=== PATIENT | male | born 1985 | race African-American/Black ===

== ENCOUNTER 2017-04-10 17:18 | Inpatient (IN) ==
[2017-04-10] MEDS ORDERED: methylPREDNISolone SOD SUC 125 MG/2 ML VIAL IV STA (17:49)
[2017-04-10] MEDS ORDERED: ALBUTEROL 2.5 MG/3 ML NEB RESP TX STA (17:49)
[2017-04-10] MEDS ORDERED: methylPREDNISolone SOD SUC 125 MG/2 ML VIAL ONE (17:52)
--- NOTE | 2017-04-10 17:56 | EKG Report ---
Stationary ECG Study [facility] ER Test Date: 04/10/2017 5:37:20 PM Pat Name: JESUSITA JIMENEZ Department: Room: Gender: M Classification Inspector: : [id number] Requested by: Gavin Lewis Order Number: [id number] Pardeep MD: HADLEY BERGMAN Intervals [place] Rate: 100 P: 69 TN: 157 QRS: 80 QRSD: 89 T: 25 QT: 330 QTc: 387 Interpretive Statements SINUS TACHYCARDIA LOW QRS VOLTAGE IN PRECORDIAL LEADS ABNORMAL RHYTHM ECG Electronically Signed On 04-11-17 05:29:39 CDT by HADLEY BERGMAN [email or web address]
[2017-04-10 18:08] LABS: Basophils % 0.3 % (0.0-0.8); Eosinophils # 0.1 10*3/uL (0.0-0.87); Eosinophils % 1.5 % (0.00-10.9); Hematocrit 39.4 VOL% (42.0-52.0); Hemoglobin 12.7 GM/DL (14.0-18.0); Immature Granulocytes % 0.3 %; Immature Granulocytes Absolute 0.02 #; Lymphocytes # 1.8 10*3/uL (1.4-4.0); Lymphocytes % 21.9 % (21.2-54.2); Mean Corpuscular HGB Conc 32.2 GM/DL (32-36); Mean Corpuscular Hemoglobin 27 PG (27-34); Mean Corpuscular Volume 82.3 FL (87-102); Mean Platelet Volume 11.1 FL (9.6-12.0); Monocytes # 0.5 10*3/uL (0.11-0.8); Monocytes % 6.5 % (1.7-12.7); Neutrophils # 5.6 10*3/uL (1.4-7.4); Neutrophils % 69.5 % (38.7-73.9); Platelet Count 175 T/CUMM (130-400); Red Blood Count 4.79 MC/CUMM (3.8-5.5); Red Cell Distribution Width 16.6 % (9.3-17.3)
--- NOTE | 2017-04-10 18:19 | XRay Report ---
XR chest 2V Indication: Shortness of breath. Comparison: Chest x-ray 04/29/2016 Technique: PA and lateral chest x-ray was performed. Findings: The heart size appears within normal limits. Pulmonary vasculature demonstrates no specific abnormality. Hilar structures demonstrate fairly symmetric appearance. The lungs appear clear. Beam attenuation is present within the lower chest secondary to soft tissues of the chest wall. Bones and soft tissues demonstrate no evidence of acute pathology. Impression: 1. No active cardiopulmonary disease. 04/10/2017 6:15 PM PROCEDURE INTERPRETED AT [facility] DEPARTMENT OF RADIOLOGY Final Report Signed by: Dr. Donte Gonzalez
--- NOTE | 2017-04-10 19:52 | Emergency Department Note ---
Jerald Lopez Manpreet, am scribing for, and in the presence of, Tom Michelle MD 17:51. Miguel Angel Lopez Doug C, MD, personally performed the services described in this documentation, ascribed by Nikko Marques in my presence, and it is both accurate and complete [id number] . Arrival - Arrival Chief Complaint: Shortness of Breath Stated Complaint: having hard time breathing ED Nursing Triage Note: PATIENT TO TRIAGE WITH C/O SHORTNESS OF BREATH. PATIENT STATES THAT HE HAS BEEN THIS WAY FOR 4 DAYS. PATIENT STATES HE HAS HAD SOME CHEST PAIN. HE STATES THAT CHEST PAIN IS WORSE WHEN HE BREATHS. PATIENT DOES HAVE SOME WHEEZING AT TIME OF TRIAGE. Mode of Arrival: Ambulatory Limitations: No Limitations Source: Patient - History of Present Illness HPI Narrative: Patient is 31-year-old black male presents emergency room complaining of increased shortness of breath and wheezing for the last 4 days. Patient states has not had any fever or chills associated with this. Patient states he has had a productive cough of some creamy colored sputum. Patient states is also having some pleuritic chest pain with this. He denies any associated nausea, vomiting or diaphoresis. Patient states the only thing he has for his asthma is an albuterol inhaler. Patient does have morbid obesity and tells me he has been using his BiPAP faithfully. He denies any swelling of his lower extremities. Onset (ago): day(s) (04/08/17) Consistency: constant Severity: moderate Severity scale (1-10): 4 Allergies/Adverse Reactions: Allergies Allergy/AdvReac Type Severity Reaction Status Date / Time Iodinated Contrast Media - Allergy HIVES Verified 04/10/17 17:24 Oral and [Iodinated Contrast Media - IV Dye] Home Medications: Home Medications Medication Instructions Recorded Confirmed Type Albuterol Inhaler [Proventil 2 puff INH Q4H PRN 05/13/15 04/10/17 History Inhaler] Review of System - Review of System 12 point system: reviewed and no additional remarkable complaints except as stated - Review of System Constitutional: Absent: chills, diaphoresis, fever Respiratory: Present: cough (Productive cough with solorio mucous ), respiratory distress, wheezing Cardiovascular: Present: chest pain (Radiating CP to back). Absent: dyspnea on exertion Gastrointestinal: Absent: abdominal pain, nausea, vomiting, diarrhea Musculoskeletal: Present: back pain. Absent: arm pain, leg pain, neck pain Neurological: Absent: headache, weakness Medical,Surgical,& Family Hx - Medical History Cardio: No history of: CHF, Hypertension Endocrine: No history of: Diabetes Mellitus (IDDM), Diabetes Mellitus (NIDDM) Rheumatology: History of;: Gout Respiratory: History of: Asthma, Obstructive Sleep Apnea Renal: No history of: Renal Failure, Renal Problems Gastrointestinal: History of: Bowel Obstruction (History of small bowel obstruction requiring surgical relief ) No history of: Gastrointestinal Bleed, Liver Problems, GI Problems Other: History of: Skin Problems (Abscesses of the posterior neck), Miscellaneous Medical Problems (Known ventral incisional hernia since 2014;pt did not keep follow up appts) - Surgical History Abdominal Surgeries: Surgical HX of: Abdominal Surgery (Repair of small bowel obstruction about 4 years ago), Hernia Repair (2012,2015) - Family History Family History: Reports;: Family Diabetes - Social History Smoking Status: Never smoker Frequency of Alcohol Use: None Type of Drug Use: None Exam Vital Signs: Vital Signs Temperature 98.3 F 04/10/17 17:43 Pulse Rate 101 H 04/10/17 18:50 Respiratory Rate 20 04/10/17 18:50 Blood Pressure 185/101 04/10/17 18:50 O2 Sat by Pulse Oximetry 100 04/10/17 18:50 - General General appearance: alert, in no apparent distress, obese - Head Head exam: Present: atraumatic, normocephalic, normal inspection - Eye Eye exam: Present: normal appearance, PERRL, EOMI - ENT ENT exam: Present: normal exam, normal oropharynx, mucous membranes moist, TM's normal bilaterally - Neck Neck exam: Present: normal inspection, full ROM, trachea midline. Absent: tenderness, thyromegaly - Chest Chest inspection: Present: normal inspection, symmetric chest wall rise. Absent : tenderness - Respiratory Respiratory exam: Present: wheezes (Bilat expiratory wheezes). Absent: normal lung sounds bilaterally, accessory muscle use, respiratory distress - Cardiovascular Cardiovascular exam: Present: regular rate, normal rhythm, normal heart sounds. Absent: murmur, rubs, gallop - Abdominal Exam Abdominal exam: Present: soft, normal bowel sounds. Absent: distention, tenderness, guarding, diminished bowel sounds - Extremities Exam Extremities exam: Present: normal inspection, full ROM. Absent: tenderness, calf tenderness - Back Exam Back exam: Present: normal inspection, full ROM. Absent: tenderness - Neurological Exam Neurological exam: Present: alert, oriented X3, CN II-XII intact, reflexes normal. Absent: motor sensory deficit - Psychiatric Psychiatric exam: Present: normal affect, normal mood - Skin Skin exam: Present: warm, dry, intact, normal color. Absent: pallor Course Course Narrative: Patient with continued expiratory wheeze after treatment rendered in the emergency room. It was felt patient had status asthmaticus and required hospitalization. I discussed his clinical presentation, radiographic findings and laboratory findings as well as his clinical response to treatment with Dr. Boris Alejandra. Patient will be evaluated by Dr. Rudy Briscoe for possible admission. Results - Labs CBC & BMP: 04/10/17 17:58 Lab Results: I have reviewed the patients labs Labs: Laboratory Tests 04/10/17 17:58 WBC 8.0 RBC 4.79 Hgb 12.7 L Hct 39.4 L MCV 82.3 L MCH 27 MCHC 32.2 RDW 16.6 Plt Count 175 MPV 11.1 Neut % (Auto) 69.5 Lymph % (Auto) 21.9 [place] % (Auto) 6.5 Eos % (Auto) 1.5 Baso % (Auto) 0.3 Neut # (Auto) 5.6 Lymph # (Auto) 1.8 [place] # (Auto) 0.5 Eos # (Auto) 0.1 Baso # (Auto) 0.0 Immature Gran % 0.3 Nucleated RBC % 0.0 Immature Gran # 0.02 Nucleated RBCs # 0.00 Immature Plt Fraction 0.0 Laboratory Tests 04/10/17 17:58 B-Natriuretic Peptide 22 - EKG EKG results: interpreted by ERMD, no acute changes EKG shows: tachycardia (Sinus tachycardia 100 bpm) - Diagnostic Findings Procedure: Chest x-ray: report reviewed by me (1. No active cardiopulmonary disease.) Disposition Clinical Impression: Status asthmaticus Case discussed with: patient, patient's family Disposition: Still a Patient Condition: Stable Time of Disposition: 19:52
[2017-04-10] MEDS ORDERED: ONDANSETRON 4 MG/2 ML VIAL IV PRN (19:59)
[2017-04-10] MEDS ORDERED: ACETAMINOPHEN 325 MG TABLET PO PRN (19:59)
[2017-04-10] MEDS: DOCUSATE SODIUM 100 MG CAPSULE PO SCH (22:25)
[2017-04-10] MEDS: ENOXAPARIN 40 MG/0.4 ML SYRINGE SUBCUT SCH (22:30)
[2017-04-10] MEDS: cefTRIAXone 1,000 MG in SODIUM CHLORIDE 0.9% 100 ML IV SCH (22:31)
[2017-04-10] MEDS: SODIUM CHLORIDE 0.45% 1,000 ML IV SCH (22:31)
[2017-04-10] MEDS: ALBUTEROL 2.5 MG/3 ML NEB RESP TX SCH (23:52)
[2017-04-11] MEDS: methylPREDNISolone SOD SUC 40 MG/1 ML VIAL IV SCH ×3 (02:06→20:13)
[2017-04-11] MEDS: ALBUTEROL 2.5 MG/3 ML NEB RESP TX SCH ×4 (03:12→15:35)
[2017-04-11] MEDS: AZITHROMYCIN 250 MG TABLET PO SCH (10:17)
[2017-04-11] MEDS: PANTOPRAZOLE 40 MG TABLET PO SCH (10:17)
[2017-04-11] MEDS: DOCUSATE SODIUM 100 MG CAPSULE PO SCH ×2 (10:18→22:16)
--- NOTE | 2017-04-11 15:43 | Internal Med History&Physical ---
Assessment and Plan (1) Asthma exacerbation Status: Acute Current Visit: Yes (2) Obstructive sleep apnea Status: Chronic Current Visit: Yes (3) Hypoventilation associated with obesity syndrome Status: Chronic Current Visit: Yes (4) Morbid obesity Status: Chronic Current Visit: Yes History of Present Illness Chief complaint: acute shortness of breath History of present illness: Mr. Clari Rodriguez is a 31 year old male with history of asthma, hypoventilation syndrome, morbid obesity, obstructive sleep apnea on BiPAP, ventral hernia with surgical repair, who presented to ER with exertional shortness of breath, wheezes and chest pain. He was admitted with asthma exacerbation. Have ordered ECHO. He will need his BiPAP at night while here in hospital. Ordering breathing treatments and antibiotic coverage. Had discussed necessary weight loss in clinic, and he joined the Weight Management program under Dr. Ignacio, but he gained back the 20-30 pounds that he lost. Will have brine supervisor here to see him for another weight loss plan that he may can follow at home. He is close to being bed bound with his extreme obesity. Will attempt to have him see psychiatrist outpatient for further evaluation of morbid obesity. Home Medications Medication Instructions Recorded Confirmed Type Albuterol Inhaler [Proventil 2 puff INH Q4H PRN 05/13/15 04/11/17 History Inhaler] Allergies Allergy/AdvReac Type Severity Reaction Status Date / Time Iodinated Contrast Media - Allergy HIVES Verified 04/11/17 04:05 Oral and [Iodinated Contrast Media - IV Dye] Medical,Surgical,& Family Hx - Medical History Cardio: History of: Hypertension No history of: CHF Endocrine: No history of: Diabetes Mellitus (IDDM), Diabetes Mellitus (NIDDM) Rheumatology: History of;: Gout Respiratory: History of: Asthma, Obstructive Sleep Apnea Renal: No history of: Renal Failure, Renal Problems Gastrointestinal: History of: Bowel Obstruction (History of small bowel obstruction requiring surgical relief ) No history of: Gastrointestinal Bleed, Liver Problems, GI Problems Other: History of: Skin Problems (Abscesses of the posterior neck), Miscellaneous Medical Problems (Known ventral incisional hernia since 2014; pt did not keep follow up appts) - Surgical History HEENT Surgeries: Surgical HX of: Tonsilectomy & Adenoidectomy Abdominal Surgeries: Surgical HX of: Abdominal Surgery (Repair of small bowel obstruction about 4 years ago and last year), Hernia Repair (2012, 2016) - Family History Family History: Reports;: Family Diabetes (mother), Family Hypertension (father) Denies;: Family Anesthesia Reaction, Family Cancer, Family Heart Disease, Family Hematology, Family Psychiatric Problems, Family Stroke - Social History Smoking Status: Never smoker Frequency of Alcohol Use: None Type of Drug Use: None Marital Status: Single Lives With:: Parent - Constitutional Constitutional: Present: fatigue, lethargy - Cardiovascular Cardiovascular: Present: chest pain with activity, dyspnea on exertion - Respiratory Respiratory: Present: cough, dyspnea on exertion, wheezing Exam - Constitutional Vitals: Period Temp Pulse Resp BP Sys/Mendez Pulse Ox Last 24 Hr 96.1 F-98.3 F 84-111 18-24 130-185/64-111 92-100 General appearance: no acute distress - Head Head exam: Present: normocephalic - Eye Eye exam: Present: EOMI - Respiratory Respiratory exam: Present: clear to auscultation bilaterally - Cardiovascular Cardiovascular exam: Present: regular rate and rhythm - GI/Abdominal GI/Abdominal exam: Present: normal bowel sounds, soft. Absent: tenderness - Extremities Exam Extremities exam: Absent: edema - Neurological Exam Neurological exam: Present: alert, oriented X3 - Psychiatric Psychiatric exam: Present: normal affect, normal mood - Skin Skin exam: Present: warm, dry Results - Labs CBC & BMP: 04/10/17 17:58 04/11/17 16:25 - EKG EKG shows: sinus rhythm - Diagnostic Findings Procedure: Chest x-ray: report reviewed by me, image reviewed by me
[2017-04-11] MEDS ORDERED: ALBUTEROL 2.5 MG/3 ML NEB RESP TX PRN (15:54)
[2017-04-11 17:21] LABS: Alanine Aminotransferase 41 U/L (16-61); Albumin 2.8 G/DL (3.4-5.0); Alkaline Phosphatase 111 U/L (45-117); Aspartate Amino Transferase 20 U/L (0-37); Blood Urea Nitrogen 12 MG/DL (7-18); Calcium 8.8 MG/DL (8.5-10.1); Glucose 143 MG/DL (74-106); Magnesium 2.5 MG/DL (1.8-2.4); Osmolality,Calculated 282.3 MOS/KG (273-304); Potassium 4.4 MMOL/L (3.5-5.1); Sodium 141 MMOL/L (136-145); Total Protein 7.4 G/DL (6.4-8.3)
[2017-04-11 17:22] LABS: Troponin I Only 0.057 NG/ML (0.00-0.045)
[2017-04-11] MEDS: ALBUTEROL/IPRATROPIUM 3 ML NEB RESP TX SCH ×2 (18:58→23:56)
[2017-04-11] MEDS: cefTRIAXone 1,000 MG in SODIUM CHLORIDE 0.9% 100 ML IV SCH (22:16)
[2017-04-11] MEDS: ENOXAPARIN 40 MG/0.4 ML SYRINGE SUBCUT SCH (22:19)
[2017-04-12] MEDS: SODIUM CHLORIDE 0.45% 1,000 ML IV SCH ×3 (01:40→14:54)
[2017-04-12] MEDS: methylPREDNISolone SOD SUC 40 MG/1 ML VIAL IV SCH ×3 (01:40→19:20)
[2017-04-12] MEDS: ALBUTEROL/IPRATROPIUM 3 ML NEB RESP TX SCH ×3 (07:27→19:33)
[2017-04-12] MEDS: AZITHROMYCIN 250 MG TABLET PO SCH (09:39)
[2017-04-12] MEDS: DOCUSATE SODIUM 100 MG CAPSULE PO SCH ×2 (09:40→21:35)
[2017-04-12] MEDS: PANTOPRAZOLE 40 MG TABLET PO SCH (09:40)
--- NOTE | 2017-04-12 19:54 | Internal Med Progress Note ---
Assessment and Plan (1) Asthma exacerbation Status: Acute Current Visit: Yes (2) Obstructive sleep apnea Status: Chronic Current Visit: Yes (3) Hypoventilation associated with obesity syndrome Status: Chronic Current Visit: Yes (4) Morbid obesity Status: Chronic Current Visit: Yes Internal Medicine - PN: Subj Interval history: Mr. Clari Rodriguez is a 31 year old male with history of asthma, hypoventilation syndrome, morbid obesity, obstructive sleep apnea on BiPAP, ventral hernia with surgical repair, who presented to ER with exertional shortness of breath, wheezes and chest pain. He was admitted with asthma exacerbation. Have ordered ECHO. He will need his BiPAP at night while here in hospital. Ordering breathing treatments and antibiotic coverage. Had discussed necessary weight loss in clinic, and he joined the Weight Management program under Dr. Ignacio, but he gained back the 20-30 pounds that he lost. Will have bottom polisher here to see him for another weight loss plan that he may can follow at home. He is close to being bed bound with his extreme obesity. Will attempt to have him see psychiatrist outpatient for further evaluation of morbid obesity. Rake Operator saw him today about weight loss. Otherwise, he is feeling better with breathing treatments, and would like to go home tomorrow. Exam (Progress Note) - Constitutional Vitals: Period Temp Pulse Resp BP Sys/Mendez Pulse Ox Last 24 Hr 97.3 F-97.8 F 63-92 18-24 118-150/59-87 92-99 General appearance: no acute distress - Respiratory Respiratory exam: Present: wheezes (mild, scattered wheezes in upper left chest) - Cardiovascular Cardiovascular exam: Present: regular rate and rhythm - GI/Abdominal GI/Abdominal exam: Present: soft. Absent: tenderness - Extremities Exam Extremities exam: Absent: edema - Neurological Exam Neurological exam: Present: alert, oriented X3 - Psychiatric Psychiatric exam: Present: normal mood Results - Labs CBC & BMP: 04/10/17 17:58 04/11/17 16:25
--- NOTE | 2017-04-12 20:42 | ECHO Report ---
[facility] Exam Date: 04/12/2017 10:19 Referring Physician: Technologist: Tiffanie Wise RDCS Age: 31 Ht (in): 70 Wt (lb): 500 Gender: M Exam Location: [facility] [place] Echo Indications: Shortness of breath, Exertional SOB, Exertional asthma, ABBEY, Morbid (severe) obesity with alveolar hypoventilation BP: 124 / 63 HR: 68 Rhythm: Sinus Technical Quality: Fair IMPRESSIONS Normal LV systolic and diastolic function, ejection fraction 60%. Mild left ventricular hypertrophy. Mild tricuspid regurgitation. Moderate pulmonary hypertension with pulmonary artery pressure estimated at 61 mmHg. MEASUREMENTS (Male / Female) Normal Values 2D ECHO LV Diastolic Diameter PLAX 5.0 cm 4.2 - 5.9 / 3.9 - 5.3 cm LV Systolic Diameter PLAX 2.7 cm LV Fractional Shortening PLAX 45.9 % IVS Diastolic Thickness 1.2 cm 0.6 - 1.0 / 0.6 - 0.9 cm LVPW Diastolic Thickness 1.2 cm 0.6 - 1.0 / 0.6 - 0.9 cm RV Internal Dim ED PLAX 4.0 cm Aortic Root Diameter 2.7 cm LA Systolic Diameter LX 3.7 cm 3.0 - 4.0 / 2.7 - 3.8 cm DOPPLER TR Peak Velocity 358.0 cm/s TR Peak Gradient 51.3 mmHg FINDINGS Left Ventricle Normal left ventricular cavity size. Mild left ventricular hypertrophy. Left ventricular ejection fraction is estimated at 60 %. Right Ventricle The right ventricle is normal in size and function. Right Atrium The right atrium is normal in size. Left Atrium The left atrium is normal in size. Mitral Valve Morphologically normal mitral valve without significant stenosis or prolapse. There is no mitral regurgitation. Aortic Valve Morphologically normal aortic valve without significant sclerosis or stenosis. There is no aortic regurgitation. Tricuspid Valve Morphologically normal tricuspid valve. Mild tricuspid valve regurgitation. Tricuspid regurgitation velocities suggest a PAP of 61 mmHg. Pulmonic Valve Morphologically normal pulmonic valve without significant stenosis. There is no pulmonic regurgitation. Pericardium Normal pericardium without effusion. Aorta Normal ascending aorta dimension. Sherry Mcdonald MD (Electronically Signed) Final Date: 12 April 2017 20:41
[2017-04-12] MEDS: ENOXAPARIN 40 MG/0.4 ML SYRINGE SUBCUT SCH (21:34)
[2017-04-12] MEDS: cefTRIAXone 1,000 MG in SODIUM CHLORIDE 0.9% 100 ML IV SCH (21:35)
[2017-04-13] MEDS: ALBUTEROL/IPRATROPIUM 3 ML NEB RESP TX SCH ×3 (00:20→14:40)
[2017-04-13] MEDS: methylPREDNISolone SOD SUC 40 MG/1 ML VIAL IV SCH ×2 (02:29→10:57)
[2017-04-13] MEDS: SODIUM CHLORIDE 0.45% 1,000 ML IV SCH (05:16)
--- NOTE | 2017-04-13 07:22 | Discharge Summary ---
Hospital Course - Hospital Course Hospital Course: Mr. Clari Rodriguez is a 31 year old male with history of asthma, hypoventilation syndrome, morbid obesity, obstructive sleep apnea on BiPAP, ventral hernia with surgical repair, who presented to ER with exertional shortness of breath, wheezes and chest pain. He was admitted with asthma exacerbation. Have ordered ECHO and results pending. He used BiPAP at night while here in hospital. He received breathing treatments and antibiotic coverage. Had discussed necessary weight loss in clinic. Will have project crew worker here to see him for another weight loss plan that he may can follow at home. He is close to being bed bound with his extreme obesity. Will attempt to have him see psychiatrist outpatient for further evaluation of morbid obesity. He is feeling better and will be discharged today to go home. He will need inhalers at home. Diagnosis - Discharge Diagnosis (1) Asthma exacerbation Status: Acute (2) Obstructive sleep apnea Status: Chronic (3) Hypoventilation associated with obesity syndrome Status: Chronic (4) Morbid obesity Status: Chronic Discharge Plan - Discharge Data Disposition: Disch To Home/Self Care Condition at Discharge: Stable Discharge Diet: low fat, low cholesterol, other (weight loss plan 1800 calorie daily diet) Activity: increase activity as tolerated - Discharge Medications New Azithromycin 250 mg PO AC BREAKFAST #7 tablet Docusate Sodium Cap [Colace Cap] 100 mg PO BID capsule Fluticasone/Vilanterol [Breo Ellipta 200-25 Mcg INH] 1 puff INH DAILY #1 inhaler Continue Albuterol Inhaler [Proventil Inhaler] 2 puff INH Q4H PRN PRN Reason: Shortness Of Breath/Wheezing - Follow Up or Referral Follow Up: Kayla Latif DO [Primary Care Provider] - - Forms/Instructions Additional Discharge Instructions: Follow up with Dr. Savana Latif in clinic within 1-2 weeks. He is to follow weight loss plan as recommended by project crew worker. Exam - Constitutional Vitals: Period Temp Pulse Resp BP Sys/Mendez Pulse Ox Last 24 Hr 97.5 F-98 F 62-89 18-24 134-150/59-87 92-99 General appearance: no acute distress - Respiratory Respiratory exam: Present: wheezes (scattered diffuse anterior wheezes, left more so than right, improving) - Cardiovascular Cardiovascular exam: Present: regular rate and rhythm - GI/Abdominal GI/Abdominal exam: Present: soft. Absent: tenderness - Extremities Exam Extremities exam: Absent: edema - Neurological Exam Neurological exam: Present: alert, oriented X3 - Psychiatric Psychiatric exam: Present: normal mood - Skin Skin exam: Present: warm, dry Discharge Results - Imaging and Cardiology Procedure: Chest x-ray: image reviewed by me, report reviewed by me DS: Provider Date of admission: 04/10/17 19:59 Primary care physician: Kayla Latif DO Attending physician on admission: Kayla Latif DO Consults: 04/10/17 19:59 Consult to Case Mgmt/Social Srvs [CONS] Routine Reason for Case Mgmt/Social Srvs: Discharge Planning 04/10/17 21:31 Consult to Pastoral Services [CONS] Routine Comment: Pastoral Screen: Request Counselor At Law Visit Pastoral Screen Source of Request: Patient 04/11/17 16:27 Consult to Dietitian [CONS] Routine Reason for Dietitian: Diet Recommendations Consult Comment: PT NEEDS A DIET FOR HOME WITH STRICT REGULATIONS, 1800 [address]ORIE 04/12/17 05:53 Consult to Dietitian [CONS] Routine Reason for Dietitian: Diet Recommendations Consult Comment: weight loss plan [id number] Discharging clinician: Kayla Latif DO Expected date of discharge: 04/13/17
[2017-04-13] MEDS: AZITHROMYCIN 250 MG TABLET PO SCH (10:55)
[2017-04-13] MEDS: DOCUSATE SODIUM 100 MG CAPSULE PO SCH (10:56)
[2017-04-13] MEDS: PANTOPRAZOLE 40 MG TABLET PO SCH (10:56)
[2017-04-13 11:46] VITALS: BP 123/60
== END 2017-04-13 14:55 | disposition home or self-care (01) | DRG 202 ==
LOC: N.ED 17:18 → N.EDINP 19:59 → N.2E 20:56
PROVIDERS: ADMIT Internal Medicine; ATTEND Internal Medicine

== ENCOUNTER 2017-05-22 11:37 | Inpatient (IN) ==
[2017-05-22] MEDS ORDERED: SODIUM CHLORIDE 0.9% 1,000 ML IV STA (13:52)
[2017-05-22] MEDS ORDERED: KETOROLAC 30 MG/1 ML VIAL IV STA (13:52)
[2017-05-22] MEDS ORDERED: ONDANSETRON 4 MG/2 ML VIAL IV STA (13:52)
--- NOTE | 2017-05-22 13:57 | Emergency Department Note ---
Luis Lopez Brittany, am scribing for, and in the presence of, Vazquez Brown MD 13:43. Kevin Lopez Thomas, MD, personally performed the services described in this documentation, ascribed by Vicky Smith in my presence, and it is both accurate and complete [id number] . Arrival - Arrival Chief Complaint: Abdominal / Flank Pain Stated Complaint: stomach pain (mesh) ED Nursing Triage Note: HX OF SBO, PT WITH ONSET OF ABD PAIN 2 DAYS AGO, LAST BM THIS AM, -N/V Mode of Arrival: Ambulatory Limitations: No Limitations Source: Patient, RN Notes Reviewed - History of Present Illness HPI Narrative: Patient is a 32 y/o black male presenting to the ED with c/o diffuse abdominal pain which has been ongoing for the past two weeks, worsening in severity and becoming more constant in the past two days. Pain is worsened with walking and bending over. Patient describes the pain as sharp, beginning in the RUQ, radiating into the entire abdomen and back. He has had some fever and chills. Denies any edema, chest pain SOB, urinary frequency, urgency, or dysuria. Patient did begin having some N/V today and reports having some diarrhea constantly for 4 weeks. Patient reports a history of Small Ventral Hernia, SBO and eruption of the bowel, requiring surgical intervention and mesh placement. Patient has had 2 episodes in the past, 2012/2014. Denies history of Gastric Ulcers, Cholecystectomy, or Appendectomy. Patient has no other complaints. Onset (ago): day(s) (2) Consistency: constant Severity: severe Allergies/Adverse Reactions: Allergies Allergy/AdvReac Type Severity Reaction Status Date / Time Iodinated Contrast Media - Allergy HIVES Verified 05/22/17 12:17 Oral and [Iodinated Contrast Media - IV Dye] Home Medications: Home Medications Medication Instructions Recorded Confirmed Type Albuterol Inhaler [Proventil 2 puff INH Q4H PRN 05/13/15 04/11/17 History Inhaler] Azithromycin 250 mg PO AC BREAKFAST #7 tablet 04/13/17 Rx Docusate Sodium Cap [Colace Cap] 100 mg PO BID capsule 04/13/17 Rx Fluticasone/Vilanterol [Breo 1 puff INH DAILY #1 inhaler 04/13/17 Rx Ellipta 200-25 Mcg INH] Albuterol Inhaler [Proventil 2 puff INH Q4H PRN #1 inhaler 05/11/17 Rx Inhaler] amLODIPine [Norvasc] 10 mg PO DAILY #60 tablet 05/11/17 Rx predniSONE TAB [PredniSONE] 20 mg PO BID #20 tablet 05/11/17 Rx Review of System - Review of System 12 point system: reviewed and no additional remarkable complaints except as stated - Review of System Constitutional: Present: chills, fever Respiratory: Absent: respiratory distress Cardiovascular: Absent: chest pain Gastrointestinal: Present: abdominal pain, nausea, vomiting, diarrhea Genitourinary male: Absent: urgency, dysuria, frequency Medical,Surgical,& Family Hx - Medical History Cardio: History of: Hypertension No history of: CHF Endocrine: No history of: Diabetes Mellitus (IDDM), Diabetes Mellitus (NIDDM) Rheumatology: History of;: Gout Respiratory: History of: Asthma, Obstructive Sleep Apnea Renal: No history of: Renal Failure, Renal Problems Gastrointestinal: History of: Bowel Obstruction (History of small bowel obstruction requiring surgical relief ) No history of: Gastrointestinal Bleed, Liver Problems, GI Problems Other: History of: Skin Problems (Abscesses of the posterior neck), Miscellaneous Medical Problems (Known ventral incisional hernia since 2014; pt did not keep follow up appts) - Surgical History HEENT Surgeries: Surgical HX of: Tonsilectomy & Adenoidectomy Abdominal Surgeries: Surgical HX of: Abdominal Surgery (Repair of small bowel obstruction about 4 years ago and last year), Hernia Repair (2012, 2015) - Family History Family History: Reports;: Family Diabetes (mother), Family Hypertension (father) Denies;: Family Anesthesia Reaction, Family Cancer, Family Heart Disease, Family Psychiatric Problems, Family Stroke - Social History Smoking Status: Never smoker Exam Vital Signs: Vital Signs Temperature 98.3 F 05/22/17 12:11 Pulse Rate 101 H 05/22/17 16:30 Respiratory Rate 20 05/22/17 16:30 Blood Pressure 146/98 05/22/17 16:30 O2 Sat by Pulse Oximetry 96 05/22/17 16:30 - General General appearance: alert, in no apparent distress - Head Head exam: Present: atraumatic, normocephalic - Eye Eye exam: Present: EOMI. Absent: conjunctival injection, periorbital swelling, periorbital tenderness - ENT ENT exam: Present: mucous membranes moist - Neck Neck exam: Present: trachea midline - Chest Chest inspection: Present: symmetric chest wall rise - Respiratory Respiratory exam: Present: normal lung sounds bilaterally. Absent: respiratory distress - Cardiovascular Cardiovascular exam: Present: regular rate, normal rhythm, normal heart sounds - Abdominal Exam Abdominal exam: Present: soft, tenderness (Diffuse tenderness, more severe in the RUQ), guarding (Mild), hernia (Periumbilical defect consistent with small ventral hernia). Absent: distention, rebound - Extremities Exam Extremities exam: Present: normal capillary refill. Absent: pedal edema, calf tenderness - Neurological Exam Neurological exam: Present: alert, oriented X3. Absent: motor sensory deficit - Psychiatric Psychiatric exam: Present: normal affect, normal mood - Skin Skin exam: Present: warm, dry, normal color. Absent: rash Course - Reevaluation(s) Reevaluation #1: some better with pain meds Time: 16:30 - Consultations Consultation #1: Dr Pinto, will see in ED Time: 17:21 Results - Labs CBC & BMP: 05/22/17 13:22 05/22/17 13:22 Lab Results: I have reviewed the patients labs Labs: Laboratory Tests 05/22/17 13:22 WBC 8.8 RBC 5.60 H Hgb 14.6 Hct 46.6 MCV 83.2 L MCH 26 L MCHC 31.3 L RDW 17.8 H Plt Count 191 Lymph % (Auto) 18.2 L [place] # (Auto) 0.9 H Laboratory Tests 05/22/17 05/22/17 13:22 13:22 Sodium 137 Potassium 4.0 Chloride 100 Carbon Dioxide 32 BUN 14 Creatinine 0.90 Glucose 97 AST 69 H ALT 93 H Alkaline Phosphatase 133 H Total Protein 8.9 H Globulin 5.4 H Albumin/Globulin Ratio 0.6 L Urine Color Yellow Urine Appearance Slightly hazy Urine pH 5.0 Ur Specific [place] 1.025 Urine Protein Negative Urine Glucose (UA) Negative Urine Ketones Negative Urine Blood Negative Urine Nitrate Negative Urine Bilirubin Negative Urine Urobilinogen 4.0 H Urine Leukocytes Negative Urine RBC 1 Urine WBC 2 Ur Squamous Epith Cells Occasional Hyaline Casts 1 Urine Mucus Occasional - Diagnostic Findings Procedure: CT Abdomen and Pelvis: report reviewed by me ( Periumbilical hernia with incarcerated loop of small bowel and resulting high-grade partial small bowel obstruction.) Disposition Clinical Impression: Small bowel obstruction, Incarcerated umbilical hernia Case discussed with: patient, patient's family Disposition: Still a Patient Time of Disposition: 17:22 (Surgery to see and dispo)
[2017-05-22 13:59] LABS: Basophils % 0.1 % (0.0-0.8); Eosinophils # 0.1 10*3/uL (0.0-0.87); Eosinophils % 0.6 % (0.00-10.9); Hematocrit 46.6 VOL% (42.0-52.0); Hemoglobin 14.6 GM/DL (14.0-18.0); Immature Granulocytes % 0.2 %; Immature Granulocytes Absolute 0.02 #; Lymphocytes # 1.6 10*3/uL (1.4-4.0); Lymphocytes % 18.2 % (21.2-54.2); Mean Corpuscular HGB Conc 31.3 GM/DL (32-36); Mean Corpuscular Hemoglobin 26 PG (27-34); Mean Corpuscular Volume 83.2 FL (87-102); Mean Platelet Volume 11.7 FL (9.6-12.0); Monocytes # 0.9 10*3/uL (0.11-0.8); Monocytes % 9.7 % (1.7-12.7); Neutrophils # 6.3 10*3/uL (1.4-7.4); Neutrophils % 71.2 % (38.7-73.9); Platelet Count 191 T/CUMM (130-400); Red Cell Distribution Width 17.8 % (9.3-17.3); White Blood Count 8.8 T/CUMM (4-12)
[2017-05-22 14:13] LABS: Apearance,Urine Slightly Hazy (Clear); Bilirubin,Urine Negative (Negative); Blood, Urine Negative (Negative); Glucose,Urine (UA) Negative (Negative); Hyaline Casts,Urine 1 /LPF (0-3); Ketones,Urine Negative (Negative); Mucus,Urine Occasional /LPF (Occasional); Nitrite,Urine Negative (Negative); Protein,Urine Negative; RBC,Urine 1 /HPF (0-4); Squamous Epithelial Cell,Urine Occasional /HPF (0-10); Urine Color Yellow (Yellow); Urine Specific Gravity 1.025 (1.001-1.035); WBC,Urine 2 /HPF (0-6)
[2017-05-22] MEDS ORDERED: ONDANSETRON 4 MG/2 ML VIAL ONE (14:13)
[2017-05-22] MEDS ORDERED: KETOROLAC 30 MG/1 ML VIAL ONE (14:13)
[2017-05-22 14:15] LABS: Albumin 3.5 G/DL (3.4-5.0); Bilirubin,Total 0.5 MG/DL (0.2-1.0); Calcium 9.6 MG/DL (8.5-10.1); Osmolality,Calculated 273.8 MOS/KG (273-304); Total Protein 8.9 G/DL (6.4-8.3)
[2017-05-22] MEDS ORDERED: HYDROmorphone 2 MG/1 ML VIAL ONE ×2 (15:16→17:29)
[2017-05-22] MEDS: HYDROmorphone 2 MG/1 ML VIAL IV PRN ×2 (15:17→17:30)
--- NOTE | 2017-05-22 16:18 | CT Report ---
History: Diffuse abdominal pain Date: 05/22/2017 Study: CT abdomen and pelvis without contrast Comparison exam: October 04, 2016 Technique: Spiral CT sections were obtained from the lung bases to the pubic symphysis without contrast CT abdomen: The partially visualized lung bases are grossly clear. There is no pleural or pericardial effusion. There is disproportionate small bowel dilatation compatible with high-grade partial small bowel obstruction. There is incarcerated small bowel within a periumbilical hernia which is presumably the source of obstruction. There is no evidence of pneumoperitoneum. The colon is normal in caliber. The liver, spleen, pancreas, bile ducts, gallbladder, adrenal glands, and kidneys are grossly unremarkable in noncontrast CT appearance. There is no radiopaque renal or ureteral stone. There is no hydronephrosis. There is no aneurysm of the aorta where seen. There is no significant free fluid within the upper abdomen. CT pelvis: There is no pelvic mass or no significant abnormal pelvic fluid. There is no significant bony finding Impression: Periumbilical hernia with incarcerated loop of small bowel and resulting high-grade partial small bowel obstruction The CT exam was performed using one or more of the following dose reduction techniques: Automated exposure control, adjustment of the mA and/or kV according to patient size, or use of iterative reconstruction technique. PROCEDURE INTERPRETED AT [facility] DEPARTMENT OF RADIOLOGY Final Report Signed by: Dr. Sandhya Lala
--- NOTE | 2017-05-22 18:18 | General Surg History&Physical ---
Assessment and Plan - Time spent with patient Time spent with patient: Greater than 30 minutes (1) Incarcerated umbilical hernia Status: Acute Assessment and plan: Patient clearly had an incarcerated incisional hernia which is recurrent. I laid the patient flat and was able to reduce the hernia at the level of the umbilicus. Clearly feel the small bowel reduced back in the abdominal cavity. Patient states that he feels better. He will need repair of this. We discussed repair of this tomorrow. I would like to involve his medical doctors and he regularly sees Dr. Latif. He is also seeing Dr. Quiñonez from a pulmonary standpoint. He has had previous surgery and is a regular patient of Dr. Martin. Patient would like to see Dr. Siddiqui if possible but if he is not available tomorrow I told him that I would be happy to repair his hernia. They understand that this will be once again a high risk procedure because of the severe morbid obesity. I explained the high chance of recurrence and the risk of mesh complications or chronic pain or bowel injury and wound problems as well as cardiovascular and pulmonary problems perioperatively. He understands these risks and wishes to proceed Current Visit: Yes (2) Small bowel obstruction Status: Acute Assessment and plan: Small bowel obstruction should be relieved since I reduce the hernia. He has a normal white blood cell count and no evidence of acidosis or bowel compromise. Current Visit: Yes History of Present Illness Chief complaint: Abdominal pain History of present illness: Mr. Clari Rodriguez is a 32 year old male Who for 3-4 days has had mid abdominal pain just above his umbilicus. This was accompanied by nausea and vomiting. His pain is been moderate in severity and does not radiate. He has had a previous ventral hernia repair in this location by Dr. Siddiqui about a year ago using Stratus mesh. He was doing well until a few days ago. His pain is actually subsided somewhat. He had an abdominal CT scan showing a recurrence of his hernia at the level of the umbilicus with a loop of small bowel. Home Medications Medication Instructions Recorded Confirmed Type Albuterol Inhaler [Proventil 2 puff INH Q4H PRN 05/13/15 04/11/17 History Inhaler] Azithromycin 250 mg PO AC BREAKFAST #7 tablet 04/13/17 Rx Docusate Sodium Cap [Colace Cap] 100 mg PO BID capsule 08/02/17 Rx Fluticasone/Vilanterol [Breo 1 puff INH DAILY #1 inhaler 04/13/17 Rx Ellipta 200-25 Mcg INH] Albuterol Inhaler [Proventil 2 puff INH Q4H PRN #1 inhaler 05/11/17 Rx Inhaler] amLODIPine [Norvasc] 10 mg PO DAILY #60 tablet 05/11/17 Rx predniSONE TAB [PredniSONE] 20 mg PO BID #20 tablet 05/11/17 Rx Allergies Allergy/AdvReac Type Severity Reaction Status Date / Time Iodinated Contrast Media - Allergy HIVES Verified 05/22/17 12:17 Oral and [Iodinated Contrast Media - IV Dye] Medical,Surgical,& Family Hx - Medical History Cardio: History of: Hypertension No history of: CHF Endocrine: No history of: Diabetes Mellitus (IDDM), Diabetes Mellitus (NIDDM) Rheumatology: History of;: Gout Respiratory: History of: Asthma, Obstructive Sleep Apnea Renal: No history of: Renal Failure, Renal Problems Gastrointestinal: History of: Bowel Obstruction (History of small bowel obstruction requiring surgical relief ) No history of: Gastrointestinal Bleed, Liver Problems, GI Problems Other: History of: Skin Problems (Abscesses of the posterior neck), Miscellaneous Medical Problems (Known ventral incisional hernia since 2014; pt did not keep follow up appts) - Surgical History HEENT Surgeries: Surgical HX of: Tonsilectomy & Adenoidectomy Abdominal Surgeries: Surgical HX of: Abdominal Surgery (Repair of small bowel obstruction about 4 years ago and last year), Hernia Repair (2012, 2015) - Family History Family History: Reports;: Family Diabetes (mother), Family Hypertension (father) Denies;: Family Anesthesia Reaction, Family Cancer, Family Heart Disease, Family Psychiatric Problems, Family Stroke - Social History Smoking Status: Never smoker Exam - Constitutional Vitals: Period Temp Pulse Resp BP Sys/Mendez Pulse Ox Last 24 Hr 98.3 F-98.3 F 96-111 16-22 135-164/86-121 94-100 General appearance: no acute distress, morbidly obese - Head Head exam: Present: normocephalic - Eye Eye exam: Absent: scleral icterus - ENT Mouth exam: Present: normal voice - Neck Neck exam: Present: trachea midline - Respiratory Respiratory exam: Present: clear to auscultation bilaterally. Absent: accessory muscle use - Cardiovascular Cardiovascular exam: Present: RRR - GI/Abdominal GI/Abdominal exam: Present: normal bowel sounds, hernia, mass, tenderness, soft. Absent: distended, guarding, rebound - Extremities Exam Extremities exam: Absent: edema - Neurological Exam Neurological exam: Present: alert, oriented X3. Absent: motor sensory deficit Speech: Present: normal - Skin Skin exam: Present: normal color - Constitutional Constitutional: Absent: anorexia, chills, fever(s), weight loss - Cardiovascular Cardiovascular: Absent: chest pain at rest, chest pain with activity, dyspnea, dyspnea on exertion, syncope - Respiratory Respiratory: Absent: dyspnea, dyspnea on exertion, wheezing - Gastrointestinal Gastrointestinal: Present: abdominal pain, bloating, cramping, nausea, vomiting. Absent: hematemesis, hematochezia, jaundice - Genitourinary Genitourinary: Absent: hematuria - Musculoskeletal Musculoskeletal: Present: back pain - Neurological Neurological: Absent: focal weakness, syncope - Endocrine Endocrine: Absent: polyuria Hematologic/Lymphatic: Absent: easy bleeding, easy bruising Results - Labs CBC & BMP: 05/22/17 13:22 05/22/17 13:22 Lab Results: I have reviewed the past 24 hour labs - Diagnostic Findings Procedure: CT Abdomen and Pelvis: image reviewed by me, report reviewed by me
[2017-05-22] MEDS ORDERED: ACETAMINOPHEN 325 MG TABLET PO PRN (18:21)
[2017-05-22] MEDS: ALBUTEROL/IPRATROPIUM 3 ML NEB RESP TX PRN (21:44)
[2017-05-22] MEDS: ONDANSETRON 4 MG/2 ML VIAL IV PRN (22:01)
[2017-05-22] MEDS: DEXTROSE 5% NACL 0.45% 1,000 ML IV SCH (22:10)
[2017-05-23] MEDS: HYDROmorphone 2 MG/1 ML VIAL IV PRN ×4 (02:25→20:34)
[2017-05-23] MEDS: DEXTROSE 5% NACL 0.45% 1,000 ML IV SCH ×5 (04:09→22:33)
[2017-05-23] MEDS: ALBUTEROL/IPRATROPIUM 3 ML NEB RESP TX PRN (06:15)
--- NOTE | 2017-05-23 07:32 | General Surgery Progress Note ---
Assessment and Plan (1) Incarcerated umbilical hernia Status: Acute Assessment and plan: Patient clearly had an incarcerated incisional hernia which is recurrent. I laid the patient flat and was able to reduce the hernia at the level of the umbilicus. Clearly feel the small bowel reduced back in the abdominal cavity. Patient states that he feels better. He will need repair of this. We discussed repair of this tomorrow. I would like to involve his medical doctors and he regularly sees Dr. Latif. He is also seeing Dr. Quiñonez from a pulmonary standpoint. He has had previous surgery and is a regular patient of Dr. Martin. Patient would like to see Dr. Siddiqui if possible but if he is not available tomorrow I told him that I would be happy to repair his hernia. They understand that this will be once again a high risk procedure because of the severe morbid obesity. I explained the high chance of recurrence and the risk of mesh complications or chronic pain or bowel injury and wound problems as well as cardiovascular and pulmonary problems perioperatively. He understands these risks and wishes to proceed 05/23: He feels much better. He denies abdominal pain this morning. I reduced his hernia in the emergency department last night. The patient and his family are requesting Dr. Barros for his surgery if possible. I did discuss this with Dr. Hanson. Also discussed this case with Dr. Quiñonez who regularly sees him for his pulmonary issues. We will hold off surgery today. If Dr. Barros can take over his care I will transfer him to his service. If Dr. Barros is unable to assume his care and he needs to have surgery urgently then I am happy to do it. Current Visit: Yes (2) Small bowel obstruction Status: Acute Assessment and plan: Small bowel obstruction should be relieved since I reduce the hernia. He has a normal white blood cell count and no evidence of acidosis or bowel compromise. Current Visit: Yes Subjective Patient reports: Present: feels better, pain is less. Absent: nausea, vomiting , shortness of breath Exam - Constitutional Vitals: Period Temp Pulse Resp BP Sys/Mendez Pulse Ox Last 24 Hr 96.7 F-98.3 F 96-111 16-22 135-164/85-121 90-100 General appearance: no acute distress, morbidly obese - Respiratory Respiratory exam: Absent: accessory muscle use - GI/Abdominal GI/Abdominal exam: Present: soft. Absent: distended, tenderness, rebound Results - Labs CBC & BMP: 05/22/17 13:22 05/22/17 13:22
--- NOTE | 2017-05-23 08:50 | General Surgery Consult Note ---
Assessment and Plan - Time spent with patient Time spent with patient: Greater than 30 minutes (1) Incisional hernia with bowel obstruction Status: Acute Assessment and plan: Impression: Recurrent ventral incisional hernia abdominal wall Plan: Exploration with possible mesh repair Current Visit: No (2) Morbid obesity Status: Chronic Assessment and plan: Impression: Morbid obesity Plan: Patient needs to lose his weight although I am not sure he has made much of an effort has not improved truly lost much weight. Current Visit: No (3) Status post repair of ventral hernia Status: Acute Assessment and plan: Impression: Status post previous ventral incisional hernia repair with Stratus mesh approximately a year ago Current Visit: No (4) Obstructive sleep apnea Status: Chronic Assessment and plan: Impression: Sleep apnea with chronic obstructive pulmonary disease Plan: Consulting Dr. Quiñonez Current Visit: No History of Present Illness Chief complaint: Recurrent ventral hernia with small bowel obstruction. History of present illness: Mr. Clari Rodriguez is a 32 year old male obese male who has had about a year ago a Stratus mesh hernia repair on the ventral incisional hernia. Unfortunately he comes back in last night with a incarcerated hernia in the area of the ventral incisional hernia. Was seen on CT and apparently reduced per Dr. Pinto. I will resume care to him and discussed this with the patient will look at taken to surgery tomorrow for possible to repair this hernia and see if we can get this under control. Cannot really tell in relation to the mesh where the hernia is at. There is a mass and fullness at the lower third of the abdominal incision which is towards the midline which is a little bit of confusion in my part because that felt like the mesh would stretch beyond that area. We will plan his surgery tomorrow see what we go from here. Home Medications Medication Instructions Recorded Confirmed Type Fluticasone/Vilanterol [Breo 1 puff INH DAILY #1 inhaler 04/13/17 05/23/17 Rx Ellipta 200-25 Mcg INH] Albuterol Inhaler [Proventil 2 puff INH Q4H PRN #1 inhaler 05/11/17 05/23/17 Rx Inhaler] amLODIPine [Norvasc] 10 mg PO DAILY #60 tablet 05/11/17 05/23/17 Rx Allergies Allergy/AdvReac Type Severity Reaction Status Date / Time Iodinated Contrast Media - Allergy HIVES Verified 05/22/17 12:17 Oral and [Iodinated Contrast Media - IV Dye] Medical,Surgical,& Family Hx - Medical History Cardio: History of: Hypertension No history of: CHF Endocrine: No history of: Diabetes Mellitus (IDDM), Diabetes Mellitus (NIDDM) Rheumatology: History of;: Gout Respiratory: History of: Asthma, Obstructive Sleep Apnea Renal: No history of: Renal Failure, Renal Problems Gastrointestinal: History of: Bowel Obstruction (History of small bowel obstruction requiring surgical relief ) No history of: Gastrointestinal Bleed, Liver Problems, GI Problems Other: History of: Skin Problems (Abscesses of the posterior neck), Miscellaneous Medical Problems (Known ventral incisional hernia since 2014; pt did not keep follow up appts) - Surgical History HEENT Surgeries: Surgical HX of: Tonsilectomy & Adenoidectomy Abdominal Surgeries: Surgical HX of: Abdominal Surgery (Repair of small bowel obstruction about 4 years ago and last year), Hernia Repair (2012, 2015) - Family History Family History: Reports;: Family Diabetes (mother), Family Hypertension (father) Denies;: Family Anesthesia Reaction, Family Cancer, Family Heart Disease, Family Psychiatric Problems, Family Stroke - Social History Smoking Status: Never smoker Frequency of Alcohol Use: None Type of Drug Use: None 12 point system: reviewed and no additional remarkable complaints except as stated Exam - Constitutional Vitals: Period Temp Pulse Resp BP Sys/Mendez Pulse Ox Last 24 Hr 96.7 F-98.3 F 96-111 16-22 135-164/85-121 90-100 General appearance: mild distress, morbidly obese - Head Head exam: Present: normal inspection - ENT ENT exam: Present: normal exam - Neck Neck exam: Present: normal inspection - Respiratory Respiratory exam: Present: clear to auscultation bilaterally, rales - Cardiovascular Cardiovascular exam: Present: RRR - GI/Abdominal GI/Abdominal exam: Present: hypoactive bowel sounds, hernia (Mass at the lower end of his previous midline incision suggestive of the hernia site. No tenderness noted in this area), soft. Absent: tenderness - Extremities Exam Extremities exam: Present: normal inspection - Back Exam Back exam: Present: normal inspection - Neurological Exam Neurological exam: Present: alert, oriented X3, CN II-XII intact - Skin Skin exam: Present: normal color, warm, dry Results - Labs CBC & BMP: 05/22/17 13:22 05/22/17 13:22 Lab Results: I have reviewed the past 24 hour labs
--- NOTE | 2017-05-23 08:51 | Pulmonology Consult Note ---
History of Present Illness Chief complaint: Abdominal pain History of present illness: Mr. Clari Rodriguez is a 32 year old male who came in with abdominal pain at the site of previous ventral hernia. Appears to be trapped again. He has had some nausea and vomiting overnight. He has grand obesity and a history of asthma. Apparently had a recent flareup about a week and a half ago which was treated and resolved as far as his asthma is concerned. At present he is not coughing or short of breath. He does have obstructive sleep apnea. He had a sleep study last year with titration and BiPAP of was recommended. Patient relates that he is using the machine at home. Unable to get into the assessment and plan section. Impressions #1: Recurrent ventral hernia with obstruction. Plans are for surgery tomorrow. #2: Obstructive sleep apnea. Recommend using his BiPAP at night. 3.: History of asthma with exacerbation about 2 weeks ago that is resolved. Put on regular dosing of bronchodilators. Do not think he needs steroids. 4.: Morbid obesity. May well have obesity hypoventilation syndrome. ABGs are pending. 5.: He is at increased risk for any procedures however since he appears to be having obstruction, really feel we should proceed with surgery. Will need to watch postoperatively in the intensive care unit. May require mechanical ventilation. Patient is aware of this. Home Medications Medication Instructions Recorded Confirmed Type Fluticasone/Vilanterol [Breo 1 puff INH DAILY #1 inhaler 04/13/17 05/23/17 Rx Ellipta 200-25 Mcg INH] Albuterol Inhaler [Proventil 2 puff INH Q4H PRN #1 inhaler 05/11/17 05/23/17 Rx Inhaler] amLODIPine [Norvasc] 10 mg PO DAILY #60 tablet 05/11/17 05/23/17 Rx Allergies Allergy/AdvReac Type Severity Reaction Status Date / Time Iodinated Contrast Media - Allergy HIVES Verified 05/22/17 12:17 Oral and [Iodinated Contrast Media - IV Dye] 12 point system: reviewed and no additional remarkable complaints except as stated - Constitutional Constitutional: Present: weight gain - Cardiovascular Cardiovascular: Present: dyspnea, dyspnea on exertion - Respiratory Respiratory: Present: dyspnea, dyspnea on exertion, snoring - Gastrointestinal Gastrointestinal: Present: abdominal pain, vomiting Exam (Pulmonay) H&P - Constitutional Vitals: Period Temp Pulse Resp BP Sys/Mendez Pulse Ox Last 24 Hr 96.7 F-98.3 F 96-111 16-22 135-164/85-121 90-100 Exam: Vital signs normal except weight of 225 kg. Pupils react to light. Throat is clear. Neck supple no bruits. Chest sounds clear but difficult to hear well. Heart normal rate rhythm no murmurs. Abdomen grand obese. Ventral scar is well healed. There is mass at the left lower wound area. Bowel sounds are present. Extremities no clubbing cyanosis or edema. Calves nontender Medical,Surgical,& Family Hx - Medical History Cardio: History of: Hypertension No history of: CHF Endocrine: No history of: Diabetes Mellitus (IDDM), Diabetes Mellitus (NIDDM) Rheumatology: History of;: Gout Respiratory: History of: Asthma, Obstructive Sleep Apnea Renal: No history of: Renal Failure, Renal Problems Gastrointestinal: History of: Bowel Obstruction (History of small bowel obstruction requiring surgical relief ) No history of: Gastrointestinal Bleed, Liver Problems, GI Problems Other: History of: Skin Problems (Abscesses of the posterior neck), Miscellaneous Medical Problems (Known ventral incisional hernia since 2014; pt did not keep follow up appts) - Surgical History HEENT Surgeries: Surgical HX of: Tonsilectomy & Adenoidectomy Abdominal Surgeries: Surgical HX of: Abdominal Surgery (Repair of small bowel obstruction about 4 years ago and last year), Hernia Repair (2012, 2015) - Family History Family History: Reports;: Family Diabetes (mother), Family Hypertension (father) Denies;: Family Anesthesia Reaction, Family Cancer, Family Heart Disease, Family Psychiatric Problems, Family Stroke - Social History Smoking Status: Never smoker Frequency of Alcohol Use: None Type of Drug Use: None Results - Labs CBC & BMP: 05/22/17 13:22 05/22/17 13:22 Lab Results: I have reviewed the past 24 hour labs - Diagnostic Findings Procedure: Chest x-ray: pending
[2017-05-23] MEDS ORDERED: MAGNESIUM CITRATE 300 ML BOTTLE PO ONE (08:57)
--- NOTE | 2017-05-23 09:07 | EKG Report ---
Stationary ECG Study [facility] Test Date: 05/23/2017 9:06:37 AM Pat Name: JESUSITA JIMENEZ Department: Room: 344 Gender: M Corporate Strategist: : 1985 Requested by: Moi Barros Order Number: [id number] Reading MD: ROSSY ROMANO Intervals [place] Rate: 97 P: 97 SD: 140 QRS: 81 QRSD: 95 T: 48 QT: 351 QTc: 406 Interpretive Statements SINUS RHYTHM Electronically Signed On 05-23-17 15:40:01 CDT by ROSSY ROMANO [email or web address]
[2017-05-23 09:33] LABS: ABG Base Excess 6.7 MMOL/L (-2.5-2.5); ABG HCO3 30.4 MMOL/L (20-26); ABG Oxygen Saturation 93.1 % (95-100); ABG PH 7.315 (7.35-7.45); ABG PO2 72.2 MM HG (80-95); ABG TCO2 31.7 MMOL/L (23-27)
[2017-05-23 09:38] LABS: ABG PCO2 71.1 MM HG (35-48)
[2017-05-23] MEDS: amLODIPine 10 MG TABLET PO SCH (10:00)
[2017-05-23] MEDS: PANTOPRAZOLE 40 MG TABLET PO SCH (10:00)
[2017-05-23 10:01] LABS: PT Patient Result 10.8 SECS
[2017-05-23] MEDS: traMADol 50 MG TABLET PO PRN (12:18)
[2017-05-23] MEDS: ALBUTEROL/IPRATROPIUM 3 ML NEB RESP TX SCH ×2 (13:03→20:01)
[2017-05-23] MEDS: ENOXAPARIN 40 MG/0.4 ML SYRINGE SUBCUT SCH (13:43)
--- NOTE | 2017-05-23 14:51 | XRay Report ---
History: Asthma. Obstructive sleep apnea Date: 05/23/2017 Study: Chest x-ray PA and lateral Comparison exam: April 10, 2017 The cardiac silhouette is upper normal in size. There is no mediastinal mass. The pulmonary vasculature is not engorged. The lungs and pleural spaces are clear. Osseous structures are unchanged. Impression: No acute cardiopulmonary process compared to the previous study PROCEDURE INTERPRETED AT [facility] DEPARTMENT OF RADIOLOGY Final Report Signed by: Dr. Sandhya Lala
--- NOTE | 2017-05-23 17:31 | Internal Medicine Consult Note ---
Assessment and Plan (1) Incarcerated umbilical hernia Status: Acute Current Visit: Yes (2) Small bowel obstruction Status: Acute Current Visit: Yes (3) Abdominal pain Status: Acute Current Visit: Yes Qualifiers: Abdominal location: periumbilical Qualified Code(s): R10.33 - Periumbilical pain (4) Hypoventilation associated with obesity syndrome Status: Chronic Current Visit: Yes (5) Morbid obesity Status: Chronic Current Visit: Yes (6) Obstructive sleep apnea Status: Chronic Current Visit: Yes History of Present Illness - Data of Consult Consult date: 05/23/17 Requesting Physician: Moi Barros Primary care physician: Kayla Latif - Consult Narrative Reason for consult: primary care; clinic patient History of present illness: Mr. Clari Rodriguez is a 32 year old male patient of Dr. Savana Latif with history of asthma, hypoventilation with morbid obesity, HTN, ABBEY on BiPAP, history of small bowel obstruction, who presented to ER with strangulated small bowel/ abdominal hernia resulting in partial small bowel obstruction. He came to ER with abdominal pain. He has had known abdominal hernia, reproducible, as reported in clinic, from a prior small bowel obstruction requiring surgical repair. Have encouraged him to pursue weight loss with each clinic visit, but he has gained weight instead. Consulting client account representative to implement a 1500 calorie daily diet and discussed with patient and at bedside. With some weight loss, he will need gastric bypass at this point as a life saving measure. His abdominal hernia repair will be high risk given the degree of morbid obesity. He has voiced understanding. CC: Clarence Pinto III., - Home Medications and Allergies Home Medications: Home Medications Medication Instructions Recorded Confirmed Type Fluticasone/Vilanterol [Breo 1 puff INH DAILY #1 inhaler 04/13/17 05/23/17 Rx Ellipta 200-25 Mcg INH] Albuterol Inhaler [Proventil 2 puff INH Q4H PRN #1 inhaler 05/11/17 05/23/17 Rx Inhaler] amLODIPine [Norvasc] 10 mg PO DAILY #60 tablet 05/11/17 05/23/17 Rx Allergies/Adverse Reactions: Allergies Allergy/AdvReac Type Severity Reaction Status Date / Time Iodinated Contrast Media - Allergy HIVES Verified 05/22/17 12:17 Oral and [Iodinated Contrast Media - IV Dye] - Constitutional Constitutional: Present: fatigue, lethargy, weight gain - Cardiovascular Cardiovascular: Present: dyspnea on exertion, orthopnea. Absent: chest pain at rest, chest pain with activity - Respiratory Respiratory: Present: dyspnea on exertion - Gastrointestinal Gastrointestinal: Present: abdominal pain. Absent: constipation, diarrhea - Musculoskeletal Musculoskeletal: Present: limited range of motion (morbid obesity) - Psychiatric Psychiatric: Present: depression Medical,Surgical,& Family Hx - Medical History Cardio: History of: Hypertension No history of: CHF Endocrine: No history of: Diabetes Mellitus (IDDM), Diabetes Mellitus (NIDDM) Rheumatology: History of;: Gout Respiratory: History of: Asthma, Obstructive Sleep Apnea Renal: No history of: Renal Failure, Renal Problems Gastrointestinal: History of: Bowel Obstruction (History of small bowel obstruction requiring surgical relief ) No history of: Gastrointestinal Bleed, Liver Problems, GI Problems Other: History of: Skin Problems (Abscesses of the posterior neck), Miscellaneous Medical Problems (Known ventral incisional hernia since 2014; pt did not keep follow up appts) - Surgical History HEENT Surgeries: Surgical HX of: Tonsilectomy & Adenoidectomy Abdominal Surgeries: Surgical HX of: Abdominal Surgery (Repair of small bowel obstruction about 4 years ago and last year), Hernia Repair (2012, 2016) - Family History Family History: Reports;: Family Diabetes (mother), Family Hypertension (father) Denies;: Family Anesthesia Reaction, Family Cancer, Family Heart Disease, Family Psychiatric Problems, Family Stroke - Social History Smoking Status: Never smoker Frequency of Alcohol Use: None Type of Drug Use: None Marital Status: Lives With:: Spouse Functional capacity: independent ambulation (limited ambulation because of morbid obesity) Exam (Progress Note) - Constitutional Vitals: Period Temp Pulse Resp BP Sys/Mendez Pulse Ox Last 24 Hr 96.7 F-97.7 F 96-111 18-22 142-161/85-109 85-99 General appearance: no acute distress - Head Head exam: Present: normocephalic - Eye Eye exam: Present: EOMI - Respiratory Respiratory exam: Present: clear to auscultation bilaterally. Absent: rhonchi, wheezes - Cardiovascular Cardiovascular exam: Present: regular rate and rhythm - GI/Abdominal GI/Abdominal exam: Present: normal bowel sounds, tenderness (across periumbilical abdomen), soft - Extremities Exam Extremities exam: Absent: edema - Neurological Exam Neurological exam: Present: alert, oriented X3 - Psychiatric Psychiatric exam: Present: normal mood - Skin Skin exam: Present: warm, dry Results - Labs CBC & BMP: 05/24/17 05:07 05/24/17 05:07 - EKG EKG shows: sinus rhythm - Diagnostic Findings Procedure: Chest x-ray: report reviewed by me, CT Abdomen and Pelvis: report reviewed by me
--- NOTE | 2017-05-23 18:38 | Sleep Medicine Consult ---
Assessment and Plan (1) Obstructive sleep apnea Status: Chronic Assessment and plan: This patient does have severe obstructive sleep apnea and did bring his BiPAP machine with him. I would have him use his BiPAP machine tonight. He does not have a mask and that has been provided for him. He will need help with set up. He needs to use in-line O2 with his BiPAP and respiratory therapy needs to assist with that. This patient postoperatively will certainly be at high risk for respiratory complications and given his CO2 elevation, I would anticipate him likely being in the intensive care unit postoperatively and possibly requiring some mechanical ventilation. His BiPAP can be utilized once he is out of surgery if extubated. He will need close monitoring. Current Visit: No (2) Hypoventilation associated with obesity syndrome Status: Chronic Assessment and plan: As noted above, he has an elevated PCO2 of 71. He will need close monitoring postoperatively and certainly could require mechanical ventilation after surgery. If extubated, I would recommend having BiPAP available for him and to monitor him closely with O2 sats in ABGs if needed. Dr. Quiñonez is following him from a pulmonary standpoint. Current Visit: No History of Present Illness Chief complaint: Obstructive sleep apnea History of present illness: Mr. Clair Rodriguez is a 32 year old male known to our sleep lab with a prior history of severe obstructive sleep apnea. He had been diagnosed by polysomnography on 07/01/2015. He is on BiPAP therapy with pressures of 24/18 and states that he is using his BiPAP regularly. His last visit in the sleep clinic was 09/22/15. He has had a 100% usage rate on prior visits but never achieved compliance that I could see for over 4 hours of nightly usage. He states that his current pressures are doing well. He is admitted with a ventral hernia and is scheduled to undergo surgery tomorrow. Sleep medicine was consulted to assist with his care. Home Medications Medication Instructions Recorded Confirmed Type Fluticasone/Vilanterol [Breo 1 puff INH DAILY #1 inhaler 04/13/17 05/23/17 Rx Ellipta 200-25 Mcg INH] Albuterol Inhaler [Proventil 2 puff INH Q4H PRN #1 inhaler 05/11/17 05/23/17 Rx Inhaler] amLODIPine [Norvasc] 10 mg PO DAILY #60 tablet 05/11/17 05/23/17 Rx Allergies Allergy/AdvReac Type Severity Reaction Status Date / Time Iodinated Contrast Media - Allergy HIVES Verified 05/22/17 12:17 Oral and [Iodinated Contrast Media - IV Dye] Review of systems: Notable only for about 10 pounds of weight gain in the past year by his report. Exam (Pulmonay) H&P - Constitutional Vitals: Period Temp Pulse Resp BP Sys/Mendez Pulse Ox Last 24 Hr 96.7 F-97.7 F 96-104 18- 142-161/85-107 85-99 Exam: He is morbidly obese. He is alert and responsive. Pupils equal round reactive to light and accommodation. Extraocular movements intact. Oropharynx with a class IV Mallampati exam. Neck is large and supple without adenopathy. No supraclavicular adenopathy. Chest with symmetrical breath sounds without wheeze rhonchi. Cardiac exam reveals a regular rhythm without murmur or gallop. Abdomen obese nontender without palpable hepatosplenomegaly or mass. Extremities without significant edema or clubbing. Neurologically, grossly intact. Medical,Surgical,& Family Hx - Medical History Cardio: History of: Hypertension No history of: CHF Endocrine: No history of: Diabetes Mellitus (IDDM), Diabetes Mellitus (NIDDM) Rheumatology: History of;: Gout Respiratory: History of: Asthma, Obstructive Sleep Apnea Renal: No history of: Renal Failure, Renal Problems Gastrointestinal: History of: Bowel Obstruction (History of small bowel obstruction requiring surgical relief ) No history of: Gastrointestinal Bleed, Liver Problems, GI Problems Other: History of: Skin Problems (Abscesses of the posterior neck), Miscellaneous Medical Problems (Known ventral incisional hernia since 2014; pt did not keep follow up appts) - Surgical History HEENT Surgeries: Surgical HX of: Tonsilectomy & Adenoidectomy Abdominal Surgeries: Surgical HX of: Abdominal Surgery (Repair of small bowel obstruction about 4 years ago and last year), Hernia Repair (2012, 2015) - Family History Family History: Reports;: Family Diabetes (mother), Family Hypertension (father) Denies;: Family Anesthesia Reaction, Family Cancer, Family Heart Disease, Family Psychiatric Problems, Family Stroke - Social History Smoking Status: Never smoker Frequency of Alcohol Use: None Type of Drug Use: None Results - Labs CBC & BMP: 05/22/17 13:22 05/22/17 13:22 Lab Results: I have reviewed the past 24 hour labs Labs: ABGs do reveal an elevated PCO2 of 71 consistent with chronic respiratory failure. He does have metabolic compensation with elevated serum bicarb.
[2017-05-23] MEDS: KETOROLAC 15 MG/1 ML VIAL IV SCH (19:10)
[2017-05-23] MEDS: ONDANSETRON 4 MG/2 ML VIAL IV PRN (19:11)
[2017-05-24] MEDS: ALBUTEROL/IPRATROPIUM 3 ML NEB RESP TX SCH ×4 (00:39→19:18)
[2017-05-24] MEDS: KETOROLAC 15 MG/1 ML VIAL IV SCH ×3 (02:16→19:59)
[2017-05-24] MEDS: DEXTROSE 5% NACL 0.45% 1,000 ML IV SCH ×4 (03:35→19:51)
[2017-05-24] MEDS: HYDROmorphone 2 MG/1 ML VIAL IV PRN ×2 (04:45→07:54)
[2017-05-24 06:18] LABS: Basophils % 0.1 % (0.0-0.8); Eosinophils % 0.4 % (0.00-10.9); Hematocrit 43.1 VOL% (42.0-52.0); Hemoglobin 13.5 GM/DL (14.0-18.0); Immature Granulocytes % 0.3 %; Immature Granulocytes Absolute 0.02 #; Lymphocytes # 1.2 10*3/uL (1.4-4.0); Lymphocytes % 15.2 % (21.2-54.2); Mean Corpuscular HGB Conc 31.3 GM/DL (32-36); Mean Corpuscular Hemoglobin 26 PG (27-34); Mean Platelet Volume 11.5 FL (9.6-12.0); Monocytes # 1.2 10*3/uL (0.11-0.8); Neutrophils # 5.1 10*3/uL (1.4-7.4); Platelet Count 190 T/CUMM (130-400); Red Blood Count 5.13 MC/CUMM (3.8-5.5); Red Cell Distribution Width 17.3 % (9.3-17.3); White Blood Count 7.6 T/CUMM (4-12)
[2017-05-24 06:49] LABS: Albumin 3.3 G/DL (3.4-5.0); Bilirubin,Total 0.6 MG/DL (0.2-1.0); Calcium 8.9 MG/DL (8.5-10.1); Potassium 4.2 MMOL/L (3.5-5.1); Total Protein 7.8 G/DL (6.4-8.3)
[2017-05-24 06:53] LABS: Band Neutrophils 4 % (0-10); Giant Platelets Few; Hypochromasia 1+; Lymphocytes 12 % (20-55); Ovalocytes Slight; Platelet Estimate Adequate; Segmented Neutrophils 72 % (50-85); Total Cells Counted 100
[2017-05-24] MEDS: ONDANSETRON 4 MG/2 ML VIAL IV PRN (07:07)
--- NOTE | 2017-05-24 08:48 | Pulmonology Progress Note ---
Pulmonary - PN: Subj Interval history: Patient is for repair of ventral hernia today. He weighs around 490 pounds. His baseline PCO2 is 71. Clearly he has obesity hypoventilation syndrome as well as severe obstructive sleep apnea. Postoperatively if he is extubated he needs to be put on his BiPAP immediately. He may require longer mechanical ventilation and moving to the ICU depending on how he does in the recovery room. An oxygen saturation of around 88-92% would be acceptable in the postop period. Need to be sure pain medicines and sedation are completely out of his system when he is extubated. Exam (Progress Note) - Constitutional Vitals: Period Temp Pulse Resp BP Sys/Mendez Pulse Ox Last 24 Hr 97.0 F-97.7 F 80-109 16-22 137-161/66-100 85-99 Exam: Patient is alert oriented vital signs normal. Pupils react to light. He is wearing his BiPAP presently. Neck is supple. Chest sounds clear. Heart normal rate rhythm no murmurs. Abdomen grand obese unable to palpate abdominal organs. The ventral hernia is palpable at the lower end of the previous hernia repair scar in the left lower quadrant. Extremities no clubbing cyanosis. He does have some discoloration and some chronic nonpitting edema. Calves are nontender. Results - Labs CBC & BMP: 05/24/17 05:07 05/24/17 05:07 Lab Results: I have reviewed the past 24 hour labs - Diagnostic Findings Procedure: Chest x-ray: image reviewed by me (Yesterday's chest x-ray is clear. Difficult to interpret due to thick chest wall.) Assessment and Plan (1) Obstructive sleep apnea Status: Chronic Assessment and plan: Really has severe obstructive sleep apnea and must use his BiPAP on a regular basis. We will needed in the postop. If there are any sedatives on board especially. Current Visit: Yes (2) Hypoventilation associated with obesity syndrome Status: Chronic Assessment and plan: Has a PCO2 of 71 on room air. He has obesity hypoventilation syndrome. Will make weaning difficult. Will require BiPAP once he is extubated. Current Visit: Yes (3) Incarcerated umbilical hernia Status: Acute Assessment and plan: Agree that he does need to proceed with surgery. Unable to get the hernia reduced otherwise. Current Visit: Yes
[2017-05-24] MEDS ORDERED: ceFAZolin 2,000 MG in PREMIX 1 EACH IV ONE (08:53)
[2017-05-24] MEDS ORDERED: BREO ELLIPTA INH SCH (09:00)
[2017-05-24] MEDS: METOPROLOL TARTRATE 25 MG TABLET PO SCH ×2 (09:32→21:32)
[2017-05-24] MEDS: PANTOPRAZOLE 40 MG TABLET PO SCH (09:33)
[2017-05-24] MEDS: amLODIPine 10 MG TABLET PO SCH (09:33)
[2017-05-24] MEDS: ENOXAPARIN 40 MG/0.4 ML SYRINGE SUBCUT SCH (13:42)
[2017-05-24] MEDS ORDERED: PROPOFOL 200 MG/20 ML VIAL IV ONE (14:31)
[2017-05-24] MEDS ORDERED: ROCURONIUM 100 MG/10 ML VIAL IV ONE (14:31)
[2017-05-24] MEDS ORDERED: LIDOCAINE 1% 5 ML VIAL ONE (14:31)
[2017-05-24] MEDS ORDERED: VECURONIUM 10 MG VIAL IV ONE (14:31)
[2017-05-24] MEDS ORDERED: SUCCINYLCHOLINE 200 MG/10 ML VIAL ONE (14:31)
[2017-05-24] MEDS ORDERED: BUPIVACAINE MPF 0.25% /EPI 30 ML VIAL ONE (14:44)
[2017-05-24] MEDS ORDERED: ceFAZolin 1,000 MG VIAL ONE (15:55)
[2017-05-24 18:07] LABS: Apearance,Urine CLEAR (Clear); Bilirubin,Urine Negative (Negative); Blood, Urine Negative (Negative); Glucose,Urine (UA) Negative (Negative); Ketones,Urine Negative (Negative); Nitrite,Urine Negative (Negative); Protein,Urine Negative; RBC,Urine <1 /HPF (0-4); Squamous Epithelial Cell,Urine Occasional /HPF (0-10); Urine Color Yellow (Yellow); Urine Urobilinogen < 2.0 EU/DL (0.2-1.0); WBC,Urine 1 /HPF (0-6)
[2017-05-24] MEDS ORDERED: ONDANSETRON 4 MG/2 ML VIAL IV PRN (18:32)
--- NOTE | 2017-05-24 18:56 | Operative Note ---
Date of procedure: 05/24/17 Pre-op diagnosis: Small bowel obstruction secondary to ventral hernias Post-op diagnosis: other (Incarcerated ventral abdominal hernias 2) Procedure: Operative note: Preoperative diagnosis: Incarcerated ventral hernia with small bowel obstruction. Postop diagnosis: 1. Right ventral abdominal hernia with incarcerated small bowel 2. Incarcerated omentum of the left abdominal wall hernia. Procedure: 1. Reduction with Stratus mesh repair of right ventral abdominal hernia 2. Reduction with Stratus mesh repair of left ventral abdominal hernia Surgeon Dr. Barros Medication Manager Rafia Ashford, [facility] Anesthesia was general endotracheal Brief history. This is a 500 pound massively obese black male who is in bad health with his lungs with sleep apnea and some chronic pulmonary disease possibly due to his overweight. The patient has had undergo a couple of operations in the past. He had a small bowel obstruction with no clear etiology but had undergo abdominal exploration for that. He did develop a ventral incisional hernia that was repaired with a Stratus mesh in the past. He has done well without any complaints although he has had some complaints of some abdominal pains at time. He came in at this time with small with abdominal pain nausea and vomiting and CT suggest hernia with bowel out in it and some small bowel obstruction. This was partially reduced and will put him in so that we could get pulmonary and cardiac to look at him and make sure everything is in stable condition. Once it was even though he was continued to have some episodes of some pain and nausea and vomiting would like to bring him on the surgery at this time and get these hernias fixed. We did note on CT scan it was suggested and there were 2 hernias present although the one area that we could feel was a knot on the left side. At this point we brought him in a week and repair these areas. Procedure: With patient prepped and draped in sterile fashion timeout and antibiotics completed with made an incision through the lower two thirds of the old abdominal incision went through the skin subtenons tissue carefully dissected through the subtenons tissue to identify the hernia on the left side it with this sac. I dissected the subtenons tissue to mobilize the sac up and carefully dissected along the fascial plane to I can see where the defect was that. At that point were able to open the hernia sac and found it had mostly omentum in it that I had to dissected free from the hernia sac before I could reduce it. I did remove a portion of the omentum to help it reduce easier. Once we were able to reduce that area with carefully debrided around the edges and mobilize the tissue and fascia around this wound and attempt to make sure that we could easily repair this area. It was a defect that was about 3 cm x 3 cm in size on this region. We took a Stratus mesh that was a 10 x 6 and carefully trimmed it so that would be able to sutured in this area. Prior to closing this hernia I put a finger into the 6 some tissue free from the underside so that we can safely attach the mesh. As I did then noticed that there was another defect on the right side of the abdominal wall. 1 of these in the incision at the at this time. This when I felt like maybe the one that we were seeing with the bile in it. At that point begin to dissected through the subcutaneous tissue towards the right side until I could easily identify the sac and the fascia around this region where the opening was at. With some difficulty I was able to begin to mobilize the sac and then dissected carefully around it not injuring any of the bowel at this time. The bowel was adhesed to the edges of the hernia defect and had to carefully dissected them free from that and the underneath of the fascia in order to get the bowel fall back in the abdominal cavity and get it free from the edges so that we could put a mesh here also. Once the headache completely free and the fascia dissected out so widely around both hernia areas then would begin the repair. I like to repair the smaller upper on the left at this time first taking the medication carefully trimming it at this time and then carefully sutured it in under direct vision with 0 Prolene suture in a horizontal mattress fashion to we had the mesh in place and completely tied. Once that was done then I was able go ahead and closed the fascia over the top of this mesh with a running 0 Prolene suture. At that point we moved to the hernia on the right side at which time it was measuring 5 cm x 4 cm in size. With a reduced air in the edges clearly identified I then took a 10 x 6 Stratus mesh trimmed a little bit and then we sutured it in with 0 Prolene sutures in a horizontal mattress fashion 6 cm from the edge of the fascial defect. Once we had that tied down and ins and secured at this point we then washed out the areas with Ancef solution and saline and I closed both defects with running 0 Prolene sutures. At that point I made a separate stab wound leg #10 Magno-[place] drain into the abdomen over the fascia. We then closed subtenons tissue running 30 Vicryl Close the skin with skin clips and vertical mattresses of 3-0 nylon. Drain was secured and the dressings were applied. Patient was taken to the ICU in stable condition. Estimated blood loss about 50 cc Sponge count correct 2 Drains one #10 Magno-[place] Complications none Condition stable satisfactory Anesthesia: TITO Surgeon / Physician: Moi Barros Medication Manager: Rafia Ashford Estimated blood loss: other (40 cc) Specimens: other (Hernia sac) Condition: critical Disposition: ICU Results - Labs CBC & BMP: 05/24/17 05:07 05/24/17 05:07 Discharge Plan - Discharge Medications No Action amLODIPine [Norvasc] 10 mg PO DAILY #60 tablet Fluticasone/Vilanterol [Breo Ellipta 200-25 Mcg INH] 1 puff INH DAILY #1 inhaler Albuterol Inhaler [Proventil Inhaler] 2 puff INH Q4H PRN #1 inhaler PRN Reason: Shortness Of Breath/Wheezing - Follow Up or Referral - Forms/Instructions
[2017-05-24] MEDS ORDERED: SODIUM CHLORIDE 0.9% 1,000 ML IV SCH (19:00)
[2017-05-24] MEDS ORDERED: HYDROmorphone 2 MG/1 ML VIAL IV PRN (19:15)
--- NOTE | 2017-05-24 19:16 | Anesthesia Post-Op ---
Anesthesia Post OP - Post Ansesthetic Evaluation Patient seen in post op: Yes Resp: within normal limits (vent) CV: within normal limits Mental: within normal limits Temp: within normal limits Coqo-Pp-Ahavajibr: within normal limits Nausea and Vomiting: within normal limits Pain: within normal limits
[2017-05-24 19:26] LABS: ABG Base Excess 9.2 MMOL/L (-2.5-2.5); ABG HCO3 34.3 MMOL/L (20-26); ABG Oxygen Saturation 98.8 % (95-100); ABG PCO2 48.2 MM HG (35-48); ABG PO2 158.7 MM HG (80-95); ABG TCO2 35.8 MMOL/L (23-27)
[2017-05-24] MEDS ORDERED: MIDAZOLAM 2 MG/2 ML VIAL ONE (19:32)
[2017-05-24] MEDS ORDERED: DESFLURANE 1 UNIT/15 MINUTE INH ONE (19:32)
[2017-05-24] MEDS ORDERED: fentaNYL 100 MCG/2 ML VIAL ONE (19:32)
[2017-05-24] MEDS ORDERED: MIDAZOLAM 10 MG/2 ML VIAL ONE (19:33)
[2017-05-24] MEDS ORDERED: LACTATED RINGERS 1,000 ML IV ONE (19:34)
[2017-05-24] MEDS: PROPOFOL 1,000 MG/100 ML BOTTLE IV SCH ×4 (19:36→22:55)
--- NOTE | 2017-05-24 19:37 | XRay Report ---
History: On ventilator. Postop Date: 05/24/2017 Study: Chest x-ray AP portable Comparison exam: 05/23/2017 The endotracheal tube is well-positioned with its tip superior to the level of the rachel. There is cardiomegaly. There is some patchy and hazy atelectasis/infiltrate in the left lung. There is slight shift of the mediastinum to the left. The right lung is generally clear. Osseous structures are similar. Impression: Satisfactory positioning of the endotracheal tube Asymmetric airspace disease in the left lung could be related to volume loss, aspiration, or pneumonia PROCEDURE INTERPRETED AT [facility] DEPARTMENT OF RADIOLOGY Final Report Signed by: Dr. Sandhya Lala
[2017-05-24] MEDS: MORPHINE PCA 30 MG/30 ML SYRINGE IV SCH (20:00)
[2017-05-24 20:21] LABS: Hemoglobin 12.2 GM/DL (14.0-18.0)
--- NOTE | 2017-05-24 23:20 | Internal Med Progress Note ---
Assessment and Plan (1) Incarcerated umbilical hernia Status: Acute Current Visit: Yes (2) Small bowel obstruction Status: Acute Current Visit: Yes (3) Abdominal pain Status: Acute Current Visit: Yes Qualifiers: Abdominal location: periumbilical Qualified Code(s): R10.33 - Periumbilical pain (4) Hypoventilation associated with obesity syndrome Status: Chronic Current Visit: Yes (5) Morbid obesity Status: Chronic Current Visit: Yes (6) Obstructive sleep apnea Status: Chronic Current Visit: Yes Exam (Progress Note) - Constitutional Vitals: Period Temp Pulse Resp BP Sys/Mendez Pulse Ox Last 24 Hr 96.8 F-98.6 F 78-109 16-20 94-159/49-91 90-100 Results - Labs CBC & BMP: 05/24/17 20:02 05/24/17 05:07
--- NOTE | 2017-05-24 23:22 | Event Note ---
Had gone to see patient on rounds, but he was in surgery. Will see him tomorrow in CCU.
[2017-05-25 00:08] LABS: Hematocrit 35.8 VOL% (42.0-52.0); Hemoglobin 11.6 GM/DL (14.0-18.0)
[2017-05-25] MEDS: ALBUTEROL/IPRATROPIUM 3 ML NEB RESP TX SCH ×4 (00:30→19:54)
[2017-05-25] MEDS: ceFAZolin 2,000 MG in PREMIX 1 EACH IV SCH ×3 (00:39→17:56)
[2017-05-25] MEDS: PROPOFOL 1,000 MG/100 ML BOTTLE IV SCH ×4 (00:40→07:06)
[2017-05-25] MEDS: KETOROLAC 15 MG/1 ML VIAL IV SCH ×3 (01:24→17:54)
[2017-05-25 03:08] LABS: ABG Base Excess 8.8 MMOL/L (-2.5-2.5); ABG HCO3 32.7 MMOL/L (20-26); ABG Oxygen Saturation 99.2 % (95-100); ABG PCO2 41.8 MM HG (35-48); ABG PH 7.511 (7.35-7.45); ABG PO2 322.9 MM HG (80-95)
[2017-05-25 03:16] LABS: Basophils % 0.3 % (0.0-0.8); Eosinophils % 0.4 % (0.00-10.9); Hematocrit 36.6 VOL% (42.0-52.0); Immature Granulocytes % 0.1 %; Immature Granulocytes Absolute 0.01 #; Lymphocytes # 1.7 10*3/uL (1.4-4.0); Lymphocytes % 24.8 % (21.2-54.2); Mean Corpuscular HGB Conc 32.8 GM/DL (32-36); Mean Corpuscular Hemoglobin 27 PG (27-34); Mean Platelet Volume 10.2 FL (9.6-12.0); Monocytes # 0.8 10*3/uL (0.11-0.8); Neutrophils # 4.2 10*3/uL (1.4-7.4); Neutrophils % 62.4 % (38.7-73.9); Platelet Count 146 T/CUMM (130-400); Red Blood Count 4.52 MC/CUMM (3.8-5.5); Red Cell Distribution Width 17.2 % (9.3-17.3); White Blood Count 6.8 T/CUMM (4-12)
[2017-05-25 03:43] LABS: Albumin 2.6 G/DL (3.4-5.0); Bilirubin,Total 0.4 MG/DL (0.2-1.0); Calcium 8.3 MG/DL (8.5-10.1); Potassium 3.3 MMOL/L (3.5-5.1); Total Protein 6.7 G/DL (6.4-8.3)
[2017-05-25] MEDS: DEXTROSE 5% NACL 0.45% 1,000 ML IV SCH (04:11)
[2017-05-25] MEDS: MORPHINE 2 MG/1 ML SYRINGE IV PRN ×7 (04:42→21:32)
--- NOTE | 2017-05-25 06:45 | Pulmonology Progress Note ---
Pulmonary - PN: Subj Interval history: Patient is for repair of ventral hernia today. He weighs around 490 pounds. His baseline PCO2 is 71. Clearly he has obesity hypoventilation syndrome as well as severe obstructive sleep apnea. Postoperatively if he is extubated he needs to be put on his BiPAP immediately. He may require longer mechanical ventilation and moving to the ICU depending on how he does in the recovery room. An oxygen saturation of around 88-92% would be acceptable in the postop period. Need to be sure pain medicines and sedation are completely out of his system when he is extubated. 05/25/2017 patient moved to intensive care unit last night following his repair of ventral hernia. Has been on the ventilator overnight. PO2 is 322 on 100% oxygen. Patient is sedated. Chest x-ray looks a little wet. Will diurese, reduce FiO2, start CPAP trials. He does have an elevated bicarb level so will add Diamox. Wean as tolerated. Will need his BiPAP as soon as he is extubated. Exam (Progress Note) - Constitutional Vitals: Period Temp Pulse Resp BP Sys/Mendez Pulse Ox Last 24 Hr 96.5 F-98.6 F 78-109 16-18 94-159/49-90 90-100 Exam: Patient is sedated on ventilator, vital signs normal. Pupils react to light. Neck is supple. Chest sounds clear. Heart normal rate rhythm no murmurs. Abdomen grand obese unable to palpate abdominal organs. Abdomen soft. Decreased bowel sounds but present, bandage over midline. Extremities no clubbing cyanosis. He does have some discoloration and some chronic nonpitting edema. Calves are nontender. Results - Labs CBC & BMP: 05/25/17 03:00 05/25/17 03:00 Lab Results: I have reviewed the past 24 hour labs - Diagnostic Findings Procedure: Chest x-ray: image reviewed by me (Increased interstitial markings. ET tube in good position.) Assessment and Plan (1) Obstructive sleep apnea Status: Chronic Assessment and plan: Really has severe obstructive sleep apnea and must use his BiPAP on a regular basis. We will needed in the postop. If there are any sedatives on board especially. 05/25/2017 will need BiPAP as soon as were able to get him extubated. We need to get his FiO2 down his PO2 needs to be only around 65-70, for weaning. Current Visit: Yes (2) Hypoventilation associated with obesity syndrome Status: Chronic Assessment and plan: Has a PCO2 of 71 on room air. He has obesity hypoventilation syndrome. Will make weaning difficult. Will require BiPAP once he is extubated. 05/25/2017 will need to reduce his FiO2 to wean him. Will need sedation at a minimum. Current Visit: Yes (3) Incarcerated umbilical hernia Status: Acute Assessment and plan: Agree that he does need to proceed with surgery. Unable to get the hernia reduced otherwise. 05/25/2017 status post repair of recurrent umbilical hernia with incarcerated small bowel. Current Visit: Yes
--- NOTE | 2017-05-25 07:40 | XRay Report ---
Portable chest Exam date: 05/25/2017 4:00 AM Indication: Shortness of breath, cough Comparison: Previous day at 1849 hours Findings: Examination is limited secondary to exclusion of the left costophrenic sulcus Cardiomediastinal contours are stable with underlying cardiomegaly. No change in tube or line placement. Stranding parenchymal densities within the lung bases, left greater than right. No acute osseous abnormalities. Visualized upper abdomen demonstrates no acute pathology. Impression: Bibasilar densities, left greater than right, unchanged PROCEDURE INTERPRETED AT [facility] DEPARTMENT OF RADIOLOGY Final Report Signed by: Donte Balderrama
[2017-05-25 08:35] LABS: ABG Base Excess 5.4 MMOL/L (-2.5-2.5); ABG Oxygen Saturation 86.9 % (95-100); ABG PCO2 56.9 MM HG (35-48); ABG PH 7.366 (7.35-7.45); ABG PO2 58.9 MM HG (80-95); ABG TCO2 28.7 MMOL/L (23-27)
--- NOTE | 2017-05-25 09:06 | General Surgery Progress Note ---
Assessment and Plan - Time spent with patient Time spent with patient: Less than 30 minutes (1) Incisional hernia with bowel obstruction Status: Acute Assessment and plan: 05/25/2017. Stable postop repair of incarcerated ventral incisional hernias 2. Patient is scheduled to be extubated this morning. Hopefully will be able to move him to the floor soon. We will plan to keep the NG tube for now, replace his potassium IV, and hopefully advance his diet as soon as we are certain he has had bowel activity. Certainly will be important to try to get him mobile as quickly as possible. Current Visit: No Subjective Patient reports: Present: other (Patient is awake and later. He follows commands, and answers questions by nodding his head yes and no.) Exam - Constitutional Vitals: Period Temp Pulse Resp BP Sys/Mendez Pulse Ox Last 24 Hr 96.5 F-98.6 F 78-117 16-22 94-163/49-105 94-100 General appearance: no acute distress, morbidly obese - Respiratory Respiratory exam: Present: rhonchi - Cardiovascular Cardiovascular exam: Present: RRR - GI/Abdominal GI/Abdominal exam: Present: other (Abdomen is soft, incision with mild oozing about clips. JUDSON in place, less than 20 mL bulb there is scant drainage on the dressing. I hear occasional bowel gas.) Results - Labs CBC & BMP: 05/25/17 03:00 05/25/17 03:00 Lab Results: I have reviewed the past 24 hour labs (Postop labs are noted. H&H is stable; potassium slightly low at 3.3.)
[2017-05-25] MEDS: PANTOPRAZOLE 40 MG VIAL IV SCH (09:19)
[2017-05-25] MEDS: amLODIPine 10 MG TABLET PO SCH (09:25)
[2017-05-25] MEDS: FUROSEMIDE 40 MG/4 ML VIAL IV SCH (09:26)
[2017-05-25] MEDS: METOPROLOL TARTRATE 25 MG TABLET PO SCH ×2 (09:26→21:32)
[2017-05-25] MEDS: DEXT 5% NACL 0.45% KCL 40 MEQ 40 MEQ/1,000 ML BAG IV SCH ×2 (10:58→17:59)
[2017-05-25] MEDS: MORPHINE PCA 30 MG/30 ML SYRINGE IV SCH ×2 (10:59→19:01)
[2017-05-25 11:00] LABS: ABG HCO3 28.8 MMOL/L (20-26); ABG Oxygen Saturation 92.1 % (95-100); ABG PCO2 52.4 MM HG (35-48); ABG PH 7.387 (7.35-7.45); ABG PO2 68.9 MM HG (80-95); ABG TCO2 27.6 MMOL/L (23-27)
[2017-05-25] MEDS: ENOXAPARIN 40 MG/0.4 ML SYRINGE SUBCUT SCH (14:35)
--- NOTE | 2017-05-25 17:40 | Sleep Medicine Progress Note ---
Assessment and Plan (1) Obstructive sleep apnea Status: Chronic Assessment and plan: We will continue his BiPAP with sleep. He does have a nasogastric tube in place and this may decrease effectiveness and make it uncomfortable for him with significant air leak given his high pressures. He will do much better when the NG tube is out. Current Visit: Yes (2) Hypoventilation associated with obesity syndrome Status: Chronic Current Visit: Yes Sleep Medicine Subjective Interval history: Patient was ventilated overnight after surgery yesterday. He has been extubated today and doing well. He currently is on nasal cannula O2 and alert and responsive. He also has a nasogastric tube in place. He does have his BiPAP available to him to use with sleep. He appears comfortable at present. He reports no particular problems or distress. Exam (Progress Note) - Constitutional Vitals: Period Temp Pulse Resp BP Sys/Mendez Pulse Ox Last 24 Hr 96.5 F-98.7 F 84-117 15-28 94-181/49-105 91-100 Exam: He is alert and responsive. He has a nasogastric tube in place. Class IV Mallampati exam. Chest with symmetrical breath sounds without focal wheeze or rhonchi. Cardiac exam reveals a regular rhythm without murmur or gallop. Abdomen obese with without overt tenderness. Sats are 95% on supplemental O2. Heart rate and blood pressure are normal. Extremities are without significant clubbing, cyanosis, or calf tenderness. Neurologically, he moves all extremities. Results - Labs CBC & BMP: 05/25/17 03:00 05/25/17 03:00 Lab Results: I have reviewed the past 24 hour labs
--- NOTE | 2017-05-25 18:18 | Internal Med Progress Note ---
Assessment and Plan (1) Incarcerated umbilical hernia Status: Acute Current Visit: Yes (2) Small bowel obstruction Status: Acute Current Visit: Yes (3) Abdominal pain Status: Acute Current Visit: Yes Qualifiers: Abdominal location: periumbilical Qualified Code(s): R10.33 - Periumbilical pain (4) Hypoventilation associated with obesity syndrome Status: Chronic Current Visit: Yes (5) Morbid obesity Status: Chronic Current Visit: Yes (6) Obstructive sleep apnea Status: Chronic Current Visit: Yes Internal Medicine - PN: Subj Interval history: Mr. Clari Rodriguez is a 32 year old male patient of Dr. Savana Latif with history of asthma, hypoventilation with morbid obesity, HTN, ABBEY on BiPAP, history of small bowel obstruction, who presented to ER with strangulated small bowel/ abdominal hernia resulting in partial small bowel obstruction. He came to ER with abdominal pain. He has had known abdominal hernia, reproducible, as reported in clinic, from a prior small bowel obstruction requiring surgical repair. He is status post surgery and hemodynamically stable. Pain management per Surgery. He is currently reasonably comfortable. Exam (Progress Note) - Constitutional Vitals: Period Temp Pulse Resp BP Sys/Mendez Pulse Ox Last 24 Hr 96.5 F-98.7 F 84-117 15-28 94-181/49-105 91-100 General appearance: no acute distress - Respiratory Respiratory exam: Present: clear to auscultation bilaterally - Cardiovascular Cardiovascular exam: Present: regular rate and rhythm - GI/Abdominal GI/Abdominal exam: Present: tenderness (along surgical site) - Extremities Exam Extremities exam: Absent: edema - Neurological Exam Neurological exam: Present: alert - Psychiatric Psychiatric exam: Present: normal mood - Skin Skin exam: Present: warm, dry Results - Labs CBC & BMP: 05/26/17 08:05 05/26/17 08:09
[2017-05-26] MEDS: ceFAZolin 2,000 MG in PREMIX 1 EACH IV SCH ×3 (01:08→17:34)
[2017-05-26] MEDS: ALBUTEROL/IPRATROPIUM 3 ML NEB RESP TX SCH ×4 (01:40→18:56)
[2017-05-26] MEDS: KETOROLAC 15 MG/1 ML VIAL IV SCH ×3 (02:07→17:32)
[2017-05-26] MEDS: MORPHINE 2 MG/1 ML SYRINGE IV PRN ×3 (02:44→21:43)
[2017-05-26] MEDS: DEXT 5% NACL 0.45% KCL 40 MEQ 40 MEQ/1,000 ML BAG IV SCH ×3 (02:46→19:43)
[2017-05-26 03:14] LABS: ABG Base Excess 1.3 MMOL/L (-2.5-2.5); ABG HCO3 25.4 MMOL/L (20-26); ABG Oxygen Saturation 91.7 % (95-100); ABG PCO2 53.6 MM HG (35-48); ABG PH 7.331 (7.35-7.45); ABG PO2 68.1 MM HG (80-95); ABG TCO2 25.1 MMOL/L (23-27)
--- NOTE | 2017-05-26 06:43 | Pulmonology Progress Note ---
Pulmonary - PN: Subj Interval history: Patient is for repair of ventral hernia today. He weighs around 490 pounds. His baseline PCO2 is 71. Clearly he has obesity hypoventilation syndrome as well as severe obstructive sleep apnea. Postoperatively if he is extubated he needs to be put on his BiPAP immediately. He may require longer mechanical ventilation and moving to the ICU depending on how he does in the recovery room. An oxygen saturation of around 88-92% would be acceptable in the postop period. Need to be sure pain medicines and sedation are completely out of his system when he is extubated. 05/25/2017 patient moved to intensive care unit last night following his repair of ventral hernia. Has been on the ventilator overnight. PO2 is 322 on 100% oxygen. Patient is sedated. Chest x-ray looks a little wet. Will diurese, reduce FiO2, start CPAP trials. He does have an elevated bicarb level so will add Diamox. Wean as tolerated. Will need his BiPAP as soon as he is extubated. 05/26/2017 patient was extubated yesterday. Was on BiPAP overnight. Requiring 3 L with that to keep his O2 sats up. Chest x-ray is better this morning. He diuresed well yesterday. Not taking by mouth yet. Okay with me to move to floor today. Exam (Progress Note) - Constitutional Vitals: Period Temp Pulse Resp BP Sys/Mendez Pulse Ox Last 24 Hr 97.9 F-98.7 F 85-117 11-28 111-181/69-105 86-100 Exam: Patient is alert, responsive on BiPAP, vital signs normal. Pupils react to light. Neck is supple. Chest sounds clear. Heart normal rate rhythm no murmurs. Abdomen grand obese unable to palpate abdominal organs. Abdomen soft. Decreased bowel sounds but present, bandage over midline. Extremities no clubbing cyanosis. He does have some discoloration and some chronic nonpitting edema. Calves are nontender. Results - Labs CBC & BMP: 05/25/17 03:00 05/25/17 03:00 Lab Results: I have reviewed the past 24 hour labs - Diagnostic Findings Procedure: Chest x-ray: image reviewed by me (Lungs are less wet today) Assessment and Plan (1) Obstructive sleep apnea Status: Chronic Assessment and plan: Really has severe obstructive sleep apnea and must use his BiPAP on a regular basis. We will needed in the postop. If there are any sedatives on board especially. 05/25/2017 will need BiPAP as soon as were able to get him extubated. We need to get his FiO2 down his PO2 needs to be only around 65-70, for weaning. 05/26/2017 continuing with BiPAP at night. Current Visit: Yes (2) Hypoventilation associated with obesity syndrome Status: Chronic Assessment and plan: Has a PCO2 of 71 on room air. He has obesity hypoventilation syndrome. Will make weaning difficult. Will require BiPAP once he is extubated. 05/25/2017 will need to reduce his FiO2 to wean him. Will need sedation at a minimum. 05/26/2017 again continuing with BiPAP at night. Current Visit: Yes (3) Incarcerated umbilical hernia Status: Acute Assessment and plan: Agree that he does need to proceed with surgery. Unable to get the hernia reduced otherwise. 05/25/2017 status post repair of recurrent umbilical hernia with incarcerated small bowel. 05/26/2017 status post repair. Defer to surgery as far as when to start feeding him. Current Visit: Yes
--- NOTE | 2017-05-26 07:58 | General Surgery Progress Note ---
Assessment and Plan - Time spent with patient Time spent with patient: Less than 30 minutes (1) Incisional hernia with bowel obstruction Status: Acute Assessment and plan: 05/26/2017. Progressing well post repair of incarcerated ventral hernias. He is much more comfortable today, and does have occasional bowel sounds. We will plan to advance to clear liquids but keep the NG tube for now. We can go ahead and transfer to the floor and begin to get him more mobile. 05/25/2017. Stable postop repair of incarcerated ventral incisional hernias 2. Patient is scheduled to be extubated this morning. Hopefully will be able to move him to the floor soon. We will plan to keep the NG tube for now, replace his potassium IV, and hopefully advance his diet as soon as we are certain he has had bowel activity. Certainly will be important to try to get him mobile as quickly as possible. Current Visit: No Subjective Patient reports: Present: feels better, still having pain, pain is less. Absent : no flatus, shortness of breath Exam - Constitutional Vitals: Period Temp Pulse Resp BP Sys/Mendez Pulse Ox Last 24 Hr 97.9 F-98.7 F 85-117 11-28 111-181/69-105 86-100 General appearance: no acute distress, morbidly obese, other (Patient is alert this morning and much more comfortable. He said his pain is much better controlled. He denies shortness of breath and says he is participating with turning [id number] in the bed. He is able to move his extremities on command. ) - Respiratory Respiratory exam: Absent: rales, wheezes - Cardiovascular Cardiovascular exam: Present: RRR - GI/Abdominal GI/Abdominal exam: Present: other (Soft, with hypoactive but present bowel sounds. Incision is clean and dry. There is no unusual ecchymosis or drainage. JUDSON in place with scant bloody drainage the reservoir. NG output overnight is roughly 4 to 500 cc.) Results - Labs CBC & BMP: 05/25/17 03:00 05/25/17 03:00
--- NOTE | 2017-05-26 08:14 | XRay Report ---
XR chest 1V portable Indication: Shortness of breath Comparison: 25 May 2017 Findings: The heart and mediastinum are stable in size and configuration. Endotracheal tube is been removed. NG tube is unchanged in position. The pulmonary vascularity is normal in caliber. Faint basilar pulmonary densities are present similar to previous exam. No other lung infiltrates, effusions, pneumothorax or other abnormality is demonstrated. Impression: Interval extubation. No other significant changes. PROCEDURE INTERPRETED AT [facility] DEPARTMENT OF RADIOLOGY Final Report Signed by: Dr. Delio Merino
[2017-05-26 08:15] LABS: Basophils % 0.1 % (0.0-0.8); Eosinophils # 0.1 10*3/uL (0.0-0.87); Eosinophils % 0.6 % (0.00-10.9); Hematocrit 39.6 VOL% (42.0-52.0); Hemoglobin 12.5 GM/DL (14.0-18.0); Immature Granulocytes % 0.5 %; Immature Granulocytes Absolute 0.05 #; Lymphocytes # 1.2 10*3/uL (1.4-4.0); Lymphocytes % 11.7 % (21.2-54.2); Mean Corpuscular HGB Conc 31.6 GM/DL (32-36); Mean Corpuscular Hemoglobin 26 PG (27-34); Mean Corpuscular Volume 83.2 FL (87-102); Mean Platelet Volume 10.9 FL (9.6-12.0); Monocytes % 10.1 % (1.7-12.7); Neutrophils # 7.6 10*3/uL (1.4-7.4); Platelet Count 163 T/CUMM (130-400); Red Blood Count 4.76 MC/CUMM (3.8-5.5); Red Cell Distribution Width 17.2 % (9.3-17.3); White Blood Count 9.9 T/CUMM (4-12)
[2017-05-26 08:59] LABS: Albumin 2.7 G/DL (3.4-5.0); Bilirubin,Total 0.4 MG/DL (0.2-1.0); Calcium 8.4 MG/DL (8.5-10.1); Osmolality,Calculated 281.1 MOS/KG (273-304); Potassium 4.2 MMOL/L (3.5-5.1); Total Protein 6.9 G/DL (6.4-8.3)
[2017-05-26] MEDS: METOPROLOL TARTRATE 25 MG TABLET PO SCH ×2 (09:50→21:41)
[2017-05-26] MEDS: amLODIPine 10 MG TABLET PO SCH (09:50)
[2017-05-26] MEDS: PANTOPRAZOLE 40 MG VIAL IV SCH (09:51)
[2017-05-26] MEDS: FUROSEMIDE 40 MG/4 ML VIAL IV SCH (09:52)
--- NOTE | 2017-05-26 11:19 | Pathology Report from [facility] ---
[facility] [place] ACCESSION # : [id number] PATIENT NAME : Jr. Montague Edward ORDERING DR : CARLTON VIZCAINO III, MD CLINICAL HX: Ventral hernia POST-OP DX: Same SPECIMEN INFO: Hernia sac GROSS DESCRIPTION: The specimen is received in formalin labeled JESUSITA MONTAGUE JR consists of an irregular shaped, yellow mcneill-clark fatty fibrous tissue fragment measuring 8.9 x 5.4 x 2.5 cm. A computer help desk representative section submitted in one cassette. DIAGNOSIS FOR JESUSITA MONTAGUE JR.: VENTRAL HERNIA: Fibrovascular and adipose tissue with mesothelial lining and adjacent congestion and hemorrhage, c/w hernia repair. COLLECTED DATE: 05/25/2017 [facility] [place] REPORT DATE: 05/26/2017 ELECTRONICALLY SIGNED BY: Mariluz Mead M.D. 05/26/2017 - 9:17:25 [facility]
--- NOTE | 2017-05-26 13:13 | Sleep Medicine Progress Note ---
Assessment and Plan (1) Obstructive sleep apnea Status: Chronic Assessment and plan: He is making good progress postoperatively. He is benefiting from his BiPAP therapy. He does have a component of chronic respiratory failure with obesity hypoventilation. I think BiPAP is benefiting him from both this standpoint and his sleep apnea. Prescription will be written today for mask and supplies. He will be scheduled for follow-up in the sleep clinic after discharge. Current Visit: Yes (2) Hypoventilation associated with obesity syndrome Status: Chronic Current Visit: Yes Sleep Medicine Subjective Interval history: Patient did well with BiPAP therapy last night. He states that he was able to tolerate it despite the NG tube. He feels good today and looks to be making good progress. He reports no issues or problems with his BiPAP. We were unable to get a reliable download from his machine. Exam (Progress Note) - Constitutional Vitals: Period Temp Pulse Resp BP Sys/Mendez Pulse Ox Last 24 Hr 97.9 F-98.7 F 85-102 11-23 111-156/69-95 86-100 Exam: He is alert and responsive in no acute distress. Spirits are bright. Oropharynx with a class IV Mallampati exam. Chest with good air movement no focal wheeze rhonchi. Cardiac exam reveals a regular rhythm without murmur or gallop. Abdomen obese nontender extremities without increased edema. Neurologically, he is grossly intact. Results - Labs CBC & BMP: 05/26/17 08:05 05/26/17 08:09 Lab Results: I have reviewed the past 24 hour labs
[2017-05-26] MEDS: ENOXAPARIN 40 MG/0.4 ML SYRINGE SUBCUT SCH (13:38)
--- NOTE | 2017-05-26 23:20 | Internal Med Progress Note ---
Assessment and Plan (1) Incarcerated umbilical hernia Status: Acute Current Visit: Yes (2) Small bowel obstruction Status: Acute Current Visit: Yes (3) Abdominal pain Status: Acute Current Visit: Yes Qualifiers: Abdominal location: periumbilical Qualified Code(s): R10.33 - Periumbilical pain (4) Hypoventilation associated with obesity syndrome Status: Chronic Current Visit: Yes (5) Morbid obesity Status: Chronic Current Visit: Yes (6) Obstructive sleep apnea Status: Chronic Current Visit: Yes Internal Medicine - PN: Subj Interval history: Mr. Clari Rodriguez is a 32 year old male patient of Dr. Savana Latif with history of asthma, hypoventilation with morbid obesity, HTN, ABBEY on BiPAP, history of small bowel obstruction, who presented to ER with strangulated small bowel/ abdominal hernia resulting in partial small bowel obstruction. He came to ER with abdominal pain. He has had known abdominal hernia, reproducible, as reported in clinic, from a prior small bowel obstruction requiring surgical repair. He is status post surgery and hemodynamically stable. Pain management per Surgery. He is currently reasonably comfortable. Doing better, but still has NG tube in place. Mild ileus. Exam (Progress Note) - Constitutional Vitals: Period Temp Pulse Resp BP Sys/Mendez Pulse Ox Last 24 Hr 97.9 F-99.1 F 85-102 14-20 107-156/59-83 90-99 Exam: General appearance: no acute distress - Respiratory Respiratory exam: Present: clear to auscultation bilaterally - Cardiovascular Cardiovascular exam: Present: regular rate and rhythm - GI/Abdominal GI/Abdominal exam: Present: tenderness (along surgical site) - Extremities Exam Extremities exam: Absent: edema - Neurological Exam Neurological exam: Present: alert - Psychiatric Psychiatric exam: Present: normal mood - Skin Skin exam: Present: warm, dry Results - Labs CBC & BMP: 05/26/17 08:05 05/26/17 08:09
[2017-05-27] MEDS: ALBUTEROL/IPRATROPIUM 3 ML NEB RESP TX SCH ×4 (00:09→19:52)
[2017-05-27] MEDS: KETOROLAC 15 MG/1 ML VIAL IV SCH ×3 (01:53→17:34)
[2017-05-27] MEDS: MORPHINE PCA 30 MG/30 ML SYRINGE IV SCH ×2 (02:01→22:03)
[2017-05-27 03:28] LABS: ABG HCO3 25.2 MMOL/L (20-26); ABG PCO2 53.7 MM HG (35-48); ABG PH 7.327 (7.35-7.45); ABG PO2 67.2 MM HG (80-95); Allen Test Positive; Pt O2 Delivery Device BIPAP
[2017-05-27] MEDS: MORPHINE 2 MG/1 ML SYRINGE IV PRN ×4 (03:32→22:09)
[2017-05-27] MEDS: DEXT 5% NACL 0.45% KCL 40 MEQ 40 MEQ/1,000 ML BAG IV SCH ×4 (03:48→20:33)
--- NOTE | 2017-05-27 08:25 | XRay Report ---
Portable chest Exam date: 05/27/2017 550 AM Indication: Shortness of breath, cough Comparison: Not available Findings: Cardiomediastinal contours are stable with no change in tube placement. Bibasilar atelectasis. No acute osseous abnormalities. Visualized upper abdomen demonstrates no acute pathology. Impression: Stable bibasilar atelectasis PROCEDURE INTERPRETED AT [facility] DEPARTMENT OF RADIOLOGY Final Report Signed by: Donte Balderrama
[2017-05-27] MEDS: amLODIPine 10 MG TABLET PO SCH (08:37)
[2017-05-27] MEDS: METOPROLOL TARTRATE 25 MG TABLET PO SCH ×2 (08:37→20:27)
[2017-05-27] MEDS: FUROSEMIDE 40 MG/4 ML VIAL IV SCH (08:38)
[2017-05-27] MEDS: PANTOPRAZOLE 40 MG VIAL IV SCH (08:38)
--- NOTE | 2017-05-27 08:43 | Pulmonology Progress Note ---
Pulmonary - PN: Subj Interval history: Patient is for repair of ventral hernia today. He weighs around 490 pounds. His baseline PCO2 is 71. Clearly he has obesity hypoventilation syndrome as well as severe obstructive sleep apnea. Postoperatively if he is extubated he needs to be put on his BiPAP immediately. He may require longer mechanical ventilation and moving to the ICU depending on how he does in the recovery room. An oxygen saturation of around 88-92% would be acceptable in the postop period. Need to be sure pain medicines and sedation are completely out of his system when he is extubated. 05/25/2017 patient moved to intensive care unit last night following his repair of ventral hernia. Has been on the ventilator overnight. PO2 is 322 on 100% oxygen. Patient is sedated. Chest x-ray looks a little wet. Will diurese, reduce FiO2, start CPAP trials. He does have an elevated bicarb level so will add Diamox. Wean as tolerated. Will need his BiPAP as soon as he is extubated. 05/26/2017 patient was extubated yesterday. Was on BiPAP overnight. Requiring 3 L with that to keep his O2 sats up. Chest x-ray is better this morning. He diuresed well yesterday. Not taking by mouth yet. Okay with me to move to floor today. 05/27/2017 patient now on 4 E. Using BiPAP at night. O2 sat in the upper 90s on 2 L. Likely can do well on room air. Absolutely must stay on BiPAP at night. Starting to take some liquids by mouth. We will stop IV Lasix. Change Diamox to oral dose of 125 mg twice daily. Exam (Progress Note) - Constitutional Vitals: Period Temp Pulse Resp BP Sys/Mendez Pulse Ox Last 24 Hr 98.0 F-99.1 F 85-96 16-22 107-154/59-81 91-100 Exam: Patient is alert, responsive, vital signs normal. Pupils react to light. Neck is supple. Chest sounds clear. Heart normal rate rhythm no murmurs. Abdomen grand obese unable to palpate abdominal organs. Abdomen soft, bowel sounds present, bandage over midline. Extremities no clubbing cyanosis. He does have some discoloration and some chronic nonpitting edema. Calves are nontender. Results - Labs CBC & BMP: 05/26/17 08:05 05/26/17 08:09 Lab Results: I have reviewed the past 24 hour labs Assessment and Plan (1) Obstructive sleep apnea Status: Chronic Assessment and plan: Really has severe obstructive sleep apnea and must use his BiPAP on a regular basis. We will needed in the postop. If there are any sedatives on board especially. 05/25/2017 will need BiPAP as soon as were able to get him extubated. We need to get his FiO2 down his PO2 needs to be only around 65-70, for weaning. 05/26/2017 continuing with BiPAP at night. 05/27/2017 must continue BiPAP at night going forward. Current Visit: Yes (2) Hypoventilation associated with obesity syndrome Status: Chronic Assessment and plan: Has a PCO2 of 71 on room air. He has obesity hypoventilation syndrome. Will make weaning difficult. Will require BiPAP once he is extubated. 05/25/2017 will need to reduce his FiO2 to wean him. Will need sedation at a minimum. 05/26/2017 again continuing with BiPAP at night. 05/27/2017 certainly weight loss is indicated long-term. Continue BiPAP. Current Visit: Yes (3) Incarcerated umbilical hernia Status: Acute Assessment and plan: Agree that he does need to proceed with surgery. Unable to get the hernia reduced otherwise. 05/25/2017 status post repair of recurrent umbilical hernia with incarcerated small bowel. 05/26/2017 status post repair. Defer to surgery as far as when to start feeding him. 05/27/2017 status post repair. He does have bowel sounds and is passing some gas. Likely can be discharged soon. Current Visit: Yes
[2017-05-27] MEDS: acetaZOLAMIDE 250 MG TABLET PO SCH ×2 (09:13→20:26)
--- NOTE | 2017-05-27 09:14 | General Surgery Progress Note ---
Assessment and Plan (1) Incisional hernia with bowel obstruction Status: Acute Assessment and plan: Impression: Recurrent ventral incisional hernia abdominal wall Plan: Exploration with possible mesh repair 05/27/2017. Status post repair of these ventral hernias and he is doing much better at this time. Small bowel obstruction seems to be relieved with minimal JUDSON drainage no nausea and vomiting since it NG tube being clamped. JUDSON drainage is minimal to moderate at this point. Pulmonary status looks in good shape. He still has massive obesity his abdomen is mildly distended hypoactive bowel sounds but some flatus. Will plan to pull his NG tube and try him on some full liquids but probably would not do solid food until first of the week. Will pull his Andujar catheter as well as NG tube get him some physical therapy to get him ambulatory at this time. Current Visit: No (2) Morbid obesity Status: Chronic Assessment and plan: Impression: Morbid obesity Plan: Patient needs to lose his weight although I am not sure he has made much of an effort has not improved truly lost much weight. Current Visit: Yes (3) Status post repair of ventral hernia Status: Acute Assessment and plan: Impression: Status post previous ventral incisional hernia repair with Stratus mesh approximately a year ago Current Visit: No (4) Obstructive sleep apnea Status: Chronic Assessment and plan: Impression: Sleep apnea with chronic obstructive pulmonary disease Plan: Consulting Dr. Quiñonez Current Visit: Yes Subjective Patient reports: Present: no new complaints, feels better, pain is less, tolerating liquids well, flatus, afebrile Exam - Constitutional Vitals: Period Temp Pulse Resp BP Sys/Mendez Pulse Ox Last 24 Hr 98.0 F-99.1 F 85-96 16-22 107-154/59-81 91-100 General appearance: mild distress - Head Head exam: Present: normal inspection - Neck Neck exam: Present: normal inspection - Respiratory Respiratory exam: Present: rales - Cardiovascular Cardiovascular exam: Present: RRR - GI/Abdominal GI/Abdominal exam: Present: hypoactive bowel sounds, tenderness (About the incision site), soft, other (Moderate JUDSON drainage). Absent: distended - Extremities Exam Extremities exam: Present: normal inspection - Back Exam Back exam: Present: normal inspection - Neurological Exam Neurological exam: Present: alert, oriented X3, CN II-XII intact - Skin Skin exam: Present: normal color, warm, dry Results - Labs CBC & BMP: 09/14/17 08:05 05/26/17 08:09 Lab Results: I have reviewed the past 24 hour labs
[2017-05-27] MEDS: METOCLOPRAMIDE 5 MG TABLET PO SCH ×3 (11:18→20:27)
[2017-05-27] MEDS: ALUMINUM/MAGNES/SIMETH MAX STR 30 ML UDCUP PO SCH ×2 (12:44→17:36)
--- NOTE | 2017-05-27 12:44 | Sleep Medicine Progress Note ---
Assessment and Plan (1) Obstructive sleep apnea Status: Chronic Assessment and plan: Continue BiPAP therapy with follow-up in the sleep clinic. Current Visit: Yes (2) Hypoventilation associated with obesity syndrome Status: Chronic Current Visit: Yes Sleep Medicine Subjective Interval history: Patient does appear to be making good progress. He did sleep over 8 hours on his BiPAP last night and amazingly, is requiring lower pressures. At 8/4 BiPAP , he had an AHI of 5.7. He seems to be making progress. He did have his BiPAP machine cleaned and serviced while here. We will set him up for follow-up in the sleep clinic after discharge. Exam (Progress Note) - Constitutional Vitals: Period Temp Pulse Resp BP Sys/Mendez Pulse Ox Last 24 Hr 98.0 F-99.1 F 82-98 16-22 107-154/59-83 91-100 Exam: He is alert and responsive in no acute distress. Spirits are bright. Oropharynx with a class IV Mallampati exam. Chest with good air movement no focal wheeze rhonchi. Cardiac exam reveals a regular rhythm without murmur or gallop. Abdomen obese nontender extremities without increased edema. Neurologically, he is grossly intact. Results - Labs CBC & BMP: 05/26/17 08:05 05/26/17 08:09 Lab Results: I have reviewed the past 24 hour labs
[2017-05-27] MEDS: ENOXAPARIN 40 MG/0.4 ML SYRINGE SUBCUT SCH (12:46)
--- NOTE | 2017-05-27 14:17 | Internal Med Progress Note ---
Assessment and Plan (1) Incarcerated umbilical hernia Status: Acute Current Visit: Yes (2) Small bowel obstruction Status: Acute Current Visit: Yes (3) Abdominal pain Status: Acute Current Visit: Yes Qualifiers: Abdominal location: periumbilical Qualified Code(s): R10.33 - Periumbilical pain (4) Hypoventilation associated with obesity syndrome Status: Chronic Current Visit: Yes (5) Morbid obesity Status: Chronic Current Visit: Yes (6) Obstructive sleep apnea Status: Chronic Current Visit: Yes Internal Medicine - PN: Subj Interval history: Mr. Clari Rodriguez is a 32 year old male patient of Dr. Savana Latif with history of asthma, hypoventilation with morbid obesity, HTN, ABBEY on BiPAP, history of small bowel obstruction, who presented to ER with strangulated small bowel/ abdominal hernia resulting in partial small bowel obstruction. He came to ER with abdominal pain. He has had known abdominal hernia, reproducible, as reported in clinic, from a prior small bowel obstruction requiring surgical repair. He is status post surgery and hemodynamically stable. Pain management per Surgery. He is currently reasonably comfortable. NG tube has been removed. Continuing to improve. Exam (Progress Note) - Constitutional Vitals: Period Temp Pulse Resp BP Sys/Mendez Pulse Ox Last 24 Hr 98.0 F-99.1 F 82-98 16-22 107-154/59-83 91-100 Exam: General appearance: no acute distress - Respiratory Respiratory exam: Present: clear to auscultation bilaterally - Cardiovascular Cardiovascular exam: Present: regular rate and rhythm - GI/Abdominal GI/Abdominal exam: Present: tenderness (along surgical site) - Extremities Exam Extremities exam: Absent: edema - Neurological Exam Neurological exam: Present: alert - Psychiatric Psychiatric exam: Present: normal mood - Skin Skin exam: Present: warm, dry Results - Labs CBC & BMP: 05/26/17 08:05 05/26/17 08:09
[2017-05-28] MEDS: ALBUTEROL/IPRATROPIUM 3 ML NEB RESP TX SCH ×4 (01:19→18:48)
[2017-05-28] MEDS: KETOROLAC 15 MG/1 ML VIAL IV SCH ×2 (02:12→11:08)
[2017-05-28 02:35] LABS: ABG Base Excess 0.2 MMOL/L (-2.5-2.5); ABG HCO3 24.5 MMOL/L (20-26); ABG Oxygen Saturation 92.1 % (95-100); ABG PCO2 46.1 MM HG (35-48); ABG PH 7.361 (7.35-7.45); ABG TCO2 22.9 MMOL/L (23-27)
[2017-05-28] MEDS: DEXT 5% NACL 0.45% KCL 40 MEQ 40 MEQ/1,000 ML BAG IV SCH (04:58)
[2017-05-28] MEDS: MORPHINE 2 MG/1 ML SYRINGE IV PRN (05:18)
[2017-05-28 06:25] LABS: Basophils % 0.2 % (0.0-0.8); Eosinophils # 0.1 10*3/uL (0.0-0.87); Eosinophils % 1.2 % (0.00-10.9); Hematocrit 40.4 VOL% (42.0-52.0); Immature Granulocytes % 0.3 %; Immature Granulocytes Absolute 0.03 #; Lymphocytes # 1.3 10*3/uL (1.4-4.0); Mean Corpuscular HGB Conc 32.2 GM/DL (32-36); Mean Corpuscular Hemoglobin 26 PG (27-34); Mean Corpuscular Volume 81.5 FL (87-102); Mean Platelet Volume 11.1 FL (9.6-12.0); Neutrophils # 7.2 10*3/uL (1.4-7.4); Neutrophils % 75.3 % (38.7-73.9); Platelet Count 208 T/CUMM (130-400); Red Blood Count 4.96 MC/CUMM (3.8-5.5); White Blood Count 9.6 T/CUMM (4-12)
[2017-05-28 06:55] LABS: Calcium 9.3 MG/DL (8.5-10.1); Magnesium 2.4 MG/DL (1.8-2.4); Potassium 4.7 MMOL/L (3.5-5.1)
[2017-05-28] MEDS: amLODIPine 10 MG TABLET PO SCH (08:43)
[2017-05-28] MEDS: METOCLOPRAMIDE 5 MG TABLET PO SCH ×4 (08:43→21:09)
[2017-05-28] MEDS: ALUMINUM/MAGNES/SIMETH MAX STR 30 ML UDCUP PO SCH ×3 (08:43→17:56)
[2017-05-28] MEDS: acetaZOLAMIDE 250 MG TABLET PO SCH ×2 (08:43→21:10)
[2017-05-28] MEDS: METOPROLOL TARTRATE 25 MG TABLET PO SCH ×2 (08:43→21:09)
[2017-05-28] MEDS: PANTOPRAZOLE 40 MG VIAL IV SCH (08:44)
--- NOTE | 2017-05-28 08:47 | Family Practice Progress Note ---
Family Practice - PN: Subj Interval history: Morbid, morbid obesity. Denies any problems right now. Lying in bed in no acute distress. Vital signs are stable blood pressure stable CBC okay and chemistry looks good. His ABGs reveal a PO2 of 69 PCO2 46 and a pH of 7.36. Continue to monitor. Exam (Progress Note) - Constitutional Vitals: Period Temp Pulse Resp BP Sys/Mendez Pulse Ox Last 24 Hr 97.9 F-99.0 F 78-98 16-22 136-160/76-94 91-96 Exam: Exam apparently grossly unchanged. No acute distress Patient is morbidly obese and he is going require a lot of assistance if he continues to have this issue Neck supple trachea midline Lungs patient denies shortness of breath Abdomen incision is healing without complication Results - Labs CBC & BMP: 05/28/17 05:08 05/28/17 05:08
--- NOTE | 2017-05-28 10:27 | XRay Report ---
History is short of breath Comparison 05/27/2017 The heart is enlarged There is mild improved aeration in the lung bases with minimal stranding opacities remaining. No confluent infiltrate is seen. Impression: Mild improved aeration in the lung bases with additional improvement of prior vascular congestion PROCEDURE INTERPRETED AT [facility] DEPARTMENT OF RADIOLOGY Final Report Signed by: Dr. Tonya Stewart
[2017-05-28] MEDS ORDERED: DEXTROSE 50% 25 GM/50 ML SYRINGE IV PRN (11:41)
[2017-05-28] MEDS ORDERED: GLUCAGON 1 MG VIAL IM PRN (11:41)
--- NOTE | 2017-05-28 11:43 | Event Note ---
This patient is doing well postoperative day 4 from laparotomy with lysis of adhesions and ventral hernia repair 2 with Stratus. He is tolerating liquid diet and we are advancing to regular diet today with sliding scale insulin coverage. This is actually an ADA diet. We will continue JUDSON drains and monitor his wound.
--- NOTE | 2017-05-28 12:03 | Pulmonology Progress Note ---
Pulmonary - PN: Subj Interval history: Patient is for repair of ventral hernia today. He weighs around 490 pounds. His baseline PCO2 is 71. Clearly he has obesity hypoventilation syndrome as well as severe obstructive sleep apnea. Postoperatively if he is extubated he needs to be put on his BiPAP immediately. He may require longer mechanical ventilation and moving to the ICU depending on how he does in the recovery room. An oxygen saturation of around 88-92% would be acceptable in the postop period. Need to be sure pain medicines and sedation are completely out of his system when he is extubated. 05/25/2017 patient moved to intensive care unit last night following his repair of ventral hernia. Has been on the ventilator overnight. PO2 is 322 on 100% oxygen. Patient is sedated. Chest x-ray looks a little wet. Will diurese, reduce FiO2, start CPAP trials. He does have an elevated bicarb level so will add Diamox. Wean as tolerated. Will need his BiPAP as soon as he is extubated. 05/26/2017 patient was extubated yesterday. Was on BiPAP overnight. Requiring 3 L with that to keep his O2 sats up. Chest x-ray is better this morning. He diuresed well yesterday. Not taking by mouth yet. Okay with me to move to floor today. 05/27/2017 patient now on 4 E. Using BiPAP at night. O2 sat in the upper 90s on 2 L. Likely can do well on room air. Absolutely must stay on BiPAP at night. Starting to take some liquids by mouth. We will stop IV Lasix. Change Diamox to oral dose of 125 mg twice daily. 05/28/2017 patient is diuresed fairly well. We will keep him on oral Diamox. Seems to do well with his BiPAP off. Will use it at night and then just adjust oxygen during the day to keep his oxygen saturation is 88%. May do okay with room air during the day. Exam (Progress Note) - Constitutional Vitals: Period Temp Pulse Resp BP Sys/Mendez Pulse Ox Last 24 Hr 97.9 F-99.0 F 78-98 16-22 136-160/75-94 91-99 Exam: Patient is alert, responsive, vital signs normal. Pupils react to light. Neck is supple. Chest sounds clear. Heart normal rate rhythm no murmurs. Abdomen grand obese unable to palpate abdominal organs. Abdomen soft, bowel sounds present, bandage over midline. Has JUDSON drain. Extremities no clubbing cyanosis. He does have some discoloration and some chronic nonpitting edema. Calves are nontender. Results - Labs CBC & BMP: 05/28/17 05:08 05/28/17 05:08 Lab Results: I have reviewed the past 24 hour labs - Diagnostic Findings Procedure: Chest x-ray: image reviewed by me (Chest x-ray is improved. Essentially clear now.) Assessment and Plan (1) Obstructive sleep apnea Status: Chronic Assessment and plan: Really has severe obstructive sleep apnea and must use his BiPAP on a regular basis. We will needed in the postop. If there are any sedatives on board especially. 05/25/2017 will need BiPAP as soon as were able to get him extubated. We need to get his FiO2 down his PO2 needs to be only around 65-70, for weaning. 05/26/2017 continuing with BiPAP at night. 05/27/2017 must continue BiPAP at night going forward. 05/28/2017 using BiPAP at night. Does not need it during the day now. Current Visit: Yes (2) Hypoventilation associated with obesity syndrome Status: Chronic Assessment and plan: Has a PCO2 of 71 on room air. He has obesity hypoventilation syndrome. Will make weaning difficult. Will require BiPAP once he is extubated. 05/25/2017 will need to reduce his FiO2 to wean him. Will need sedation at a minimum. 05/26/2017 again continuing with BiPAP at night. 05/27/2017 certainly weight loss is indicated long-term. Continue BiPAP. 05/28/2017 again using BiPAP at night. Continued weight loss. We have diuresed him a bit. Now just on oral Diamox. Current Visit: Yes (3) Incarcerated umbilical hernia Status: Acute Assessment and plan: Agree that he does need to proceed with surgery. Unable to get the hernia reduced otherwise. 05/25/2017 status post repair of recurrent umbilical hernia with incarcerated small bowel. 05/26/2017 status post repair. Defer to surgery as far as when to start feeding him. 05/27/2017 status post repair. He does have bowel sounds and is passing some gas. Likely can be discharged soon. 05/28/2017 status post repair of recurrent ventral hernia. Current Visit: Yes
[2017-05-28] MEDS: ENOXAPARIN 40 MG/0.4 ML SYRINGE SUBCUT SCH (14:27)
[2017-05-28] MEDS: traMADol 50 MG TABLET PO PRN (14:28)
[2017-05-28] MEDS: INSULIN REGULAR 100 UNIT/ML SUBCUT SCH ×2 (15:54→21:07)
[2017-05-29] MEDS: ALBUTEROL/IPRATROPIUM 3 ML NEB RESP TX SCH ×4 (00:12→19:35)
[2017-05-29 03:25] LABS: ABG Base Excess -0.8 MMOL/L (-2.5-2.5); ABG HCO3 23.6 MMOL/L (20-26); ABG Oxygen Saturation 91.5 % (95-100); ABG PCO2 44.5 MM HG (35-48); ABG PH 7.358 (7.35-7.45); ABG PO2 67.3 MM HG (80-95); ABG TCO2 21.6 MMOL/L (23-27); Allen Test Positive; Pt O2 Delivery Device BIPAP
[2017-05-29] MEDS: INSULIN REGULAR 100 UNIT/ML SUBCUT SCH ×4 (08:00→20:25)
[2017-05-29] MEDS: METOCLOPRAMIDE 5 MG TABLET PO SCH ×4 (09:09→20:23)
[2017-05-29] MEDS: ALUMINUM/MAGNES/SIMETH MAX STR 30 ML UDCUP PO SCH ×3 (09:09→17:39)
[2017-05-29] MEDS: PANTOPRAZOLE 40 MG VIAL IV SCH (09:10)
[2017-05-29] MEDS: METOPROLOL TARTRATE 25 MG TABLET PO SCH ×2 (09:10→20:23)
[2017-05-29] MEDS: amLODIPine 10 MG TABLET PO SCH (09:10)
[2017-05-29] MEDS: acetaZOLAMIDE 250 MG TABLET PO SCH ×2 (09:10→20:23)
--- NOTE | 2017-05-29 10:26 | XRay Report ---
Portable chest. Indication: Shortness of breath. Comparison: Yesterday's exam. The heart is enlarged. The pulmonary vasculature is normal. Platelike atelectasis persists in the right lung base. No pneumothorax or pleural effusion. Impression: Cardiomegaly. Right basilar atelectasis. PROCEDURE INTERPRETED AT [facility] DEPARTMENT OF RADIOLOGY Final Report Signed by: Dr. Linda Stewart
--- NOTE | 2017-05-29 10:51 | Family Practice Progress Note ---
Family Practice - PN: Subj Interval history: 05/28/2017: Morbid, morbid obesity. Denies any problems right now. Lying in bed in no acute distress. Vital signs are stable blood pressure stable CBC okay and chemistry looks good. His ABGs reveal a PO2 of 69 PCO2 46 and a pH of 7.36. Continue to monitor. 05/29/2016: Patient seen. He is status postoperative day 4 for laparotomy with lysis of adhesions and ventral hernia. He is not having any problems right now denies any significant abdominal pain. Vital signs are stable and he is breathing easily. He has been advanced to a regular diet. And continues to get sliding scale coverage is with good blood sugars Exam (Progress Note) - Constitutional Vitals: Period Temp Pulse Resp BP Sys/Mendez Pulse Ox Last 24 Hr 97.4 F-98.2 F 80-109 16-20 122-147/63-90 90-98 Results - Labs CBC & BMP: 05/28/17 05:08 05/28/17 05:08
--- NOTE | 2017-05-29 11:11 | Pulmonology Progress Note ---
Pulmonary - PN: Subj Interval history: Patient is for repair of ventral hernia today. He weighs around 490 pounds. His baseline PCO2 is 71. Clearly he has obesity hypoventilation syndrome as well as severe obstructive sleep apnea. Postoperatively if he is extubated he needs to be put on his BiPAP immediately. He may require longer mechanical ventilation and moving to the ICU depending on how he does in the recovery room. An oxygen saturation of around 88-92% would be acceptable in the postop period. Need to be sure pain medicines and sedation are completely out of his system when he is extubated. 05/25/2017 patient moved to intensive care unit last night following his repair of ventral hernia. Has been on the ventilator overnight. PO2 is 322 on 100% oxygen. Patient is sedated. Chest x-ray looks a little wet. Will diurese, reduce FiO2, start CPAP trials. He does have an elevated bicarb level so will add Diamox. Wean as tolerated. Will need his BiPAP as soon as he is extubated. 05/26/2017 patient was extubated yesterday. Was on BiPAP overnight. Requiring 3 L with that to keep his O2 sats up. Chest x-ray is better this morning. He diuresed well yesterday. Not taking by mouth yet. Okay with me to move to floor today. 05/27/2017 patient now on 4 E. Using BiPAP at night. O2 sat in the upper 90s on 2 L. Likely can do well on room air. Absolutely must stay on BiPAP at night. Starting to take some liquids by mouth. We will stop IV Lasix. Change Diamox to oral dose of 125 mg twice daily. 05/28/2017 patient is diuresed fairly well. We will keep him on oral Diamox. Seems to do well with his BiPAP off. Will use it at night and then just adjust oxygen during the day to keep his oxygen saturation is 88%. May do okay with room air during the day. 05/29/2017 patient feeling better. Has had a bowel movement. Room air O2 sats now in the 90s. Patient using BiPAP with naps and at bedtime. Seems to be compliant. Exam (Progress Note) - Constitutional Vitals: Period Temp Pulse Resp BP Sys/Mendez Pulse Ox Last 24 Hr 97.4 F-98.2 F 80-109 16-20 122-147/63-90 90-98 Exam: Patient is alert, responsive, vital signs normal. Pupils react to light. Neck is supple. Chest sounds clear. Heart normal rate rhythm no murmurs. Abdomen grand obese unable to palpate abdominal organs. Abdomen soft, bowel sounds present, bandage over midline. Has JUDSON drain. Extremities no clubbing cyanosis. He does have some discoloration and some chronic nonpitting edema. Calves are nontender. Little change from yesterday. Results - Labs CBC & BMP: 05/28/17 05:08 05/28/17 05:08 Lab Results: I have reviewed the past 24 hour labs - Diagnostic Findings Procedure: Chest x-ray: image reviewed by me (Improved. Less interstitial edema.) Assessment and Plan - Time spent with patient Time spent with patient: (Improved. Edema.) (1) Obstructive sleep apnea Status: Chronic Assessment and plan: Really has severe obstructive sleep apnea and must use his BiPAP on a regular basis. We will needed in the postop. If there are any sedatives on board especially. 05/25/2017 will need BiPAP as soon as were able to get him extubated. We need to get his FiO2 down his PO2 needs to be only around 65-70, for weaning. 05/26/2017 continuing with BiPAP at night. 05/27/2017 must continue BiPAP at night going forward. 05/28/2017 using BiPAP at night. Does not need it during the day now. 05/29/2017 continuing using BiPAP. Current Visit: Yes (2) Hypoventilation associated with obesity syndrome Status: Chronic Assessment and plan: Has a PCO2 of 71 on room air. He has obesity hypoventilation syndrome. Will make weaning difficult. Will require BiPAP once he is extubated. 05/25/2017 will need to reduce his FiO2 to wean him. Will need sedation at a minimum. 05/26/2017 again continuing with BiPAP at night. 05/27/2017 certainly weight loss is indicated long-term. Continue BiPAP. 05/28/2017 again using BiPAP at night. Continued weight loss. We have diuresed him a bit. Now just on oral Diamox. 05/29/2017 BiPAP at night. Weight loss. Low-dose oral Diamox Current Visit: Yes (3) Incarcerated umbilical hernia Status: Acute Assessment and plan: Agree that he does need to proceed with surgery. Unable to get the hernia reduced otherwise. 05/25/2017 status post repair of recurrent umbilical hernia with incarcerated small bowel. 05/26/2017 status post repair. Defer to surgery as far as when to start feeding him. 05/27/2017 status post repair. He does have bowel sounds and is passing some gas. Likely can be discharged soon. 05/28/2017 status post repair of recurrent ventral hernia. 05/29/2017 status post repair. Still has JUDSON drain in place. Eating and having bowel movements. Current Visit: Yes
--- NOTE | 2017-05-29 11:31 | Event Note ---
This patient is doing well following ventral hernia repair with Stratus mesh. He is tolerating regular diet and having bowel movements. His JUDSON drain has minimal serosanguineous output. His pain is well controlled. He is up walking in the hallway. He appears to be approaching his time of discharge but we will keep him 1 more day to observe him.
[2017-05-29] MEDS: ENOXAPARIN 40 MG/0.4 ML SYRINGE SUBCUT SCH (12:06)
[2017-05-30] MEDS: ALBUTEROL/IPRATROPIUM 3 ML NEB RESP TX SCH ×2 (00:48→07:22)
[2017-05-30 06:33] LABS: Basophils % 0.3 % (0.0-0.8); Eosinophils # 0.2 10*3/uL (0.0-0.87); Eosinophils % 2.1 % (0.00-10.9); Hematocrit 42.9 VOL% (42.0-52.0); Hemoglobin 13.9 GM/DL (14.0-18.0); Immature Granulocytes % 0.5 %; Immature Granulocytes Absolute 0.05 #; Lymphocytes # 1.4 10*3/uL (1.4-4.0); Lymphocytes % 14.4 % (21.2-54.2); Mean Corpuscular HGB Conc 32.4 GM/DL (32-36); Mean Corpuscular Hemoglobin 26 PG (27-34); Mean Corpuscular Volume 80.9 FL (87-102); Mean Platelet Volume 10.5 FL (9.6-12.0); Neutrophils % 72.7 % (38.7-73.9); Platelet Count 270 T/CUMM (130-400); Red Cell Distribution Width 16.9 % (9.3-17.3); White Blood Count 9.6 T/CUMM (4-12)
[2017-05-30 07:02] LABS: Calcium 8.9 MG/DL (8.5-10.1); Magnesium 2.7 MG/DL (1.8-2.4); Potassium 4.1 MMOL/L (3.5-5.1)
--- NOTE | 2017-05-30 07:52 | Discharge Summary ---
Hospital Course - Hospital Course Hospital Course: Discharge summary: Discharge diagnosis: 1. Recurrent ventral hernias 2 incarcerated 2. Small bowel obstruction secondary to incarcerated ventral hernia 3. Massive obesity 4. Mild hypertension Procedure: Reduction and primary repair of incarcerated ventral hernias [address] Barros Combine Mechanic Malika Latif Combine Mechanic Dr. Quiñonez Brief summary: 32-year-old -[place] male who presented back to the emergency room with evidence of some partial small bowel obstruction and a ventral hernia. Dr. Pinto saw him in the emergency room over the weekend and was able to reduce it. Saw him the next day and he was doing fairly well but I try to keep him in bed at this point time while he try to get a little bit of a bowel prep cleaning up a little bit so we see what we had to deal with. CT scan revealed 2 hernias with one on the right having bowel out in it and the other one sibling have fat in it. He had had a previous Stratus mesh repair about a year ago and I am surprised that we have these new areas that have developed. These appear to be off to the side of where we had done our repair but certainly this is significant. On exam he could feel a little knot on the left side and he complained a little tenderness there. He continued to have a little bit of nausea and vomiting and we eventually took him to surgery in order to repair these areas once we had things in shape. We got him pulmonary to look at him because of his sleep apnea and his medical doctor to have everything in shape before we took him in place he required the ventilator postop because of his size. At the time of surgery who initially reduced a left hernia but there is no visible other hernia present. While exploring this little hernia and kidney then shaved for a little mesh closure we put a finger and and found the other hernia off to the right. This is one that had some bile in it so we had exposed it reduced the bile back in. We then took a Stratus mesh and repaired both of these individually at this time. Because of his size anesthesia when he put him in the unit so we did put him in the unit he did not require ventilatory support but we observed him for a 36 hours before moving back to the floor. Dr. Quiñonez watched him and felt pulmonary hinson he was in good shape and he seemed to progress pretty nicely. We did have an NG tube down for about 3-4 days before we were able to pull it and start him on some liquids. He has been having some bowel sounds bowel activity ever since surgery but now it has picked up to where he is tolerating his diet well and having bowel movements. Apparently he has been up and ambulatory which is good. JUDSON drainage has been minimal decreasing over time and I think is can be okay to pull it at this point. He still has an incision and I have given him instructions as to how to take care of it and to keep it clean keep the dressing over it at this time. I think is can be safe to go ahead and let him go home and the looks at his labs are all looking good shape and he is afebrile and attempt to follow him up probably in about a week to get his sutures out. - Time spent with patient Time with patient DS: Greater than 30 minutes Diagnosis - Discharge Diagnosis (1) Incisional hernia with bowel obstruction Status: Resolved (2) Morbid obesity Status: Chronic (3) Status post repair of ventral hernia Status: Resolved (4) Obstructive sleep apnea Status: Chronic Specialty Discharge - Follow Up or Referrals Follow up with: Moi Barros MD [Physician] - 1 Week (to remove sutures ) Kayla Latif DO [Primary Care Provider] - 1 Month Discharge Plan - Discharge Data Disposition: Disch To Home/Self Care Condition at Discharge: Stable Discharge Diet: low fat, low cholesterol (1500 srikanth) Activity: increase activity as tolerated, no lifting, other (No straining) Hygiene: may shower Weight Bearing at Discharge: full weight bearing Driving: not until seen by doctor Contact your physician if you experience:: fever over 101, Redness or swelling, Nausea/Vomiting, pain uncontrolled by pain medications Wound / Dressing Care Instructions: Daily wound care to the midline incision. Shower and clean with soap of choice. Cover the incision with an island dressing are 4 x 4's - Discharge Medications New Acetaminophen Tab [Tylenol Tab] 650 mg PO Q6H PRN tablet PRN Reason: Pain Mild (1-3) And/Or Fever acetaZOLAMIDE TAB [Diamox Tab] 125 mg PO BID tablet Alum/Mag/Simeth Max Str Liquid [Mylanta Max Strength Liquid] 30 ml PO PC #1 bottle Metoclopramide Tab [Reglan Tab] 5 mg PO ACHS #60 tablet Metoprolol Tartrate Tab [Lopressor Tab] 25 mg PO BID tablet HYDROcodone/ACETAMIN 7.5-325 [Poca 7.5-325] 1 tablet PO Q6H PRN #30 tablet PRN Reason: Pain Moderate (4-7) Continue amLODIPine [Norvasc] 10 mg PO DAILY #60 tablet Fluticasone/Vilanterol [Breo Ellipta 200-25 Mcg INH] 1 puff INH DAILY #1 inhaler Albuterol Inhaler [Proventil Inhaler] 2 puff INH Q4H PRN #1 inhaler PRN Reason: Shortness Of Breath/Wheezing - Follow Up or Referral - Forms/Instructions Exam - Constitutional Vitals: Period Temp Pulse Resp BP Sys/Mendez Pulse Ox Last 24 Hr 97.1 F-98 F 82-115 16-20 119-168/42-85 91-99 General appearance: no acute distress - Head Head exam: Present: normal inspection - ENT ENT exam: Present: normal exam - Neck Neck exam: Present: normal inspection - Respiratory Respiratory exam: Present: rales - Cardiovascular Cardiovascular exam: Present: regular rate and rhythm - GI/Abdominal GI/Abdominal exam: Present: hypoactive bowel sounds, soft, other (The incision looks clean and dry at this time with no sign of any erythematous changes are puffiness. JUDSON drainage is minimal and will pull). Absent: hernia - Extremities Exam Extremities exam: Present: normal inspection - Back Exam Back exam: Present: normal inspection - Neurological Exam Neurological exam: Present: alert, oriented X3, CN II-XII intact - Psychiatric Psychiatric exam: Present: normal affect, normal mood - Skin Skin exam: Present: normal color, warm, dry Discharge Results Labs on day of discharge: Labs from last 24 hours 05/30/17 05/30/17 05/30/17 07:09 06:17 06:17 WBC 9.6 RBC 5.30 Hgb 13.9 L Hct 42.9 MCV 80.9 L MCH 26 L MCHC 32.4 RDW 16.9 Plt Count 270 D MPV 10.5 Neut % (Auto) 72.7 Lymph % (Auto) 14.4 L Steuben % (Auto) 10.0 Eos % (Auto) 2.1 Baso % (Auto) 0.3 Neut # (Auto) 7.0 Lymph # (Auto) 1.4 [place]uben # (Auto) 1.0 H Eos # (Auto) 0.2 Baso # (Auto) 0.0 Immature Gran % 0.5 Nucleated RBC % 0.0 Immature Gran # 0.05 Nucleated RBCs # 0.00 Immature Plt Fraction 0.0 Sodium 136 Potassium 4.1 Chloride 99 Carbon Dioxide 29 Anion Gap 12.1 BUN 15 Creatinine 0.80 GFR Calculation 236 BUN/Creatinine Ratio 18.00 Glucose 103 POC Glucose 115 H Calculated Osmolality 272.0 L Calcium 8.9 Magnesium 2.7 H 05/29/17 05/29/17 05/29/17 19:42 15:21 10:42 WBC RBC Hgb Hct MCV MCH MCHC RDW Plt Count MPV Neut % (Auto) Lymph % (Auto) Steuben % (Auto) Eos % (Auto) Baso % (Auto) Neut # (Auto) Lymph # (Auto) Steuben # (Auto) Eos # (Auto) Baso # (Auto) Immature Gran % Nucleated RBC % Immature Gran # Nucleated RBCs # Immature Plt Fraction Sodium Potassium Chloride Carbon Dioxide Anion Gap BUN Creatinine GFR Calculation BUN/Creatinine Ratio Glucose POC Glucose 94 101 96 Calculated Osmolality Calcium Magnesium 05/29/17 07:28 WBC RBC Hgb Hct MCV MCH MCHC RDW Plt Count MPV Neut % (Auto) Lymph % (Auto) Steuben % (Auto) Eos % (Auto) Baso % (Auto) Neut # (Auto) Lymph # (Auto) Steuben # (Auto) Eos # (Auto) Baso # (Auto) Immature Gran % Nucleated RBC % Immature Gran # Nucleated RBCs # Immature Plt Fraction Sodium Potassium Chloride Carbon Dioxide Anion Gap BUN Creatinine GFR Calculation BUN/Creatinine Ratio Glucose POC Glucose 117 H Calculated Osmolality Calcium Magnesium DS: Provider Date of admission: 05/22/17 18:21 Primary care physician: Kayla Latif DO Attending physician on admission: Moi Barros MD Consults: 05/22/17 18:23 Consult to Physician [CONS] Routine Comment: Consulting Provider: Kayla Latif Consulting Provider Notified: Yes When should Consulting Provider be notified: Now When should Consulting Provider be notified: In am Person Notified: regla called Date Notified: 05/23/17 Time Notified: 09:23 05/23/17 06:56 Consult to Physician [CONS] Routine Comment: Consulting Provider: Lincoln Quiñonez Consulting Provider Notified: Yes When should Consulting Provider be notified: Now Person Notified: omari called Date Notified: 05/23/17 Time Notified: 09:20 05/23/17 07:16 Consult to Physician [CONS] Routine Comment: Consulting Provider: Moi Barros Consulting Provider Notified: Yes When should Consulting Provider be notified: Now Person Notified: farshad barkley Date Notified: 05/23/17 Time Notified: 09:09 05/23/17 08:56 Consult to Anesthesiology [CONS] Routine Consulting Provider: Reason for Anesthesiology: Pre-op Clearance 05/23/17 16:44 Consult to Physician [CONS] Routine Comment: Known to you - followup with CPAP machine use Consulting Provider: Brit Childers Consulting Provider Notified: Yes When should Consulting Provider be notified: In am Person Notified: Dr. Childers saw Date Notified: 05/23/17 Time Notified: 18:35 05/23/17 16:46 Consult to Case Mgmt/Social Srvs [CONS] Routine Reason for Case Mgmt/Social Srvs: Other Consult Comment: assistance with CPAP machine supplies 05/26/17 08:53 Consult to Physical Therapy [CONS] Routine Reason for Physical Therapy: Evaluate and Treat Start Therapy: Today Consult Comment: early mobility protocol 05/27/17 09:11 Consult to Physical Therapy [CONS] Routine Reason for Physical Therapy: Evaluate and Treat Start Therapy: Today Consult Comment: Ambulate twice daily and work on transferring to bed to chair Discharging clinician: Moi Barros MD Expected date of discharge: 05/30/17
--- NOTE | 2017-05-30 08:16 | Pulmonology Progress Note ---
Pulmonary - PN: Subj Interval history: Patient is for repair of ventral hernia today. He weighs around 490 pounds. His baseline PCO2 is 71. Clearly he has obesity hypoventilation syndrome as well as severe obstructive sleep apnea. Postoperatively if he is extubated he needs to be put on his BiPAP immediately. He may require longer mechanical ventilation and moving to the ICU depending on how he does in the recovery room. An oxygen saturation of around 88-92% would be acceptable in the postop period. Need to be sure pain medicines and sedation are completely out of his system when he is extubated. 05/25/2017 patient moved to intensive care unit last night following his repair of ventral hernia. Has been on the ventilator overnight. PO2 is 322 on 100% oxygen. Patient is sedated. Chest x-ray looks a little wet. Will diurese, reduce FiO2, start CPAP trials. He does have an elevated bicarb level so will add Diamox. Wean as tolerated. Will need his BiPAP as soon as he is extubated. 05/26/2017 patient was extubated yesterday. Was on BiPAP overnight. Requiring 3 L with that to keep his O2 sats up. Chest x-ray is better this morning. He diuresed well yesterday. Not taking by mouth yet. Okay with me to move to floor today. 05/27/2017 patient now on 4 E. Using BiPAP at night. O2 sat in the upper 90s on 2 L. Likely can do well on room air. Absolutely must stay on BiPAP at night. Starting to take some liquids by mouth. We will stop IV Lasix. Change Diamox to oral dose of 125 mg twice daily. 05/28/2017 patient is diuresed fairly well. We will keep him on oral Diamox. Seems to do well with his BiPAP off. Will use it at night and then just adjust oxygen during the day to keep his oxygen saturation is 88%. May do okay with room air during the day. 05/29/2017 patient feeling better. Has had a bowel movement. Room air O2 sats now in the 90s. Patient using BiPAP with naps and at bedtime. Seems to be compliant. 05/30/2017 patient doing better. Ready for discharge. Needs follow-up with Dr. Childers for his obstructive sleep apnea/obesity hypoventilation management. I will be glad to see him on a as needed basis. He has BiPAP has been arranged at home through [facility]. I discussed with him possibly getting with Dr. Oconnell for weight reduction surgery, and apparently those arrangements are being made. Exam (Progress Note) - Constitutional Vitals: Period Temp Pulse Resp BP Sys/Mendez Pulse Ox Last 24 Hr 96.4 F-98 F 82-115 16-20 119-168/42-100 91-99 Exam: Patient is alert, responsive, vital signs normal. Pupils react to light. Neck is supple. Chest sounds clear. Heart normal rate rhythm no murmurs. Abdomen grand obese unable to palpate abdominal organs. Abdomen soft, bowel sounds present, bandage over midline. Has JUDSON drain. Extremities no clubbing cyanosis. He does have some discoloration and some chronic nonpitting edema. Calves are nontender. Results - Labs CBC & BMP: 05/30/17 06:17 05/30/17 06:17 Lab Results: I have reviewed the past 24 hour labs Assessment and Plan (1) Obstructive sleep apnea Status: Chronic Assessment and plan: Really has severe obstructive sleep apnea and must use his BiPAP on a regular basis. We will needed in the postop. If there are any sedatives on board especially. 05/25/2017 will need BiPAP as soon as were able to get him extubated. We need to get his FiO2 down his PO2 needs to be only around 65-70, for weaning. 05/26/2017 continuing with BiPAP at night. 05/27/2017 must continue BiPAP at night going forward. 05/28/2017 using BiPAP at night. Does not need it during the day now. 05/29/2017 continuing using BiPAP. 05/30/2017 BiPAP at home has been arranged that he will follow up with Dr. Childers. Current Visit: Yes (2) Hypoventilation associated with obesity syndrome Status: Chronic Assessment and plan: Has a PCO2 of 71 on room air. He has obesity hypoventilation syndrome. Will make weaning difficult. Will require BiPAP once he is extubated. 05/25/2017 will need to reduce his FiO2 to wean him. Will need sedation at a minimum. 05/26/2017 again continuing with BiPAP at night. 05/27/2017 certainly weight loss is indicated long-term. Continue BiPAP. 05/28/2017 again using BiPAP at night. Continued weight loss. We have diuresed him a bit. Now just on oral Diamox. 05/29/2017 BiPAP at night. Weight loss. Low-dose oral Diamox 05/30/2017 long-term weight loss discussed. Will need to see Dr. Oconnell at some point. Current Visit: Yes (3) Incarcerated umbilical hernia Status: Acute Assessment and plan: Agree that he does need to proceed with surgery. Unable to get the hernia reduced otherwise. 05/25/2017 status post repair of recurrent umbilical hernia with incarcerated small bowel. 05/26/2017 status post repair. Defer to surgery as far as when to start feeding him. 05/27/2017 status post repair. He does have bowel sounds and is passing some gas. Likely can be discharged soon. 05/28/2017 status post repair of recurrent ventral hernia. 05/29/2017 status post repair. Still has JUDSON drain in place. Eating and having bowel movements. 05/30/2017 status post repair. Eating and having bowel movements. Drain removed. Current Visit: Yes Specialty Discharge - Follow Up or Referrals Follow up with: Kayla Latif DO [Primary Care Provider] - 1 Month Moi Barros MD [Physician] - 1 Week (to remove sutures )
[2017-05-30] MEDS: METOCLOPRAMIDE 5 MG TABLET PO SCH (08:49)
[2017-05-30] MEDS: INSULIN REGULAR 100 UNIT/ML SUBCUT SCH (08:50)
[2017-05-30] MEDS: amLODIPine 10 MG TABLET PO SCH (08:51)
[2017-05-30] MEDS: acetaZOLAMIDE 250 MG TABLET PO SCH (08:51)
[2017-05-30] MEDS: PANTOPRAZOLE 40 MG VIAL IV SCH (08:51)
[2017-05-30] MEDS: METOPROLOL TARTRATE 25 MG TABLET PO SCH (08:51)
[2017-05-30] MEDS: ALUMINUM/MAGNES/SIMETH MAX STR 30 ML UDCUP PO SCH (08:57)
[2017-05-30 11:35] VITALS: BP 139/97
== END 2017-05-30 12:00 | disposition home or self-care (01) | DRG 354 ==
LOC: N.ED 11:37 → N.EDINP 18:21 → N.3E 19:50 → N.ICU 05-24 16:23 → N.4E 05-26 11:56
PROVIDERS: ADMIT Specialist; ATTEND Specialist

== ENCOUNTER 2017-06-19 16:28 | Inpatient (IN) ==
[2017-06-19] MEDS ORDERED: NITROGLYCERIN 2% OINT 1 INCH/GM PACK TOP STA (17:07)
[2017-06-19] MEDS ORDERED: ASPIRIN 325 MG TABLET PO STA (17:07)
[2017-06-19] MEDS ORDERED: MAGNESIUM SULF RIDER 2 GM in PREMIX 1 EACH IV STA (17:07)
[2017-06-19] MEDS ORDERED: MAGNESIUM SULF RIDER 50 ML IV ONE (17:21)
[2017-06-19] MEDS ORDERED: ASPIRIN 325 MG TABLET ONE (17:21)
[2017-06-19] MEDS ORDERED: NITROGLYCERIN 2% OINT 1 INCH/GM PACK TOP ONE (17:21)
[2017-06-19 17:25] LABS: Basophils % 0.4 % (0.0-0.8); Eosinophils # 0.2 10*3/uL (0.0-0.87); Eosinophils % 2.7 % (0.00-10.9); Hematocrit 38.5 VOL% (42.0-52.0); Hemoglobin 12.1 GM/DL (14.0-18.0); Immature Granulocytes % 0.1 %; Immature Granulocytes Absolute 0.01 #; Lymphocytes # 1.6 10*3/uL (1.4-4.0); Lymphocytes % 19.1 % (21.2-54.2); Mean Corpuscular HGB Conc 31.4 GM/DL (32-36); Mean Corpuscular Hemoglobin 26 PG (27-34); Mean Corpuscular Volume 82.4 FL (87-102); Mean Platelet Volume 11.6 FL (9.6-12.0); Monocytes # 0.5 10*3/uL (0.11-0.8); Monocytes % 6.4 % (1.7-12.7); Neutrophils % 71.3 % (38.7-73.9); Platelet Count 205 T/CUMM (130-400); Red Blood Count 4.67 MC/CUMM (3.8-5.5); Red Cell Distribution Width 17.1 % (9.3-17.3); White Blood Count 8.4 T/CUMM (4-12)
[2017-06-19 18:08] LABS: Alanine Aminotransferase 41 U/L (16-61); Alkaline Phosphatase 119 U/L (45-117); Aspartate Amino Transferase 15 U/L (0-37); Bilirubin,Total < 0.39 MG/DL (0.2-1.0); Blood Urea Nitrogen 13 MG/DL (7-18); Calcium 8.7 MG/DL (8.5-10.1); Glucose 97 MG/DL (74-106); Osmolality,Calculated 282.1 MOS/KG (273-304); Potassium 3.9 MMOL/L (3.5-5.1); Sodium 142 MMOL/L (136-145); Total Protein 7.5 G/DL (6.4-8.3)
[2017-06-19 18:09] LABS: Troponin I Only 0.044 NG/ML (0.00-0.045)
[2017-06-19] MEDS: ALBUTEROL/IPRATROPIUM 3 ML NEB RESP TX PRN ×3 (18:10→18:20)
[2017-06-19 18:15] LABS: ABG Base Excess 8.2 MMOL/L (-2.5-2.5); ABG HCO3 31.9 MMOL/L (20-26); ABG Oxygen Saturation 90.2 % (95-100); ABG PCO2 50.6 MM HG (35-48); ABG PH 7.435 (7.35-7.45); ABG PO2 60.1 MM HG (80-95); ABG TCO2 30.2 MMOL/L (23-27)
[2017-06-19] MEDS ORDERED: methylPREDNISolone SOD SUC 125 MG/2 ML VIAL IV STA (18:17)
[2017-06-19] MEDS ORDERED: methylPREDNISolone SOD SUC 125 MG/2 ML VIAL ONE (18:19)
[2017-06-19] MEDS ORDERED: ACETAMINOPHEN 325 MG TABLET PO PRN (18:26)
[2017-06-19] MEDS ORDERED: ONDANSETRON 4 MG/2 ML VIAL IV PRN (18:26)
--- NOTE | 2017-06-19 20:16 | XRay Report ---
Portable chest Indication: Shortness of breath, cough Comparison: May 29, 2017 Findings: Examination is limited secondary to patient's obese body habitus and underpenetration Cardiomediastinal contours are grossly stable with underlying cardiomegaly. No demonstratable consolidation or congestive process. No acute osseous abnormalities. Visualized upper abdomen demonstrates no acute pathology. Impression: No acute cardiopulmonary findings PROCEDURE INTERPRETED AT [facility] ([facility] DEPARTMENT OF RADIOLOGY Final Report Signed by: Kevan Balderrama MD
[2017-06-19] MEDS: amLODIPine 10 MG TABLET PO SCH (21:35)
[2017-06-19] MEDS: DOCUSATE SODIUM 100 MG CAPSULE PO SCH (21:35)
[2017-06-20] MEDS ORDERED: methylPREDNISolone SOD SUC 125 MG/2 ML VIAL IV SCH (06:00)
[2017-06-20] MEDS: PANTOPRAZOLE 40 MG TABLET PO SCH (08:47)
[2017-06-20] MEDS: amLODIPine 10 MG TABLET PO SCH (08:47)
[2017-06-20] MEDS: ALLOPURINOL 100 MG TABLET PO SCH (08:47)
[2017-06-20] MEDS: DOCUSATE SODIUM 100 MG CAPSULE PO SCH ×2 (08:47→21:43)
[2017-06-20] MEDS: FUROSEMIDE 20 MG TABLET PO SCH (08:47)
[2017-06-20] MEDS ORDERED: ALBUTEROL/IPRATROPIUM 3 ML NEB RESP TX ONE (10:57)
--- NOTE | 2017-06-20 13:45 | Order Completion Report ---
See report scanned to EMR
--- NOTE | 2017-06-20 16:20 | Internal Med History&Physical ---
Assessment and Plan (1) Hypoventilation syndrome Status: Chronic Current Visit: Yes (2) Obstructive sleep apnea Status: Chronic Current Visit: Yes (3) Morbid obesity Status: Chronic Current Visit: Yes (4) Status post repair of ventral hernia Status: Resolved Current Visit: No History of Present Illness Chief complaint: shortness of breath History of present illness: Mr. Clari Rodriguez is a 32 year old male with morbid obesity, hypoventilation syndrome, severe pulmonary hypertension, ABBEY, asthma, HTN, who recently had incarcerated abdominal hernia repair per Dr. Barros and who presented to ER with worsening shortness of breath. He has not used Nebs at home because he no longer has access to a nebulizer (Father's nebulizer), and did not let us know this. Finding out today. Also, he reports a recent cold. He does have nebulized meds sent to his house from [facility]. He has a sleep study scheduled soon with Dr. Childers. Home Medications Medication Instructions Recorded Confirmed Type Albuterol Inhaler [Proventil 2 puff INH Q4H PRN #1 inhaler 05/11/17 06/19/17 Rx Inhaler] Albuterol Inhaler [Proventil 2 puff INH Q4H PRN 06/19/17 06/19/17 History Inhaler] Allopurinol [Allopurinol] 200 mg PO QAM 06/19/17 06/19/17 History Fluticasone/Vilanterol [Breo 1 puff INH QAM 06/19/17 06/19/17 History Ellipta 200-25 Mcg INH] Furosemide [Furosemide] 20 mg PO QAM 06/19/17 06/19/17 History amLODIPine [Norvasc] 10 mg PO QAM 06/19/17 06/19/17 History Allergies Allergy/AdvReac Type Severity Reaction Status Date / Time Iodinated Contrast Media - Allergy HIVES Verified 05/22/17 12:17 Oral and [Iodinated Contrast Media - IV Dye] Medical,Surgical,& Family Hx - Medical History Cardio: History of: Hypertension No history of: CHF Neurology: No history of: Seizures Endocrine: No history of: Diabetes Mellitus (IDDM), Diabetes Mellitus (NIDDM) Rheumatology: History of;: Gout Respiratory: History of: Asthma, Obstructive Sleep Apnea Renal: No history of: Renal Failure, Renal Problems Gastrointestinal: History of: Bowel Obstruction (History of small bowel obstruction requiring surgical relief ) No history of: Gastrointestinal Bleed, Liver Problems, GI Problems Other: History of: Skin Problems (Abscesses of the posterior neck), Miscellaneous Medical Problems (Known ventral incisional hernia since 2014; pt did not keep follow up appts) - Surgical History HEENT Surgeries: Surgical HX of: Tonsilectomy & Adenoidectomy Abdominal Surgeries: Surgical HX of: Abdominal Surgery (Repair of small bowel obstruction about 4 years ago and last year), Hernia Repair (2012, 2015) - Family History Family History: Reports;: Family Diabetes (mother), Family Hypertension (father) Denies;: Family Anesthesia Reaction, Family Cancer, Family Heart Disease, Family Psychiatric Problems, Family Stroke - Social History Smoking Status: Never smoker Frequency of Alcohol Use: None Type of Drug Use: None Marital Status: Lives With:: Spouse Functional capacity: independent ambulation (becoming more difficult because of morbid obesity) - Constitutional Constitutional: Present: weakness - Cardiovascular Cardiovascular: Present: chest pain with activity (strained with activity; morbid obesity) - Respiratory Respiratory: Present: dyspnea on exertion - Gastrointestinal Gastrointestinal: Absent: nausea - Musculoskeletal Musculoskeletal: Present: back pain, muscle weakness Exam - Constitutional Vitals: Period Temp Pulse Resp BP Sys/Mendez Pulse Ox Last 24 Hr 96.9 F-99.3 F 91-120 16-26 126-174/68-114 82-100 General appearance: no acute distress - Head Head exam: Present: normocephalic - Eye Eye exam: Present: EOMI - Respiratory Respiratory exam: Present: decreased breath sounds (hypoventilation from morbid obesity) - Cardiovascular Cardiovascular exam: Present: regular rate and rhythm - GI/Abdominal GI/Abdominal exam: Present: normal bowel sounds, soft. Absent: tenderness - Extremities Exam Extremities exam: Absent: edema - Neurological Exam Neurological exam: Present: alert, oriented X3 - Psychiatric Psychiatric exam: Present: normal mood - Skin Skin exam: Present: warm, dry Results - Labs CBC & BMP: 06/19/17 17:07 06/19/17 17:07 - EKG EKG shows: sinus rhythm - Diagnostic Findings Procedure: Chest x-ray: report reviewed by me Quality Measures - VTE Contraindication to Pharmacological VTE Prophylaxis: High Risk of Bleeding
--- NOTE | 2017-06-20 17:37 | Pulmonology Consult Note ---
Assessment and Plan (1) Obstructive sleep apnea Status: Chronic Assessment and plan: Continue with his BiPAP at night. He has been using it at home. Current Visit: No (2) Asthma exacerbation Status: Acute Assessment and plan: Agree with bronchodilators. I do not think he needs steroids. Current Visit: Yes (3) Hypoventilation syndrome Status: Acute Assessment and plan: He has obesity hypoventilation syndrome with an elevated PCO2 of 50. Keep his nasal oxygen at 1 L during the day. Current Visit: Yes (4) Morbid obesity Status: Acute Assessment and plan: Needs long-term weight loss. Current Visit: Yes (5) Unexplained dyspnea Status: Acute Assessment and plan: I am concerned that he had abdominal surgery about 3 weeks ago and is having dyspnea that is not clearly identified as far as causes concern. We need to rule out a pulmonary embolism. He is allergic to iodinated contrast media. Will get a V/Q lung scan and venous Dopplers. Also check d-dimer Current Visit: Yes History of Present Illness Chief complaint: Shortness of breath History of present illness: Mr. Clari Rodriguez is a 32 year old male who is here about a month ago with a recurrent incarcerated ventral hernia. He had surgery for that. He has obstructive sleep apnea and obesity hypoventilation syndrome. Also has some asthma. He went home was doing better but he started getting more short of breath the last few days. He has had a mild cough but not coughing up anything. No fever. Had some transient left pleuritic chest pain. He has not had any deep vein thrombosis. No pain in his leg. However he is about 3 weeks post surgery and would be at increased risk for pulmonary embolism. He relates that he is allergic to iodinated contrast media. Home Medications Medication Instructions Recorded Confirmed Type Albuterol Inhaler [Proventil 2 puff INH Q4H PRN #1 inhaler 05/11/17 06/19/17 Rx Inhaler] Albuterol Inhaler [Proventil 2 puff INH Q4H PRN 06/19/17 06/19/17 History Inhaler] Allopurinol [Allopurinol] 200 mg PO QAM 06/19/17 06/19/17 History Fluticasone/Vilanterol [Breo 1 puff INH QAM 06/19/17 06/19/17 History Ellipta 200-25 Mcg INH] Furosemide [Furosemide] 20 mg PO QAM 06/19/17 06/19/17 History amLODIPine [Norvasc] 10 mg PO QAM 06/19/17 06/19/17 History Allergies Allergy/AdvReac Type Severity Reaction Status Date / Time Iodinated Contrast Media - Allergy HIVES Verified 05/22/17 12:17 Oral and [Iodinated Contrast Media - IV Dye] 12 point system: reviewed and no additional remarkable complaints except as stated - Constitutional Constitutional: Present: weight gain - Cardiovascular Cardiovascular: Present: dyspnea, dyspnea on exertion - Respiratory Respiratory: Present: dyspnea, dyspnea on exertion, snoring, pain on inspiration Exam (Pulmonay) H&P - Constitutional Vitals: Period Temp Pulse Resp BP Sys/Mendez Pulse Ox Last 24 Hr 96.9 F-98.5 F 91-117 16-20 126-158/68-103 90-100 Exam: Vital signs normal except for a weight of 222 kg. That would be about 466 pounds. Pupils react to light. Throat is clear. Neck supple no bruits. Chest reveals some minimal expiratory rhonchi. Equal breath sounds. Heart normal rate and rhythm no murmurs no rubs no gallops. Abdomen soft nontender no masses. Ventral hernia scar looks good. Bowel sounds are present. Unable to palpate abdominal organs. Extremities no clubbing or cyanosis. Trace of edema. Calves nontender. Medical,Surgical,& Family Hx - Medical History Cardio: History of: Hypertension No history of: CHF Neurology: No history of: Seizures Endocrine: No history of: Diabetes Mellitus (IDDM), Diabetes Mellitus (NIDDM) Rheumatology: History of;: Gout Respiratory: History of: Asthma, Obstructive Sleep Apnea Renal: No history of: Renal Failure, Renal Problems Gastrointestinal: History of: Bowel Obstruction (History of small bowel obstruction requiring surgical relief ) No history of: Gastrointestinal Bleed, Liver Problems, GI Problems Other: History of: Skin Problems (Abscesses of the posterior neck), Miscellaneous Medical Problems (Known ventral incisional hernia since 2014; pt did not keep follow up appts) - Surgical History HEENT Surgeries: Surgical HX of: Tonsilectomy & Adenoidectomy Abdominal Surgeries: Surgical HX of: Abdominal Surgery (Repair of small bowel obstruction about 4 years ago and last year), Hernia Repair (2012, 2015) - Family History Family History: Reports;: Family Diabetes (mother), Family Hypertension (father) Denies;: Family Anesthesia Reaction, Family Cancer, Family Heart Disease, Family Psychiatric Problems, Family Stroke - Social History Smoking Status: Never smoker Frequency of Alcohol Use: None Type of Drug Use: None Results - Labs CBC & BMP: 06/19/17 17:07 06/19/17 17:07 Lab Results: I have reviewed the past 24 hour labs - Diagnostic Findings Procedure: Chest x-ray: image reviewed by me (Difficult to interpret due to his obesity. I do not see any acute infiltrates.) Quality Measures - VTE Contraindication to Pharmacological VTE Prophylaxis: High Risk of Bleeding
--- NOTE | 2017-06-20 19:07 | Ultrasound Report ---
Bilateral lower extremity venous Doppler with mcneill scale, Spectral Doppler and color-flow analysis performed and interpreted. Indication: Shortness of breath, postoperative. Scanning over both common femoral veins, superficial femoral veins, greater saphenous veins and popliteal veins demonstrates normal compressibility, color flow, and augmentation. Impression: No evidence of DVT seen in either lower extremity. The Ultrasound images were captured and stored. PROCEDURE INTERPRETED AT [facility] DEPARTMENT OF RADIOLOGY Final Report Signed by: Dr. Linda Stewart
[2017-06-20] MEDS: ALBUTEROL/IPRATROPIUM 3 ML NEB RESP TX SCH (19:56)
[2017-06-20] MEDS: acetaZOLAMIDE 250 MG TABLET PO SCH (21:42)
[2017-06-21] MEDS: ALBUTEROL/IPRATROPIUM 3 ML NEB RESP TX SCH ×5 (00:31→23:49)
--- NOTE | 2017-06-21 06:47 | Physician Query Form ---
CLICK EDIT DOCUMENT TO SELECT QUERY ANSWER --> OK --> SIGN Neris Gonzalez RN, CCDS Certified Clinical Collet Driller W) [phone] (f) [phone] [email or web address] PROVIDERS: Make your selection(s) from the choices in EACH section by typing an "x" and enter comments in the comment section. Please use your independent medical judgment in providing your response. This request does not imply that any particular answer is desired or expected. CLINICAL INDICATORS: (Providers should not edit this section) The medical record indicates that the patient was admitted with asthma exacerbation, "patient has increased work of breathing hypoxemia and ongoing wheezing", and the patient was treated with Duoneb/ Lasix/ Solumedrol. Based on documentation of Asthma, can you please provide further specificity regarding the diagnosis? ( x) Mild intermittent extrinsic asthma with acute exacerbation ( ) Mild persistent extrinsic asthma with acute exacerbation ( ) Moderate persistent extrinsic asthma with acute exacerbation ( ) Severe persistent extrinsic asthma with acute exacerbation ( ) Mild intermittent extrinsic asthma with status asthmaticus ( ) Mild persistent extrinsic asthma with status asthmaticus ( ) Moderate persistent extrinsic asthma with status asthmaticus ( ) Severe intermittent extrinsic asthma with status asthmaticus ( ) Other, please specify: ( ) Clinically unable to determine COMMENTS: PLEASE ALSO DOCUMENT RESPONSE IN PROGRESS NOTES AND/OR DISCHARGE SUMMARY Use of terms such as suspected, likely, or probable (associated with a specific diagnosis that is being evaluated, monitored, or treated as if it exists) are acceptable and can be restated in the discharge summary if not ruled out. MTDD
--- NOTE | 2017-06-21 07:46 | Pulmonology Progress Note ---
Pulmonary - PN: Subj Interval history: This 32-year-old white male has obesity hypoventilation syndrome and obstructive sleep apnea. He also has asthma. He is in with acute dyspnea. He is improved this morning after treatment overnight. He is using his BiPAP at night. He had recent umbilical surgery. Venous Dopplers done last night were negative. VQ lung scan is pending. Patient is allergic to iodinated contrast media. Exam (Progress Note) - Constitutional Vitals: Period Temp Pulse Resp BP Sys/Mendez Pulse Ox Last 24 Hr 96.9 F-98.4 F 81-105 18-20 131-141/67-81 92-99 Exam: Patient's alert oriented vital signs normal. Pupils react to light. Throat is clear. Neck supple no bruits. Chest sounds clear. I do not hear any wheezing. Heart normal rate and rhythm no murmurs. Abdomen soft nontender no masses. Periumbilical scar is healing. Bowel sounds present. Unable to palpate abdominal organs. Extremities no clubbing cyanosis or edema. Results - Labs CBC & BMP: 06/19/17 17:07 06/19/17 17:07 Lab Results: I have reviewed the past 24 hour labs Assessment and Plan (1) Obstructive sleep apnea Status: Chronic Assessment and plan: Continue with his BiPAP at night. He has been using it at home. 06/21/2017 patient using his BiPAP regularly at night. Current Visit: No (2) Asthma exacerbation Status: Acute Assessment and plan: Agree with bronchodilators. I do not think he needs steroids. 06/21/2017 asthma under good control. Needs to stay on the Breo long-term. Current Visit: Yes (3) Hypoventilation syndrome Status: Acute Assessment and plan: He has obesity hypoventilation syndrome with an elevated PCO2 of 50. Keep his nasal oxygen at 1 L during the day. 06/21/2017 using Diamox for obesity hypoventilation syndrome. Had PCO2 of 50 and an alkalotic pH. Current Visit: Yes (4) Morbid obesity Status: Acute Assessment and plan: Needs long-term weight loss. Current Visit: Yes (5) Unexplained dyspnea Status: Acute Assessment and plan: I am concerned that he had abdominal surgery about 3 weeks ago and is having dyspnea that is not clearly identified as far as causes concern. We need to rule out a pulmonary embolism. He is allergic to iodinated contrast media. Will get a V/Q lung scan and venous Dopplers. Also check d-dimer 06/21/2017 this is likely multifactorial but we do need a VQ lung scan to rule out pulmonary emboli in this patient who is allergic to contrast. Current Visit: Yes
[2017-06-21] MEDS: amLODIPine 10 MG TABLET PO SCH (08:27)
[2017-06-21] MEDS: DOCUSATE SODIUM 100 MG CAPSULE PO SCH ×2 (08:27→21:59)
[2017-06-21] MEDS: PANTOPRAZOLE 40 MG TABLET PO SCH (08:27)
[2017-06-21] MEDS: FUROSEMIDE 20 MG TABLET PO SCH (08:27)
[2017-06-21] MEDS: acetaZOLAMIDE 250 MG TABLET PO SCH ×2 (08:27→21:59)
[2017-06-21] MEDS: ALLOPURINOL 100 MG TABLET PO SCH (08:28)
[2017-06-21 09:25] LABS: Calcium 9.9 MG/DL (8.5-10.1); Magnesium 2.6 MG/DL (1.8-2.4); Osmolality,Calculated 281.4 MOS/KG (273-304)
--- NOTE | 2017-06-21 10:42 | Nuclear Medicine Report ---
Exam: Lung scan ventilation/perfusion Date: 06/21/2017 Comparison: Chest x-ray 06/19/2017 Reason: Shortness of breath, one month postop abdominal surgery Technique: 40 mCi of technetium 99m DTPA aerosolized was inhaled with injection of 5 mCi of technetium 99m MAA . Limited three-view ventilation and perfusion images of both lungs were acquired. Findings: Diminished ventilation peripherally in both lungs with trapping centrally. No unmatched perfusion defects are identified. Small perfusion defects noted peripherally which are smaller in size than the ventilation defects. Impression: Limited low probability lung scan. PROCEDURE INTERPRETED AT [facility] DEPARTMENT OF RADIOLOGY Final Report Signed by: Dr. Lulu Freeman
--- NOTE | 2017-06-21 17:44 | Internal Med Progress Note ---
Assessment and Plan (1) Hypoventilation syndrome Status: Chronic Current Visit: Yes (2) Obstructive sleep apnea Status: Chronic Current Visit: Yes (3) Morbid obesity Status: Chronic Current Visit: Yes (4) Status post repair of ventral hernia Status: Resolved Current Visit: No Internal Medicine - PN: Subj Interval history: Mr. Clari Rodriguez is a 32 year old male with morbid obesity, hypoventilation syndrome, severe pulmonary hypertension, ABBEY, asthma, HTN, who recently had incarcerated abdominal hernia repair per Dr. Barros and who presented to ER with worsening shortness of breath. He has not used Nebs at home because he no longer has access to a nebulizer (Father's nebulizer), and did not let us know this. Finding out today. Also, he reports a recent cold. He does have nebulized meds sent to his house from [facility]. He has a sleep study scheduled soon with Dr. Childers. Feeling better with bed rest and breathing treatments. Will discharge him to home tomorrow after Home Office Claim Specialist speaks with his about a strict low calorie diet. Would like for him to lose at least one pound per week. Exam (Progress Note) - Constitutional Vitals: Period Temp Pulse Resp BP Sys/Mendez Pulse Ox Last 24 Hr 97.1 F-98.4 F 70-105 18-20 131-155/67-97 91-99 General appearance: no acute distress - Respiratory Respiratory exam: Present: clear to auscultation bilaterally - Cardiovascular Cardiovascular exam: Present: regular rate and rhythm - GI/Abdominal GI/Abdominal exam: Present: soft. Absent: tenderness - Extremities Exam Extremities exam: Absent: edema - Neurological Exam Neurological exam: Present: alert - Psychiatric Psychiatric exam: Present: normal mood - Skin Skin exam: Present: warm, dry Results - Labs CBC & BMP: 06/19/17 17:07 06/21/17 08:21 Quality Measures - VTE Contraindication to Pharmacological VTE Prophylaxis: High Risk of Bleeding
--- NOTE | 2017-06-22 07:38 | Discharge Summary ---
Hospital Course - Hospital Course Hospital Course: Mr. Clari Rodriguez is a 32 year old male with morbid obesity, hypoventilation syndrome, severe pulmonary hypertension, ABBEY, asthma, HTN, who recently had incarcerated abdominal hernia repair per Dr. Barros and who presented to ER with worsening shortness of breath. Feeling better with bed rest and breathing treatments and using BiPAP at night. Will discharge him to home. He will follow up with Dr. Childers for outpatient sleep study. Discussed with his the need for strict diet to promote weight loss. Diagnosis - Discharge Diagnosis (1) Hypoventilation syndrome Status: Chronic (2) Obstructive sleep apnea Status: Chronic (3) Morbid obesity Status: Chronic (4) Status post repair of ventral hernia Status: Resolved Discharge Plan - Discharge Data Disposition: Disch To Home/Self Care Condition at Discharge: Stable Discharge Diet: low fat, low cholesterol, other (Heavy Equipment Diesel Mechanic's recommended diet to lose at least one pound per week) Activity: increase activity as tolerated - Discharge Medications New acetaZOLAMIDE TAB [Diamox Tab] 250 mg PO BID #60 tablet Docusate Sodium Cap [Colace Cap] 100 mg PO BID capsule Acetaminophen Tab [Tylenol Tab] 500 mg PO Q8HR #45 tablet Albuterol/Ipratropium Neb [Duoneb] 3 ml RESP TX RT Q6H Continue Albuterol Inhaler [Proventil Inhaler] 2 puff INH Q4H PRN PRN Reason: Shortness Of Breath/Wheezing Fluticasone/Vilanterol [Breo Ellipta 200-25 Mcg INH] 1 puff INH QAM Furosemide 20 mg PO QAM Allopurinol 200 mg PO QAM Albuterol Inhaler [Proventil Inhaler] 2 puff INH Q4H PRN #1 inhaler PRN Reason: Shortness Of Breath/Wheezing amLODIPine [Norvasc] 10 mg PO QAM - Follow Up or Referral Follow Up: Brit Childers MD [Physician] - Lincoln Quiñonez MD [Physician] - Kayla Latif DO [Primary Care Provider] - - Forms/Instructions Additional Discharge Instructions: Follow up with Dr. Childers per sleep study appointment already set. Follow up with Dr. Quiñonez in clinic within 2-3 months. Follow up with Dr. Savana Latif in clinic within 3-4 weeks. Exam - Constitutional Vitals: Period Temp Pulse Resp BP Sys/Mendez Pulse Ox Last 24 Hr 96.5 F-98 F 70-106 18-20 118-155/64-97 86-98 General appearance: no acute distress - Respiratory Respiratory exam: Present: clear to auscultation bilaterally - Cardiovascular Cardiovascular exam: Present: regular rate and rhythm - GI/Abdominal GI/Abdominal exam: Present: soft. Absent: tenderness - Extremities Exam Extremities exam: Absent: edema - Neurological Exam Neurological exam: Present: alert - Psychiatric Psychiatric exam: Present: normal mood - Skin Skin exam: Present: warm Discharge Results Labs on day of discharge: Labs from last 24 hours 06/21/17 08:21 Sodium 140 Potassium 4.0 Chloride 103 Carbon Dioxide 31 Anion Gap 10.0 BUN 17 Creatinine 0.70 GFR Calculation 253 BUN/Creatinine Ratio 24.00 H Glucose 109 H Calculated Osmolality 281.4 Calcium 9.9 Magnesium 2.6 H DS: Provider Date of admission: 06/19/17 18:26 Primary care physician: Kayla Latif DO Attending physician on admission: Kayla Latif DO Consults: 06/19/17 18:26 Consult to Physician [CONS] Routine Comment: Consulting Provider: Brit Childers 06/19/17 18:29 Consult to Physician [CONS] Routine Comment: Consulting Provider: 06/20/17 00:26 Consult to Pastoral Services [CONS] Routine Comment: Pastoral Screen: Request Motor Vehicle Operator Road Supervisor Visit Pastoral Screen Source of Request: Patient 06/20/17 07:19 Consult to Sleep Center [CONS] Routine Reason for Sleep Center: Sleep Center Physician 06/20/17 16:07 Consult to Physician [CONS] Routine Comment: Consulting Provider: Moi Barros When should Consulting Provider be notified: Now Person Notified: Rafia Ahsford Date Notified: 06/20/17 Time Notified: 16:08 06/20/17 16:14 Consult to Case Mgmt/Social Srvs [CONS] Routine Reason for Case Mgmt/Social Srvs: Equipment Consult Comment: NEBULIZER FOR [facility] BED Consult to Physician [CONS] Routine Comment: Consulting Provider: Lincoln Quiñonez When should Consulting Provider be notified: Now Person Notified: DR. QUIÑONEZ Date Notified: 06/20/17 Time Notified: 16:18 06/21/17 17:56 Consult to Dietitian [CONS] Routine Reason for Dietitian: Dietary Consult Consult Comment: please calculate a diet for pt to lose 1lb/week and instruct pt/family Discharging clinician: Kayla Latif DO Expected date of discharge: 06/22/17
[2017-06-22 08:14] VITALS: BP 118/57
[2017-06-22] MEDS: ALBUTEROL/IPRATROPIUM 3 ML NEB RESP TX SCH (08:19)
--- NOTE | 2017-06-22 08:23 | Pulmonology Progress Note ---
Pulmonary - PN: Subj Interval history: This 32-year-old white male has obesity hypoventilation syndrome and obstructive sleep apnea. He also has asthma. He is in with acute dyspnea. He is improved this morning after treatment overnight. He is using his BiPAP at night. He had recent umbilical surgery. Venous Dopplers done last night were negative. VQ lung scan is pending. Patient is allergic to iodinated contrast media. 06/22/2017 patient feeling better. VQ lung scan was negative. Agree with plans for discharge. Exam (Progress Note) - Constitutional Vitals: Period Temp Pulse Resp BP Sys/Mendez Pulse Ox Last 24 Hr 96.5 F-98 F 69-106 18-20 118-139/57-92 86-98 Exam: Patient's alert oriented vital signs normal. Pupils react to light. Throat is clear. Neck supple no bruits. Chest sounds clear. I do not hear any wheezing. Heart normal rate and rhythm no murmurs. Abdomen soft nontender no masses. Periumbilical scar is healing. Bowel sounds present. Unable to palpate abdominal organs. Extremities no clubbing cyanosis or edema. Results - Labs CBC & BMP: 06/19/17 17:07 06/21/17 08:21 Lab Results: I have reviewed the past 24 hour labs Assessment and Plan (1) Obstructive sleep apnea Status: Chronic Assessment and plan: Continue with his BiPAP at night. He has been using it at home. 06/21/2017 patient using his BiPAP regularly at night. 06/22/2017 patient is quite compliant with his BiPAP Current Visit: Yes (2) Asthma exacerbation Status: Acute Assessment and plan: Agree with bronchodilators. I do not think he needs steroids. 06/21/2017 asthma under good control. Needs to stay on the Breo long-term. 06/22/2017 this is controlled. Keep on controller medication, Breo Current Visit: Yes (3) Hypoventilation syndrome Status: Chronic Assessment and plan: He has obesity hypoventilation syndrome with an elevated PCO2 of 50. Keep his nasal oxygen at 1 L during the day. 06/21/2017 using Diamox for obesity hypoventilation syndrome. Had PCO2 of 50 and an alkalotic pH. Current Visit: Yes (4) Morbid obesity Status: Chronic Assessment and plan: Needs long-term weight loss. 06/22/2017 patient is to return to weight loss clinic. He had previously lost 100 pounds before he started having problems with his ventral hernia. Current Visit: Yes (5) Unexplained dyspnea Status: Acute Assessment and plan: I am concerned that he had abdominal surgery about 3 weeks ago and is having dyspnea that is not clearly identified as far as causes concern. We need to rule out a pulmonary embolism. He is allergic to iodinated contrast media. Will get a V/Q lung scan and venous Dopplers. Also check d-dimer 06/21/2017 this is likely multifactorial but we do need a VQ lung scan to rule out pulmonary emboli in this patient who is allergic to contrast. 06/22/2017 no indication of pulmonary embolus. Current Visit: Yes Specialty Discharge - Follow Up or Referrals Follow up with: Lincoln Quiñonez MD [Physician] - Brit Childers MD [Physician] - Kayla Latif DO [Primary Care Provider] -
[2017-06-22] MEDS: amLODIPine 10 MG TABLET PO SCH (08:36)
[2017-06-22] MEDS: FUROSEMIDE 20 MG TABLET PO SCH (08:36)
[2017-06-22] MEDS: PANTOPRAZOLE 40 MG TABLET PO SCH (08:36)
[2017-06-22] MEDS: DOCUSATE SODIUM 100 MG CAPSULE PO SCH (08:36)
[2017-06-22] MEDS: acetaZOLAMIDE 250 MG TABLET PO SCH (08:36)
[2017-06-22] MEDS: ALLOPURINOL 100 MG TABLET PO SCH (08:37)
--- NOTE | 2017-06-23 10:01 | Physician Query Form ---
CLICK EDIT DOCUMENT TO SELECT QUERY ANSWER --> OK --> SIGN Neris Gonzalez RN, CCDS Certified Clinical Science Specialist W) [phone] (f) [phone] [email or web address] PROVIDERS: Make your selection(s) from the choices in EACH section by typing an "x" and enter comments in the comment section. Please use your independent medical judgment in providing your response. This request does not imply that any particular answer is desired or expected. CLINICAL INDICATORS: (Providers should not edit this section) The medical record indicates that the patient was admitted with asthma exacerbation, BMI of 70#, "hypoventilation syndrome", "obesity hypoventilation syndrome", "elevated PCO2 of 50", and "keep his nasal oxygen at 1 L during the day". Based on the above, could you clarify the appropriate diagnosis, if significant , that supports the above abnormalities and additional evaluation, monitoring, and/or treatment rendered: (x ) Patient was treated or monitored for chronic respiratory failure ( ) Patient was not treated or monitored for chronic respiratory failure ( ) Other, please specify: ( ) Clinically unable to determine COMMENTS: Responded well to treatment PLEASE ALSO DOCUMENT RESPONSE IN PROGRESS NOTES AND/OR DISCHARGE SUMMARY Use of terms such as suspected, likely, or probable (associated with a specific diagnosis that is being evaluated, monitored, or treated as if it exists) are acceptable and can be restated in the discharge summary if not ruled out. MTDD
== END 2017-06-22 10:16 | disposition home or self-care (01) | DRG 202 ==
LOC: N.ED 16:28 → N.EDINP 18:26 → N.TELES 19:12
PROVIDERS: ADMIT Internal Medicine; ATTEND Internal Medicine

== ENCOUNTER 2017-09-11 02:31 | Inpatient (IN) ==
[2017-09-11] MEDS ORDERED: FUROSEMIDE 40 MG/4 ML VIAL IV STA (03:13)
[2017-09-11 03:24] LABS: Basophils % 0.4 % (0.0-0.8); Eosinophils % 1.3 % (0.00-10.9); Hemoglobin 13.2 GM/DL (14.0-18.0); Immature Granulocytes Absolute 0.06 #; Lymphocytes % 11.9 % (21.2-54.2); Mean Corpuscular Hemoglobin 24 PG (27-34)
[2017-09-11] MEDS ORDERED: FUROSEMIDE 40 MG/4 ML VIAL ONE (03:26)
[2017-09-11 03:29] LABS: Basophils # 0.1 10*3/uL (0.0-0.2); Eosinophils # 0.2 10*3/uL (0.0-0.87); Hematocrit 44.9 VOL% (42.0-52.0); Immature Granulocytes % 0.5 %; Lymphocytes # 1.3 10*3/uL (1.4-4.0); Mean Corpuscular HGB Conc 29.4 GM/DL (32-36); Mean Corpuscular Volume 83.1 FL (87-102); Monocytes # 0.6 10*3/uL (0.11-0.8); Monocytes % 5.6 % (1.7-12.7); NRBC # 0.07 10*3/uL; Neutrophils % 80.3 % (38.7-73.9); Platelet Count 217 T/CUMM (130-400); Red Cell Distribution Width 17.2 % (9.3-17.3); White Blood Count 11.2 T/CUMM (4-12)
[2017-09-11 03:40] LABS: Blood Urea Nitrogen 17 MG/DL (7-18); Calcium 9.3 MG/DL (8.5-10.1); Glucose 126 MG/DL (74-106); Magnesium 2.1 MG/DL (1.8-2.4); Osmolality,Calculated 284.3 MOS/KG (273-304); Potassium 4.3 MMOL/L (3.5-5.1); Sodium 141 MMOL/L (136-145)
[2017-09-11 03:41] LABS: Troponin I Only 0.096 NG/ML (0.00-0.045)
[2017-09-11] MEDS ORDERED: ASPIRIN 325 MG TABLET PO STA (04:32)
[2017-09-11] MEDS ORDERED: ASPIRIN 325 MG TABLET ONE (04:38)
[2017-09-11] MEDS ORDERED: HEPARIN DRIP 25,000 UNITS/500 ML PREMIX IV SCH (05:00)
[2017-09-11] MEDS ORDERED: ONDANSETRON 4 MG/2 ML VIAL IV PRN (05:31)
[2017-09-11] MEDS ORDERED: ACETAMINOPHEN 500 MG TABLET PO PRN (05:31)
[2017-09-11] MEDS ORDERED: ALBUTEROL/IPRATROPIUM 3 ML NEB RESP TX SCH (07:00)
[2017-09-11] MEDS: ALBUTEROL/IPRATROPIUM 3 ML NEB RESP TX SCH ×4 (07:12→19:22)
[2017-09-11] MEDS: FUROSEMIDE 40 MG/4 ML VIAL IV SCH ×3 (07:23→21:41)
[2017-09-11] MEDS ORDERED: amLODIPine 10 MG TABLET PO SCH (09:00)
[2017-09-11] MEDS ORDERED: acetaZOLAMIDE 250 MG TABLET PO SCH (09:00)
[2017-09-11] MEDS: ENOXAPARIN 100 MG/ML SYRINGE SUBCUT SCH ×2 (09:50→20:48)
[2017-09-11] MEDS: METOPROLOL TARTRATE 25 MG TABLET PO SCH ×2 (13:17→20:48)
[2017-09-11] MEDS ORDERED: FUROSEMIDE 40 MG/4 ML VIAL IV SCH (18:00)
[2017-09-11] MEDS ORDERED: cefTRIAXone 500 MG in SYRINGE 1 EACH IV SCH (23:45)
[2017-09-11] MEDS ORDERED: AZITHROMYCIN INJ 250 MG in SODIUM CHLORIDE 0.9% 250 ML IV SCH (23:45)
[2017-09-12] MEDS: ALBUTEROL/IPRATROPIUM 3 ML NEB RESP TX SCH ×5 (00:12→15:28)
[2017-09-12 03:02] LABS: Basophils % 0.4 % (0.0-0.8); Eosinophils # 0.2 10*3/uL (0.0-0.87); Eosinophils % 1.8 % (0.00-10.9); Hematocrit 45.5 VOL% (42.0-52.0); Hemoglobin 13.9 GM/DL (14.0-18.0); Immature Granulocytes % 0.3 %; Immature Granulocytes Absolute 0.03 #; Lymphocytes # 1.6 10*3/uL (1.4-4.0); Lymphocytes % 16.5 % (21.2-54.2); Mean Corpuscular HGB Conc 30.5 GM/DL (32-36); Mean Corpuscular Hemoglobin 25 PG (27-34); Mean Platelet Volume 11.6 FL (9.6-12.0); Monocytes # 0.7 10*3/uL (0.11-0.8); Monocytes % 6.8 % (1.7-12.7); NRBC # 0.04 10*3/uL; Neutrophils # 7.2 10*3/uL (1.4-7.4); Neutrophils % 74.2 % (38.7-73.9); Platelet Count 216 T/CUMM (130-400); Red Blood Count 5.62 MC/CUMM (3.8-5.5); White Blood Count 9.6 T/CUMM (4-12)
[2017-09-12 03:07] LABS: Risk Ratio 2.4
[2017-09-12 03:36] LABS: Calcium 9.6 MG/DL (8.5-10.1); Osmolality,Calculated 279.5 MOS/KG (273-304); Potassium 4.1 MMOL/L (3.5-5.1)
[2017-09-12] MEDS: FUROSEMIDE 40 MG/4 ML VIAL IV SCH ×2 (05:42→14:19)
[2017-09-12] MEDS: ENOXAPARIN 100 MG/ML SYRINGE SUBCUT SCH (08:45)
[2017-09-12] MEDS: METOPROLOL TARTRATE 25 MG TABLET PO SCH (08:45)
[2017-09-12] MEDS ORDERED: ASPIRIN EC 81 MG TABLET PO SCH (09:00)
[2017-09-12 12:11] VITALS: BP 119/69
[2017-09-13] MEDS ORDERED: ENOXAPARIN 40 MG/0.4 ML SYRINGE SUBCUT SCH (09:00)
== END 2017-09-12 15:33 | disposition home or self-care (01) | DRG 291 ==
LOC: N.ED 02:31 → N.EDINP 05:30 → N.TELES 05:47
PROVIDERS: ADMIT Internal Medicine; ATTEND Internal Medicine

== ENCOUNTER 2017-10-02 08:51 | Observation (INO) ==
[2017-10-02] MEDS ORDERED: ASPIRIN 325 MG TABLET PO STA (09:15)
[2017-10-02] MEDS ORDERED: ONDANSETRON 4 MG/2 ML VIAL IV PRN ×2 (09:15→13:07)
[2017-10-02] MEDS ORDERED: KETOROLAC 30 MG/1 ML VIAL IV STA (09:15)
[2017-10-02] MEDS ORDERED: KETOROLAC 30 MG/1 ML VIAL ONE (09:18)
[2017-10-02] MEDS ORDERED: ASPIRIN 325 MG TABLET ONE (09:18)
[2017-10-02 09:49] LABS: Basophils % 0.4 % (0.0-0.8); Eosinophils # 0.1 10*3/uL (0.0-0.87); Eosinophils % 2.1 % (0.00-10.9); Immature Granulocytes % 0.2 %; Immature Granulocytes Absolute 0.01 #; Lymphocytes # 1.5 10*3/uL (1.4-4.0); Lymphocytes % 32.6 % (21.2-54.2); Mean Corpuscular Hemoglobin 24 PG (27-34); Mean Corpuscular Volume 78.9 FL (87-102); Mean Platelet Volume 11.7 FL (9.6-12.0); Monocytes # 0.5 10*3/uL (0.11-0.8); Monocytes % 9.9 % (1.7-12.7); Neutrophils # 2.6 10*3/uL (1.4-7.4); Neutrophils % 54.8 % (38.7-73.9); Platelet Count 233 T/CUMM (130-400); Red Blood Count 5.32 MC/CUMM (3.8-5.5); Red Cell Distribution Width 16.5 % (9.3-17.3); White Blood Count 4.7 T/CUMM (4-12)
[2017-10-02 09:58] LABS: PT Patient Result 10.5 SECS; Partial Thromboplastin Time 28.9 SECS (0-40)
[2017-10-02 10:26] LABS: Alanine Aminotransferase 24 U/L (16-61); Albumin 3.3 G/DL (3.4-5.0); Alkaline Phosphatase 83 U/L (45-117); Apearance,Urine CLEAR (Clear); Aspartate Amino Transferase 13 U/L (0-37); Bilirubin,Total < 0.39 MG/DL (0.2-1.0); Bilirubin,Urine Negative (Negative); Blood Urea Nitrogen 15 MG/DL (7-18); Blood, Urine Negative (Negative); Calcium 9.5 MG/DL (8.5-10.1); Glucose 91 MG/DL (74-106); Glucose,Urine (UA) Negative (Negative); Ketones,Urine Negative (Negative); Mucus,Urine Occasional /LPF (Occasional); Nitrite,Urine Negative (Negative); Osmolality,Calculated 279.4 MOS/KG (273-304); Potassium 3.8 MMOL/L (3.5-5.1); Protein,Urine Negative; Sodium 140 MMOL/L (136-145); Squamous Epithelial Cell,Urine Occasional /HPF (0-10); Total Protein 8.2 G/DL (6.4-8.3); Urine Color Yellow (Yellow); Urine Specific Gravity 1.015 (1.001-1.035); Urine Urobilinogen < 2.0 EU/DL (0.2-1.0); WBC,Urine 2 /HPF (0-6)
[2017-10-02] MEDS ORDERED: SODIUM CHLORIDE 0.9% 1,000 ML IV SCH (13:07)
[2017-10-02] MEDS ORDERED: ACETAMINOPHEN 325 MG TABLET PO PRN (13:07)
[2017-10-02] MEDS ORDERED: MORPHINE 10 MG/1 ML VIAL IV PRN (13:07)
[2017-10-02] MEDS: acetaZOLAMIDE 250 MG TABLET PO SCH ×2 (14:49→20:59)
[2017-10-02] MEDS: METOPROLOL TARTRATE 25 MG TABLET PO SCH ×2 (14:50→20:59)
[2017-10-02] MEDS: FUROSEMIDE 20 MG TABLET PO SCH ×2 (14:50→20:59)
[2017-10-02] MEDS ORDERED: ALBUTEROL 2.5 MG/3 ML NEB RESP TX PRN (15:00)
[2017-10-02] MEDS: ALBUTEROL/IPRATROPIUM 3 ML NEB RESP TX SCH (19:08)
[2017-10-02] MEDS ORDERED: ENOXAPARIN 40 MG/0.4 ML SYRINGE SUBCUT SCH (21:00)
[2017-10-02] MEDS: DOCUSATE SODIUM 100 MG CAPSULE PO SCH (21:02)
[2017-10-03] MEDS: ALBUTEROL/IPRATROPIUM 3 ML NEB RESP TX SCH ×3 (00:11→13:37)
[2017-10-03] MEDS: acetaZOLAMIDE 250 MG TABLET PO SCH (08:33)
[2017-10-03] MEDS: FUROSEMIDE 20 MG TABLET PO SCH (08:33)
[2017-10-03] MEDS: DOCUSATE SODIUM 100 MG CAPSULE PO SCH (08:33)
[2017-10-03] MEDS: METOPROLOL TARTRATE 25 MG TABLET PO SCH (08:34)
[2017-10-03] MEDS ORDERED: PANTOPRAZOLE 40 MG TABLET PO SCH (09:00)
[2017-10-03] MEDS ORDERED: ASPIRIN EC 81 MG TABLET PO SCH (09:00)
[2017-10-03 17:09] VITALS: BP 131/74
== END 2017-10-03 18:56 | disposition home or self-care (01) ==
LOC: N.EDINP 08:51 → N.ED 08:51 → N.TELES 11:23
PROVIDERS: ADMIT Internal Medicine; ATTEND Internal Medicine

== ENCOUNTER 2018-01-03 10:27 | Inpatient (IN) ==
[2018-01-03] MEDS ORDERED: ONDANSETRON 4 MG/2 ML VIAL IV PRN ×2 (11:05→12:37)
[2018-01-03 11:28] LABS: Basophils % 0.4 % (0.0-0.8); Eosinophils # 0.1 10*3/uL (0.0-0.87); Eosinophils % 1.3 % (0.00-10.9); Hematocrit 42.1 VOL% (42.0-52.0); Hemoglobin 13.2 GM/DL (14.0-18.0); Immature Granulocytes % 0.4 %; Immature Granulocytes Absolute 0.03 #; Lymphocytes # 1.5 10*3/uL (1.4-4.0); Lymphocytes % 17.4 % (21.2-54.2); Mean Corpuscular HGB Conc 31.4 GM/DL (32-36); Mean Corpuscular Hemoglobin 24 PG (27-34); Mean Platelet Volume 10.4 FL (9.6-12.0); Monocytes # 0.7 10*3/uL (0.11-0.8); Monocytes % 8.3 % (1.7-12.7); Neutrophils # 6.1 10*3/uL (1.4-7.4); Neutrophils % 72.2 % (38.7-73.9); Platelet Count 233 T/CUMM (130-400); Red Blood Count 5.47 MC/CUMM (3.8-5.5); Red Cell Distribution Width 19.6 % (9.3-17.3); White Blood Count 8.4 T/CUMM (4-12)
[2018-01-03 11:33] LABS: Apearance,Urine CLEAR (Clear); Bilirubin,Urine Negative (Negative); Blood, Urine Negative (Negative); Glucose,Urine (UA) Negative (Negative); Ketones,Urine Negative (Negative); Mucus,Urine Occasional /LPF (Occasional); Nitrite,Urine Negative (Negative); Protein,Urine Negative; Urine Color Straw (Yellow); Urine Specific Gravity 1.005 (1.001-1.035); Urine Urobilinogen < 2.0 EU/DL (0.2-1.0); WBC,Urine <1 /HPF (0-6)
[2018-01-03 12:05] LABS: Alanine Aminotransferase 63 U/L (16-61); Alkaline Phosphatase 128 U/L (45-117); Aspartate Amino Transferase 36 U/L (0-37); Bilirubin,Total < 0.39 MG/DL (0.2-1.0); Blood Urea Nitrogen 9 MG/DL (7-18); Calcium 9.4 MG/DL (8.5-10.1); Glucose 93 MG/DL (74-106); Osmolality,Calculated 273.7 MOS/KG (273-304); Potassium 3.9 MMOL/L (3.5-5.1); Sodium 138 MMOL/L (136-145); Total Protein 8.9 G/DL (6.4-8.3)
[2018-01-03] MEDS ORDERED: BISACODYL 5 MG TABLET PO PRN (12:37)
[2018-01-03] MEDS ORDERED: ACETAMINOPHEN 325 MG TABLET PO PRN (12:37)
[2018-01-03] MEDS ORDERED: ALUMINUM/MAGNES/SIMETH MAX STR 30 ML UDCUP PO PRN (12:37)
[2018-01-03] MEDS ORDERED: DICYCLOMINE 20 MG TABLET PO PRN (12:44)
[2018-01-03] MEDS ORDERED: METHOCARBAMOL 750 MG TABLET PO PRN (12:44)
[2018-01-03] MEDS ORDERED: IBUPROFEN 400 MG TABLET PO PRN (12:44)
[2018-01-03] MEDS ORDERED: MAGNESIUM CITRATE 300 ML BOTTLE PO ONE (12:45)
[2018-01-03] MEDS: ALBUTEROL/IPRATROPIUM 3 ML NEB RESP TX SCH ×2 (13:33→18:46)
[2018-01-03] MEDS ORDERED: ALBUTEROL 2.5 MG/3 ML NEB RESP TX PRN (15:00)
[2018-01-03] MEDS: SODIUM CHLORIDE 0.45% 1,000 ML IV SCH (16:48)
[2018-01-03] MEDS: acetaZOLAMIDE 250 MG TABLET PO SCH (20:50)
[2018-01-03] MEDS: FUROSEMIDE 40 MG TABLET PO SCH (20:50)
[2018-01-03] MEDS: DOCUSATE SODIUM 100 MG CAPSULE PO SCH (20:50)
[2018-01-03] MEDS: METOPROLOL TARTRATE 25 MG TABLET PO SCH (20:50)
[2018-01-04] MEDS: ALBUTEROL/IPRATROPIUM 3 ML NEB RESP TX SCH ×4 (00:33→19:00)
[2018-01-04] MEDS: SODIUM CHLORIDE 0.45% 1,000 ML IV SCH ×3 (01:00→19:16)
[2018-01-04 06:51] LABS: Basophils % 0.2 % (0.0-0.8); Eosinophils # 0.1 10*3/uL (0.0-0.87); Eosinophils % 1.3 % (0.00-10.9); Hematocrit 42.6 VOL% (42.0-52.0); Hemoglobin 13.6 GM/DL (14.0-18.0); Immature Granulocytes % 0.2 %; Immature Granulocytes Absolute 0.02 #; Lymphocytes # 1.7 10*3/uL (1.4-4.0); Mean Corpuscular HGB Conc 31.9 GM/DL (32-36); Mean Corpuscular Hemoglobin 24 PG (27-34); Mean Platelet Volume 10.7 FL (9.6-12.0); Monocytes # 0.7 10*3/uL (0.11-0.8); Monocytes % 7.5 % (1.7-12.7); Neutrophils # 6.9 10*3/uL (1.4-7.4); Neutrophils % 72.8 % (38.7-73.9); Platelet Count 270 T/CUMM (130-400); Red Blood Count 5.68 MC/CUMM (3.8-5.5); Red Cell Distribution Width 19.7 % (9.3-17.3); White Blood Count 9.4 T/CUMM (4-12)
[2018-01-04 07:20] LABS: Albumin 3.2 G/DL (3.4-5.0); Bilirubin,Total 0.6 MG/DL (0.2-1.0); Calcium 9.1 MG/DL (8.5-10.1); Potassium 4.2 MMOL/L (3.5-5.1); Total Protein 8.4 G/DL (6.4-8.3)
[2018-01-04] MEDS ORDERED: Liraglutide [Victoza 3-Pak] 1.2 MG SUBCUT SCH (09:00)
[2018-01-04] MEDS: DOCUSATE SODIUM 100 MG CAPSULE PO SCH ×2 (09:11→21:49)
[2018-01-04] MEDS: FUROSEMIDE 40 MG TABLET PO SCH ×2 (09:12→21:39)
[2018-01-04] MEDS: METOPROLOL TARTRATE 25 MG TABLET PO SCH ×2 (09:12→21:51)
[2018-01-04] MEDS: acetaZOLAMIDE 250 MG TABLET PO SCH ×2 (09:12→21:49)
[2018-01-04] MEDS: predniSONE 10 MG TABLET PO PRN (09:13)
[2018-01-04] MEDS: PANTOPRAZOLE 40 MG TABLET PO SCH (09:13)
[2018-01-04] MEDS: HYDROmorphone 2 MG/1 ML VIAL IV PRN ×2 (10:56→21:59)
[2018-01-05] MEDS: ALBUTEROL/IPRATROPIUM 3 ML NEB RESP TX SCH ×3 (00:55→13:45)
[2018-01-05] MEDS: SODIUM CHLORIDE 0.45% 1,000 ML IV SCH (04:15)
[2018-01-05] MEDS: METOPROLOL TARTRATE 25 MG TABLET PO SCH (10:20)
[2018-01-05] MEDS: acetaZOLAMIDE 250 MG TABLET PO SCH (10:20)
[2018-01-05] MEDS: PANTOPRAZOLE 40 MG TABLET PO SCH (10:20)
[2018-01-05] MEDS: FUROSEMIDE 40 MG TABLET PO SCH (10:20)
[2018-01-05] MEDS: DOCUSATE SODIUM 100 MG CAPSULE PO SCH (10:20)
[2018-01-05] MEDS: predniSONE 10 MG TABLET PO PRN (10:21)
[2018-01-05 11:01] VITALS: BP 115/71
== END 2018-01-05 14:10 | disposition home or self-care (01) | DRG 392 ==
LOC: N.ED 10:27 → N.EDINP 12:37 → N.3E 13:37
PROVIDERS: ADMIT Specialist; ATTEND Specialist

== ENCOUNTER 2018-01-18 20:17 | Inpatient (IN) ==
[2018-01-18] MEDS ORDERED: SODIUM CHLORIDE 0.9% 500 ML IV STA (20:47)
[2018-01-18] MEDS ORDERED: HYDROmorphone 2 MG/1 ML VIAL IV STA (20:47)
[2018-01-18] MEDS ORDERED: PIPERACILLIN/TAZOBACTAM 3,375 MG in SODIUM CHLORIDE 0.9% 100 ML IV STA ×2 (20:47→20:58)
[2018-01-18] MEDS ORDERED: ONDANSETRON 4 MG/2 ML VIAL IV STA (20:47)
[2018-01-18 21:45] LABS: Basophils % 0.2 % (0.0-0.8); Eosinophils # 0.2 10*3/uL (0.0-0.87); Eosinophils % 2.3 % (0.00-10.9); Hematocrit 38.2 VOL% (42.0-52.0); Hemoglobin 11.8 GM/DL (14.0-18.0); Immature Granulocytes % 0.3 %; Immature Granulocytes Absolute 0.03 #; Lymphocytes # 1.6 10*3/uL (1.4-4.0); Lymphocytes % 18.4 % (21.2-54.2); Mean Corpuscular HGB Conc 30.9 GM/DL (32-36); Mean Corpuscular Hemoglobin 24 PG (27-34); Mean Corpuscular Volume 77.5 FL (87-102); Mean Platelet Volume 11.5 FL (9.6-12.0); Monocytes # 0.7 10*3/uL (0.11-0.8); Monocytes % 8.4 % (1.7-12.7); Neutrophils # 6.1 10*3/uL (1.4-7.4); Neutrophils % 70.4 % (38.7-73.9); Platelet Count 277 T/CUMM (130-400); Red Blood Count 4.93 MC/CUMM (3.8-5.5); Red Cell Distribution Width 18.3 % (9.3-17.3); White Blood Count 8.7 T/CUMM (4-12)
[2018-01-18 22:06] LABS: Alanine Aminotransferase 39 U/L (16-61); Albumin 2.7 G/DL (3.4-5.0); Alkaline Phosphatase 121 U/L (45-117); Amylase 54 U/L (25-115); Aspartate Amino Transferase 21 U/L (0-37); Bilirubin,Total < 0.39 MG/DL (0.2-1.0); Blood Urea Nitrogen 13 MG/DL (7-18); Calcium 9.1 MG/DL (8.5-10.1); Glucose 79 MG/DL (74-106); Osmolality,Calculated 279.3 MOS/KG (273-304); Potassium 4.5 MMOL/L (3.5-5.1); Sodium 141 MMOL/L (136-145)
[2018-01-18 22:07] LABS: Lactic Acid 1.1 MMOL/L (0.4-2.0)
[2018-01-18 22:21] LABS: Troponin I Only < 0.015 NG/ML (0.00-0.045)
[2018-01-19] MEDS ORDERED: GLUCAGON 1 MG VIAL IM PRN (00:16)
[2018-01-19] MEDS ORDERED: DEXTROSE 50% 25 GM/50 ML VIAL IV PRN (00:16)
[2018-01-19] MEDS ORDERED: ALBUTEROL/IPRATROPIUM 3 ML NEB RESP TX PRN (00:16)
[2018-01-19] MEDS ORDERED: IBUPROFEN 400 MG TABLET PO PRN (00:16)
[2018-01-19] MEDS ORDERED: ACETAMINOPHEN 325 MG TABLET PO PRN (00:16)
[2018-01-19] MEDS ORDERED: ONDANSETRON 4 MG/2 ML VIAL IV PRN (00:16)
[2018-01-19] MEDS ORDERED: ALBUTEROL 2.5 MG/3 ML NEB RESP TX PRN (00:16)
[2018-01-19] MEDS: ALBUTEROL/IPRATROPIUM 3 ML NEB RESP TX SCH ×4 (00:53→19:20)
[2018-01-19 04:26] LABS: Apearance,Urine Clear (Clear); Bilirubin,Urine Negative (Negative); Blood, Urine Negative (Negative); Glucose,Urine (UA) Negative (Negative); Ketones,Urine Negative (Negative); Nitrite,Urine Negative (Negative); Protein,Urine Negative; Urine Color Yellow (Yellow); Urine Specific Gravity 1.014 (1.001-1.035); Urine Urobilinogen < 2.0 EU/DL (0.2-1.0)
[2018-01-19 04:27] LABS: Hyaline Casts,Urine 1 /LPF (0-3); Squamous Epithelial Cell,Urine Occasional /HPF (0-10); WBC,Urine 1 /HPF (0-6)
[2018-01-19] MEDS: VANCOMYCIN INJ 2,000 MG in SODIUM CHLORIDE 0.9% 500 ML IV SCH ×3 (04:41→20:51)
[2018-01-19] MEDS: SODIUM CHLORIDE 0.9% 1,000 ML IV SCH ×2 (04:42→04:48)
[2018-01-19 06:34] LABS: Basophils % 0.4 % (0.0-0.8); Eosinophils # 0.2 10*3/uL (0.0-0.87); Eosinophils % 2.1 % (0.00-10.9); Hematocrit 36.3 VOL% (42.0-52.0); Immature Granulocytes % 0.4 %; Immature Granulocytes Absolute 0.03 #; Lymphocytes # 1.7 10*3/uL (1.4-4.0); Lymphocytes % 22.3 % (21.2-54.2); Mean Corpuscular HGB Conc 30.3 GM/DL (32-36); Mean Corpuscular Hemoglobin 23 PG (27-34); Mean Corpuscular Volume 77.2 FL (87-102); Mean Platelet Volume 10.5 FL (9.6-12.0); Monocytes # 0.6 10*3/uL (0.11-0.8); Monocytes % 7.8 % (1.7-12.7); Neutrophils # 5.1 10*3/uL (1.4-7.4); Platelet Count 251 T/CUMM (130-400); Red Cell Distribution Width 18.4 % (9.3-17.3); White Blood Count 7.6 T/CUMM (4-12)
[2018-01-19 07:12] LABS: Albumin 2.4 G/DL (3.4-5.0); Bilirubin,Total 0.4 MG/DL (0.2-1.0); Calcium 8.6 MG/DL (8.5-10.1); Osmolality,Calculated 281.1 MOS/KG (273-304); Potassium 4.2 MMOL/L (3.5-5.1); Total Protein 7.1 G/DL (6.4-8.3)
[2018-01-19] MEDS: INSULIN REGULAR 100 UNIT/ML SUBCUT SCH ×4 (07:55→22:49)
[2018-01-19] MEDS ORDERED: Liraglutide [Victoza 3-Pak] 1.8 MG SUBCUT SCH (09:00)
[2018-01-19] MEDS ORDERED: predniSONE 10 MG TABLET PO PRN (09:00)
[2018-01-19] MEDS: HYDROmorphone 2 MG/1 ML VIAL IV PRN ×3 (09:10→21:00)
[2018-01-19] MEDS: METOPROLOL TARTRATE 25 MG TABLET PO SCH ×2 (09:10→20:52)
[2018-01-19] MEDS: FUROSEMIDE 20 MG TABLET PO SCH ×2 (09:10→15:20)
[2018-01-19] MEDS: PANTOPRAZOLE 40 MG TABLET PO SCH (09:10)
[2018-01-19] MEDS: acetaZOLAMIDE 250 MG TABLET PO SCH ×2 (09:10→20:52)
[2018-01-19] MEDS: PIPERACILLIN/TAZOBACTAM 3,375 MG in SODIUM CHLORIDE 0.9% 100 ML IV SCH ×3 (09:15→22:56)
[2018-01-19] MEDS ORDERED: ceFAZolin 2,000 MG in PREMIX 1 EACH IV ONE (11:00)
[2018-01-19 11:24] LABS: PT Patient Result 10.8 SECS; Partial Thromboplastin Time 27.5 SECS (0-40)
[2018-01-19] MEDS: SODIUM HYPOCHLORITE 0.25% IRRIG 473 ML BOTTLE TOP SCH (23:51)
[2018-01-20] MEDS: ALBUTEROL/IPRATROPIUM 3 ML NEB RESP TX SCH ×3 (00:50→19:45)
[2018-01-20] MEDS: VANCOMYCIN INJ 2,000 MG in SODIUM CHLORIDE 0.9% 500 ML IV SCH ×3 (04:17→20:30)
[2018-01-20 06:31] LABS: Basophils % 0.4 % (0.0-0.8); Eosinophils # 0.2 10*3/uL (0.0-0.87); Eosinophils % 2.7 % (0.00-10.9); Hematocrit 38.8 VOL% (42.0-52.0); Hemoglobin 11.6 GM/DL (14.0-18.0); Immature Granulocytes % 0.3 %; Immature Granulocytes Absolute 0.02 #; Lymphocytes # 1.2 10*3/uL (1.4-4.0); Lymphocytes % 17.1 % (21.2-54.2); Mean Corpuscular HGB Conc 29.9 GM/DL (32-36); Mean Corpuscular Hemoglobin 23 PG (27-34); Mean Corpuscular Volume 78.4 FL (87-102); Mean Platelet Volume 10.5 FL (9.6-12.0); Monocytes # 0.6 10*3/uL (0.11-0.8); Monocytes % 8.8 % (1.7-12.7); Neutrophils # 4.8 10*3/uL (1.4-7.4); Neutrophils % 70.7 % (38.7-73.9); Platelet Count 265 T/CUMM (130-400); Red Blood Count 4.95 MC/CUMM (3.8-5.5); Red Cell Distribution Width 18.6 % (9.3-17.3); White Blood Count 6.8 T/CUMM (4-12)
[2018-01-20 06:40] LABS: Calcium 8.8 MG/DL (8.5-10.1); Osmolality,Calculated 281.1 MOS/KG (273-304); Potassium 4.4 MMOL/L (3.5-5.1)
[2018-01-20] MEDS: PIPERACILLIN/TAZOBACTAM 3,375 MG in SODIUM CHLORIDE 0.9% 100 ML IV SCH ×3 (07:02→22:47)
[2018-01-20] MEDS ORDERED: ALBUTEROL/IPRATROPIUM 3 ML NEB RESP TX ONE (08:29)
[2018-01-20] MEDS ORDERED: BUPIVACAINE 0.5% /EPI 10 ML VIAL ONE (09:09)
[2018-01-20] MEDS ORDERED: ACETAMINOPHEN 1,000 MG/100 ML VIAL IV ONE (09:20)
[2018-01-20] MEDS ORDERED: BENZOIN COMPOUND TINCTURE 58 ML BOTTLE TOP ONE (09:40)
[2018-01-20] MEDS ORDERED: SUGAMMADEX 200 MG/2 ML VIAL IV ONE (09:44)
[2018-01-20] MEDS ORDERED: ONDANSETRON 4 MG/2 ML VIAL IV PRN ×3 (09:54→13:15)
[2018-01-20] MEDS ORDERED: HYDROmorphone 2 MG/1 ML VIAL IV PRN (09:54)
[2018-01-20] MEDS ORDERED: CHLORHEXIDINE 4% SOLN 118 ML BOTTLE TOP ONE (10:04)
[2018-01-20] MEDS ORDERED: MORPHINE 10 MG/1 ML VIAL ONE (10:15)
[2018-01-20] MEDS ORDERED: ONDANSETRON 4 MG/2 ML VIAL ONE ×2 (10:15→10:28)
[2018-01-20] MEDS: MORPHINE 10 MG/1 ML VIAL IV PRN ×5 (10:19→10:57)
[2018-01-20] MEDS ORDERED: PROPOFOL 200 MG/20 ML VIAL IV ONE (10:27)
[2018-01-20] MEDS ORDERED: DEXAMETHASONE 10 MG/1 ML VIAL ONE (10:28)
[2018-01-20] MEDS ORDERED: fentaNYL 100 MCG/2 ML VIAL ONE (10:28)
[2018-01-20] MEDS ORDERED: FUROSEMIDE 20 MG/2 ML VIAL ONE (10:28)
[2018-01-20] MEDS ORDERED: MIDAZOLAM 2 MG/2 ML VIAL ONE (10:28)
[2018-01-20] MEDS ORDERED: SUCCINYLCHOLINE 200 MG/10 ML VIAL ONE (10:28)
[2018-01-20] MEDS ORDERED: SEVOFLURANE 1 UNIT/15 MINUTE INH ONE (10:28)
[2018-01-20] MEDS ORDERED: METOPROLOL TARTRATE 5 MG/5 ML VIAL IV ONE (10:28)
[2018-01-20] MEDS ORDERED: ROCURONIUM 100 MG/10 ML VIAL IV ONE (10:28)
[2018-01-20 10:50] LABS: Apearance,Urine CLEAR (Clear); Bilirubin,Urine Negative (Negative); Blood, Urine Negative (Negative); Glucose,Urine (UA) Negative (Negative); Ketones,Urine Negative (Negative); Mucus,Urine Occasional /LPF (Occasional); Nitrite,Urine Negative (Negative); Protein,Urine Negative; Squamous Epithelial Cell,Urine Occasional /HPF (0-10); Urine Color Yellow (Yellow); Urine Specific Gravity 1.012 (1.001-1.035); Urine Urobilinogen < 2.0 EU/DL (0.2-1.0); WBC,Urine <1 /HPF (0-6)
[2018-01-20] MEDS ORDERED: SODIUM CHLORIDE 0.45% 1,000 ML IV SCH (11:00)
[2018-01-20] MEDS: SODIUM HYPOCHLORITE 0.25% IRRIG 473 ML BOTTLE TOP SCH ×2 (12:24→21:30)
[2018-01-20] MEDS: acetaZOLAMIDE 250 MG TABLET PO SCH ×2 (12:24→20:25)
[2018-01-20] MEDS: FUROSEMIDE 20 MG TABLET PO SCH ×2 (12:24→15:27)
[2018-01-20] MEDS: INSULIN REGULAR 100 UNIT/ML SUBCUT SCH ×3 (12:24→21:30)
[2018-01-20] MEDS: METOPROLOL TARTRATE 25 MG TABLET PO SCH ×2 (12:24→21:30)
[2018-01-20] MEDS: PANTOPRAZOLE 40 MG TABLET PO SCH (12:25)
[2018-01-20] MEDS ORDERED: PIPERACILLIN/TAZOBACTAM 3,375 MG in SODIUM CHLORIDE 0.9% 100 ML IV STA (13:09)
[2018-01-20] MEDS ORDERED: ACETAMINOPHEN 325 MG TABLET PO PRN (13:10)
[2018-01-20] MEDS ORDERED: ALBUTEROL/IPRATROPIUM 3 ML NEB RESP TX PRN (13:11)
[2018-01-20] MEDS ORDERED: ALBUTEROL 2.5 MG/3 ML NEB RESP TX PRN (13:11)
[2018-01-20] MEDS ORDERED: GLUCAGON 1 MG VIAL IM PRN (13:12)
[2018-01-20] MEDS ORDERED: DEXTROSE 50% 25 GM/50 ML VIAL IV PRN (13:12)
[2018-01-20] MEDS: SODIUM CHLORIDE 0.45% 1,000 ML IV SCH (13:29)
[2018-01-20] MEDS: ENOXAPARIN 40 MG/0.4 ML SYRINGE SUBCUT SCH (13:29)
[2018-01-20] MEDS: HYDROmorphone 2 MG/1 ML VIAL IV PRN ×2 (15:29→22:49)
[2018-01-20] MEDS ORDERED: ceFAZolin 2,000 MG in PREMIX 1 EACH IV SCH (17:00)
[2018-01-21] MEDS: ALBUTEROL/IPRATROPIUM 3 ML NEB RESP TX SCH ×4 (00:38→19:48)
[2018-01-21] MEDS: VANCOMYCIN INJ 2,000 MG in SODIUM CHLORIDE 0.9% 500 ML IV SCH ×2 (05:00→15:32)
[2018-01-21 05:40] LABS: Basophils % 0.3 % (0.0-0.8); Eosinophils % 0.2 % (0.00-10.9); Hematocrit 40.1 VOL% (42.0-52.0); Hemoglobin 11.9 GM/DL (14.0-18.0); Immature Granulocytes % 0.3 %; Immature Granulocytes Absolute 0.03 #; Lymphocytes % 10.8 % (21.2-54.2); Mean Corpuscular HGB Conc 29.7 GM/DL (32-36); Mean Corpuscular Hemoglobin 24 PG (27-34); Mean Corpuscular Volume 79.7 FL (87-102); Mean Platelet Volume 10.2 FL (9.6-12.0); Monocytes # 0.6 10*3/uL (0.11-0.8); Monocytes % 6.9 % (1.7-12.7); Neutrophils # 7.5 10*3/uL (1.4-7.4); Neutrophils % 81.5 % (38.7-73.9); Platelet Count 286 T/CUMM (130-400); Red Blood Count 5.03 MC/CUMM (3.8-5.5); Red Cell Distribution Width 18.6 % (9.3-17.3); White Blood Count 9.2 T/CUMM (4-12)
[2018-01-21 06:12] LABS: Calcium 9.5 MG/DL (8.5-10.1); Osmolality,Calculated 277.4 MOS/KG (273-304); Potassium 4.2 MMOL/L (3.5-5.1)
[2018-01-21] MEDS: PIPERACILLIN/TAZOBACTAM 3,375 MG in SODIUM CHLORIDE 0.9% 100 ML IV SCH (06:58)
[2018-01-21] MEDS: FUROSEMIDE 20 MG TABLET PO SCH ×2 (08:21→17:12)
[2018-01-21] MEDS: SODIUM HYPOCHLORITE 0.25% IRRIG 473 ML BOTTLE TOP SCH ×2 (08:22→21:29)
[2018-01-21] MEDS: HYDROmorphone 2 MG/1 ML VIAL IV PRN ×3 (08:22→21:33)
[2018-01-21] MEDS: PANTOPRAZOLE 40 MG VIAL IV SCH (08:22)
[2018-01-21] MEDS: acetaZOLAMIDE 250 MG TABLET PO SCH ×2 (08:22→21:27)
[2018-01-21] MEDS: METOPROLOL TARTRATE 25 MG TABLET PO SCH ×2 (08:23→21:27)
[2018-01-21] MEDS: INSULIN REGULAR 100 UNIT/ML SUBCUT SCH (08:33)
[2018-01-21] MEDS ORDERED: ENOXAPARIN 40 MG/0.4 ML SYRINGE SUBCUT SCH (09:00)
[2018-01-21] MEDS ORDERED: PANTOPRAZOLE 40 MG VIAL IV SCH (09:00)
[2018-01-21] MEDS: Liraglutide [Victoza 3-Pak] 1.8 MG SUBCUT SCH (10:22)
[2018-01-21] MEDS: ENOXAPARIN 40 MG/0.4 ML SYRINGE SUBCUT SCH (15:15)
[2018-01-21] MEDS: SODIUM CHLORIDE 0.45% 1,000 ML IV SCH ×3 (15:30→15:31)
[2018-01-21] MEDS: SULFAMETHOX/TRIMETHOPRIM 800-160 MG TABLET PO SCH (21:27)
[2018-01-22] MEDS: ALBUTEROL/IPRATROPIUM 3 ML NEB RESP TX SCH ×4 (00:49→19:38)
[2018-01-22] MEDS: VANCOMYCIN INJ 2,000 MG in SODIUM CHLORIDE 0.9% 500 ML IV SCH ×2 (05:49→16:07)
[2018-01-22] MEDS: SODIUM HYPOCHLORITE 0.25% IRRIG 473 ML BOTTLE TOP SCH ×2 (09:05→20:54)
[2018-01-22] MEDS: Liraglutide [Victoza 3-Pak] 1.8 MG SUBCUT SCH (09:55)
[2018-01-22] MEDS: predniSONE 10 MG TABLET PO PRN (09:55)
[2018-01-22] MEDS: FUROSEMIDE 20 MG TABLET PO SCH ×2 (09:55→16:06)
[2018-01-22] MEDS: SULFAMETHOX/TRIMETHOPRIM 800-160 MG TABLET PO SCH ×2 (09:55→20:50)
[2018-01-22] MEDS: METOPROLOL TARTRATE 25 MG TABLET PO SCH ×2 (09:55→20:51)
[2018-01-22] MEDS: acetaZOLAMIDE 250 MG TABLET PO SCH ×2 (09:55→20:50)
[2018-01-22] MEDS: HYDROmorphone 2 MG/1 ML VIAL IV PRN ×2 (10:18→20:51)
[2018-01-22] MEDS: SODIUM CHLORIDE 0.45% 1,000 ML IV SCH ×3 (10:45→20:49)
[2018-01-22] MEDS: PANTOPRAZOLE 40 MG VIAL IV SCH (11:04)
[2018-01-22] MEDS: ENOXAPARIN 40 MG/0.4 ML SYRINGE SUBCUT SCH (15:43)
[2018-01-23] MEDS: ALBUTEROL/IPRATROPIUM 3 ML NEB RESP TX SCH ×4 (00:24→19:09)
[2018-01-23] MEDS: HYDROmorphone 2 MG/1 ML VIAL IV PRN ×4 (02:30→21:19)
[2018-01-23 06:03] LABS: Basophils % 0.4 % (0.0-0.8); Eosinophils # 0.1 10*3/uL (0.0-0.87); Eosinophils % 1.5 % (0.00-10.9); Hematocrit 40.2 VOL% (42.0-52.0); Hemoglobin 12.4 GM/DL (14.0-18.0); Immature Granulocytes % 0.4 %; Immature Granulocytes Absolute 0.03 #; Lymphocytes # 1.7 10*3/uL (1.4-4.0); Mean Corpuscular HGB Conc 30.8 GM/DL (32-36); Mean Corpuscular Hemoglobin 23 PG (27-34); Mean Platelet Volume 10.6 FL (9.6-12.0); Monocytes # 0.5 10*3/uL (0.11-0.8); Monocytes % 6.9 % (1.7-12.7); Neutrophils # 5.4 10*3/uL (1.4-7.4); Neutrophils % 68.8 % (38.7-73.9); Platelet Count 331 T/CUMM (130-400); Red Blood Count 5.29 MC/CUMM (3.8-5.5); Red Cell Distribution Width 19.1 % (9.3-17.3); White Blood Count 7.8 T/CUMM (4-12)
[2018-01-23 06:22] LABS: Osmolality,Calculated 280.4 MOS/KG (273-304); Potassium 3.9 MMOL/L (3.5-5.1)
[2018-01-23] MEDS: SULFAMETHOX/TRIMETHOPRIM 800-160 MG TABLET PO SCH ×2 (09:44→20:38)
[2018-01-23] MEDS: predniSONE 10 MG TABLET PO PRN (09:44)
[2018-01-23] MEDS: PANTOPRAZOLE 40 MG VIAL IV SCH (09:44)
[2018-01-23] MEDS: acetaZOLAMIDE 250 MG TABLET PO SCH ×2 (09:44→20:38)
[2018-01-23] MEDS: METOPROLOL TARTRATE 25 MG TABLET PO SCH ×2 (09:44→21:22)
[2018-01-23] MEDS: FUROSEMIDE 20 MG TABLET PO SCH ×2 (09:44→17:06)
[2018-01-23] MEDS: Liraglutide [Victoza 3-Pak] 1.8 MG SUBCUT SCH (09:45)
[2018-01-23] MEDS: VANCOMYCIN INJ 2,500 MG in SODIUM CHLORIDE 0.9% 500 ML IV SCH (13:26)
[2018-01-23] MEDS: ENOXAPARIN 40 MG/0.4 ML SYRINGE SUBCUT SCH (14:43)
[2018-01-23] MEDS: SODIUM CHLORIDE 0.45% 1,000 ML IV SCH ×2 (16:23→16:24)
[2018-01-23] MEDS: SODIUM HYPOCHLORITE 0.25% IRRIG 473 ML BOTTLE TOP SCH ×2 (16:24→21:21)
[2018-01-24] MEDS: ALBUTEROL/IPRATROPIUM 3 ML NEB RESP TX SCH ×3 (00:28→13:38)
[2018-01-24] MEDS: VANCOMYCIN INJ 2,500 MG in SODIUM CHLORIDE 0.9% 500 ML IV SCH ×2 (02:17→13:49)
[2018-01-24] MEDS: SODIUM CHLORIDE 0.45% 1,000 ML IV SCH (03:29)
[2018-01-24] MEDS: HYDROmorphone 2 MG/1 ML VIAL IV PRN (04:42)
[2018-01-24] MEDS: acetaZOLAMIDE 250 MG TABLET PO SCH (09:50)
[2018-01-24] MEDS: PANTOPRAZOLE 40 MG VIAL IV SCH (09:50)
[2018-01-24] MEDS: FUROSEMIDE 20 MG TABLET PO SCH (09:51)
[2018-01-24] MEDS: METOPROLOL TARTRATE 25 MG TABLET PO SCH (09:51)
[2018-01-24] MEDS: SULFAMETHOX/TRIMETHOPRIM 800-160 MG TABLET PO SCH (09:51)
[2018-01-24] MEDS: Liraglutide [Victoza 3-Pak] 1.8 MG SUBCUT SCH (09:51)
[2018-01-24] MEDS: SODIUM HYPOCHLORITE 0.25% IRRIG 473 ML BOTTLE TOP SCH (09:51)
[2018-01-24] MEDS: ENOXAPARIN 40 MG/0.4 ML SYRINGE SUBCUT SCH (13:49)
[2018-01-24 17:08] VITALS: BP 143/84
== END 2018-01-24 16:10 | disposition home health service (06) | DRG 857 ==
LOC: N.ED 20:17 → N.EDINP 22:47 → N.3E 23:05 → N.2E 23:37 → N.ICU 01-20 10:54 → N.3E 01-21 11:52
PROVIDERS: ADMIT Specialist; ATTEND Specialist

== ENCOUNTER 2021-01-14 13:02 | Inpatient (IN) ==
[2021-01-14] MEDS ORDERED: MAGNESIUM HYDROXIDE SUSP 30 ML UDCUP PO PRN (14:53)
[2021-01-14 18:07] LABS: Basophils % 0.2 % (0.0-0.8); Eosinophils # 0.1 10*3/uL (0.0-0.87); Eosinophils % 0.6 % (0.00-10.9); Hematocrit 55.6 VOL% (42.0-52.0); Hemoglobin 16.5 GM/DL (14.0-18.0); Immature Granulocytes % 0.4 %; Immature Granulocytes Absolute 0.04 #; Lymphocytes # 1.9 10*3/uL (1.4-4.0); Lymphocytes % 21.3 % (21.2-54.2); Mean Corpuscular HGB Conc 29.7 GM/DL (32-36); Mean Corpuscular Volume 80.8 FL (87-102); Mean Platelet Volume 10.4 FL (9.6-12.0); Monocytes % 9.2 % (1.7-12.7); Neutrophils % 68.3 % (38.7-73.9); Platelet Count 199 T/CUMM (130-400); Red Blood Count 6.88 MC/CUMM (3.8-5.5); Red Cell Distribution Width 20.3 % (9.3-17.3); White Blood Count 8.9 T/CUMM (4-12)
[2021-01-14 18:29] LABS: Albumin 3.2 G/DL (3.4-5.0); Bilirubin,Total 0.7 MG/DL (0.2-1.0); Calcium 9.6 MG/DL (8.5-10.1); Osmolality,Calculated 279.5 MOS/KG (273-304)
[2021-01-14] MEDS: traMADol 50 MG TABLET PO PRN (19:06)
[2021-01-14 19:54] LABS: ABG Base Excess 8.6 MMOL/L (-2.5-2.5); ABG HCO3 32.3 MMOL/L (20-26); ABG Oxygen Saturation 93.1 % (95-100); ABG PCO2 58.9 MM HG (35-48); ABG PH 7.398 (7.35-7.45); ABG PO2 77.4 MM HG (80-95); ABG TCO2 30.7 MMOL/L (23-27)
[2021-01-14] MEDS: ALBUTEROL/IPRATROPIUM 3 ML NEB RESP TX SCH (20:15)
[2021-01-14] MEDS: SODIUM CHLORIDE 0.9% 1,000 ML IV SCH (21:43)
[2021-01-14] MEDS: METOPROLOL TARTRATE 25 MG TABLET PO SCH (21:44)
[2021-01-14] MEDS: DOCUSATE SODIUM 100 MG CAPSULE PO SCH (21:44)
[2021-01-14] MEDS: KETOROLAC 30 MG/1 ML VIAL IV PRN (21:47)
[2021-01-14] MEDS: metroNIDAZOLE INJ 500 MG/100 ML PREMIX IV SCH (21:47)
[2021-01-14] MEDS: ENOXAPARIN 40 MG/0.4 ML SYRINGE SUBCUT SCH (21:48)
[2021-01-15] MEDS: ALBUTEROL/IPRATROPIUM 3 ML NEB RESP TX SCH ×4 (01:23→18:03)
[2021-01-15 04:01] LABS: ABG Base Excess 5.5 MMOL/L (-2.5-2.5); ABG HCO3 29.1 MMOL/L (20-26); ABG Oxygen Saturation 88.8 % (95-100); ABG PH 7.303 (7.35-7.45); ABG TCO2 30.6 MMOL/L (23-27)
[2021-01-15 04:07] LABS: ABG PCO2 71.7 MM HG (35-48)
[2021-01-15] MEDS: metroNIDAZOLE INJ 500 MG/100 ML PREMIX IV SCH (05:18)
[2021-01-15 05:57] LABS: ABG Base Excess 5.4 MMOL/L (-2.5-2.5); ABG HCO3 29.2 MMOL/L (20-26); ABG Oxygen Saturation 95.3 % (95-100); ABG PH 7.298 (7.35-7.45); ABG PO2 89.4 MM HG (80-95); ABG TCO2 30.6 MMOL/L (23-27)
[2021-01-15 05:58] LABS: ABG PCO2 72.3 MM HG (35-48)
[2021-01-15 06:20] LABS: Calcium 9.1 MG/DL (8.5-10.1); Osmolality,Calculated 282.4 MOS/KG (273-304); Potassium 4.9 MMOL/L (3.5-5.1)
[2021-01-15] MEDS: KETOROLAC 30 MG/1 ML VIAL IV PRN ×3 (07:23→19:04)
[2021-01-15] MEDS: METOPROLOL TARTRATE 25 MG TABLET PO SCH ×2 (08:46→21:49)
[2021-01-15] MEDS: DOCUSATE SODIUM 100 MG CAPSULE PO SCH (08:46)
[2021-01-15] MEDS ORDERED: PANTOPRAZOLE 40 MG TABLET PO SCH (09:00)
[2021-01-15] MEDS: ACETAMINOPHEN 325 MG TABLET PO PRN ×2 (09:30→17:50)
[2021-01-15] MEDS: CLINDAMYCIN INJ 900 MG/50 ML PREMIX IV SCH ×3 (11:44→23:59)
[2021-01-15] MEDS: SODIUM CHLORIDE 0.9% 1,000 ML IV SCH (11:47)
[2021-01-15 12:08] LABS: ABG Base Excess 3.9 MMOL/L (-2.5-2.5); ABG HCO3 33.9 MMOL/L (20-26); ABG Oxygen Saturation 96.2 % (95-100); ABG PH 7.269 (7.35-7.45); ABG PO2 96.8 MM HG (80-95); ABG TCO2 36.2 MMOL/L (23-27)
[2021-01-15 12:10] LABS: ABG PCO2 75.6 MM HG (35-48)
[2021-01-15] MEDS: ONDANSETRON 4 MG/2 ML VIAL IV PRN ×3 (12:52→21:48)
[2021-01-15] MEDS: ENOXAPARIN 40 MG/0.4 ML SYRINGE SUBCUT SCH (21:50)
[2021-01-16] MEDS: DOCUSATE SODIUM 100 MG CAPSULE PO SCH ×3 (00:13→21:23)
[2021-01-16] MEDS: ALBUTEROL/IPRATROPIUM 3 ML NEB RESP TX SCH ×4 (01:31→20:12)
[2021-01-16] MEDS: KETOROLAC 30 MG/1 ML VIAL IV PRN ×3 (02:21→16:54)
[2021-01-16 03:49] LABS: ABG Base Excess 7.4 MMOL/L (-2.5-2.5); ABG HCO3 30.7 MMOL/L (20-26); ABG Oxygen Saturation 79.5 % (95-100); ABG PH 7.325 (7.35-7.45); ABG PO2 50.2 MM HG (80-95)
[2021-01-16 03:53] LABS: ABG PCO2 72.2 MM HG (35-48)
[2021-01-16] MEDS: CLINDAMYCIN INJ 900 MG/50 ML PREMIX IV SCH ×3 (05:24→18:45)
[2021-01-16] MEDS: ACETAMINOPHEN 325 MG TABLET PO PRN (05:24)
[2021-01-16 07:28] LABS: Calcium 9.5 MG/DL (8.5-10.1); Osmolality,Calculated 278.7 MOS/KG (273-304); Potassium 5.2 MMOL/L (3.5-5.1)
[2021-01-16 07:30] LABS: Basophils % 0.2 % (0.0-0.8); Eosinophils % 0.7 % (0.00-10.9); Hematocrit 54.4 VOL% (42.0-52.0); Immature Granulocytes % 0.7 %; Immature Granulocytes Absolute 0.04 #; Lymphocytes # 0.7 10*3/uL (1.4-4.0); Lymphocytes % 10.9 % (21.2-54.2); Mean Corpuscular HGB Conc 29.4 GM/DL (32-36); Mean Corpuscular Volume 81.8 FL (87-102); Mean Platelet Volume 10.4 FL (9.6-12.0); Monocytes % 10.1 % (1.7-12.7); Neutrophils % 77.4 % (38.7-73.9); Platelet Count 190 T/CUMM (130-400); Red Blood Count 6.65 MC/CUMM (3.8-5.5); Red Cell Distribution Width 19.9 % (9.3-17.3); White Blood Count 6.1 T/CUMM (4-12)
[2021-01-16] MEDS: METOPROLOL TARTRATE 25 MG TABLET PO SCH ×2 (08:27→21:25)
[2021-01-16] MEDS: POTASSIUM CHLORIDE 20 MEQ TABLET PO SCH (08:28)
[2021-01-16] MEDS: PANTOPRAZOLE 40 MG VIAL IV SCH (08:29)
[2021-01-16] MEDS: FUROSEMIDE 40 MG/4 ML VIAL IV SCH ×2 (09:04→16:53)
[2021-01-16] MEDS: ONDANSETRON 4 MG/2 ML VIAL IV PRN ×2 (09:04→16:54)
[2021-01-16] MEDS: LIDOCAINE 5% PATCH TRANSDERM SCH (12:18)
[2021-01-16] MEDS ORDERED: methylPREDNISolone SOD SUC 40 MG/1 ML VIAL IV SCH (12:30)
[2021-01-16] MEDS ORDERED: LIDOCAINE 5% PATCH TRANSDERM SCH (12:30)
[2021-01-16] MEDS ORDERED: MAGNESIUM CITRATE 300 ML BOTTLE PO ONE (13:00)
[2021-01-16] MEDS ORDERED: MAGNESIUM CITRATE 300 ML BOTTLE PO PRN (13:00)
[2021-01-16] MEDS: PROMETHAZINE 25 MG/1 ML VIAL IM PRN ×2 (13:12→21:26)
[2021-01-16] MEDS: PREGABALIN 50 MG CAPSULE PO SCH ×2 (13:12→21:24)
[2021-01-16] MEDS: ENOXAPARIN 40 MG/0.4 ML SYRINGE SUBCUT SCH (21:25)
[2021-01-17] MEDS: methylPREDNISolone SOD SUC 40 MG/1 ML VIAL IV SCH ×2 (00:21→12:27)
[2021-01-17] MEDS: LIDOCAINE 5% PATCH TRANSDERM SCH ×2 (00:22→16:33)
[2021-01-17] MEDS: KETOROLAC 30 MG/1 ML VIAL IV PRN ×3 (00:39→16:04)
[2021-01-17] MEDS: CLINDAMYCIN INJ 900 MG/50 ML PREMIX IV SCH ×4 (00:41→18:23)
[2021-01-17] MEDS: ALBUTEROL/IPRATROPIUM 3 ML NEB RESP TX SCH ×4 (01:58→19:18)
[2021-01-17 04:22] LABS: ABG HCO3 31.5 MMOL/L (20-26); ABG Oxygen Saturation 87.1 % (95-100); ABG PH 7.324 (7.35-7.45); ABG PO2 61.6 MM HG (80-95); ABG TCO2 32.6 MMOL/L (23-27); Allen Test Positive; Pt O2 Delivery Device CPAP
[2021-01-17 04:25] LABS: ABG PCO2 74.1 MM HG (35-48)
[2021-01-17 06:47] LABS: Calcium 9.1 MG/DL (8.5-10.1); Osmolality,Calculated 279.8 MOS/KG (273-304); Potassium 5.4 MMOL/L (3.5-5.1)
[2021-01-17] MEDS: FUROSEMIDE 40 MG/4 ML VIAL IV SCH ×2 (09:45→16:39)
[2021-01-17] MEDS: PANTOPRAZOLE 40 MG VIAL IV SCH (09:48)
[2021-01-17] MEDS: METOPROLOL TARTRATE 25 MG TABLET PO SCH ×2 (09:56→20:14)
[2021-01-17] MEDS: PREGABALIN 50 MG CAPSULE PO SCH ×2 (09:56→20:14)
[2021-01-17] MEDS: ONDANSETRON 4 MG/2 ML VIAL IV PRN ×2 (10:55→18:34)
[2021-01-17] MEDS: DOCUSATE SODIUM 100 MG CAPSULE PO SCH ×2 (12:03→20:11)
[2021-01-17] MEDS: ENOXAPARIN 40 MG/0.4 ML SYRINGE SUBCUT SCH ×2 (12:09→20:14)
[2021-01-17] MEDS: PROMETHAZINE 25 MG/1 ML VIAL IM PRN (15:52)
[2021-01-17] MEDS: POTASSIUM CHLORIDE 20 MEQ TABLET PO SCH (15:57)
[2021-01-17] MEDS ORDERED: MORPHINE 4 MG/1 ML VIAL IV ONE (19:50)
[2021-01-18] MEDS: ALBUTEROL/IPRATROPIUM 3 ML NEB RESP TX SCH ×4 (00:43→19:26)
[2021-01-18] MEDS: methylPREDNISolone SOD SUC 40 MG/1 ML VIAL IV SCH ×2 (00:44→15:29)
[2021-01-18] MEDS: CLINDAMYCIN INJ 900 MG/50 ML PREMIX IV SCH ×4 (00:44→17:10)
[2021-01-18] MEDS: LIDOCAINE 5% PATCH TRANSDERM SCH ×2 (00:45→11:16)
[2021-01-18] MEDS: ONDANSETRON 4 MG/2 ML VIAL IV PRN ×3 (01:26→21:19)
[2021-01-18] MEDS: KETOROLAC 30 MG/1 ML VIAL IV PRN ×3 (04:18→21:19)
[2021-01-18 04:29] LABS: ABG Base Excess 10.8 MMOL/L (-2.5-2.5); ABG HCO3 33.9 MMOL/L (20-26); ABG Oxygen Saturation 77.4 % (95-100); ABG PH 7.339 (7.35-7.45); ABG TCO2 35.4 MMOL/L (23-27); Allen Test Positive; Pt O2 Delivery Device BIPAP
[2021-01-18 04:34] LABS: ABG PCO2 77.6 MM HG (35-48)
[2021-01-18 06:47] LABS: Basophils % 0.2 % (0.0-0.8); Hematocrit 54.3 VOL% (42.0-52.0); Hemoglobin 16.4 GM/DL (14.0-18.0); Immature Granulocytes % 0.4 %; Immature Granulocytes Absolute 0.02 #; Lymphocytes # 0.4 10*3/uL (1.4-4.0); Lymphocytes % 7.6 % (21.2-54.2); Mean Corpuscular HGB Conc 30.2 GM/DL (32-36); Mean Corpuscular Volume 80.8 FL (87-102); Mean Platelet Volume 11.3 FL (9.6-12.0); Monocytes % 8.3 % (1.7-12.7); Neutrophils % 83.5 % (38.7-73.9); Platelet Count 187 T/CUMM (130-400); Red Blood Count 6.72 MC/CUMM (3.8-5.5); Red Cell Distribution Width 20.2 % (9.3-17.3); White Blood Count 5.7 T/CUMM (4-12)
[2021-01-18 06:51] LABS: Albumin 2.8 G/DL (3.4-5.0); Calcium 9.4 MG/DL (8.5-10.1); Osmolality,Calculated 286.4 MOS/KG (273-304); Potassium 4.8 MMOL/L (3.5-5.1); Total Protein 7.8 G/DL (6.4-8.2)
[2021-01-18 07:13] LABS: Anisocytosis Slight; Platelet Estimate Normal
[2021-01-18] MEDS: FUROSEMIDE 40 MG/4 ML VIAL IV SCH ×2 (08:27→15:41)
[2021-01-18] MEDS: PREGABALIN 50 MG CAPSULE PO SCH ×2 (08:29→23:02)
[2021-01-18] MEDS: METOPROLOL TARTRATE 25 MG TABLET PO SCH ×2 (08:29→23:03)
[2021-01-18] MEDS: PANTOPRAZOLE 40 MG VIAL IV SCH (08:32)
[2021-01-18] MEDS: ENOXAPARIN 40 MG/0.4 ML SYRINGE SUBCUT SCH ×2 (08:35→21:36)
[2021-01-18] MEDS: DOCUSATE SODIUM 100 MG CAPSULE PO SCH ×2 (10:06→23:07)
[2021-01-19] MEDS: methylPREDNISolone SOD SUC 40 MG/1 ML VIAL IV SCH ×3 (00:22→23:37)
[2021-01-19] MEDS: LIDOCAINE 5% PATCH TRANSDERM SCH ×3 (00:25→23:37)
[2021-01-19] MEDS: CLINDAMYCIN INJ 900 MG/50 ML PREMIX IV SCH ×5 (00:25→23:37)
[2021-01-19] MEDS: ONDANSETRON 4 MG/2 ML VIAL IV PRN ×2 (04:23→09:33)
[2021-01-19 05:04] LABS: ABG Base Excess 12.7 MMOL/L (-2.5-2.5); ABG HCO3 36.3 MMOL/L (20-26); ABG Oxygen Saturation 90.3 % (95-100); ABG PH 7.357 (7.35-7.45); ABG PO2 66.6 MM HG (80-95); ABG TCO2 36.8 MMOL/L (23-27); Allen Test Positive; Pt O2 Delivery Device BIPAP
[2021-01-19 05:06] LABS: ABG PCO2 77.3 MM HG (35-48)
[2021-01-19] MEDS: KETOROLAC 30 MG/1 ML VIAL IV PRN ×2 (05:43→13:33)
[2021-01-19 06:47] LABS: Calcium 9.3 MG/DL (8.5-10.1); Osmolality,Calculated 285.4 MOS/KG (273-304); Potassium 4.7 MMOL/L (3.5-5.1)
[2021-01-19 06:50] LABS: Basophils % 0.2 % (0.0-0.8); Eosinophils % 0.2 % (0.00-10.9); Hematocrit 52.4 VOL% (42.0-52.0); Immature Granulocytes % 0.4 %; Immature Granulocytes Absolute 0.02 #; Lymphocytes # 0.7 10*3/uL (1.4-4.0); Lymphocytes % 11.9 % (21.2-54.2); Mean Corpuscular Volume 80.6 FL (87-102); Mean Platelet Volume 11.4 FL (9.6-12.0); Monocytes % 9.9 % (1.7-12.7); Neutrophils % 77.4 % (38.7-73.9); Platelet Count 128 T/CUMM (130-400); White Blood Count 5.5 T/CUMM (4-12)
[2021-01-19 06:52] LABS: Hemoglobin 15.7 GM/DL (14.0-18.0)
[2021-01-19] MEDS: ALBUTEROL/IPRATROPIUM 3 ML NEB RESP TX SCH ×4 (07:20→19:50)
[2021-01-19] MEDS: DOCUSATE SODIUM 100 MG CAPSULE PO SCH ×2 (09:00→20:52)
[2021-01-19] MEDS: PREGABALIN 50 MG CAPSULE PO SCH ×2 (09:00→20:52)
[2021-01-19] MEDS: METOPROLOL TARTRATE 25 MG TABLET PO SCH ×2 (11:03→21:16)
[2021-01-19] MEDS: ENOXAPARIN 40 MG/0.4 ML SYRINGE SUBCUT SCH ×2 (11:03→20:59)
[2021-01-19] MEDS: FUROSEMIDE 40 MG/4 ML VIAL IV SCH ×2 (11:04→16:24)
[2021-01-19] MEDS: PANTOPRAZOLE 40 MG VIAL IV SCH (12:15)
[2021-01-19] MEDS: FAT EMULSION 20% 250 ML IV SCH (15:46)
[2021-01-19] MEDS ORDERED: DEXTROSE 10% 1,000 ML IV PRN (17:00)
[2021-01-19] MEDS ORDERED: ZINC/COPPER/MANGANESE/SELENIUM 1 ML, MULTIVITAMIN INJ 10 ML in AMINO ACIDS/DEXT/LYTES 5... IV SCH (17:00)
[2021-01-20] MEDS: traMADol 50 MG TABLET PO PRN (00:30)
[2021-01-20] MEDS: ALBUTEROL/IPRATROPIUM 3 ML NEB RESP TX SCH ×4 (00:40→19:22)
[2021-01-20 02:47] LABS: ABG Base Excess 14.4 MMOL/L (-2.5-2.5); ABG HCO3 37.9 MMOL/L (20-26); ABG Oxygen Saturation 81.6 % (95-100); ABG PO2 52.3 MM HG (80-95); ABG TCO2 39.2 MMOL/L (23-27)
[2021-01-20 02:52] LABS: ABG PCO2 84.2 MM HG (35-48)
[2021-01-20] MEDS: CLINDAMYCIN INJ 900 MG/50 ML PREMIX IV SCH ×4 (05:54→23:49)
[2021-01-20 06:19] LABS: Osmolality,Calculated 288.3 MOS/KG (273-304); Potassium 4.1 MMOL/L (3.5-5.1)
[2021-01-20] MEDS: DOCUSATE SODIUM 100 MG CAPSULE PO SCH ×2 (09:48→21:21)
[2021-01-20] MEDS: PREGABALIN 50 MG CAPSULE PO SCH ×2 (09:48→21:21)
[2021-01-20] MEDS: METOPROLOL TARTRATE 50 MG TABLET PO SCH ×2 (09:48→21:21)
[2021-01-20] MEDS: FUROSEMIDE 40 MG/4 ML VIAL IV SCH ×2 (09:48→17:04)
[2021-01-20] MEDS: THEOPHYLLINE ER (24 HR) 300 MG CAPSULE PO SCH (09:50)
[2021-01-20] MEDS: ENOXAPARIN 40 MG/0.4 ML SYRINGE SUBCUT SCH ×2 (09:53→21:21)
[2021-01-20] MEDS: PANTOPRAZOLE 40 MG VIAL IV SCH (10:06)
[2021-01-20] MEDS: PHENOL 1.4% THROAT SPRAY 177 ML BOTTLE PO PRN ×2 (11:16→21:22)
[2021-01-20] MEDS: LIDOCAINE 5% PATCH TRANSDERM SCH ×2 (12:18→23:50)
[2021-01-20] MEDS: methylPREDNISolone SOD SUC 40 MG/1 ML VIAL IV SCH ×2 (12:19→23:49)
[2021-01-20] MEDS: FAT EMULSION 20% 250 ML IV SCH (15:15)
[2021-01-20] MEDS: ZINC/COPPER/MANGANESE/SELENIUM 1 ML, MULTIVITAMIN INJ 10 ML in AMINO ACIDS/DEXT/LYTES 5... IV SCH (17:05)
[2021-01-21] MEDS: ALBUTEROL/IPRATROPIUM 3 ML NEB RESP TX SCH ×4 (01:05→19:39)
[2021-01-21 04:51] LABS: ABG Base Excess 9.1 MMOL/L (-2.5-2.5); ABG HCO3 38.3 MMOL/L (20-26); ABG Oxygen Saturation 83.2 % (95-100); ABG PH 7.359 (7.35-7.45); ABG PO2 53.3 MM HG (80-95); ABG TCO2 40.4 MMOL/L (23-27)
[2021-01-21 04:55] LABS: ABG PCO2 69.5 MM HG (35-48)
[2021-01-21] MEDS: CLINDAMYCIN INJ 900 MG/50 ML PREMIX IV SCH ×4 (05:45→23:38)
[2021-01-21] MEDS: PHENOL 1.4% THROAT SPRAY 177 ML BOTTLE PO PRN ×2 (05:48→18:20)
[2021-01-21 05:57] LABS: Calcium 9.7 MG/DL (8.5-10.1); Osmolality,Calculated 277.1 MOS/KG (273-304); Potassium 4.9 MMOL/L (3.5-5.1)
[2021-01-21] MEDS: DOCUSATE SODIUM 100 MG CAPSULE PO SCH ×2 (09:36→21:02)
[2021-01-21] MEDS: FUROSEMIDE 40 MG/4 ML VIAL IV SCH ×2 (09:36→15:38)
[2021-01-21] MEDS: PANTOPRAZOLE 40 MG VIAL IV SCH (09:36)
[2021-01-21] MEDS: THEOPHYLLINE ER (24 HR) 300 MG CAPSULE PO SCH (09:36)
[2021-01-21] MEDS: ENOXAPARIN 40 MG/0.4 ML SYRINGE SUBCUT SCH ×2 (09:37→21:02)
[2021-01-21] MEDS: PREGABALIN 50 MG CAPSULE PO SCH ×2 (09:37→21:02)
[2021-01-21] MEDS: METOPROLOL TARTRATE 50 MG TABLET PO SCH ×2 (09:37→21:02)
[2021-01-21] MEDS: LIDOCAINE 5% PATCH TRANSDERM SCH ×2 (11:54→23:38)
[2021-01-21] MEDS: methylPREDNISolone SOD SUC 40 MG/1 ML VIAL IV SCH ×2 (11:55→23:37)
[2021-01-21] MEDS: ZINC/COPPER/MANGANESE/SELENIUM 1 ML, MULTIVITAMIN INJ 10 ML in AMINO ACIDS/DEXT/LYTES 5... IV SCH (13:37)
[2021-01-21] MEDS: FAT EMULSION 20% 250 ML IV SCH (15:38)
[2021-01-22] MEDS: ALBUTEROL/IPRATROPIUM 3 ML NEB RESP TX SCH ×4 (00:08→19:26)
[2021-01-22] MEDS: FAT EMULSION 20% 250 ML IV SCH ×2 (02:51→16:02)
[2021-01-22 04:32] LABS: ABG Base Excess 9.2 MMOL/L (-2.5-2.5); ABG HCO3 32.7 MMOL/L (20-26); ABG Oxygen Saturation 90.7 % (95-100); ABG PH 7.358 (7.35-7.45); ABG PO2 66.2 MM HG (80-95); ABG TCO2 32.5 MMOL/L (23-27); Allen Test Positive
[2021-01-22 04:39] LABS: ABG PCO2 69.9 MM HG (35-48)
[2021-01-22 05:39] LABS: Eosinophils % 0.2 % (0.00-10.9); Immature Granulocytes % 0.3 %; Immature Granulocytes Absolute 0.03 #; Mean Corpuscular HGB Conc 30.9 GM/DL (32-36); Neutrophils % 80.4 % (38.7-73.9); Red Blood Count 7.25 MC/CUMM (3.8-5.5); Red Cell Distribution Width 19.8 % (9.3-17.3)
[2021-01-22 05:41] LABS: Calcium 9.5 MG/DL (8.5-10.1); Potassium 3.9 MMOL/L (3.5-5.1)
[2021-01-22] MEDS: CLINDAMYCIN INJ 900 MG/50 ML PREMIX IV SCH ×3 (05:58→18:01)
[2021-01-22 05:59] LABS: Basophils % 0.3 % (0.0-0.8); Hematocrit 57.3 VOL% (42.0-52.0); Lymphocytes % 10.5 % (21.2-54.2); Mean Platelet Volume 11.3 FL (9.6-12.0); Monocytes % 8.3 % (1.7-12.7); Platelet Count 131 T/CUMM (130-400); White Blood Count 9.4 T/CUMM (4-12)
[2021-01-22 06:01] LABS: Hemoglobin 17.7 GM/DL (14.0-18.0)
[2021-01-22 06:04] LABS: Lymphocytes 11 % (20-55); Platelet Estimate Adequate; Segmented Neutrophils 75 % (50-85); Total Cells Counted 100
[2021-01-22] MEDS: ENOXAPARIN 40 MG/0.4 ML SYRINGE SUBCUT SCH ×2 (09:28→20:25)
[2021-01-22] MEDS: THEOPHYLLINE ER (24 HR) 300 MG CAPSULE PO SCH (09:28)
[2021-01-22] MEDS: METOPROLOL TARTRATE 50 MG TABLET PO SCH ×2 (09:28→20:33)
[2021-01-22] MEDS: PREGABALIN 50 MG CAPSULE PO SCH ×2 (09:28→20:23)
[2021-01-22] MEDS: FUROSEMIDE 40 MG/4 ML VIAL IV SCH ×2 (09:29→16:02)
[2021-01-22] MEDS: PANTOPRAZOLE 40 MG VIAL IV SCH (09:29)
[2021-01-22] MEDS: DOCUSATE SODIUM 100 MG CAPSULE PO SCH ×2 (09:29→20:22)
[2021-01-22] MEDS: ZINC/COPPER/MANGANESE/SELENIUM 1 ML, MULTIVITAMIN INJ 10 ML in AMINO ACIDS/DEXT/LYTES 5... IV SCH (09:30)
[2021-01-22] MEDS: methylPREDNISolone SOD SUC 40 MG/1 ML VIAL IV SCH (11:43)
[2021-01-22] MEDS: LIDOCAINE 5% PATCH TRANSDERM SCH (11:43)
[2021-01-22] MEDS: ONDANSETRON 4 MG/2 ML VIAL IV PRN (20:21)
[2021-01-23] MEDS: ALBUTEROL/IPRATROPIUM 3 ML NEB RESP TX SCH ×4 (00:03→19:30)
[2021-01-23] MEDS: methylPREDNISolone SOD SUC 40 MG/1 ML VIAL IV SCH ×2 (00:28→11:28)
[2021-01-23] MEDS: LIDOCAINE 5% PATCH TRANSDERM SCH ×2 (00:31→11:29)
[2021-01-23 04:37] LABS: Allen Test Positive
[2021-01-23 04:38] LABS: ABG Base Excess 7.6 MMOL/L (-2.5-2.5); ABG HCO3 31.1 MMOL/L (20-26); ABG Oxygen Saturation 92.1 % (95-100); ABG PH 7.342 (7.35-7.45); ABG TCO2 31.1 MMOL/L (23-27)
[2021-01-23 04:41] LABS: ABG PCO2 69.5 MM HG (35-48)
[2021-01-23] MEDS: ZINC/COPPER/MANGANESE/SELENIUM 1 ML, MULTIVITAMIN INJ 10 ML in AMINO ACIDS/DEXT/LYTES 5... IV SCH (05:26)
[2021-01-23] MEDS: DOCUSATE SODIUM 100 MG CAPSULE PO SCH ×2 (09:47→21:29)
[2021-01-23] MEDS: METOPROLOL TARTRATE 50 MG TABLET PO SCH ×2 (09:47→21:29)
[2021-01-23] MEDS: THEOPHYLLINE ER (24 HR) 300 MG CAPSULE PO SCH (09:47)
[2021-01-23] MEDS: PREGABALIN 50 MG CAPSULE PO SCH ×2 (09:47→21:29)
[2021-01-23] MEDS: FUROSEMIDE 40 MG/4 ML VIAL IV SCH ×2 (09:47→15:22)
[2021-01-23] MEDS: ENOXAPARIN 40 MG/0.4 ML SYRINGE SUBCUT SCH ×2 (09:48→21:28)
[2021-01-23] MEDS: PANTOPRAZOLE 40 MG VIAL IV SCH (09:50)
[2021-01-23] MEDS: ONDANSETRON 4 MG/2 ML VIAL IV PRN (10:00)
[2021-01-23] MEDS: FAT EMULSION 20% 250 ML IV SCH (15:22)
[2021-01-23] MEDS ORDERED: amLODIPine 5 MG TABLET PO ONE (17:00)
[2021-01-24] MEDS: methylPREDNISolone SOD SUC 40 MG/1 ML VIAL IV SCH ×3 (00:27→23:58)
[2021-01-24] MEDS: LIDOCAINE 5% PATCH TRANSDERM SCH ×2 (00:27→11:41)
[2021-01-24] MEDS: ALBUTEROL/IPRATROPIUM 3 ML NEB RESP TX SCH ×5 (00:55→19:36)
[2021-01-24] MEDS: ONDANSETRON 4 MG/2 ML VIAL IV PRN ×3 (01:15→23:59)
[2021-01-24] MEDS: ZINC/COPPER/MANGANESE/SELENIUM 1 ML, MULTIVITAMIN INJ 10 ML in AMINO ACIDS/DEXT/LYTES 5... IV SCH ×2 (01:17→20:36)
[2021-01-24] MEDS: traMADol 50 MG TABLET PO PRN (04:19)
[2021-01-24 04:30] LABS: ABG Base Excess -3.6 MMOL/L (-2.5-2.5); ABG HCO3 21.4 MMOL/L (20-26); ABG Oxygen Saturation 99.6 % (95-100); ABG PCO2 27.3 MM HG (35-48); ABG PH 7.455 (7.35-7.45); ABG TCO2 17.2 MMOL/L (23-27)
[2021-01-24] MEDS ORDERED: amLODIPine 5 MG TABLET PO SCH (09:00)
[2021-01-24] MEDS: FUROSEMIDE 40 MG/4 ML VIAL IV SCH ×2 (09:26→15:59)
[2021-01-24] MEDS: THEOPHYLLINE ER (24 HR) 300 MG CAPSULE PO SCH (09:26)
[2021-01-24] MEDS: ENOXAPARIN 40 MG/0.4 ML SYRINGE SUBCUT SCH ×2 (09:27→20:32)
[2021-01-24] MEDS: PREGABALIN 50 MG CAPSULE PO SCH ×2 (09:27→20:31)
[2021-01-24] MEDS: DOCUSATE SODIUM 100 MG CAPSULE PO SCH ×2 (09:27→20:31)
[2021-01-24] MEDS: acetaZOLAMIDE 250 MG TABLET PO SCH (09:27)
[2021-01-24] MEDS: METOPROLOL TARTRATE 50 MG TABLET PO SCH ×2 (09:27→20:32)
[2021-01-24] MEDS: PANTOPRAZOLE 40 MG VIAL IV SCH (09:31)
[2021-01-24] MEDS ORDERED: PROMETHAZINE 25 MG/1 ML VIAL IM PRN (10:44)
[2021-01-24] MEDS: PROMETHAZINE 25 MG/1 ML VIAL IM PRN (11:42)
[2021-01-24] MEDS ORDERED: amLODIPine 5 MG TABLET PO ONE (12:25)
[2021-01-24] MEDS: KETOROLAC 15 MG/1 ML VIAL IV SCH ×3 (13:01→23:59)
[2021-01-24] MEDS: metroNIDAZOLE INJ 500 MG/100 ML PREMIX IV SCH ×2 (13:01→20:32)
[2021-01-24] MEDS: FAT EMULSION 20% 250 ML IV SCH (15:59)
[2021-01-24] MEDS: amLODIPine 5 MG TABLET PO SCH (20:31)
[2021-01-25] MEDS: PROMETHAZINE 25 MG/1 ML VIAL IM PRN ×2 (02:00→10:40)
[2021-01-25 04:45] LABS: ABG Base Excess 2.3 MMOL/L (-2.5-2.5); ABG HCO3 29.6 MMOL/L (20-26); ABG Oxygen Saturation 93.6 % (95-100); ABG PCO2 54.9 MM HG (35-48); ABG PO2 75.6 MM HG (80-95); ABG TCO2 31.3 MMOL/L (23-27)
[2021-01-25] MEDS: metroNIDAZOLE INJ 500 MG/100 ML PREMIX IV SCH ×3 (05:24→21:25)
[2021-01-25] MEDS: KETOROLAC 15 MG/1 ML VIAL IV SCH ×3 (05:30→18:37)
[2021-01-25] MEDS: ALBUTEROL/IPRATROPIUM 3 ML NEB RESP TX SCH ×3 (07:16→19:35)
[2021-01-25] MEDS: FUROSEMIDE 40 MG/4 ML VIAL IV SCH ×2 (10:32→16:35)
[2021-01-25] MEDS: acetaZOLAMIDE 250 MG TABLET PO SCH (10:33)
[2021-01-25] MEDS: METOPROLOL TARTRATE 50 MG TABLET PO SCH ×2 (10:33→21:26)
[2021-01-25] MEDS: THEOPHYLLINE ER (24 HR) 300 MG CAPSULE PO SCH (10:33)
[2021-01-25] MEDS: amLODIPine 5 MG TABLET PO SCH ×2 (10:34→21:27)
[2021-01-25] MEDS: DOCUSATE SODIUM 100 MG CAPSULE PO SCH ×2 (10:34→21:26)
[2021-01-25] MEDS: PREGABALIN 50 MG CAPSULE PO SCH ×2 (10:34→21:26)
[2021-01-25] MEDS: ENOXAPARIN 40 MG/0.4 ML SYRINGE SUBCUT SCH ×2 (10:35→21:27)
[2021-01-25] MEDS: PANTOPRAZOLE 40 MG VIAL IV SCH (10:35)
[2021-01-25] MEDS: LIDOCAINE 5% PATCH TRANSDERM SCH ×2 (13:02)
[2021-01-25] MEDS: methylPREDNISolone SOD SUC 40 MG/1 ML VIAL IV SCH (13:05)
[2021-01-25] MEDS: FAT EMULSION 20% 250 ML IV SCH (17:42)
[2021-01-25] MEDS: ZINC/COPPER/MANGANESE/SELENIUM 1 ML, MULTIVITAMIN INJ 10 ML in AMINO ACIDS/DEXT/LYTES 5... IV SCH (18:35)
[2021-01-25] MEDS: ONDANSETRON 4 MG/2 ML VIAL IV PRN (21:26)
[2021-01-26] MEDS: KETOROLAC 15 MG/1 ML VIAL IV SCH ×4 (00:15→17:37)
[2021-01-26] MEDS: methylPREDNISolone SOD SUC 40 MG/1 ML VIAL IV SCH ×2 (00:16→11:44)
[2021-01-26] MEDS: LIDOCAINE 5% PATCH TRANSDERM SCH ×2 (00:54→11:44)
[2021-01-26] MEDS: PROMETHAZINE 25 MG/1 ML VIAL IM PRN (00:54)
[2021-01-26] MEDS: ALBUTEROL/IPRATROPIUM 3 ML NEB RESP TX SCH ×4 (05:09→19:40)
[2021-01-26] MEDS: metroNIDAZOLE INJ 500 MG/100 ML PREMIX IV SCH ×3 (05:27→20:48)
[2021-01-26 06:11] LABS: Calcium 9.8 MG/DL (8.5-10.1); Osmolality,Calculated 284.2 MOS/KG (273-304); Potassium 4.2 MMOL/L (3.5-5.1)
[2021-01-26] MEDS: THEOPHYLLINE ER (24 HR) 300 MG CAPSULE PO SCH (08:54)
[2021-01-26] MEDS: ENOXAPARIN 40 MG/0.4 ML SYRINGE SUBCUT SCH ×2 (08:54→20:46)
[2021-01-26] MEDS: PANTOPRAZOLE 40 MG VIAL IV SCH (08:54)
[2021-01-26] MEDS: FUROSEMIDE 40 MG/4 ML VIAL IV SCH ×2 (08:54→16:10)
[2021-01-26] MEDS: METOPROLOL TARTRATE 50 MG TABLET PO SCH ×2 (08:55→20:47)
[2021-01-26] MEDS: amLODIPine 5 MG TABLET PO SCH ×2 (08:55→20:47)
[2021-01-26] MEDS: PREGABALIN 50 MG CAPSULE PO SCH ×2 (08:55→20:46)
[2021-01-26] MEDS: acetaZOLAMIDE 250 MG TABLET PO SCH (08:55)
[2021-01-26] MEDS: DOCUSATE SODIUM 100 MG CAPSULE PO SCH ×2 (08:55→20:46)
[2021-01-26] MEDS: ZINC/COPPER/MANGANESE/SELENIUM 1 ML, MULTIVITAMIN INJ 10 ML in AMINO ACIDS/DEXT/LYTES 5... IV SCH (15:11)
[2021-01-26] MEDS: FAT EMULSION 20% 250 ML IV SCH (16:11)
[2021-01-27] MEDS: KETOROLAC 15 MG/1 ML VIAL IV SCH ×4 (00:14→17:54)
[2021-01-27] MEDS: LIDOCAINE 5% PATCH TRANSDERM SCH ×2 (00:14→11:26)
[2021-01-27] MEDS: methylPREDNISolone SOD SUC 40 MG/1 ML VIAL IV SCH ×2 (00:14→11:27)
[2021-01-27] MEDS: ALBUTEROL/IPRATROPIUM 3 ML NEB RESP TX SCH ×4 (00:39→19:17)
[2021-01-27] MEDS: metroNIDAZOLE INJ 500 MG/100 ML PREMIX IV SCH ×3 (04:02→21:06)
[2021-01-27 04:53] LABS: Allen Test Positive; Pt O2 Delivery Device BIPAP
[2021-01-27 04:54] LABS: ABG Base Excess 4.1 MMOL/L (-2.5-2.5); ABG Oxygen Saturation 95.4 % (95-100); ABG PCO2 64.2 MM HG (35-48); ABG PH 7.325 (7.35-7.45); ABG PO2 85.3 MM HG (80-95); ABG TCO2 27.7 MMOL/L (23-27)
[2021-01-27 05:58] LABS: Calcium 9.5 MG/DL (8.5-10.1); Osmolality,Calculated 284.4 MOS/KG (273-304); Potassium 4.3 MMOL/L (3.5-5.1)
[2021-01-27 06:28] LABS: Basophils % 0.3 % (0.0-0.8); Eosinophils % 0.2 % (0.00-10.9); Hematocrit 57.5 VOL% (42.0-52.0); Immature Granulocytes % 0.4 %; Immature Granulocytes Absolute 0.05 #; Lymphocytes # 0.9 10*3/uL (1.4-4.0); Lymphocytes % 7.5 % (21.2-54.2); Mean Corpuscular HGB Conc 31.5 GM/DL (32-36); Mean Corpuscular Volume 77.7 FL (87-102); Monocytes % 6.6 % (1.7-12.7); Platelet Count 136 T/CUMM (130-400)
[2021-01-27 06:29] LABS: Hemoglobin 18.1 GM/DL (14.0-18.0)
[2021-01-27] MEDS: PANTOPRAZOLE 40 MG VIAL IV SCH (08:59)
[2021-01-27] MEDS: FUROSEMIDE 40 MG/4 ML VIAL IV SCH ×2 (08:59→15:10)
[2021-01-27] MEDS: METOPROLOL TARTRATE 50 MG TABLET PO SCH ×2 (08:59→21:08)
[2021-01-27] MEDS: PREGABALIN 50 MG CAPSULE PO SCH ×2 (08:59→21:08)
[2021-01-27] MEDS: THEOPHYLLINE ER (24 HR) 300 MG CAPSULE PO SCH (08:59)
[2021-01-27] MEDS: acetaZOLAMIDE 250 MG TABLET PO SCH (08:59)
[2021-01-27] MEDS: amLODIPine 5 MG TABLET PO SCH ×2 (09:00→21:08)
[2021-01-27] MEDS: DOCUSATE SODIUM 100 MG CAPSULE PO SCH ×2 (09:00→21:08)
[2021-01-27] MEDS: ENOXAPARIN 40 MG/0.4 ML SYRINGE SUBCUT SCH ×2 (09:02→21:08)
[2021-01-27] MEDS: SELENIUM IV SCH ×2 (10:44→11:26)
[2021-01-27] MEDS: SODIUM CHLORIDE IV SCH ×2 (10:44→11:26)
[2021-01-27] MEDS: MANGANESE IV SCH ×2 (10:44→11:26)
[2021-01-27] MEDS: ZINC IV SCH ×2 (10:44→11:26)
[2021-01-27] MEDS: [UNRECOGNIZED DRUG - OTHER] IV SCH ×2 (10:44→11:26)
[2021-01-27] MEDS: COPPER IV SCH ×2 (10:44→11:26)
[2021-01-27] MEDS ORDERED: ZINC/COPPER/MANGANESE/SELENIUM 1 ML in AMINO ACIDS/DEXT/LYTES 5-15% 2,000 ML IV SCH (11:00)
[2021-01-27] MEDS: FAT EMULSION 20% 250 ML IV SCH (15:10)
[2021-01-28] MEDS: methylPREDNISolone SOD SUC 40 MG/1 ML VIAL IV SCH ×2 (00:26→13:27)
[2021-01-28] MEDS: KETOROLAC 15 MG/1 ML VIAL IV SCH ×4 (00:26→17:32)
[2021-01-28] MEDS: LIDOCAINE 5% PATCH TRANSDERM SCH ×2 (00:27→13:26)
[2021-01-28] MEDS: ONDANSETRON 4 MG/2 ML VIAL IV PRN (00:32)
[2021-01-28] MEDS: ALBUTEROL/IPRATROPIUM 3 ML NEB RESP TX SCH ×3 (01:16→14:20)
[2021-01-28 04:25] LABS: ABG HCO3 27.8 MMOL/L (20-26); ABG Oxygen Saturation 94.9 % (95-100); ABG PCO2 60.5 MM HG (35-48); Allen Test Positive
[2021-01-28] MEDS: metroNIDAZOLE INJ 500 MG/100 ML PREMIX IV SCH ×2 (04:39→13:26)
[2021-01-28] MEDS: SELENIUM IV SCH (04:41)
[2021-01-28] MEDS: [UNRECOGNIZED DRUG - OTHER] IV SCH (04:41)
[2021-01-28] MEDS: MANGANESE IV SCH (04:41)
[2021-01-28] MEDS: ZINC IV SCH (04:41)
[2021-01-28] MEDS: SODIUM CHLORIDE IV SCH (04:41)
[2021-01-28] MEDS: COPPER IV SCH (04:41)
[2021-01-28] MEDS: THEOPHYLLINE ER (24 HR) 300 MG CAPSULE PO SCH (09:16)
[2021-01-28] MEDS: FUROSEMIDE 40 MG/4 ML VIAL IV SCH ×2 (09:16→17:32)
[2021-01-28] MEDS: ENOXAPARIN 40 MG/0.4 ML SYRINGE SUBCUT SCH (09:16)
[2021-01-28] MEDS: PREGABALIN 50 MG CAPSULE PO SCH (09:16)
[2021-01-28] MEDS: DOCUSATE SODIUM 100 MG CAPSULE PO SCH (09:16)
[2021-01-28] MEDS: METOPROLOL TARTRATE 50 MG TABLET PO SCH (09:16)
[2021-01-28] MEDS: acetaZOLAMIDE 250 MG TABLET PO SCH (09:16)
[2021-01-28] MEDS: PANTOPRAZOLE 40 MG VIAL IV SCH (09:17)
[2021-01-28] MEDS: amLODIPine 5 MG TABLET PO SCH (11:09)
[2021-01-28 15:54] VITALS: BP 130/86
[2021-01-28] MEDS: FAT EMULSION 20% 250 ML IV SCH (17:31)
== END 2021-01-28 19:00 | DRG 189 ==
LOC: N.5E 15:51
PROVIDERS: ADMIT Internal Medicine; ATTEND Internal Medicine

== ENCOUNTER 2021-02-23 23:12 | Inpatient (IN) ==
[2021-02-23] MEDS ORDERED: ONDANSETRON 4 MG/2 ML VIAL IV STA (23:40)
[2021-02-23] MEDS ORDERED: SODIUM CHLORIDE 0.9% 1,000 ML IV STA (23:40)
[2021-02-23] MEDS ORDERED: MORPHINE 4 MG/1 ML VIAL IV STA (23:40)
[2021-02-24 01:04] LABS: Basophils % 0.4 % (0.0-0.8); Eosinophils # 0.1 10*3/uL (0.0-0.87); Eosinophils % 0.8 % (0.00-10.9); Hematocrit 46.4 VOL% (42.0-52.0); Hemoglobin 14.3 GM/DL (14.0-18.0); Immature Granulocytes % 0.4 %; Immature Granulocytes Absolute 0.03 #; Lymphocytes # 1.4 10*3/uL (1.4-4.0); Mean Corpuscular HGB Conc 30.8 GM/DL (32-36); Mean Platelet Volume 10.6 FL (9.6-12.0); Monocytes % 10.5 % (1.7-12.7); Neutrophils % 68.9 % (38.7-73.9); Platelet Count 179 T/CUMM (130-400); Red Blood Count 5.95 MC/CUMM (3.8-5.5); Red Cell Distribution Width 20.7 % (9.3-17.3); White Blood Count 7.2 T/CUMM (4-12)
[2021-02-24 01:23] LABS: Albumin 2.5 G/DL (3.4-5.0); Bilirubin,Total 0.4 MG/DL (0.2-1.0); Calcium 8.8 MG/DL (8.5-10.1); Osmolality,Calculated 278.4 MOS/KG (273-304); Potassium 3.8 MMOL/L (3.5-5.1); Total Protein 7.1 G/DL (6.4-8.2)
[2021-02-24] MEDS ORDERED: HYDROmorphone 2 MG/1 ML VIAL IV STA ×2 (01:33→08:08)
[2021-02-24] MEDS ORDERED: ONDANSETRON 4 MG/2 ML VIAL IV PRN ×2 (01:36→11:18)
[2021-02-24] MEDS: DEXTROSE 5% NACL 0.45% 1,000 ML IV SCH ×3 (02:41→20:41)
[2021-02-24] MEDS: PIPERACILLIN/TAZOBACTAM 3,375 MG in SODIUM CHLORIDE 0.9% 100 ML IV SCH ×2 (02:41→12:05)
[2021-02-24 04:15] LABS: Basophils % 0.3 % (0.0-0.8); Eosinophils # 0.1 10*3/uL (0.0-0.87); Eosinophils % 0.8 % (0.00-10.9); Hematocrit 45.7 VOL% (42.0-52.0); Hemoglobin 14.1 GM/DL (14.0-18.0); Immature Granulocytes % 1.1 %; Immature Granulocytes Absolute 0.08 #; Lymphocytes # 1.6 10*3/uL (1.4-4.0); Lymphocytes % 21.7 % (21.2-54.2); Mean Corpuscular HGB Conc 30.9 GM/DL (32-36); Mean Corpuscular Volume 78.3 FL (87-102); Mean Platelet Volume 10.6 FL (9.6-12.0); Monocytes % 11.2 % (1.7-12.7); Neutrophils % 64.9 % (38.7-73.9); Platelet Count 185 T/CUMM (130-400); Red Blood Count 5.84 MC/CUMM (3.8-5.5); Red Cell Distribution Width 20.8 % (9.3-17.3); White Blood Count 7.5 T/CUMM (4-12)
[2021-02-24 04:33] LABS: Albumin 2.5 G/DL (3.4-5.0); Bilirubin,Total 0.5 MG/DL (0.2-1.0); Calcium 8.6 MG/DL (8.5-10.1); Osmolality,Calculated 276.5 MOS/KG (273-304); Potassium 3.6 MMOL/L (3.5-5.1); Total Protein 7.1 G/DL (6.4-8.2)
[2021-02-24] MEDS: PANTOPRAZOLE 40 MG VIAL IV SCH (09:58)
[2021-02-24] MEDS ORDERED: ACETAMINOPHEN 325 MG TABLET PO PRN (11:18)
[2021-02-24] MEDS ORDERED: ALBUTEROL/IPRATROPIUM 3 ML NEB RESP TX PRN (11:18)
[2021-02-24] MEDS ORDERED: amLODIPine 10 MG TABLET PO PRN (11:20)
[2021-02-24] MEDS ORDERED: METOPROLOL TARTRATE 50 MG TABLET PO PRN (11:20)
[2021-02-24] MEDS: HYDROmorphone 2 MG/1 ML VIAL IV PRN ×2 (15:27→20:43)
[2021-02-24] MEDS ORDERED: methylPREDNISolone SOD SUC 40 MG/1 ML VIAL IV ONE (19:26)
[2021-02-24] MEDS: DOCUSATE SODIUM 100 MG CAPSULE PO SCH (20:42)
[2021-02-24] MEDS: PREGABALIN 50 MG CAPSULE PO SCH (20:42)
[2021-02-25] MEDS: HYDROmorphone 2 MG/1 ML VIAL IV PRN ×4 (01:41→21:48)
[2021-02-25] MEDS: DEXTROSE 5% NACL 0.45% 1,000 ML IV SCH ×3 (04:52→22:00)
[2021-02-25 06:37] LABS: Calcium 8.9 MG/DL (8.5-10.1); Potassium 4.3 MMOL/L (3.5-5.1)
[2021-02-25 07:18] LABS: Basophils % 0.1 % (0.0-0.8); Eosinophils % 0.4 % (0.00-10.9); Hematocrit 46.7 VOL% (42.0-52.0); Immature Granulocytes % 0.5 %; Immature Granulocytes Absolute 0.04 #; Lymphocytes # 0.6 10*3/uL (1.4-4.0); Lymphocytes % 8.4 % (21.2-54.2); Mean Corpuscular HGB Conc 29.3 GM/DL (32-36); Mean Corpuscular Volume 81.4 FL (87-102); Mean Platelet Volume 10.6 FL (9.6-12.0); Monocytes % 5.3 % (1.7-12.7); Neutrophils % 85.3 % (38.7-73.9); Platelet Count 170 T/CUMM (130-400); Red Blood Count 5.74 MC/CUMM (3.8-5.5); Red Cell Distribution Width 20.3 % (9.3-17.3); White Blood Count 7.6 T/CUMM (4-12)
[2021-02-25 07:21] LABS: Hemoglobin 13.7 GM/DL (14.0-18.0)
[2021-02-25] MEDS: PANTOPRAZOLE 40 MG VIAL IV SCH (11:11)
[2021-02-25] MEDS: PREGABALIN 50 MG CAPSULE PO SCH ×2 (11:11→21:43)
[2021-02-25] MEDS: DOCUSATE SODIUM 100 MG CAPSULE PO SCH ×2 (11:11→21:43)
[2021-02-25] MEDS ORDERED: methylPREDNISolone SOD SUC 40 MG/1 ML VIAL IM SCH (18:30)
[2021-02-25] MEDS: methylPREDNISolone SOD SUC 40 MG/1 ML VIAL IV SCH (18:39)
[2021-02-25] MEDS ORDERED: METOPROLOL TARTRATE 25 MG TABLET PO SCH (21:00)
[2021-02-25] MEDS: METOPROLOL TARTRATE 25 MG TABLET PO SCH (21:43)
[2021-02-26] MEDS: HYDROmorphone 2 MG/1 ML VIAL IV PRN ×3 (05:23→21:21)
[2021-02-26] MEDS: methylPREDNISolone SOD SUC 40 MG/1 ML VIAL IV SCH ×2 (05:31→18:25)
[2021-02-26] MEDS: DEXTROSE 5% NACL 0.45% 1,000 ML IV SCH ×2 (06:58→15:32)
[2021-02-26 08:08] LABS: Osmolality,Calculated 272.7 MOS/KG (273-304)
[2021-02-26] MEDS: METOPROLOL TARTRATE 25 MG TABLET PO SCH ×2 (10:41→21:17)
[2021-02-26] MEDS: DOCUSATE SODIUM 100 MG CAPSULE PO SCH ×2 (10:42→21:17)
[2021-02-26] MEDS: PANTOPRAZOLE 40 MG VIAL IV SCH (10:42)
[2021-02-26] MEDS: PREGABALIN 50 MG CAPSULE PO SCH ×2 (10:42→21:17)
[2021-02-27] MEDS: DEXTROSE 5% NACL 0.45% 1,000 ML IV SCH ×2 (01:10→10:34)
[2021-02-27] MEDS: HYDROmorphone 2 MG/1 ML VIAL IV PRN ×3 (03:16→13:18)
[2021-02-27 06:49] LABS: Calcium 8.9 MG/DL (8.5-10.1); Osmolality,Calculated 275.5 MOS/KG (273-304); Potassium 3.7 MMOL/L (3.5-5.1)
[2021-02-27] MEDS: methylPREDNISolone SOD SUC 40 MG/1 ML VIAL IV SCH (07:00)
[2021-02-27] MEDS: PANTOPRAZOLE 40 MG VIAL IV SCH (08:26)
[2021-02-27] MEDS: DOCUSATE SODIUM 100 MG CAPSULE PO SCH (08:27)
[2021-02-27] MEDS: METOPROLOL TARTRATE 25 MG TABLET PO SCH (08:27)
[2021-02-27] MEDS: PREGABALIN 50 MG CAPSULE PO SCH (08:27)
[2021-02-27] MEDS ORDERED: allopurinoL 100 MG TABLET PO SCH (09:00)
[2021-02-27 16:15] VITALS: BP 140/104
== END 2021-02-27 16:55 | disposition home health service (06) | DRG 394 ==
LOC: EDBD → EDUNIT# → N.ED 23:12 → N.EDINP 02-24 01:57 → N.2E 02-24 13:03 → N.3E 02-24 17:04
PROVIDERS: ADMIT Student in an Organized Health Care Education/Training Program; ATTEND Surgery

== ENCOUNTER 2021-03-07 21:27 | Inpatient (IN) ==
[2021-03-07] MEDS ORDERED: ASPIRIN 325 MG TABLET PO STA (21:52)
[2021-03-07] MEDS ORDERED: methylPREDNISolone SOD SUC 125 MG/2 ML VIAL IV STA (21:52)
[2021-03-07] MEDS ORDERED: ALBUTEROL/IPRATROPIUM 3 ML NEB RESP TX STA (21:52)
[2021-03-07 22:00] LABS: Basophils % 0.4 % (0.0-0.8); Eosinophils # 0.1 10*3/uL (0.0-0.87); Eosinophils % 0.8 % (0.00-10.9); Hematocrit 44.1 VOL% (42.0-52.0); Hemoglobin 13.7 GM/DL (14.0-18.0); Immature Granulocytes % 0.4 %; Immature Granulocytes Absolute 0.03 #; Lymphocytes # 1.7 10*3/uL (1.4-4.0); Lymphocytes % 22.2 % (21.2-54.2); Mean Corpuscular HGB Conc 31.1 GM/DL (32-36); Mean Corpuscular Volume 77.4 FL (87-102); Mean Platelet Volume 11.1 FL (9.6-12.0); Monocytes % 7.3 % (1.7-12.7); Neutrophils % 68.9 % (38.7-73.9); Platelet Count 171 T/CUMM (130-400); Red Cell Distribution Width 21.3 % (9.3-17.3); White Blood Count 7.4 T/CUMM (4-12)
[2021-03-07 22:13] LABS: Albumin 2.4 G/DL (3.4-5.0); Calcium 7.7 MG/DL (8.5-10.1); Osmolality,Calculated 276.7 MOS/KG (273-304); Potassium 3.9 MMOL/L (3.5-5.1); Total Protein 6.8 G/DL (6.4-8.2)
[2021-03-07 22:27] LABS: Hypochromasia 2+; Platelet Estimate Normal
[2021-03-07 22:45] LABS: ABG Base Excess 2.9 MMOL/L (-2.5-2.5); ABG HCO3 26.9 MMOL/L (20-26); ABG PCO2 44.4 MM HG (35-48); ABG PH 7.409 (7.35-7.45); ABG TCO2 24.3 MMOL/L (23-27)
[2021-03-07 22:56] LABS: INR 1.1; PT Patient Result 12.5 SECS (10.5-12.0)
[2021-03-07] MEDS ORDERED: ENOXAPARIN 120 MG/0.8 ML SYRINGE SUBCUT STA (23:51)
[2021-03-07] MEDS ORDERED: FUROSEMIDE 40 MG/4 ML VIAL IV STA (23:51)
[2021-03-07] MEDS ORDERED: AZITHROMYCIN INJ 500 MG in SODIUM CHLORIDE 0.9% 250 ML IV STA (23:51)
[2021-03-07] MEDS ORDERED: cefTRIAXone 1,000 MG in SODIUM CHLORIDE 0.9% 100 ML IV STA (23:51)
[2021-03-07] MEDS ORDERED: NALOXONE 0.4 MG/ML VIAL IV PRN (23:55)
[2021-03-07] MEDS ORDERED: ONDANSETRON 4 MG/2 ML VIAL IV PRN (23:55)
[2021-03-07] MEDS ORDERED: ACETAMINOPHEN 325 MG TABLET PO PRN (23:55)
[2021-03-08] MEDS ORDERED: ENOXAPARIN 30 MG/0.3 ML SYRINGE ONE (00:01)
[2021-03-08] MEDS: ALBUTEROL 2.5 MG/3 ML NEB RESP TX SCH ×6 (02:31→23:30)
[2021-03-08] MEDS: methylPREDNISolone SOD SUC 40 MG/1 ML VIAL IV SCH ×3 (05:01→18:01)
[2021-03-08 05:18] LABS: Hematocrit 44.2 VOL% (42.0-52.0); Hemoglobin 13.6 GM/DL (14.0-18.0); Immature Granulocytes % 0.4 %; Immature Granulocytes Absolute 0.03 #; Lymphocytes # 0.3 10*3/uL (1.4-4.0); Lymphocytes % 4.6 % (21.2-54.2); Mean Corpuscular HGB Conc 30.8 GM/DL (32-36); Mean Corpuscular Volume 78.1 FL (87-102); Mean Platelet Volume 10.8 FL (9.6-12.0); Monocytes % 1.4 % (1.7-12.7); Neutrophils % 93.6 % (38.7-73.9); Platelet Count 163 T/CUMM (130-400); Red Blood Count 5.66 MC/CUMM (3.8-5.5); Red Cell Distribution Width 21.5 % (9.3-17.3); White Blood Count 7.4 T/CUMM (4-12)
[2021-03-08 05:36] LABS: Albumin 2.4 G/DL (3.4-5.0); Bilirubin,Total 0.7 MG/DL (0.2-1.0); Calcium 8.2 MG/DL (8.5-10.1); Osmolality,Calculated 276.7 MOS/KG (273-304); Potassium 3.9 MMOL/L (3.5-5.1); Total Protein 7.2 G/DL (6.4-8.2)
[2021-03-08 05:42] LABS: Lymphocytes 4 % (20-55); Metamyelocytes 1 %; Segmented Neutrophils 93 % (50-85); Total Cells Counted 100
[2021-03-08 05:45] LABS: Hypochromasia 2+; Platelet Estimate Adequate
[2021-03-08 05:46] LABS: Target Cells Few
[2021-03-08] MEDS: DOCUSATE SODIUM 100 MG CAPSULE PO SCH ×2 (09:10→20:43)
[2021-03-08] MEDS: ENOXAPARIN 40 MG/0.4 ML SYRINGE SUBCUT SCH (09:11)
[2021-03-08] MEDS: PANTOPRAZOLE 40 MG TABLET PO SCH (09:11)
[2021-03-08] MEDS ORDERED: traMADol 50 MG TABLET PO PRN (12:54)
[2021-03-08] MEDS: KETOROLAC 15 MG/1 ML VIAL IV SCH ×2 (13:28→18:03)
[2021-03-08] MEDS: cefTRIAXone 1,000 MG in SODIUM CHLORIDE 0.9% 100 ML IV SCH (20:35)
[2021-03-08] MEDS: AZITHROMYCIN INJ 500 MG in SODIUM CHLORIDE 0.9% 250 ML IV SCH (20:40)
[2021-03-09] MEDS: KETOROLAC 15 MG/1 ML VIAL IV SCH ×4 (01:32→21:51)
[2021-03-09] MEDS: methylPREDNISolone SOD SUC 40 MG/1 ML VIAL IV SCH ×3 (01:35→19:45)
[2021-03-09] MEDS: ALBUTEROL 2.5 MG/3 ML NEB RESP TX SCH ×6 (03:45→23:40)
[2021-03-09 04:34] LABS: ABG Base Excess 3.2 MMOL/L (-2.5-2.5); ABG HCO3 29.1 MMOL/L (20-26); ABG Oxygen Saturation 97.4 % (95-100); ABG PCO2 49.7 MM HG (35-48); ABG PH 7.385 (7.35-7.45); ABG PO2 104.4 MM HG (80-95); ABG TCO2 30.6 MMOL/L (23-27); Allen Test Positive; Pt O2 Delivery Device BIPAP
[2021-03-09 05:08] LABS: Calcium 8.2 MG/DL (8.5-10.1); Osmolality,Calculated 282.4 MOS/KG (273-304)
[2021-03-09] MEDS: DOCUSATE SODIUM 100 MG CAPSULE PO SCH ×2 (09:41→21:50)
[2021-03-09] MEDS: PANTOPRAZOLE 40 MG TABLET PO SCH (09:41)
[2021-03-09] MEDS: ENOXAPARIN 40 MG/0.4 ML SYRINGE SUBCUT SCH (09:42)
[2021-03-09] MEDS: cefTRIAXone 1,000 MG in SODIUM CHLORIDE 0.9% 100 ML IV SCH (21:54)
[2021-03-09] MEDS: AZITHROMYCIN INJ 500 MG in SODIUM CHLORIDE 0.9% 250 ML IV SCH (22:32)
[2021-03-10] MEDS: KETOROLAC 15 MG/1 ML VIAL IV SCH ×4 (02:11→22:33)
[2021-03-10] MEDS: methylPREDNISolone SOD SUC 40 MG/1 ML VIAL IV SCH ×3 (02:12→17:51)
[2021-03-10] MEDS: ALBUTEROL 2.5 MG/3 ML NEB RESP TX SCH ×7 (03:00→23:41)
[2021-03-10 04:22] LABS: ABG Base Excess 5.4 MMOL/L (-2.5-2.5); ABG Oxygen Saturation 97.1 % (95-100); ABG PH 7.375 (7.35-7.45); ABG PO2 97.4 MM HG (80-95); ABG TCO2 33.7 MMOL/L (23-27); Allen Test Positive; Pt O2 Delivery Device BIPAP
[2021-03-10 05:30] LABS: Calcium 8.3 MG/DL (8.5-10.1); Osmolality,Calculated 281.4 MOS/KG (273-304); Potassium 3.9 MMOL/L (3.5-5.1)
[2021-03-10] MEDS ORDERED: METOPROLOL TARTRATE 50 MG TABLET PO PRN (07:52)
[2021-03-10] MEDS: RIVAROXABAN 15 MG TABLET PO SCH ×2 (09:30→17:50)
[2021-03-10] MEDS: PANTOPRAZOLE 40 MG TABLET PO SCH (09:31)
[2021-03-10] MEDS: FUROSEMIDE 40 MG TABLET PO SCH ×2 (09:31→22:31)
[2021-03-10] MEDS: PREGABALIN 25 MG CAPSULE PO SCH ×2 (09:31→22:32)
[2021-03-10] MEDS: DOCUSATE SODIUM 100 MG CAPSULE PO SCH ×2 (11:40→22:31)
[2021-03-10] MEDS: allopurinoL 100 MG TABLET PO SCH (11:40)
[2021-03-10] MEDS: METOPROLOL TARTRATE 50 MG TABLET PO SCH ×2 (14:31→22:31)
[2021-03-10] MEDS: LEVOFLOXACIN INJ 500 MG/100 ML PREMIX IV SCH (14:32)
[2021-03-11] MEDS: KETOROLAC 15 MG/1 ML VIAL IV SCH ×5 (03:08→21:02)
[2021-03-11] MEDS: ALBUTEROL 2.5 MG/3 ML NEB RESP TX SCH ×6 (03:11→22:30)
[2021-03-11] MEDS: methylPREDNISolone SOD SUC 40 MG/1 ML VIAL IV SCH ×3 (03:11→17:12)
[2021-03-11] MEDS: THEOPHYLLINE ER (24 HR) 400 MG CAPSULE PO SCH (10:12)
[2021-03-11] MEDS: RIVAROXABAN 15 MG TABLET PO SCH (10:12)
[2021-03-11] MEDS: METOPROLOL TARTRATE 50 MG TABLET PO SCH (10:12)
[2021-03-11] MEDS: FUROSEMIDE 40 MG TABLET PO SCH ×2 (10:13→20:45)
[2021-03-11] MEDS: allopurinoL 100 MG TABLET PO SCH (10:13)
[2021-03-11] MEDS: DOCUSATE SODIUM 100 MG CAPSULE PO SCH ×2 (10:13→20:44)
[2021-03-11] MEDS: PANTOPRAZOLE 40 MG TABLET PO SCH (10:13)
[2021-03-11] MEDS: PREGABALIN 25 MG CAPSULE PO SCH ×2 (10:13→20:46)
[2021-03-11] MEDS: LEVOFLOXACIN INJ 500 MG/100 ML PREMIX IV SCH (15:28)
[2021-03-11] MEDS: RIVAROXABAN 10 MG TABLET PO SCH (17:09)
[2021-03-11] MEDS: METOPROLOL TARTRATE 25 MG TABLET PO SCH (20:45)
[2021-03-11] MEDS: VALSARTAN 80 MG TABLET PO SCH (20:45)
[2021-03-12] MEDS: ALBUTEROL 2.5 MG/3 ML NEB RESP TX SCH ×6 (02:05→23:00)
[2021-03-12] MEDS: KETOROLAC 15 MG/1 ML VIAL IV SCH ×4 (03:06→20:55)
[2021-03-12] MEDS: methylPREDNISolone SOD SUC 40 MG/1 ML VIAL IV SCH ×3 (03:09→17:18)
[2021-03-12 06:29] LABS: Calcium 8.6 MG/DL (8.5-10.1); Osmolality,Calculated 285.4 MOS/KG (273-304); Potassium 3.5 MMOL/L (3.5-5.1)
[2021-03-12] MEDS: VALSARTAN 80 MG TABLET PO SCH ×2 (10:07→21:05)
[2021-03-12] MEDS: PREGABALIN 25 MG CAPSULE PO SCH ×2 (10:08→20:57)
[2021-03-12] MEDS: THEOPHYLLINE ER (24 HR) 400 MG CAPSULE PO SCH (10:09)
[2021-03-12] MEDS: DOCUSATE SODIUM 100 MG CAPSULE PO SCH ×2 (10:10→20:57)
[2021-03-12] MEDS: PANTOPRAZOLE 40 MG TABLET PO SCH (10:10)
[2021-03-12] MEDS: METOPROLOL TARTRATE 25 MG TABLET PO SCH ×2 (10:10→20:57)
[2021-03-12] MEDS: FUROSEMIDE 40 MG TABLET PO SCH ×2 (10:11→20:57)
[2021-03-12] MEDS: allopurinoL 100 MG TABLET PO SCH (11:26)
[2021-03-12] MEDS: LEVOFLOXACIN INJ 500 MG/100 ML PREMIX IV SCH (14:51)
[2021-03-12] MEDS: RIVAROXABAN 10 MG TABLET PO SCH (17:17)
[2021-03-13] MEDS: KETOROLAC 15 MG/1 ML VIAL IV SCH ×2 (03:21→09:04)
[2021-03-13] MEDS: methylPREDNISolone SOD SUC 40 MG/1 ML VIAL IV SCH ×2 (03:23→09:03)
[2021-03-13] MEDS: ALBUTEROL 2.5 MG/3 ML NEB RESP TX SCH ×3 (03:25→10:50)
[2021-03-13 08:12] VITALS: BP 130/81
[2021-03-13] MEDS: THEOPHYLLINE ER (24 HR) 400 MG CAPSULE PO SCH (09:00)
[2021-03-13] MEDS: PANTOPRAZOLE 40 MG TABLET PO SCH (09:00)
[2021-03-13] MEDS: DOCUSATE SODIUM 100 MG CAPSULE PO SCH (09:00)
[2021-03-13] MEDS: VALSARTAN 80 MG TABLET PO SCH (09:00)
[2021-03-13] MEDS: METOPROLOL TARTRATE 25 MG TABLET PO SCH (09:00)
[2021-03-13] MEDS: FUROSEMIDE 40 MG TABLET PO SCH (09:01)
[2021-03-13] MEDS: PREGABALIN 25 MG CAPSULE PO SCH (09:01)
[2021-03-13] MEDS: allopurinoL 100 MG TABLET PO SCH (09:01)
[2021-03-13] MEDS ORDERED: LEVOFLOXACIN 500 MG TABLET PO SCH (11:00)
== END 2021-03-13 11:55 | DRG 193 ==
LOC: EDBD → EDUNIT# → N.ED 21:27 → N.EDINP 03-08 01:11 → N.TELEN 03-08 01:17
PROVIDERS: ADMIT Internal Medicine; ATTEND Internal Medicine

== ENCOUNTER 2021-05-29 19:45 | Inpatient (IN) ==
[2021-05-29] MEDS ORDERED: FUROSEMIDE 40 MG/4 ML VIAL IV STA (20:06)
[2021-05-29 20:48] LABS: Basophils # 0.1 10*3/uL (0.0-0.2); Basophils % 0.6 % (0.0-0.8); Eosinophils # 0.1 10*3/uL (0.0-0.87); Hematocrit 51.4 VOL% (42.0-52.0); Hemoglobin 15.8 GM/DL (14.0-18.0); Immature Granulocytes % 0.4 %; Immature Granulocytes Absolute 0.04 #; Lymphocytes # 1.6 10*3/uL (1.4-4.0); Lymphocytes % 16.6 % (21.2-54.2); Mean Corpuscular HGB Conc 30.7 GM/DL (32-36); Mean Corpuscular Volume 92.3 FL (87-102); Mean Platelet Volume 10.4 FL (9.6-12.0); Monocytes % 9.4 % (1.7-12.7); NRBC # 0.06 10*3/uL; Platelet Count 223 T/CUMM (130-400); Red Blood Count 5.57 MC/CUMM (3.8-5.5); Red Cell Distribution Width 19.6 % (9.3-17.3); White Blood Count 9.8 T/CUMM (4-12)
[2021-05-29 21:10] LABS: Albumin 3.3 G/DL (3.4-5.0); Calcium 9.1 MG/DL (8.5-10.1); Osmolality,Calculated 289.4 MOS/KG (273-304); Potassium 4.5 MMOL/L (3.5-5.1); Total Protein 6.8 G/DL (6.4-8.2)
[2021-05-29] MEDS ORDERED: ACETAMINOPHEN 325 MG TABLET PO PRN (21:33)
[2021-05-29] MEDS ORDERED: ONDANSETRON 4 MG/2 ML VIAL IV PRN (21:33)
[2021-05-29] MEDS ORDERED: ENOXAPARIN 30 MG/0.3 ML SYRINGE SUBCUT STA (21:35)
[2021-05-29] MEDS ORDERED: ASPIRIN CHEW 81 MG TABLET PO STA (21:47)
[2021-05-29] MEDS ORDERED: ENOXAPARIN 100 MG/ML SYRINGE SUBCUT ONE (22:13)
[2021-05-30] MEDS: ALBUTEROL 2.5 MG/3 ML NEB RESP TX STA ×2 (00:56→02:00)
[2021-05-30 03:20] LABS: Basophils # 0.1 10*3/uL (0.0-0.2); Basophils % 0.6 % (0.0-0.8); Eosinophils # 0.1 10*3/uL (0.0-0.87); Eosinophils % 1.1 % (0.00-10.9); Hematocrit 50.1 VOL% (42.0-52.0); Hemoglobin 15.4 GM/DL (14.0-18.0); Immature Granulocytes % 0.4 %; Immature Granulocytes Absolute 0.03 #; Lymphocytes # 1.6 10*3/uL (1.4-4.0); Lymphocytes % 19.8 % (21.2-54.2); Mean Corpuscular HGB Conc 30.7 GM/DL (32-36); Mean Corpuscular Volume 91.6 FL (87-102); Mean Platelet Volume 11.2 FL (9.6-12.0); NRBC # 0.03 10*3/uL; Neutrophils % 69.1 % (38.7-73.9); Platelet Count 200 T/CUMM (130-400); Red Blood Count 5.47 MC/CUMM (3.8-5.5); Red Cell Distribution Width 19.4 % (9.3-17.3); White Blood Count 8.3 T/CUMM (4-12)
[2021-05-30 04:22] LABS: Calcium 9.1 MG/DL (8.5-10.1); Potassium 4.2 MMOL/L (3.5-5.1)
[2021-05-30 04:29] LABS: Osmolality,Calculated 284.5 MOS/KG (273-304)
[2021-05-30] MEDS ORDERED: FUROSEMIDE 40 MG/4 ML VIAL IV ONE (09:37)
[2021-05-30] MEDS ORDERED: NON-FORMULARY MEDICATION (Methylprednisolone 4 mg tablets,dose pack) PO SCH (09:45)
[2021-05-30] MEDS ORDERED: ALBUTEROL 2.5 MG/3 ML NEB RESP TX SCH (11:00)
[2021-05-30] MEDS: methylPREDNISolone SOD SUC 40 MG/1 ML VIAL IV SCH ×2 (11:14→17:27)
[2021-05-30] MEDS: BENZONATATE 100 MG CAPSULE PO PRN ×2 (11:20→17:11)
[2021-05-30] MEDS: VALSARTAN 80 MG TABLET PO SCH ×2 (11:21→20:23)
[2021-05-30] MEDS: THEOPHYLLINE ER (24 HR) 200 MG CAPSULE PO SCH ×2 (11:22→20:23)
[2021-05-30] MEDS: METOPROLOL TARTRATE 25 MG TABLET PO SCH ×2 (11:22→20:23)
[2021-05-30] MEDS: ALBUTEROL 2.5 MG/3 ML NEB RESP TX SCH ×4 (15:13→23:35)
[2021-05-30] MEDS: FUROSEMIDE 40 MG/4 ML VIAL IV SCH (17:15)
[2021-05-30] MEDS: RIVAROXABAN 10 MG TABLET PO SCH (17:44)
[2021-05-30] MEDS ORDERED: traMADol 50 MG TABLET PO PRN (18:50)
[2021-05-30] MEDS: traMADol 50 MG TABLET PO SCH (20:24)
[2021-05-30] MEDS ORDERED: PROMETHAZINE 25 MG/1 ML VIAL IM PRN (22:09)
[2021-05-30] MEDS ORDERED: PANTOPRAZOLE 40 MG TABLET PO ONE (22:10)
[2021-05-31] MEDS: methylPREDNISolone SOD SUC 40 MG/1 ML VIAL IV SCH ×3 (01:44→17:22)
[2021-05-31] MEDS: ALBUTEROL 2.5 MG/3 ML NEB RESP TX SCH ×5 (02:44→20:09)
[2021-05-31 05:16] LABS: Calcium 9.8 MG/DL (8.5-10.1); Osmolality,Calculated 284.5 MOS/KG (273-304); Potassium 4.6 MMOL/L (3.5-5.1)
[2021-05-31 06:42] LABS: Basophils % 0.2 % (0.0-0.8); Hematocrit 55.6 VOL% (42.0-52.0); Hemoglobin 16.3 GM/DL (14.0-18.0); Immature Granulocytes % 0.6 %; Immature Granulocytes Absolute 0.04 #; Lymphocytes # 0.3 10*3/uL (1.4-4.0); Lymphocytes % 4.4 % (21.2-54.2); Mean Corpuscular HGB Conc 29.3 GM/DL (32-36); Mean Corpuscular Volume 93.3 FL (87-102); Mean Platelet Volume 10.4 FL (9.6-12.0); Monocytes % 1.6 % (1.7-12.7); NRBC # 0.02 10*3/uL; Neutrophils % 93.2 % (38.7-73.9); Platelet Count 200 T/CUMM (130-400); Red Blood Count 5.96 MC/CUMM (3.8-5.5); Red Cell Distribution Width 19.2 % (9.3-17.3); White Blood Count 6.3 T/CUMM (4-12)
[2021-05-31 06:48] LABS: Lymphocytes 1 % (20-55); Platelet Estimate Adequate; Segmented Neutrophils 97 % (50-85); Total Cells Counted 100
[2021-05-31] MEDS: VALSARTAN 80 MG TABLET PO SCH ×2 (10:53→20:44)
[2021-05-31] MEDS: THEOPHYLLINE ER (24 HR) 200 MG CAPSULE PO SCH ×2 (10:53→20:42)
[2021-05-31] MEDS: PANTOPRAZOLE 40 MG TABLET PO SCH (10:54)
[2021-05-31] MEDS: BENZONATATE 100 MG CAPSULE PO PRN ×2 (10:54→17:28)
[2021-05-31] MEDS: METOPROLOL TARTRATE 25 MG TABLET PO SCH ×2 (10:55→20:43)
[2021-05-31] MEDS: traMADol 50 MG TABLET PO SCH ×2 (10:55→20:43)
[2021-05-31] MEDS: COLCHICINE 0.6 MG CAPSULE PO SCH (10:56)
[2021-05-31] MEDS: FUROSEMIDE 40 MG/4 ML VIAL IV SCH ×2 (10:56→17:24)
[2021-05-31] MEDS: RIVAROXABAN 10 MG TABLET PO SCH (17:19)
[2021-06-01] MEDS: ALBUTEROL 2.5 MG/3 ML NEB RESP TX SCH ×5 (00:33→14:55)
[2021-06-01] MEDS: methylPREDNISolone SOD SUC 40 MG/1 ML VIAL IV SCH ×2 (02:05→10:10)
[2021-06-01 05:24] LABS: Calcium 9.1 MG/DL (8.5-10.1); Potassium 4.8 MMOL/L (3.5-5.1)
[2021-06-01 07:19] LABS: Eosinophils % 0.1 % (0.00-10.9); Hematocrit 50.4 VOL% (42.0-52.0); Immature Granulocytes % 0.7 %; Immature Granulocytes Absolute 0.06 #; Lymphocytes # 0.2 10*3/uL (1.4-4.0); Lymphocytes % 2.8 % (21.2-54.2); Mean Corpuscular Volume 94.2 FL (87-102); Monocytes % 3.6 % (1.7-12.7); NRBC # 0.02 10*3/uL; Neutrophils % 92.8 % (38.7-73.9); Platelet Count 188 T/CUMM (130-400); Red Blood Count 5.35 MC/CUMM (3.8-5.5); Red Cell Distribution Width 18.4 % (9.3-17.3); White Blood Count 8.3 T/CUMM (4-12)
[2021-06-01 07:21] LABS: Hemoglobin 15.1 GM/DL (14.0-18.0)
[2021-06-01 07:44] LABS: Lymphocytes 2 % (20-55); Platelet Estimate Adequate; Segmented Neutrophils 95 % (50-85); Total Cells Counted 100
[2021-06-01] MEDS: FUROSEMIDE 40 MG/4 ML VIAL IV SCH ×2 (08:47→16:32)
[2021-06-01] MEDS: VALSARTAN 80 MG TABLET PO SCH (10:33)
[2021-06-01] MEDS: COLCHICINE 0.6 MG CAPSULE PO SCH (10:36)
[2021-06-01] MEDS: THEOPHYLLINE ER (24 HR) 200 MG CAPSULE PO SCH (10:37)
[2021-06-01] MEDS: METOPROLOL TARTRATE 25 MG TABLET PO SCH (10:37)
[2021-06-01] MEDS: PANTOPRAZOLE 40 MG TABLET PO SCH (10:37)
[2021-06-01] MEDS: traMADol 50 MG TABLET PO SCH (10:38)
[2021-06-01] MEDS: BENZONATATE 100 MG CAPSULE PO PRN (11:32)
[2021-06-01] MEDS: RIVAROXABAN 10 MG TABLET PO SCH (16:32)
[2021-06-01 16:39] VITALS: BP 123/76
== END 2021-06-01 17:47 | disposition home or self-care (01) | DRG 292 ==
LOC: N.ED 19:45 → N.EDINP 19:45 → N.TELEN 22:33
PROVIDERS: ADMIT Internal Medicine; ATTEND Internal Medicine

== ENCOUNTER 2021-06-26 00:47 | Inpatient (IN) ==
[2021-06-26] MEDS ORDERED: FUROSEMIDE 40 MG/4 ML VIAL IV STA (01:47)
[2021-06-26] MEDS ORDERED: methylPREDNISolone SOD SUC 125 MG/2 ML VIAL IV STA (01:47)
[2021-06-26] MEDS ORDERED: ONDANSETRON 4 MG/2 ML VIAL IV STA (01:47)
[2021-06-26] MEDS ORDERED: ALBUTEROL/IPRATROPIUM 3 ML NEB RESP TX STA (01:47)
[2021-06-26 01:58] LABS: Basophils % 0.2 % (0.0-0.8); Eosinophils # 0.1 10*3/uL (0.0-0.87); Eosinophils % 0.7 % (0.00-10.9); Hematocrit 47.3 VOL% (42.0-52.0); Hemoglobin 14.5 GM/DL (14.0-18.0); Immature Granulocytes % 0.4 %; Immature Granulocytes Absolute 0.03 #; Mean Corpuscular HGB Conc 30.7 GM/DL (32-36); Mean Corpuscular Volume 89.9 FL (87-102); Monocytes % 8.6 % (1.7-12.7); Neutrophils % 78.1 % (38.7-73.9); Platelet Count 175 T/CUMM (130-400); Red Blood Count 5.26 MC/CUMM (3.8-5.5); Red Cell Distribution Width 16.7 % (9.3-17.3); White Blood Count 8.1 T/CUMM (4-12)
[2021-06-26 02:12] LABS: Calcium 8.6 MG/DL (8.5-10.1); Osmolality,Calculated 286.7 MOS/KG (273-304); Potassium 4.1 MMOL/L (3.5-5.1); Total Protein 6.7 G/DL (6.4-8.2)
[2021-06-26] MEDS ORDERED: MORPHINE 2 MG/1 ML SYRINGE IV PRN (04:54)
[2021-06-26] MEDS: SODIUM CHLORIDE 0.9% 1,000 ML IV SCH ×2 (06:03→23:10)
[2021-06-26 06:55] LABS: Bacteria,Urine Occasional /HPF (Few); Bilirubin,Urine Negative (Negative); Blood, Urine Negative (Negative); Glucose,Urine (UA) Negative (Negative); Hyaline Casts,Urine 1 /LPF (0-3); Ketones,Urine Negative (Negative); Nitrite,Urine Positive (Negative); Protein,Urine Negative; RBC,Urine <1 /HPF (0-4); Squamous Epithelial Cell,Urine Occasional /HPF (0-10); Urine Appearance CLEAR (Clear); Urine Color Yellow (Yellow); Urine Specific Gravity 1.008 (1.001-1.035); Urine Urobilinogen < 2.0 EU/DL (0.2-1.0)
[2021-06-26] MEDS: ALBUTEROL/IPRATROPIUM 3 ML NEB RESP TX SCH ×7 (07:22→23:55)
[2021-06-26] MEDS: DOCUSATE SODIUM 100 MG CAPSULE PO SCH ×2 (09:50→20:42)
[2021-06-26] MEDS: methylPREDNISolone SOD SUC 40 MG/1 ML VIAL IV SCH ×2 (09:50→20:42)
[2021-06-26] MEDS: PANTOPRAZOLE 40 MG VIAL IV SCH (09:52)
[2021-06-26] MEDS ORDERED: CARBOXYMETHYLCELLULOSE GLYCERN BOTH EYES PRN (10:01)
[2021-06-26] MEDS ORDERED: NON-FORMULARY MEDICATION (Diphenhydramine-Acetaminophen [Tylenol Pm Extra Strength] 25-500 PO PRN (10:01)
[2021-06-26] MEDS ORDERED: ACETAMINOPHEN 500 MG TABLET PO PRN (10:01)
[2021-06-26] MEDS ORDERED: [UNRECOGNIZED DRUG - OTHER] BOTH EYES PRN (10:01)
[2021-06-26] MEDS ORDERED: FLUTICASONE 50 MCG NASAL SPRAY 16 GM BOTTLE BOTH NARES PRN (10:01)
[2021-06-26] MEDS ORDERED: LOTEPREDNOL ETABONATE 0.2% BOTH EYES PRN (10:01)
[2021-06-26] MEDS ORDERED: AZITHROMYCIN INJ 500 MG in SODIUM CHLORIDE 0.9% 250 ML IV ONE (10:13)
[2021-06-26] MEDS ORDERED: AZITHROMYCIN INJ 500 MG in SODIUM CHLORIDE 0.9% 250 ML IV SCH (10:30)
[2021-06-26] MEDS: THEOPHYLLINE ER (24 HR) 400 MG TABLET PO SCH ×2 (10:50→20:37)
[2021-06-26] MEDS: BUDESONIDE 0.25 MG/2 ML NEB RESP TX SCH ×2 (10:56→19:00)
[2021-06-26] MEDS: RIVAROXABAN 10 MG TABLET PO SCH (17:14)
[2021-06-26] MEDS: METOPROLOL TARTRATE 25 MG TABLET PO SCH (17:14)
[2021-06-27] MEDS: traMADol 50 MG TABLET PO PRN (01:45)
[2021-06-27] MEDS: ALBUTEROL/IPRATROPIUM 3 ML NEB RESP TX SCH ×5 (04:00→19:50)
[2021-06-27 04:19] LABS: ABG Base Excess 6.7 MMOL/L (-2.5-2.5); ABG HCO3 30.3 MMOL/L (20-26); ABG Oxygen Saturation 89.2 % (95-100); ABG PCO2 58.8 MM HG (35-48); ABG PH 7.372 (7.35-7.45); ABG PO2 62.8 MM HG (80-95); ABG TCO2 29.9 MMOL/L (23-27)
[2021-06-27 06:24] LABS: Basophils % 0.2 % (0.0-0.8); Hematocrit 44.7 VOL% (42.0-52.0); Hemoglobin 13.8 GM/DL (14.0-18.0); Immature Granulocytes % 0.2 %; Immature Granulocytes Absolute 0.01 #; Lymphocytes # 0.4 10*3/uL (1.4-4.0); Lymphocytes % 6.2 % (21.2-54.2); Mean Corpuscular HGB Conc 30.9 GM/DL (32-36); Mean Corpuscular Volume 89.4 FL (87-102); Mean Platelet Volume 10.5 FL (9.6-12.0); Monocytes % 5.2 % (1.7-12.7); Neutrophils % 88.2 % (38.7-73.9); Platelet Count 156 T/CUMM (130-400); Red Cell Distribution Width 16.8 % (9.3-17.3); White Blood Count 5.8 T/CUMM (4-12)
[2021-06-27 06:44] LABS: Albumin 3.2 G/DL (3.4-5.0); Bilirubin,Total 0.9 MG/DL (0.20-1.00); Calcium 9.5 MG/DL (8.5-10.1); Osmolality,Calculated 285.7 MOS/KG (273-304); Potassium 4.7 MMOL/L (3.5-5.1); Risk Ratio 2.91; Total Protein 6.8 G/DL (6.4-8.2)
[2021-06-27] MEDS: BUDESONIDE 0.25 MG/2 ML NEB RESP TX SCH ×2 (07:25→19:48)
[2021-06-27] MEDS: THEOPHYLLINE ER (24 HR) 400 MG TABLET PO SCH ×2 (09:42→21:25)
[2021-06-27] MEDS: ACETAMINOPHEN 325 MG TABLET PO PRN ×2 (09:42→18:18)
[2021-06-27] MEDS: METOPROLOL TARTRATE 25 MG TABLET PO SCH ×2 (09:44→16:46)
[2021-06-27] MEDS: methylPREDNISolone SOD SUC 40 MG/1 ML VIAL IV SCH ×2 (09:44→21:27)
[2021-06-27] MEDS: PANTOPRAZOLE 40 MG VIAL IV SCH (09:45)
[2021-06-27] MEDS: FUROSEMIDE 20 MG/2 ML VIAL IV SCH (09:45)
[2021-06-27] MEDS: DOCUSATE SODIUM 100 MG CAPSULE PO SCH ×2 (10:33→21:27)
[2021-06-27] MEDS: RIVAROXABAN 10 MG TABLET PO SCH (16:46)
[2021-06-27] MEDS: SODIUM CHLORIDE 0.9% 1,000 ML IV SCH (18:17)
[2021-06-28] MEDS: ALBUTEROL/IPRATROPIUM 3 ML NEB RESP TX SCH ×5 (03:57→19:52)
[2021-06-28] MEDS: BUDESONIDE 0.25 MG/2 ML NEB RESP TX SCH ×2 (07:17→19:48)
[2021-06-28] MEDS: THEOPHYLLINE ER (24 HR) 400 MG TABLET PO SCH ×2 (09:20→21:31)
[2021-06-28] MEDS: METOPROLOL TARTRATE 25 MG TABLET PO SCH ×2 (09:21→17:39)
[2021-06-28] MEDS: methylPREDNISolone SOD SUC 40 MG/1 ML VIAL IV SCH ×2 (09:22→21:31)
[2021-06-28] MEDS: PANTOPRAZOLE 40 MG VIAL IV SCH (09:23)
[2021-06-28] MEDS: FUROSEMIDE 20 MG/2 ML VIAL IV SCH ×2 (09:24→16:01)
[2021-06-28] MEDS: SODIUM CHLORIDE 0.9% 1,000 ML IV SCH (11:12)
[2021-06-28] MEDS: DOCUSATE SODIUM 100 MG CAPSULE PO SCH ×2 (11:32→21:31)
[2021-06-28] MEDS: RIVAROXABAN 10 MG TABLET PO SCH (17:39)
[2021-06-28] MEDS: traMADol 50 MG TABLET PO PRN (21:40)
[2021-06-29] MEDS: ALBUTEROL/IPRATROPIUM 3 ML NEB RESP TX SCH ×7 (00:05→23:44)
[2021-06-29 06:19] LABS: Calcium 9.1 MG/DL (8.5-10.1); Osmolality,Calculated 290.4 MOS/KG (273-304); Potassium 4.4 MMOL/L (3.5-5.1)
[2021-06-29 06:26] LABS: Hematocrit 45.4 VOL% (42.0-52.0); Hemoglobin 13.9 GM/DL (14.0-18.0); Immature Granulocytes % 0.5 %; Immature Granulocytes Absolute 0.04 #; Lymphocytes # 0.3 10*3/uL (1.4-4.0); Lymphocytes % 4.2 % (21.2-54.2); Mean Corpuscular HGB Conc 30.6 GM/DL (32-36); Mean Corpuscular Volume 90.6 FL (87-102); Mean Platelet Volume 11.1 FL (9.6-12.0); Monocytes % 3.1 % (1.7-12.7); Neutrophils % 92.2 % (38.7-73.9); Platelet Count 153 T/CUMM (130-400); Red Blood Count 5.01 MC/CUMM (3.8-5.5); Red Cell Distribution Width 16.9 % (9.3-17.3); White Blood Count 7.3 T/CUMM (4-12)
[2021-06-29 06:33] LABS: Hypochromasia Slight; Lymphocytes 3 % (20-55); Microcytosis Slight; Platelet Estimate Adequate; Segmented Neutrophils 95 % (50-85); Total Cells Counted 100
[2021-06-29] MEDS: BUDESONIDE 0.25 MG/2 ML NEB RESP TX SCH ×2 (07:17→19:51)
[2021-06-29] MEDS: METOPROLOL TARTRATE 25 MG TABLET PO SCH ×2 (09:11→16:37)
[2021-06-29] MEDS: THEOPHYLLINE ER (24 HR) 400 MG TABLET PO SCH ×2 (09:11→21:37)
[2021-06-29] MEDS: FUROSEMIDE 20 MG/2 ML VIAL IV SCH ×2 (09:13→16:38)
[2021-06-29] MEDS: DOCUSATE SODIUM 100 MG CAPSULE PO SCH ×2 (09:17→21:39)
[2021-06-29] MEDS: PANTOPRAZOLE 40 MG VIAL IV SCH (09:17)
[2021-06-29] MEDS: methylPREDNISolone SOD SUC 40 MG/1 ML VIAL IV SCH ×2 (09:21→21:38)
[2021-06-29] MEDS: SODIUM CHLORIDE 0.9% 1,000 ML IV SCH (15:06)
[2021-06-29] MEDS: RIVAROXABAN 10 MG TABLET PO SCH (16:38)
[2021-06-29] MEDS: traMADol 50 MG TABLET PO PRN (21:38)
[2021-06-30] MEDS: ALBUTEROL/IPRATROPIUM 3 ML NEB RESP TX SCH ×3 (03:28→10:50)
[2021-06-30] MEDS: BUDESONIDE 0.25 MG/2 ML NEB RESP TX SCH (07:10)
[2021-06-30] MEDS: METOPROLOL TARTRATE 25 MG TABLET PO SCH (08:01)
[2021-06-30] MEDS: DOCUSATE SODIUM 100 MG CAPSULE PO SCH (08:01)
[2021-06-30] MEDS: PANTOPRAZOLE 40 MG VIAL IV SCH (08:02)
[2021-06-30] MEDS: THEOPHYLLINE ER (24 HR) 400 MG TABLET PO SCH (08:02)
[2021-06-30] MEDS: methylPREDNISolone SOD SUC 40 MG/1 ML VIAL IV SCH (08:02)
[2021-06-30] MEDS: FUROSEMIDE 20 MG/2 ML VIAL IV SCH (08:02)
[2021-06-30 12:41] VITALS: BP 125/79
== END 2021-06-30 14:13 | disposition home or self-care (01) | DRG 190 ==
LOC: EDUNIT# → EDBD → N.EDINP 00:47 → N.ED 00:47 → N.TELES 04:29
PROVIDERS: ADMIT Internal Medicine; ATTEND Internal Medicine

== ENCOUNTER 2021-07-10 20:48 | Inpatient (IN) ==
[2021-07-10 21:27] LABS: Basophils % 0.4 % (0.0-0.8); Eosinophils # 0.1 10*3/uL (0.0-0.87); Hematocrit 46.4 VOL% (42.0-52.0); Hemoglobin 14.6 GM/DL (14.0-18.0); Immature Granulocytes % 0.5 %; Immature Granulocytes Absolute 0.04 #; Lymphocytes # 1.2 10*3/uL (1.4-4.0); Lymphocytes % 14.9 % (21.2-54.2); Mean Corpuscular HGB Conc 31.5 GM/DL (32-36); Mean Corpuscular Volume 84.8 FL (87-102); Mean Platelet Volume 10.4 FL (9.6-12.0); Monocytes % 7.3 % (1.7-12.7); NRBC # 0.02 10*3/uL; Neutrophils % 75.9 % (38.7-73.9); Platelet Count 177 T/CUMM (130-400); Red Blood Count 5.47 MC/CUMM (3.8-5.5); Red Cell Distribution Width 17.7 % (9.3-17.3)
[2021-07-10 22:11] LABS: Albumin 3.1 G/DL (3.4-5.0); Bilirubin,Total 1.3 MG/DL (0.20-1.00); Osmolality,Calculated 285.4 MOS/KG (273-304); Total Protein 6.4 G/DL (6.4-8.2)
[2021-07-10] MEDS ORDERED: ALBUTEROL/IPRATROPIUM 3 ML NEB RESP TX STA ×2 (22:22→23:05)
[2021-07-10] MEDS ORDERED: ONDANSETRON 4 MG/2 ML VIAL IV PRN (22:32)
[2021-07-10] MEDS ORDERED: ALBUTEROL/IPRATROPIUM 3 ML NEB RESP TX PRN (22:32)
[2021-07-10] MEDS ORDERED: ACETAMINOPHEN 325 MG TABLET PO PRN (22:32)
[2021-07-10] MEDS ORDERED: methylPREDNISolone SOD SUC 125 MG/2 ML VIAL IV STA (23:05)
[2021-07-11 02:25] LABS: Basophils % 0.2 % (0.0-0.8); Eosinophils % 0.3 % (0.00-10.9); Hematocrit 45.4 VOL% (42.0-52.0); Immature Granulocytes % 1.4 %; Immature Granulocytes Absolute 0.13 #; Lymphocytes # 0.4 10*3/uL (1.4-4.0); Lymphocytes % 4.4 % (21.2-54.2); Mean Corpuscular HGB Conc 30.8 GM/DL (32-36); Mean Corpuscular Volume 86.5 FL (87-102); Mean Platelet Volume 10.2 FL (9.6-12.0); Monocytes % 1.5 % (1.7-12.7); Neutrophils % 92.2 % (38.7-73.9); Platelet Count 151 T/CUMM (130-400); Red Blood Count 5.25 MC/CUMM (3.8-5.5); Red Cell Distribution Width 17.3 % (9.3-17.3); White Blood Count 9.3 T/CUMM (4-12)
[2021-07-11 03:01] LABS: Albumin 3.1 G/DL (3.4-5.0); Bilirubin,Total 1.1 MG/DL (0.20-1.00); Osmolality,Calculated 287.3 MOS/KG (273-304); Potassium 3.8 MMOL/L (3.5-5.1); Total Protein 6.4 G/DL (6.4-8.2)
[2021-07-11 03:11] LABS: Eosinophils 1 % (0-10); Lymphocytes 6 % (20-55); Nucleated Red Blood Cells 1 (0-5); Segmented Neutrophils 92 % (50-85); Total Cells Counted 100
[2021-07-11 03:14] LABS: Hypochromasia 2+; Platelet Estimate Adequate; Polychromasia Few; Reactive Lymphocytes Few
[2021-07-11] MEDS: PANTOPRAZOLE 40 MG TABLET PO SCH (10:02)
[2021-07-11] MEDS: METOPROLOL SUCCINATE XL 25 MG TABLET PO SCH ×2 (10:02→20:34)
[2021-07-11] MEDS: methylPREDNISolone SOD SUC 40 MG/1 ML VIAL IV SCH ×3 (10:03→20:34)
[2021-07-11] MEDS ORDERED: METOPROLOL TARTRATE 25 MG TABLET PO SCH (11:00)
[2021-07-11] MEDS ORDERED: ALBUTEROL/IPRATROPIUM 3 ML NEB RESP TX SCH (11:00)
[2021-07-11] MEDS: FUROSEMIDE 40 MG/4 ML VIAL IV SCH ×2 (12:42→20:33)
[2021-07-11] MEDS: cefTRIAXone 1,000 MG in SODIUM CHLORIDE 0.9% 100 ML IV SCH (12:42)
[2021-07-11] MEDS: ALBUTEROL/IPRATROPIUM 3 ML NEB RESP TX SCH ×6 (16:14→23:34)
[2021-07-11] MEDS ORDERED: RIVAROXABAN 10 MG TABLET PO SCH (17:00)
[2021-07-11] MEDS: RIVAROXABAN 10 MG TABLET PO SCH (20:34)
[2021-07-12] MEDS: ALBUTEROL/IPRATROPIUM 3 ML NEB RESP TX SCH ×3 (03:12→10:54)
[2021-07-12 04:44] LABS: Hematocrit 44.4 VOL% (42.0-52.0); Hemoglobin 13.6 GM/DL (14.0-18.0); Immature Granulocytes % 0.5 %; Immature Granulocytes Absolute 0.03 #; Lymphocytes # 0.3 10*3/uL (1.4-4.0); Lymphocytes % 4.2 % (21.2-54.2); Mean Corpuscular HGB Conc 30.6 GM/DL (32-36); Mean Platelet Volume 10.5 FL (9.6-12.0); Monocytes % 3.3 % (1.7-12.7); Platelet Count 152 T/CUMM (130-400); Red Blood Count 5.16 MC/CUMM (3.8-5.5); Red Cell Distribution Width 16.7 % (9.3-17.3); White Blood Count 6.2 T/CUMM (4-12)
[2021-07-12 05:11] LABS: Bilirubin,Total 1.5 MG/DL (0.20-1.00); Calcium 9.2 MG/DL (8.5-10.1); Osmolality,Calculated 286.4 MOS/KG (273-304); Potassium 4.3 MMOL/L (3.5-5.1); Total Protein 6.4 G/DL (6.4-8.2)
[2021-07-12 05:33] LABS: Lymphocytes 3 % (20-55); Segmented Neutrophils 92 % (50-85); Total Cells Counted 100
[2021-07-12 05:35] LABS: Hypochromasia 1+
[2021-07-12 05:36] LABS: Microcytosis 1+; Platelet Estimate Adequate; Polychromasia Slight; Target Cells Slight
[2021-07-12] MEDS: PANTOPRAZOLE 40 MG TABLET PO SCH (09:04)
[2021-07-12] MEDS: THEOPHYLLINE ER (24 HR) 400 MG TABLET PO SCH (09:05)
[2021-07-12] MEDS: METOPROLOL SUCCINATE XL 25 MG TABLET PO SCH ×2 (09:05→20:36)
[2021-07-12] MEDS: FUROSEMIDE 40 MG/4 ML VIAL IV SCH ×2 (09:06→20:41)
[2021-07-12] MEDS: methylPREDNISolone SOD SUC 40 MG/1 ML VIAL IV SCH ×3 (09:06→20:37)
[2021-07-12] MEDS: cefTRIAXone 1,000 MG in SODIUM CHLORIDE 0.9% 100 ML IV SCH (11:28)
[2021-07-12] MEDS: COLCHICINE 0.6 MG CAPSULE PO SCH ×2 (11:49→20:36)
[2021-07-12 15:07] LABS: HIV Antigen/Antibody Result Nonreactive (Nonreactive)
[2021-07-12] MEDS: DOXYCYCLINE HYCLATE INJ 100 MG in SODIUM CHLORIDE 0.9% 100 ML IV SCH ×2 (16:47→18:45)
[2021-07-12] MEDS: RIVAROXABAN 10 MG TABLET PO SCH (20:36)
[2021-07-13] MEDS: DOXYCYCLINE HYCLATE INJ 100 MG in SODIUM CHLORIDE 0.9% 100 ML IV SCH ×2 (02:59→15:33)
[2021-07-13] MEDS: THEOPHYLLINE ER (24 HR) 400 MG TABLET PO SCH (09:20)
[2021-07-13] MEDS: COLCHICINE 0.6 MG CAPSULE PO SCH ×2 (09:20→20:10)
[2021-07-13] MEDS: methylPREDNISolone SOD SUC 40 MG/1 ML VIAL IV SCH ×3 (09:21→20:08)
[2021-07-13] MEDS: PANTOPRAZOLE 40 MG TABLET PO SCH (09:21)
[2021-07-13] MEDS: METOPROLOL SUCCINATE XL 25 MG TABLET PO SCH ×2 (09:21→20:10)
[2021-07-13] MEDS: FUROSEMIDE 40 MG/4 ML VIAL IV SCH ×2 (09:23→20:10)
[2021-07-13] MEDS: cefTRIAXone 1,000 MG in SODIUM CHLORIDE 0.9% 100 ML IV SCH (11:39)
[2021-07-13] MEDS: RIVAROXABAN 10 MG TABLET PO SCH (20:10)
[2021-07-14] MEDS: DOXYCYCLINE HYCLATE INJ 100 MG in SODIUM CHLORIDE 0.9% 100 ML IV SCH (03:25)
[2021-07-14 05:52] LABS: Hematocrit 45.9 VOL% (42.0-52.0); Hemoglobin 14.1 GM/DL (14.0-18.0); Immature Granulocytes % 0.5 %; Immature Granulocytes Absolute 0.03 #; Lymphocytes # 0.3 10*3/uL (1.4-4.0); Lymphocytes % 4.1 % (21.2-54.2); Mean Corpuscular HGB Conc 30.7 GM/DL (32-36); Mean Corpuscular Volume 87.8 FL (87-102); Mean Platelet Volume 11.3 FL (9.6-12.0); Monocytes % 1.5 % (1.7-12.7); Neutrophils % 93.9 % (38.7-73.9); Platelet Count 180 T/CUMM (130-400); Red Blood Count 5.23 MC/CUMM (3.8-5.5); Red Cell Distribution Width 16.5 % (9.3-17.3); White Blood Count 6.7 T/CUMM (4-12)
[2021-07-14 06:16] LABS: Lymphocytes 3 % (20-55); Platelet Estimate Normal; Segmented Neutrophils 95 % (50-85); Total Cells Counted 100
[2021-07-14 06:18] LABS: Calcium 8.9 MG/DL (8.5-10.1); Osmolality,Calculated 291.3 MOS/KG (273-304); Potassium 3.8 MMOL/L (3.5-5.1)
[2021-07-14] MEDS: METOPROLOL SUCCINATE XL 25 MG TABLET PO SCH ×2 (09:13→20:52)
[2021-07-14] MEDS: PANTOPRAZOLE 40 MG TABLET PO SCH (09:13)
[2021-07-14] MEDS: THEOPHYLLINE ER (24 HR) 400 MG TABLET PO SCH (09:13)
[2021-07-14] MEDS: COLCHICINE 0.6 MG CAPSULE PO SCH ×2 (09:13→20:52)
[2021-07-14] MEDS: FUROSEMIDE 40 MG/4 ML VIAL IV SCH (09:14)
[2021-07-14] MEDS: methylPREDNISolone SOD SUC 40 MG/1 ML VIAL IV SCH (09:15)
[2021-07-14] MEDS: cefTRIAXone 1,000 MG in SODIUM CHLORIDE 0.9% 100 ML IV SCH (10:22)
[2021-07-14] MEDS: ALBUTEROL/IPRATROPIUM 3 ML NEB RESP TX SCH ×2 (13:42→19:44)
[2021-07-14] MEDS ORDERED: SKIN HEALING OINT (AQUAPHOR) 50 GM TUBE TOP PRN (14:26)
[2021-07-14] MEDS: RIVAROXABAN 10 MG TABLET PO SCH (20:52)
[2021-07-14] MEDS: DOXYCYCLINE HYCLATE 100 MG CAPSULE PO SCH (20:52)
[2021-07-15] MEDS: ALBUTEROL/IPRATROPIUM 3 ML NEB RESP TX SCH ×4 (01:00→19:10)
[2021-07-15 06:34] LABS: Basophils % 0.1 % (0.0-0.8); Hematocrit 48.7 VOL% (42.0-52.0); Hemoglobin 14.9 GM/DL (14.0-18.0); Immature Granulocytes % 0.3 %; Immature Granulocytes Absolute 0.03 #; Lymphocytes # 1.2 10*3/uL (1.4-4.0); Lymphocytes % 11.2 % (21.2-54.2); Mean Corpuscular HGB Conc 30.6 GM/DL (32-36); Mean Corpuscular Volume 87.9 FL (87-102); Mean Platelet Volume 10.8 FL (9.6-12.0); Monocytes % 5.8 % (1.7-12.7); Neutrophils % 82.6 % (38.7-73.9); Platelet Count 176 T/CUMM (130-400); Red Blood Count 5.54 MC/CUMM (3.8-5.5); Red Cell Distribution Width 16.7 % (9.3-17.3); White Blood Count 10.6 T/CUMM (4-12)
[2021-07-15 07:07] LABS: Calcium 9.1 MG/DL (8.5-10.1); Osmolality,Calculated 287.5 MOS/KG (273-304); Potassium 3.9 MMOL/L (3.5-5.1)
[2021-07-15] MEDS: predniSONE 10 MG TABLET PO SCH (08:25)
[2021-07-15] MEDS: COLCHICINE 0.6 MG CAPSULE PO SCH ×2 (08:25→21:00)
[2021-07-15] MEDS: THEOPHYLLINE ER (24 HR) 400 MG TABLET PO SCH (08:25)
[2021-07-15] MEDS: PANTOPRAZOLE 40 MG TABLET PO SCH (08:26)
[2021-07-15] MEDS: FUROSEMIDE 40 MG TABLET PO SCH (08:26)
[2021-07-15] MEDS: METOPROLOL SUCCINATE XL 25 MG TABLET PO SCH ×2 (08:26→21:00)
[2021-07-15] MEDS: DOXYCYCLINE HYCLATE 100 MG CAPSULE PO SCH ×2 (08:59→21:00)
[2021-07-15] MEDS: traMADol 50 MG TABLET PO PRN (12:58)
[2021-07-15] MEDS: RIVAROXABAN 10 MG TABLET PO SCH (21:00)
[2021-07-16] MEDS: ALBUTEROL/IPRATROPIUM 3 ML NEB RESP TX SCH ×4 (00:10→19:44)
[2021-07-16 05:00] LABS: Basophils % 0.1 % (0.0-0.8); Eosinophils # 0.1 10*3/uL (0.0-0.87); Eosinophils % 1.8 % (0.00-10.9); Hematocrit 46.6 VOL% (42.0-52.0); Immature Granulocytes % 0.4 %; Immature Granulocytes Absolute 0.03 #; Lymphocytes # 1.9 10*3/uL (1.4-4.0); Mean Corpuscular HGB Conc 29.6 GM/DL (32-36); Mean Corpuscular Volume 87.6 FL (87-102); Mean Platelet Volume 10.5 FL (9.6-12.0); Monocytes % 6.3 % (1.7-12.7); Neutrophils % 67.4 % (38.7-73.9); Platelet Count 159 T/CUMM (130-400); Red Blood Count 5.32 MC/CUMM (3.8-5.5); Red Cell Distribution Width 16.6 % (9.3-17.3); White Blood Count 7.7 T/CUMM (4-12)
[2021-07-16 05:02] LABS: Hemoglobin 13.8 GM/DL (14.0-18.0)
[2021-07-16 05:22] LABS: Calcium 8.8 MG/DL (8.5-10.1); Osmolality,Calculated 292.1 MOS/KG (273-304); Potassium 3.5 MMOL/L (3.5-5.1)
[2021-07-16] MEDS: COLCHICINE 0.6 MG CAPSULE PO SCH ×2 (09:59→20:30)
[2021-07-16] MEDS: THEOPHYLLINE ER (24 HR) 400 MG TABLET PO SCH (09:59)
[2021-07-16] MEDS: PANTOPRAZOLE 40 MG TABLET PO SCH (09:59)
[2021-07-16] MEDS: DOXYCYCLINE HYCLATE 100 MG CAPSULE PO SCH ×2 (09:59→20:30)
[2021-07-16] MEDS: predniSONE 10 MG TABLET PO SCH (09:59)
[2021-07-16] MEDS: METOPROLOL SUCCINATE XL 25 MG TABLET PO SCH ×2 (10:00→20:31)
[2021-07-16] MEDS: FUROSEMIDE 40 MG TABLET PO SCH (10:00)
[2021-07-16] MEDS ORDERED: ASPIRIN EC 325 MG TABLET PO ONE (17:48)
[2021-07-16] MEDS: RIVAROXABAN 10 MG TABLET PO SCH (20:31)
[2021-07-16] MEDS: traMADol 50 MG TABLET PO PRN (20:32)
[2021-07-17] MEDS: ALBUTEROL/IPRATROPIUM 3 ML NEB RESP TX SCH ×2 (01:10→06:56)
[2021-07-17 04:56] LABS: Calcium 8.7 MG/DL (8.5-10.1); Potassium 3.4 MMOL/L (3.5-5.1)
[2021-07-17] MEDS ORDERED: ALBUTEROL/IPRATROPIUM 3 ML NEB RESP TX SCH (07:26)
[2021-07-17] MEDS: FUROSEMIDE 40 MG TABLET PO SCH (08:24)
[2021-07-17] MEDS: THEOPHYLLINE ER (24 HR) 400 MG TABLET PO SCH (08:24)
[2021-07-17] MEDS: METOPROLOL SUCCINATE XL 25 MG TABLET PO SCH (08:24)
[2021-07-17] MEDS: DOXYCYCLINE HYCLATE 100 MG CAPSULE PO SCH (08:25)
[2021-07-17] MEDS: PANTOPRAZOLE 40 MG TABLET PO SCH (08:25)
[2021-07-17] MEDS: predniSONE 10 MG TABLET PO SCH (08:25)
[2021-07-17] MEDS ORDERED: POTASSIUM CHLORIDE 10 MEQ TABLET PO SCH (09:00)
[2021-07-17] MEDS ORDERED: ASPIRIN EC 325 MG TABLET PO SCH (09:00)
[2021-07-17] MEDS ORDERED: ASPIRIN EC 81 MG TABLET PO SCH (09:00)
[2021-07-17] MEDS ORDERED: POTASSIUM CHLORIDE 20 MEQ TABLET PO ONE (09:39)
[2021-07-17 12:46] VITALS: BP 126/85
== END 2021-07-17 14:40 | disposition home health service (06) | DRG 291 ==
LOC: EDSEX → EDBD → EDUNIT# → N.EDINP 20:48 → N.ED 20:48 → N.CC 23:24 → N.2W 07-12 18:42
PROVIDERS: ADMIT Internal Medicine; ATTEND Internal Medicine

== ENCOUNTER 2021-08-01 23:18 | Inpatient (IN) ==
[2021-08-02] MEDS ORDERED: ALBUTEROL/IPRATROPIUM 3 ML NEB RESP TX ONE (00:10)
[2021-08-02] MEDS ORDERED: ALBUTEROL/IPRATROPIUM 3 ML NEB RESP TX STA (00:13)
[2021-08-02 00:14] LABS: INR 1.4; PT Patient Result 15.4 SECS (10.5-12.0)
[2021-08-02 00:17] LABS: ABG Base Excess 2.7 MMOL/L (-2.5-2.5); ABG HCO3 28.6 MMOL/L (20-26); ABG Oxygen Saturation 85.2 % (95-100); ABG PCO2 48.3 MM HG (35-48); ABG PO2 54.3 MM HG (80-95); ABG TCO2 30.1 MMOL/L (23-27)
[2021-08-02 00:25] LABS: Albumin 3.4 G/DL (3.4-5.0); Calcium 9.1 MG/DL (8.5-10.1); Osmolality,Calculated 286.5 MOS/KG (273-304); Potassium 4.2 MMOL/L (3.5-5.1); Total Protein 7.1 G/DL (6.4-8.2)
[2021-08-02 00:37] LABS: Basophils % 0.4 % (0.0-0.8); Eosinophils % 0.3 % (0.00-10.9); Hematocrit 47.9 VOL% (42.0-52.0); Immature Granulocytes % 1.5 %; Immature Granulocytes Absolute 0.11 #; Lymphocytes # 0.7 10*3/uL (1.4-4.0); Lymphocytes % 10.1 % (21.2-54.2); Mean Corpuscular HGB Conc 30.3 GM/DL (32-36); Mean Corpuscular Volume 83.9 FL (87-102); Mean Platelet Volume 11.7 FL (9.6-12.0); Monocytes % 5.3 % (1.7-12.7); NRBC # 0.03 10*3/uL; Neutrophils % 82.4 % (38.7-73.9); Platelet Count 161 T/CUMM (130-400); Red Blood Count 5.71 MC/CUMM (3.8-5.5); White Blood Count 7.3 T/CUMM (4-12)
[2021-08-02 00:38] LABS: Hemoglobin 14.5 GM/DL (14.0-18.0)
[2021-08-02] MEDS ORDERED: methylPREDNISolone SOD SUC 125 MG/2 ML VIAL IV STA (00:43)
[2021-08-02] MEDS ORDERED: ONDANSETRON 4 MG/2 ML VIAL IV PRN (00:46)
[2021-08-02] MEDS ORDERED: ACETAMINOPHEN 325 MG TABLET PO PRN (00:46)
[2021-08-02] MEDS ORDERED: LEVOFLOXACIN INJ 500 MG/100 ML PREMIX IV ONE (00:49)
[2021-08-02] MEDS: METOPROLOL TARTRATE 25 MG TABLET PO SCH ×2 (03:07→20:14)
[2021-08-02 05:07] LABS: Basophils % 0.2 % (0.0-0.8); Hematocrit 46.6 VOL% (42.0-52.0); Hemoglobin 14.5 GM/DL (14.0-18.0); Immature Granulocytes % 0.4 %; Immature Granulocytes Absolute 0.03 #; Lymphocytes # 0.4 10*3/uL (1.4-4.0); Lymphocytes % 4.4 % (21.2-54.2); Mean Corpuscular HGB Conc 31.1 GM/DL (32-36); Mean Corpuscular Volume 84.7 FL (87-102); Mean Platelet Volume 12.7 FL (9.6-12.0); Monocytes % 2.1 % (1.7-12.7); NRBC # 0.03 10*3/uL; Neutrophils % 92.9 % (38.7-73.9); Platelet Count 150 T/CUMM (130-400); Red Cell Distribution Width 17.6 % (9.3-17.3); White Blood Count 8.4 T/CUMM (4-12)
[2021-08-02 05:35] LABS: Albumin 3.2 G/DL (3.4-5.0); Bilirubin,Total 1.5 MG/DL (0.20-1.00); Calcium 9.1 MG/DL (8.5-10.1); Osmolality,Calculated 286.4 MOS/KG (273-304); Potassium 4.9 MMOL/L (3.5-5.1)
[2021-08-02 05:45] LABS: Anisocytosis 1+; Band Neutrophils 1 % (0-10); Lymphocytes 3 % (20-55); Platelet Estimate Normal; Segmented Neutrophils 93 % (50-85); Total Cells Counted 100
[2021-08-02 05:46] LABS: Macrocytosis Slight
[2021-08-02] MEDS ORDERED: SKIN HEALING OINT (AQUAPHOR) 50 GM TUBE TOP PRN (07:20)
[2021-08-02] MEDS: PANTOPRAZOLE 40 MG TABLET PO SCH (09:34)
[2021-08-02] MEDS: FUROSEMIDE 40 MG TABLET PO SCH ×2 (09:34→20:15)
[2021-08-02] MEDS: ASPIRIN EC 81 MG TABLET PO SCH (09:34)
[2021-08-02] MEDS: THEOPHYLLINE ER (24 HR) 400 MG TABLET PO SCH (09:34)
[2021-08-02] MEDS: methylPREDNISolone SOD SUC 40 MG/1 ML VIAL IV SCH ×2 (09:35→16:19)
[2021-08-02] MEDS: ALBUTEROL/IPRATROPIUM 3 ML NEB RESP TX PRN ×2 (11:24→20:01)
[2021-08-02] MEDS: RIVAROXABAN 10 MG TABLET PO SCH (20:15)
[2021-08-02] MEDS: traMADol 50 MG TABLET PO PRN (21:58)
[2021-08-03] MEDS: methylPREDNISolone SOD SUC 40 MG/1 ML VIAL IV SCH ×3 (00:12→17:06)
[2021-08-03] MEDS: ALBUTEROL/IPRATROPIUM 3 ML NEB RESP TX PRN (00:38)
[2021-08-03] MEDS: THEOPHYLLINE ER (24 HR) 400 MG TABLET PO SCH (09:27)
[2021-08-03] MEDS: ASPIRIN EC 81 MG TABLET PO SCH (09:27)
[2021-08-03] MEDS: PANTOPRAZOLE 40 MG TABLET PO SCH (09:28)
[2021-08-03] MEDS: METOPROLOL TARTRATE 25 MG TABLET PO SCH ×2 (09:28→20:18)
[2021-08-03] MEDS: FUROSEMIDE 40 MG/4 ML VIAL IV SCH (10:22)
[2021-08-03] MEDS: cefTRIAXone 2,000 MG in SODIUM CHLORIDE 0.9% 100 ML IV SCH (10:23)
[2021-08-03] MEDS: FUROSEMIDE 40 MG TABLET PO SCH (10:23)
[2021-08-03] MEDS ORDERED: KETOROLAC 30 MG/1 ML VIAL IV ONE (10:30)
[2021-08-03] MEDS: amLODIPine 5 MG TABLET PO SCH (12:08)
[2021-08-03] MEDS ORDERED: SKIN HEALING OINT (AQUAPHOR) 50 GM TUBE TOP SCH (16:00)
[2021-08-03] MEDS ORDERED: COLCHICINE 0.6 MG CAPSULE PO ONE (16:08)
[2021-08-03] MEDS: RIVAROXABAN 10 MG TABLET PO SCH (20:17)
[2021-08-03] MEDS: traMADol 50 MG TABLET PO PRN (20:18)
[2021-08-03] MEDS: BENZONATATE 100 MG CAPSULE PO SCH (20:18)
[2021-08-03] MEDS: ALBUTEROL/IPRATROPIUM 3 ML NEB RESP TX SCH (20:24)
[2021-08-04] MEDS: methylPREDNISolone SOD SUC 40 MG/1 ML VIAL IV SCH ×3 (00:34→16:03)
[2021-08-04] MEDS: ALBUTEROL/IPRATROPIUM 3 ML NEB RESP TX SCH ×5 (01:11→19:50)
[2021-08-04 04:21] LABS: Hematocrit 44.5 VOL% (42.0-52.0); Hemoglobin 13.7 GM/DL (14.0-18.0); Immature Granulocytes % 0.9 %; Immature Granulocytes Absolute 0.07 #; Lymphocytes # 0.3 10*3/uL (1.4-4.0); Lymphocytes % 3.9 % (21.2-54.2); Mean Corpuscular HGB Conc 30.8 GM/DL (32-36); Monocytes % 1.8 % (1.7-12.7); Neutrophils % 93.4 % (38.7-73.9); Platelet Count 149 T/CUMM (130-400); Red Cell Distribution Width 17.5 % (9.3-17.3); White Blood Count 7.9 T/CUMM (4-12)
[2021-08-04 04:34] LABS: Calcium 8.7 MG/DL (8.5-10.1); Potassium 4.3 MMOL/L (3.5-5.1)
[2021-08-04 04:45] LABS: Hypochromasia 2+; Lymphocytes 3 % (20-55); Microcytosis 1+; Ovalocytes Slight; Platelet Estimate Adequate; Segmented Neutrophils 95 % (50-85); Tear Drop Cells Slight; Total Cells Counted 100
[2021-08-04] MEDS: ASPIRIN EC 81 MG TABLET PO SCH (09:23)
[2021-08-04] MEDS: amLODIPine 5 MG TABLET PO SCH (09:23)
[2021-08-04] MEDS: METOPROLOL TARTRATE 25 MG TABLET PO SCH (09:23)
[2021-08-04] MEDS: COLCHICINE 0.6 MG CAPSULE PO SCH (09:23)
[2021-08-04] MEDS: PANTOPRAZOLE 40 MG TABLET PO SCH (09:23)
[2021-08-04] MEDS: FUROSEMIDE 40 MG/4 ML VIAL IV SCH (09:24)
[2021-08-04] MEDS: BENZONATATE 100 MG CAPSULE PO SCH ×3 (09:28→22:18)
[2021-08-04] MEDS: cefTRIAXone 2,000 MG in SODIUM CHLORIDE 0.9% 100 ML IV SCH (09:29)
[2021-08-04] MEDS: traMADol 50 MG TABLET PO PRN (22:17)
[2021-08-04] MEDS: RIVAROXABAN 10 MG TABLET PO SCH (22:17)
[2021-08-04] MEDS: METOPROLOL TARTRATE 50 MG TABLET PO SCH (22:18)
[2021-08-05] MEDS: ALBUTEROL/IPRATROPIUM 3 ML NEB RESP TX SCH ×4 (01:03→19:34)
[2021-08-05] MEDS: methylPREDNISolone SOD SUC 40 MG/1 ML VIAL IV SCH ×3 (01:42→17:33)
[2021-08-05 05:35] LABS: Calcium 9.1 MG/DL (8.5-10.1); Osmolality,Calculated 290.5 MOS/KG (273-304); Potassium 4.3 MMOL/L (3.5-5.1)
[2021-08-05] MEDS: METOPROLOL TARTRATE 50 MG TABLET PO SCH ×2 (09:33→20:28)
[2021-08-05] MEDS: ASPIRIN EC 81 MG TABLET PO SCH (09:33)
[2021-08-05] MEDS: PANTOPRAZOLE 40 MG TABLET PO SCH (09:33)
[2021-08-05] MEDS: BENZONATATE 100 MG CAPSULE PO SCH ×3 (09:33→20:28)
[2021-08-05] MEDS: FUROSEMIDE 80 MG TABLET PO SCH (09:34)
[2021-08-05] MEDS: amLODIPine 5 MG TABLET PO SCH (09:34)
[2021-08-05] MEDS: COLCHICINE 0.6 MG CAPSULE PO SCH (09:34)
[2021-08-05] MEDS: cefTRIAXone 2,000 MG in SODIUM CHLORIDE 0.9% 100 ML IV SCH (09:39)
[2021-08-05] MEDS: traMADol 50 MG TABLET PO PRN (20:28)
[2021-08-05] MEDS: RIVAROXABAN 10 MG TABLET PO SCH (20:28)
[2021-08-06] MEDS: ALBUTEROL/IPRATROPIUM 3 ML NEB RESP TX SCH ×4 (00:05→21:37)
[2021-08-06] MEDS: methylPREDNISolone SOD SUC 40 MG/1 ML VIAL IV SCH ×3 (01:12→16:33)
[2021-08-06 06:55] LABS: Calcium 8.6 MG/DL (8.5-10.1); Osmolality,Calculated 289.7 MOS/KG (273-304)
[2021-08-06] MEDS: BUDESONIDE 0.25 MG/2 ML NEB RESP TX SCH ×2 (07:25→21:37)
[2021-08-06] MEDS: COLCHICINE 0.6 MG CAPSULE PO SCH (09:51)
[2021-08-06] MEDS: BENZONATATE 100 MG CAPSULE PO SCH ×3 (09:52→21:11)
[2021-08-06] MEDS: METOPROLOL TARTRATE 50 MG TABLET PO SCH ×2 (09:52→21:12)
[2021-08-06] MEDS: PANTOPRAZOLE 40 MG TABLET PO SCH (09:52)
[2021-08-06] MEDS: ASPIRIN EC 81 MG TABLET PO SCH (09:52)
[2021-08-06] MEDS: cefTRIAXone 2,000 MG in SODIUM CHLORIDE 0.9% 100 ML IV SCH (09:52)
[2021-08-06] MEDS: amLODIPine 5 MG TABLET PO SCH (09:52)
[2021-08-06] MEDS: FUROSEMIDE 80 MG TABLET PO SCH (09:59)
[2021-08-06] MEDS: traMADol 50 MG TABLET PO PRN (21:12)
[2021-08-06] MEDS: RIVAROXABAN 10 MG TABLET PO SCH (21:12)
[2021-08-07] MEDS: ALBUTEROL/IPRATROPIUM 3 ML NEB RESP TX SCH ×4 (01:24→19:43)
[2021-08-07] MEDS: methylPREDNISolone SOD SUC 40 MG/1 ML VIAL IV SCH ×3 (01:40→17:25)
[2021-08-07 06:14] LABS: Calcium 8.9 MG/DL (8.5-10.1); Osmolality,Calculated 290.8 MOS/KG (273-304); Potassium 4.4 MMOL/L (3.5-5.1)
[2021-08-07] MEDS: BUDESONIDE 0.25 MG/2 ML NEB RESP TX SCH ×2 (07:15→19:43)
[2021-08-07] MEDS: cefTRIAXone 2,000 MG in SODIUM CHLORIDE 0.9% 100 ML IV SCH (09:37)
[2021-08-07] MEDS: PANTOPRAZOLE 40 MG TABLET PO SCH (09:38)
[2021-08-07] MEDS: METOPROLOL TARTRATE 50 MG TABLET PO SCH ×2 (09:38→21:28)
[2021-08-07] MEDS: ASPIRIN EC 81 MG TABLET PO SCH (09:38)
[2021-08-07] MEDS: amLODIPine 5 MG TABLET PO SCH (09:39)
[2021-08-07] MEDS: COLCHICINE 0.6 MG CAPSULE PO SCH ×2 (09:39→21:28)
[2021-08-07] MEDS: BENZONATATE 100 MG CAPSULE PO SCH ×3 (09:39→21:28)
[2021-08-07] MEDS: FUROSEMIDE 80 MG TABLET PO SCH (09:40)
[2021-08-07] MEDS: RIVAROXABAN 10 MG TABLET PO SCH (21:28)
[2021-08-07] MEDS: traMADol 50 MG TABLET PO PRN (21:31)
[2021-08-08] MEDS: ALBUTEROL/IPRATROPIUM 3 ML NEB RESP TX SCH ×4 (00:24→19:07)
[2021-08-08] MEDS: methylPREDNISolone SOD SUC 40 MG/1 ML VIAL IV SCH ×3 (02:52→18:10)
[2021-08-08] MEDS: BUDESONIDE 0.25 MG/2 ML NEB RESP TX SCH ×2 (07:29→19:07)
[2021-08-08] MEDS: amLODIPine 5 MG TABLET PO SCH (08:59)
[2021-08-08] MEDS: ASPIRIN EC 81 MG TABLET PO SCH (08:59)
[2021-08-08] MEDS: METOPROLOL TARTRATE 50 MG TABLET PO SCH ×2 (08:59→21:11)
[2021-08-08] MEDS: COLCHICINE 0.6 MG CAPSULE PO SCH ×2 (08:59→21:10)
[2021-08-08] MEDS: BENZONATATE 100 MG CAPSULE PO SCH ×3 (08:59→21:10)
[2021-08-08] MEDS: PANTOPRAZOLE 40 MG TABLET PO SCH (08:59)
[2021-08-08] MEDS: FUROSEMIDE 80 MG TABLET PO SCH (08:59)
[2021-08-08] MEDS: cefTRIAXone 2,000 MG in SODIUM CHLORIDE 0.9% 100 ML IV SCH (09:00)
[2021-08-08] MEDS: RIVAROXABAN 10 MG TABLET PO SCH (21:10)
[2021-08-08] MEDS: traMADol 50 MG TABLET PO PRN (21:11)
[2021-08-09] MEDS: ALBUTEROL/IPRATROPIUM 3 ML NEB RESP TX SCH ×5 (01:23→20:06)
[2021-08-09] MEDS: methylPREDNISolone SOD SUC 40 MG/1 ML VIAL IV SCH ×3 (02:59→18:07)
[2021-08-09 05:53] LABS: Basophils # 0.1 10*3/uL (0.0-0.2); Basophils % 0.6 % (0.0-0.8); Hematocrit 49.6 VOL% (42.0-52.0); Hemoglobin 15.6 GM/DL (14.0-18.0); Immature Granulocytes % 0.7 %; Immature Granulocytes Absolute 0.09 #; Lymphocytes # 0.4 10*3/uL (1.4-4.0); Lymphocytes % 3.2 % (21.2-54.2); Mean Corpuscular HGB Conc 31.5 GM/DL (32-36); Mean Corpuscular Volume 84.9 FL (87-102); Mean Platelet Volume 12.1 FL (9.6-12.0); Monocytes % 4.7 % (1.7-12.7); NRBC # 0.06 10*3/uL; Neutrophils % 90.8 % (38.7-73.9); Platelet Count 218 T/CUMM (130-400); Red Blood Count 5.84 MC/CUMM (3.8-5.5); Red Cell Distribution Width 18.4 % (9.3-17.3); White Blood Count 12.5 T/CUMM (4-12)
[2021-08-09 06:07] LABS: Albumin 3.3 G/DL (3.4-5.0); Bilirubin,Total 1.3 MG/DL (0.20-1.00); Calcium 8.6 MG/DL (8.5-10.1); Osmolality,Calculated 292.7 MOS/KG (273-304); Potassium 4.4 MMOL/L (3.5-5.1); Total Protein 6.8 G/DL (6.4-8.2)
[2021-08-09 06:18] LABS: Lymphocytes 6 % (20-55); Nucleated Red Blood Cells 3 (0-5); Platelet Estimate Adequate; Segmented Neutrophils 92 % (50-85); Total Cells Counted 100
[2021-08-09] MEDS: BUDESONIDE 0.25 MG/2 ML NEB RESP TX SCH ×2 (07:41→20:06)
[2021-08-09] MEDS: COLCHICINE 0.6 MG CAPSULE PO SCH ×2 (10:07→21:15)
[2021-08-09] MEDS: cefTRIAXone 2,000 MG in SODIUM CHLORIDE 0.9% 100 ML IV SCH (10:07)
[2021-08-09] MEDS: FUROSEMIDE 80 MG TABLET PO SCH (10:07)
[2021-08-09] MEDS: ASPIRIN EC 81 MG TABLET PO SCH (10:07)
[2021-08-09] MEDS: BENZONATATE 100 MG CAPSULE PO SCH ×3 (10:08→21:15)
[2021-08-09] MEDS: PANTOPRAZOLE 40 MG TABLET PO SCH (10:08)
[2021-08-09] MEDS: METOPROLOL TARTRATE 50 MG TABLET PO SCH ×2 (10:08→21:15)
[2021-08-09] MEDS: amLODIPine 5 MG TABLET PO SCH (10:08)
[2021-08-09] MEDS: RIVAROXABAN 10 MG TABLET PO SCH (21:15)
[2021-08-09] MEDS: traMADol 50 MG TABLET PO PRN (21:15)
[2021-08-10] MEDS: ALBUTEROL/IPRATROPIUM 3 ML NEB RESP TX SCH ×4 (01:20→19:40)
[2021-08-10] MEDS: methylPREDNISolone SOD SUC 40 MG/1 ML VIAL IV SCH ×3 (03:04→17:40)
[2021-08-10] MEDS: BUDESONIDE 0.25 MG/2 ML NEB RESP TX SCH ×2 (07:24→19:48)
[2021-08-10] MEDS: COLCHICINE 0.6 MG CAPSULE PO SCH ×2 (08:53→20:46)
[2021-08-10] MEDS: PANTOPRAZOLE 40 MG TABLET PO SCH (08:54)
[2021-08-10] MEDS: METOPROLOL TARTRATE 50 MG TABLET PO SCH ×2 (08:54→20:46)
[2021-08-10] MEDS: amLODIPine 5 MG TABLET PO SCH (08:54)
[2021-08-10] MEDS: FUROSEMIDE 80 MG TABLET PO SCH (08:54)
[2021-08-10] MEDS: BENZONATATE 100 MG CAPSULE PO SCH ×3 (08:54→20:46)
[2021-08-10] MEDS: ASPIRIN EC 81 MG TABLET PO SCH (08:54)
[2021-08-10] MEDS: cefTRIAXone 2,000 MG in SODIUM CHLORIDE 0.9% 100 ML IV SCH (08:55)
[2021-08-10] MEDS: traMADol 50 MG TABLET PO PRN ×2 (12:45→20:47)
[2021-08-10] MEDS: RIVAROXABAN 10 MG TABLET PO SCH (20:46)
[2021-08-11] MEDS: ALBUTEROL/IPRATROPIUM 3 ML NEB RESP TX SCH ×4 (00:53→19:20)
[2021-08-11] MEDS: methylPREDNISolone SOD SUC 40 MG/1 ML VIAL IV SCH ×3 (02:57→18:07)
[2021-08-11] MEDS: BUDESONIDE 0.25 MG/2 ML NEB RESP TX SCH ×2 (07:21→19:20)
[2021-08-11] MEDS: DOXYCYCLINE HYCLATE 100 MG CAPSULE PO SCH ×2 (09:26→21:38)
[2021-08-11] MEDS: ASPIRIN EC 81 MG TABLET PO SCH (09:26)
[2021-08-11] MEDS: COLCHICINE 0.6 MG CAPSULE PO SCH ×2 (09:27→21:38)
[2021-08-11] MEDS: PANTOPRAZOLE 40 MG TABLET PO SCH (09:27)
[2021-08-11] MEDS: METOPROLOL TARTRATE 50 MG TABLET PO SCH ×2 (09:27→21:38)
[2021-08-11] MEDS: BENZONATATE 100 MG CAPSULE PO SCH ×3 (09:27→21:38)
[2021-08-11] MEDS: amLODIPine 5 MG TABLET PO SCH (09:27)
[2021-08-11] MEDS: FUROSEMIDE 80 MG TABLET PO SCH (09:27)
[2021-08-11] MEDS: RIVAROXABAN 10 MG TABLET PO SCH (21:38)
[2021-08-11] MEDS: traMADol 50 MG TABLET PO PRN (21:41)
[2021-08-12] MEDS: ALBUTEROL/IPRATROPIUM 3 ML NEB RESP TX SCH ×4 (01:20→19:30)
[2021-08-12] MEDS: methylPREDNISolone SOD SUC 40 MG/1 ML VIAL IV SCH ×3 (03:35→18:23)
[2021-08-12 06:15] LABS: Basophils % 0.1 % (0.0-0.8); Hematocrit 49.6 VOL% (42.0-52.0); Hemoglobin 15.4 GM/DL (14.0-18.0); Immature Granulocytes % 1.7 %; Immature Granulocytes Absolute 0.16 #; Lymphocytes # 0.4 10*3/uL (1.4-4.0); Lymphocytes % 4.1 % (21.2-54.2); Mean Corpuscular Volume 83.1 FL (87-102); Mean Platelet Volume 10.2 FL (9.6-12.0); Monocytes % 5.6 % (1.7-12.7); NRBC # 0.03 10*3/uL; Neutrophils % 88.5 % (38.7-73.9); Platelet Count 178 T/CUMM (130-400); Red Blood Count 5.97 MC/CUMM (3.8-5.5); Red Cell Distribution Width 18.5 % (9.3-17.3); White Blood Count 9.5 T/CUMM (4-12)
[2021-08-12 06:36] LABS: Albumin 3.2 G/DL (3.4-5.0); Calcium 8.9 MG/DL (8.5-10.1); Osmolality,Calculated 296.5 MOS/KG (273-304); Potassium 4.5 MMOL/L (3.5-5.1); Uric Acid 12.1 MG/DL (3.5-7.2)
[2021-08-12 06:37] LABS: Lymphocytes 2 % (20-55); Platelet Estimate Adequate; Segmented Neutrophils 90 % (50-85); Total Cells Counted 100
[2021-08-12] MEDS: BUDESONIDE 0.25 MG/2 ML NEB RESP TX SCH ×2 (07:00→19:30)
[2021-08-12] MEDS ORDERED: GENTAMICIN INJ 80 MG/50 ML PREMIX IV SCH (09:00)
[2021-08-12] MEDS: PANTOPRAZOLE 40 MG TABLET PO SCH (11:14)
[2021-08-12] MEDS: DOXYCYCLINE HYCLATE 100 MG CAPSULE PO SCH ×2 (11:14→22:19)
[2021-08-12] MEDS: METOPROLOL TARTRATE 50 MG TABLET PO SCH ×2 (11:14→22:20)
[2021-08-12] MEDS: COLCHICINE 0.6 MG CAPSULE PO SCH ×2 (11:14→22:19)
[2021-08-12] MEDS: FUROSEMIDE 80 MG TABLET PO SCH (11:14)
[2021-08-12] MEDS: ASPIRIN EC 81 MG TABLET PO SCH (11:14)
[2021-08-12] MEDS: LINEZOLID INJ 600 MG/300 ML PREMIX IV SCH ×2 (11:14→22:34)
[2021-08-12] MEDS: BENZONATATE 100 MG CAPSULE PO SCH ×3 (11:14→22:33)
[2021-08-12] MEDS: amLODIPine 5 MG TABLET PO SCH (11:14)
[2021-08-12] MEDS: traMADol 50 MG TABLET PO PRN (22:19)
[2021-08-12] MEDS: RIVAROXABAN 10 MG TABLET PO SCH (22:20)
[2021-08-13] MEDS: ALBUTEROL/IPRATROPIUM 3 ML NEB RESP TX SCH ×4 (00:50→20:14)
[2021-08-13] MEDS: methylPREDNISolone SOD SUC 40 MG/1 ML VIAL IV SCH ×4 (01:10→17:46)
[2021-08-13 07:18] LABS: Calcium 8.7 MG/DL (8.5-10.1); Osmolality,Calculated 294.5 MOS/KG (273-304); Potassium 4.5 MMOL/L (3.5-5.1)
[2021-08-13 07:25] LABS: Basophils % 0.1 % (0.0-0.8); Hematocrit 53.5 VOL% (42.0-52.0); Immature Granulocytes % 1.6 %; Immature Granulocytes Absolute 0.21 #; Lymphocytes # 0.4 10*3/uL (1.4-4.0); Mean Corpuscular HGB Conc 30.5 GM/DL (32-36); Mean Corpuscular Volume 83.6 FL (87-102); Mean Platelet Volume 11.1 FL (9.6-12.0); Monocytes % 4.3 % (1.7-12.7); NRBC # 0.03 10*3/uL; Platelet Count 182 T/CUMM (130-400); White Blood Count 13.4 T/CUMM (4-12)
[2021-08-13 07:30] LABS: Hemoglobin 16.3 GM/DL (14.0-18.0)
[2021-08-13 07:33] LABS: Lymphocytes 3 % (20-55); Platelet Estimate Adequate; Segmented Neutrophils 94 % (50-85); Total Cells Counted 100
[2021-08-13] MEDS: BUDESONIDE 0.25 MG/2 ML NEB RESP TX SCH ×2 (07:55→20:14)
[2021-08-13] MEDS: COLCHICINE 0.6 MG CAPSULE PO SCH ×2 (08:56→22:40)
[2021-08-13] MEDS: ASPIRIN EC 81 MG TABLET PO SCH (08:56)
[2021-08-13] MEDS: BENZONATATE 100 MG CAPSULE PO SCH ×3 (08:56→22:38)
[2021-08-13] MEDS: PANTOPRAZOLE 40 MG TABLET PO SCH (08:56)
[2021-08-13] MEDS: DOXYCYCLINE HYCLATE 100 MG CAPSULE PO SCH ×2 (08:56→22:40)
[2021-08-13] MEDS: FUROSEMIDE 80 MG TABLET PO SCH (08:56)
[2021-08-13] MEDS: amLODIPine 5 MG TABLET PO SCH (08:56)
[2021-08-13] MEDS: METOPROLOL TARTRATE 50 MG TABLET PO SCH ×2 (08:56→22:41)
[2021-08-13] MEDS: traMADol 50 MG TABLET PO PRN ×2 (09:01→22:40)
[2021-08-13] MEDS: LINEZOLID INJ 600 MG/300 ML PREMIX IV SCH ×2 (11:51→23:48)
[2021-08-13] MEDS: RIVAROXABAN 10 MG TABLET PO SCH (22:41)
[2021-08-14] MEDS: ALBUTEROL/IPRATROPIUM 3 ML NEB RESP TX SCH ×2 (00:37→07:36)
[2021-08-14] MEDS: methylPREDNISolone SOD SUC 40 MG/1 ML VIAL IV SCH ×3 (01:36→09:45)
[2021-08-14] MEDS: BUDESONIDE 0.25 MG/2 ML NEB RESP TX SCH (07:36)
[2021-08-14 08:09] VITALS: BP 136/92
[2021-08-14] MEDS: ASPIRIN EC 81 MG TABLET PO SCH (08:22)
[2021-08-14] MEDS: DOXYCYCLINE HYCLATE 100 MG CAPSULE PO SCH (08:23)
[2021-08-14] MEDS: COLCHICINE 0.6 MG CAPSULE PO SCH (08:24)
[2021-08-14] MEDS: PANTOPRAZOLE 40 MG TABLET PO SCH (08:24)
[2021-08-14] MEDS: FUROSEMIDE 80 MG TABLET PO SCH (08:24)
[2021-08-14] MEDS: amLODIPine 5 MG TABLET PO SCH (08:25)
[2021-08-14] MEDS: METOPROLOL TARTRATE 50 MG TABLET PO SCH (08:25)
[2021-08-14] MEDS: BENZONATATE 100 MG CAPSULE PO SCH (08:26)
== END 2021-08-14 12:52 | DRG 291 ==
LOC: EDUNIT# → EDBD → N.ED 23:18 → N.EDINP 08-02 00:45 → N.3E 08-02 01:50
PROVIDERS: ADMIT Internal Medicine; ATTEND Internal Medicine

== ENCOUNTER 2021-08-17 04:26 | Inpatient (IN) ==
[2021-08-17] MEDS ORDERED: NITROGLYCERIN 2% OINT 1 INCH/GM PACK TOP STA (04:43)
[2021-08-17] MEDS ORDERED: FUROSEMIDE 100 MG/10 ML VIAL IV STA (04:43)
[2021-08-17] MEDS ORDERED: MORPHINE 2 MG/1 ML SYRINGE IV STA (04:43)
[2021-08-17] MEDS ORDERED: ONDANSETRON 4 MG/2 ML VIAL IV STA (04:43)
[2021-08-17] MEDS ORDERED: methylPREDNISolone SOD SUC 125 MG/2 ML VIAL IV STA (04:43)
[2021-08-17] MEDS ORDERED: IPRATROPIUM 500 MCG/2.5 ML NEB RESP TX STA (04:45)
[2021-08-17 05:00] LABS: Basophils % 0.1 % (0.0-0.8); Eosinophils # 0.1 10*3/uL (0.0-0.87); Eosinophils % 0.8 % (0.00-10.9); Hematocrit 51.7 VOL% (42.0-52.0); Hemoglobin 16.2 GM/DL (14.0-18.0); Immature Granulocytes % 0.8 %; Immature Granulocytes Absolute 0.12 #; Lymphocytes % 12.7 % (21.2-54.2); Mean Corpuscular HGB Conc 31.3 GM/DL (32-36); Mean Corpuscular Volume 81.5 FL (87-102); Monocytes % 8.9 % (1.7-12.7); Neutrophils % 76.7 % (38.7-73.9); Platelet Count 124 T/CUMM (130-400); Red Blood Count 6.34 MC/CUMM (3.8-5.5); Red Cell Distribution Width 19.9 % (9.3-17.3); White Blood Count 15.7 T/CUMM (4-12)
[2021-08-17] MEDS ORDERED: ALBUTEROL NEB SOLN 5 MG/ML 20 ML/BOTTLE CONT NEB SCH (05:00)
[2021-08-17 05:09] LABS: INR 1.1; PT Patient Result 11.9 SECS (10.5-12.0)
[2021-08-17 05:24] LABS: Albumin 3.2 G/DL (3.4-5.0); Bilirubin,Total 1.2 MG/DL (0.20-1.00); Calcium 8.6 MG/DL (8.5-10.1); Osmolality,Calculated 294.3 MOS/KG (273-304); Total Protein 5.8 G/DL (6.4-8.2)
[2021-08-17] MEDS ORDERED: cefTRIAXone 1,000 MG in SODIUM CHLORIDE 0.9% 100 ML IV STA (05:32)
[2021-08-17 05:52] LABS: ABG Base Excess 3.7 MMOL/L (-2.5-2.5); ABG HCO3 27.2 MMOL/L (20-26); ABG Oxygen Saturation 82.3 % (95-100); ABG PCO2 45.5 MM HG (35-48); ABG PH 7.414 (7.35-7.45); ABG PO2 49.8 MM HG (80-95); ABG TCO2 24.2 MMOL/L (23-27)
[2021-08-17 07:30] LABS: Bilirubin,Urine Negative (Negative); Blood, Urine Negative (Negative); Glucose,Urine (UA) Negative (Negative); Ketones,Urine Negative (Negative); Nitrite,Urine Negative (Negative); Protein,Urine Negative; RBC,Urine 1 /HPF (0-4); Urine Appearance CLEAR (Clear); Urine Color Colorless (Yellow); Urine Specific Gravity 1.005 (1.001-1.035); Urine Urobilinogen < 2.0 EU/DL (0.2-1.0)
[2021-08-17] MEDS ORDERED: DEXTROSE 50% 25 GM/50 ML SYRINGE IV PRN (11:07)
[2021-08-17] MEDS ORDERED: GLUCAGON 1 MG VIAL IM PRN (11:07)
[2021-08-17] MEDS: ALBUTEROL/IPRATROPIUM 3 ML NEB RESP TX SCH ×3 (11:15→20:12)
[2021-08-17] MEDS: PANTOPRAZOLE 40 MG TABLET PO SCH (12:00)
[2021-08-17] MEDS: DOCUSATE SODIUM 100 MG CAPSULE PO SCH ×2 (12:00→22:29)
[2021-08-17] MEDS: methylPREDNISolone SOD SUC 40 MG/1 ML VIAL IV SCH ×2 (12:07→22:29)
[2021-08-17] MEDS: SODIUM CHLORIDE 0.9% 1,000 ML IV SCH (12:15)
[2021-08-17] MEDS: FUROSEMIDE 40 MG/4 ML VIAL IV SCH ×2 (12:21→17:06)
[2021-08-17] MEDS: INSULIN REGULAR 100 UNIT/ML SUBCUT SCH ×3 (12:30→17:31)
[2021-08-17] MEDS: MORPHINE 2 MG/1 ML SYRINGE IV PRN ×2 (13:40→23:38)
[2021-08-17] MEDS ORDERED: SKIN HEALING OINT (AQUAPHOR) 50 GM TUBE TOP PRN (21:51)
[2021-08-17] MEDS: COLCHICINE 0.6 MG CAPSULE PO SCH (23:38)
[2021-08-17] MEDS: RIVAROXABAN 10 MG TABLET PO SCH (23:38)
[2021-08-17] MEDS: METOPROLOL SUCCINATE XL 25 MG TABLET PO SCH (23:38)
[2021-08-17] MEDS: AZITHROMYCIN INJ 500 MG in SODIUM CHLORIDE 0.9% 250 ML IV SCH (23:39)
[2021-08-18] MEDS: ALBUTEROL/IPRATROPIUM 3 ML NEB RESP TX SCH ×6 (00:47→19:35)
[2021-08-18] MEDS: INSULIN REGULAR 100 UNIT/ML SUBCUT SCH ×4 (03:17→18:43)
[2021-08-18 03:52] LABS: ABG Base Excess 3.3 MMOL/L (-2.5-2.5); ABG HCO3 26.7 MMOL/L (20-26); ABG Oxygen Saturation 74.6 % (95-100); ABG PCO2 54.5 MM HG (35-48); ABG PH 7.357 (7.35-7.45); ABG PO2 45.8 MM HG (80-95); ABG TCO2 26.2 MMOL/L (23-27)
[2021-08-18 04:30] LABS: ABG Base Excess 2.1 MMOL/L (-2.5-2.5); ABG HCO3 28.9 MMOL/L (20-26); ABG Oxygen Saturation 87.8 % (95-100); ABG PCO2 53.3 MM HG (35-48); ABG PH 7.352 (7.35-7.45); ABG PO2 58.3 MM HG (80-95); ABG TCO2 30.5 MMOL/L (23-27); Allen Test Positive; Pt O2 Delivery Device BIPAP
[2021-08-18] MEDS: methylPREDNISolone SOD SUC 40 MG/1 ML VIAL IV SCH ×3 (05:14→20:36)
[2021-08-18 05:53] LABS: Hematocrit 47.4 VOL% (42.0-52.0); Hemoglobin 14.8 GM/DL (14.0-18.0); Immature Granulocytes % 0.4 %; Immature Granulocytes Absolute 0.03 #; Lymphocytes # 0.2 10*3/uL (1.4-4.0); Lymphocytes % 3.4 % (21.2-54.2); Mean Corpuscular HGB Conc 31.2 GM/DL (32-36); Mean Corpuscular Volume 82.1 FL (87-102); Monocytes % 4.8 % (1.7-12.7); Neutrophils % 91.4 % (38.7-73.9); Platelet Count 101 T/CUMM (130-400); Red Blood Count 5.77 MC/CUMM (3.8-5.5); Red Cell Distribution Width 19.9 % (9.3-17.3); White Blood Count 6.8 T/CUMM (4-12)
[2021-08-18 06:15] LABS: Hypochromasia 1+; Lymphocytes 5 % (20-55); Microcytosis 1+; Nucleated Red Blood Cells 2 (0-5); Ovalocytes Slight; Segmented Neutrophils 92 % (50-85); Target Cells Slight; Tear Drop Cells Slight; Total Cells Counted 100
[2021-08-18 06:16] LABS: Platelet Estimate Decreased
[2021-08-18 06:29] LABS: Thyroid Stimulating Hormone 0.155 uIU/ml (0.358-3.74); Uric Acid 12.3 MG/DL (3.5-7.2)
[2021-08-18 06:33] LABS: Albumin 3.1 G/DL (3.4-5.0); Calcium 8.8 MG/DL (8.5-10.1); Osmolality,Calculated 294.4 MOS/KG (273-304); Potassium 4.2 MMOL/L (3.5-5.1); Risk Ratio 2.21; Total Protein 5.9 G/DL (6.4-8.2)
[2021-08-18] MEDS: amLODIPine 5 MG TABLET PO SCH (09:01)
[2021-08-18] MEDS: ASPIRIN EC 81 MG TABLET PO SCH (09:01)
[2021-08-18] MEDS: BENZONATATE 100 MG CAPSULE PO SCH ×3 (09:01→20:35)
[2021-08-18] MEDS: DOCUSATE SODIUM 100 MG CAPSULE PO SCH ×2 (09:02→20:35)
[2021-08-18] MEDS: METOPROLOL SUCCINATE XL 25 MG TABLET PO SCH ×2 (09:02→20:35)
[2021-08-18] MEDS: COLCHICINE 0.6 MG CAPSULE PO SCH ×2 (09:02→20:36)
[2021-08-18] MEDS: PANTOPRAZOLE 40 MG TABLET PO SCH (09:02)
[2021-08-18] MEDS: FUROSEMIDE 40 MG/4 ML VIAL IV SCH ×2 (09:08→16:53)
[2021-08-18] MEDS: MORPHINE 2 MG/1 ML SYRINGE IV PRN ×3 (16:59→23:47)
[2021-08-18] MEDS: ONDANSETRON 4 MG/2 ML VIAL IV PRN (19:10)
[2021-08-18] MEDS: RIVAROXABAN 10 MG TABLET PO SCH (20:36)
[2021-08-18] MEDS: AZITHROMYCIN INJ 500 MG in SODIUM CHLORIDE 0.9% 250 ML IV SCH (22:10)
[2021-08-19] MEDS: ALBUTEROL/IPRATROPIUM 3 ML NEB RESP TX SCH ×7 (00:34→23:55)
[2021-08-19] MEDS: INSULIN REGULAR 100 UNIT/ML SUBCUT SCH ×4 (01:02→18:18)
[2021-08-19] MEDS: methylPREDNISolone SOD SUC 40 MG/1 ML VIAL IV SCH ×3 (03:29→21:21)
[2021-08-19 06:29] LABS: Albumin 3.1 G/DL (3.4-5.0); Bilirubin,Total 1.8 MG/DL (0.20-1.00); Calcium 8.8 MG/DL (8.5-10.1); Osmolality,Calculated 296.3 MOS/KG (273-304); Potassium 4.6 MMOL/L (3.5-5.1); Total Protein 5.9 G/DL (6.4-8.2)
[2021-08-19] MEDS: COLCHICINE 0.6 MG CAPSULE PO SCH ×2 (08:51→21:19)
[2021-08-19] MEDS: PANTOPRAZOLE 40 MG TABLET PO SCH (08:51)
[2021-08-19] MEDS: ASPIRIN EC 81 MG TABLET PO SCH (08:51)
[2021-08-19] MEDS: MULTIVITAMIN (CENTRUM) TABLET PO SCH (08:52)
[2021-08-19] MEDS: amLODIPine 5 MG TABLET PO SCH (08:52)
[2021-08-19] MEDS: METOPROLOL SUCCINATE XL 25 MG TABLET PO SCH ×2 (08:52→21:19)
[2021-08-19] MEDS: BENZONATATE 100 MG CAPSULE PO SCH ×3 (08:52→21:19)
[2021-08-19] MEDS: FUROSEMIDE 40 MG/4 ML VIAL IV SCH (08:57)
[2021-08-19] MEDS: DOCUSATE SODIUM 100 MG CAPSULE PO SCH (09:50)
[2021-08-19] MEDS: MORPHINE 2 MG/1 ML SYRINGE IV PRN ×2 (16:34→21:30)
[2021-08-19] MEDS: AZITHROMYCIN INJ 500 MG in SODIUM CHLORIDE 0.9% 250 ML IV SCH (21:24)
[2021-08-19] MEDS: RIVAROXABAN 10 MG TABLET PO SCH (21:29)
[2021-08-20] MEDS: INSULIN REGULAR 100 UNIT/ML SUBCUT SCH ×4 (00:36→17:00)
[2021-08-20] MEDS: ALBUTEROL/IPRATROPIUM 3 ML NEB RESP TX SCH ×6 (03:04→23:20)
[2021-08-20] MEDS: methylPREDNISolone SOD SUC 40 MG/1 ML VIAL IV SCH ×2 (04:24→16:38)
[2021-08-20] MEDS: SODIUM CHLORIDE 0.9% 1,000 ML IV SCH ×2 (08:06→10:40)
[2021-08-20] MEDS: MULTIVITAMIN (CENTRUM) TABLET PO SCH (09:13)
[2021-08-20] MEDS: amLODIPine 5 MG TABLET PO SCH (09:13)
[2021-08-20] MEDS: BENZONATATE 100 MG CAPSULE PO SCH ×3 (09:14→21:47)
[2021-08-20] MEDS: METOPROLOL SUCCINATE XL 25 MG TABLET PO SCH ×2 (09:14→21:47)
[2021-08-20] MEDS: ASPIRIN EC 81 MG TABLET PO SCH (09:14)
[2021-08-20] MEDS: PANTOPRAZOLE 40 MG TABLET PO SCH (09:14)
[2021-08-20] MEDS: FUROSEMIDE 40 MG/4 ML VIAL IV SCH (09:15)
[2021-08-20] MEDS: COLCHICINE 0.6 MG CAPSULE PO SCH ×2 (09:16→22:08)
[2021-08-20] MEDS: MORPHINE 2 MG/1 ML SYRINGE IV PRN ×2 (09:23→19:40)
[2021-08-20] MEDS: ARFORMOTEROL 15 MCG/2 ML NEB RESP TX SCH (19:22)
[2021-08-20] MEDS: RIVAROXABAN 10 MG TABLET PO SCH (21:47)
[2021-08-20] MEDS: ONDANSETRON 4 MG/2 ML VIAL IV PRN (21:48)
[2021-08-20] MEDS: AZITHROMYCIN INJ 500 MG in SODIUM CHLORIDE 0.9% 250 ML IV SCH (22:40)
[2021-08-21] MEDS: INSULIN REGULAR 100 UNIT/ML SUBCUT SCH ×4 (00:26→17:55)
[2021-08-21] MEDS: MORPHINE 2 MG/1 ML SYRINGE IV PRN ×2 (00:58→03:48)
[2021-08-21 03:42] LABS: ABG Base Excess 5.9 MMOL/L (-2.5-2.5); ABG HCO3 28.8 MMOL/L (20-26); ABG Oxygen Saturation 57.4 % (95-100); ABG PCO2 54.1 MM HG (35-48); ABG PH 7.388 (7.35-7.45); ABG TCO2 28.8 MMOL/L (23-27)
[2021-08-21] MEDS: ALBUTEROL/IPRATROPIUM 3 ML NEB RESP TX SCH ×5 (03:43→20:30)
[2021-08-21 03:44] LABS: ABG PO2 34.6 MM HG (80-95)
[2021-08-21] MEDS: methylPREDNISolone SOD SUC 40 MG/1 ML VIAL IV SCH ×2 (04:03→16:49)
[2021-08-21 07:18] LABS: Basophils % 0.1 % (0.0-0.8); Hematocrit 41.2 VOL% (42.0-52.0); Hemoglobin 12.9 GM/DL (14.0-18.0); Immature Granulocytes Absolute 0.18 #; Lymphocytes % 5.5 % (21.2-54.2); Mean Corpuscular HGB Conc 31.3 GM/DL (32-36); Mean Corpuscular Volume 82.4 FL (87-102); Monocytes % 7.1 % (1.7-12.7); NRBC # 0.05 10*3/uL; Neutrophils % 86.3 % (38.7-73.9); Red Cell Distribution Width 19.9 % (9.3-17.3); White Blood Count 17.6 T/CUMM (4-12)
[2021-08-21 07:19] LABS: Platelet Count 80 T/CUMM (130-400)
[2021-08-21 07:36] LABS: Albumin 3.3 G/DL (3.4-5.0); Bilirubin,Total 1.1 MG/DL (0.20-1.00); Osmolality,Calculated 286.2 MOS/KG (273-304); Potassium 4.5 MMOL/L (3.5-5.1); Total Protein 5.8 G/DL (6.4-8.2); Uric Acid 11.9 MG/DL (3.5-7.2)
[2021-08-21] MEDS: ARFORMOTEROL 15 MCG/2 ML NEB RESP TX SCH ×2 (07:38→20:30)
[2021-08-21] MEDS: BUDESONIDE 0.25 MG/2 ML NEB RESP TX SCH ×2 (07:38→20:30)
[2021-08-21 07:59] LABS: Hypochromasia 2+; Microcytosis 1+
[2021-08-21 08:00] LABS: Platelet Estimate Decreased; Stomatocytes Slight
[2021-08-21 10:23] LABS: ABG Base Excess 6.2 MMOL/L (-2.5-2.5); ABG HCO3 29.9 MMOL/L (20-26); ABG Oxygen Saturation 90.2 % (95-100); ABG PCO2 46.6 MM HG (35-48); ABG PH 7.438 (7.35-7.45); ABG PO2 60.9 MM HG (80-95); ABG TCO2 27.5 MMOL/L (23-27); Allen Test Positive
[2021-08-21] MEDS: LIDOCAINE 5% PATCH TRANSDERM SCH (10:23)
[2021-08-21] MEDS: COLCHICINE 0.6 MG CAPSULE PO SCH ×2 (10:24→21:51)
[2021-08-21] MEDS: MULTIVITAMIN (CENTRUM) TABLET PO SCH (10:25)
[2021-08-21] MEDS: BENZONATATE 100 MG CAPSULE PO SCH ×3 (10:25→21:50)
[2021-08-21] MEDS: amLODIPine 5 MG TABLET PO SCH (10:25)
[2021-08-21] MEDS: PANTOPRAZOLE 40 MG TABLET PO SCH (10:25)
[2021-08-21] MEDS: ASPIRIN EC 81 MG TABLET PO SCH (10:25)
[2021-08-21] MEDS: METOPROLOL SUCCINATE XL 25 MG TABLET PO SCH ×2 (10:25→21:50)
[2021-08-21] MEDS: FUROSEMIDE 40 MG/4 ML VIAL IV SCH (10:27)
[2021-08-21] MEDS: SODIUM CHLORIDE 0.9% 1,000 ML IV SCH (12:38)
[2021-08-21] MEDS: KETOROLAC 15 MG/1 ML VIAL IV SCH ×2 (15:03→21:51)
[2021-08-21] MEDS: RIVAROXABAN 10 MG TABLET PO SCH (21:51)
[2021-08-21] MEDS: AZITHROMYCIN INJ 500 MG in SODIUM CHLORIDE 0.9% 250 ML IV SCH (22:16)
[2021-08-22] MEDS: ALBUTEROL/IPRATROPIUM 3 ML NEB RESP TX SCH ×6 (01:15→21:04)
[2021-08-22] MEDS: INSULIN REGULAR 100 UNIT/ML SUBCUT SCH ×4 (02:38→19:13)
[2021-08-22] MEDS: MORPHINE 2 MG/1 ML SYRINGE IV PRN ×2 (04:17→23:56)
[2021-08-22] MEDS: methylPREDNISolone SOD SUC 40 MG/1 ML VIAL IV SCH ×2 (04:23→16:19)
[2021-08-22 04:47] LABS: ABG Base Excess 5.8 MMOL/L (-2.5-2.5); ABG HCO3 29.5 MMOL/L (20-26); ABG Oxygen Saturation 89.6 % (95-100); ABG PCO2 53.7 MM HG (35-48); ABG PH 7.388 (7.35-7.45); ABG PO2 62.7 MM HG (80-95); ABG TCO2 28.6 MMOL/L (23-27); Allen Test Positive
[2021-08-22] MEDS: KETOROLAC 15 MG/1 ML VIAL IV SCH ×3 (06:13→21:22)
[2021-08-22 06:27] LABS: Basophils % 0.1 % (0.0-0.8); Eosinophils % 0.1 % (0.00-10.9); Hematocrit 40.1 VOL% (42.0-52.0); Hemoglobin 12.4 GM/DL (14.0-18.0); Immature Granulocytes % 0.6 %; Immature Granulocytes Absolute 0.08 #; Lymphocytes # 1.1 10*3/uL (1.4-4.0); Lymphocytes % 7.7 % (21.2-54.2); Mean Corpuscular HGB Conc 30.9 GM/DL (32-36); Mean Corpuscular Volume 83.7 FL (87-102); Monocytes % 6.5 % (1.7-12.7); NRBC # 0.04 10*3/uL; Red Blood Count 4.79 MC/CUMM (3.8-5.5); Red Cell Distribution Width 19.9 % (9.3-17.3); White Blood Count 13.6 T/CUMM (4-12)
[2021-08-22 06:51] LABS: Platelet Count 69 T/CUMM (130-400)
[2021-08-22 06:51] LABS: Calcium 8.6 MG/DL (8.5-10.1); Osmolality,Calculated 290.7 MOS/KG (273-304); Potassium 4.1 MMOL/L (3.5-5.1)
[2021-08-22 07:05] LABS: Hypochromasia Slight; Microcytosis Slight; Platelet Estimate Decreased
[2021-08-22] MEDS: ARFORMOTEROL 15 MCG/2 ML NEB RESP TX SCH ×2 (07:33→21:04)
[2021-08-22] MEDS: BUDESONIDE 0.25 MG/2 ML NEB RESP TX SCH ×2 (07:33→21:04)
[2021-08-22] MEDS: FUROSEMIDE 40 MG/4 ML VIAL IV SCH (09:25)
[2021-08-22] MEDS: FAMOTIDINE 20 MG TABLET PO SCH (09:26)
[2021-08-22] MEDS: MULTIVITAMIN (CENTRUM) TABLET PO SCH (09:26)
[2021-08-22] MEDS: BENZONATATE 100 MG CAPSULE PO SCH ×3 (09:26→21:22)
[2021-08-22] MEDS: METOPROLOL SUCCINATE XL 25 MG TABLET PO SCH ×2 (09:26→21:22)
[2021-08-22] MEDS: ASPIRIN EC 81 MG TABLET PO SCH (09:26)
[2021-08-22] MEDS: COLCHICINE 0.6 MG CAPSULE PO SCH ×2 (09:26→21:22)
[2021-08-22] MEDS: amLODIPine 5 MG TABLET PO SCH (09:27)
[2021-08-22] MEDS: LIDOCAINE 5% PATCH TRANSDERM SCH (09:27)
[2021-08-22] MEDS: ACETAMINOPHEN 325 MG TABLET PO PRN (09:37)
[2021-08-22] MEDS: RIVAROXABAN 10 MG TABLET PO SCH (21:22)
[2021-08-22] MEDS: SODIUM CHLORIDE 0.9% 1,000 ML IV SCH (22:29)
[2021-08-23] MEDS: INSULIN REGULAR 100 UNIT/ML SUBCUT SCH ×5 (00:33→23:38)
[2021-08-23] MEDS: ALBUTEROL/IPRATROPIUM 3 ML NEB RESP TX SCH ×6 (01:15→19:55)
[2021-08-23] MEDS: ACETAMINOPHEN 325 MG TABLET PO PRN (01:53)
[2021-08-23] MEDS: MORPHINE 2 MG/1 ML SYRINGE IV PRN ×2 (04:23→21:31)
[2021-08-23] MEDS: methylPREDNISolone SOD SUC 40 MG/1 ML VIAL IV SCH ×2 (04:23→15:53)
[2021-08-23] MEDS: KETOROLAC 15 MG/1 ML VIAL IV SCH ×3 (05:36→21:30)
[2021-08-23 07:05] LABS: Basophils % 0.1 % (0.0-0.8); Eosinophils % 0.1 % (0.00-10.9); Hemoglobin 11.9 GM/DL (14.0-18.0); Immature Granulocytes % 0.8 %; Immature Granulocytes Absolute 0.09 #; Lymphocytes # 0.5 10*3/uL (1.4-4.0); Lymphocytes % 4.1 % (21.2-54.2); Mean Corpuscular HGB Conc 32.2 GM/DL (32-36); Mean Corpuscular Volume 81.7 FL (87-102); Monocytes % 4.1 % (1.7-12.7); NRBC # 0.05 10*3/uL; Neutrophils % 90.8 % (38.7-73.9); Platelet Count 61 T/CUMM (130-400); Red Blood Count 4.53 MC/CUMM (3.8-5.5); Red Cell Distribution Width 19.3 % (9.3-17.3); White Blood Count 11.8 T/CUMM (4-12)
[2021-08-23 07:22] LABS: Calcium 8.9 MG/DL (8.5-10.1); Osmolality,Calculated 288.7 MOS/KG (273-304); Potassium 4.1 MMOL/L (3.5-5.1)
[2021-08-23] MEDS: BUDESONIDE 0.25 MG/2 ML NEB RESP TX SCH ×2 (07:25→19:55)
[2021-08-23] MEDS: ARFORMOTEROL 15 MCG/2 ML NEB RESP TX SCH ×2 (07:25→19:55)
[2021-08-23 07:26] LABS: Hypochromasia 2+; Lymphocytes 3 % (20-55); Polychromasia Slight; Segmented Neutrophils 93 % (50-85); Total Cells Counted 100
[2021-08-23 07:27] LABS: Microcytosis 1+; Platelet Estimate Decreased
[2021-08-23] MEDS: MULTIVITAMIN (CENTRUM) TABLET PO SCH (08:10)
[2021-08-23] MEDS: amLODIPine 5 MG TABLET PO SCH (08:10)
[2021-08-23] MEDS: METOPROLOL SUCCINATE XL 25 MG TABLET PO SCH ×2 (08:10→21:30)
[2021-08-23] MEDS: ASPIRIN EC 81 MG TABLET PO SCH (08:10)
[2021-08-23] MEDS: FUROSEMIDE 40 MG/4 ML VIAL IV SCH (08:10)
[2021-08-23] MEDS: BENZONATATE 100 MG CAPSULE PO SCH ×3 (08:10→21:30)
[2021-08-23] MEDS: FAMOTIDINE 20 MG TABLET PO SCH (08:10)
[2021-08-23] MEDS: COLCHICINE 0.6 MG CAPSULE PO SCH ×2 (08:10→21:30)
[2021-08-23] MEDS: LIDOCAINE 5% PATCH TRANSDERM SCH (08:12)
[2021-08-23] MEDS: SODIUM CHLORIDE 0.9% 1,000 ML IV SCH (10:26)
[2021-08-23] MEDS: RIVAROXABAN 10 MG TABLET PO SCH (21:30)
[2021-08-24] MEDS: MORPHINE 2 MG/1 ML SYRINGE IV PRN ×3 (01:37→21:46)
[2021-08-24] MEDS: methylPREDNISolone SOD SUC 40 MG/1 ML VIAL IV SCH ×2 (03:28→16:28)
[2021-08-24] MEDS: ALBUTEROL/IPRATROPIUM 3 ML NEB RESP TX SCH ×8 (04:24→20:46)
[2021-08-24] MEDS: KETOROLAC 15 MG/1 ML VIAL IV SCH ×3 (05:46→21:43)
[2021-08-24] MEDS: INSULIN REGULAR 100 UNIT/ML SUBCUT SCH ×2 (05:50→12:49)
[2021-08-24] MEDS: ACETAMINOPHEN 325 MG TABLET PO PRN (06:07)
[2021-08-24] MEDS: BUDESONIDE 0.25 MG/2 ML NEB RESP TX SCH ×3 (08:14→20:36)
[2021-08-24] MEDS: ARFORMOTEROL 15 MCG/2 ML NEB RESP TX SCH ×3 (08:14→20:33)
[2021-08-24] MEDS: LIDOCAINE 5% PATCH TRANSDERM SCH (08:56)
[2021-08-24] MEDS: MULTIVITAMIN (CENTRUM) TABLET PO SCH (08:56)
[2021-08-24] MEDS: amLODIPine 5 MG TABLET PO SCH (08:56)
[2021-08-24] MEDS: METOPROLOL SUCCINATE XL 25 MG TABLET PO SCH ×2 (08:56→21:41)
[2021-08-24] MEDS: BENZONATATE 100 MG CAPSULE PO SCH ×3 (08:56→21:40)
[2021-08-24] MEDS: ASPIRIN EC 81 MG TABLET PO SCH (08:56)
[2021-08-24] MEDS: COLCHICINE 0.6 MG CAPSULE PO SCH ×2 (08:56→21:41)
[2021-08-24] MEDS: FUROSEMIDE 40 MG/4 ML VIAL IV SCH (08:57)
[2021-08-24] MEDS: FAMOTIDINE 20 MG TABLET PO SCH (08:57)
[2021-08-24] MEDS: SODIUM CHLORIDE 0.9% 1,000 ML IV SCH (12:49)
[2021-08-24] MEDS: RIVAROXABAN 10 MG TABLET PO SCH (21:41)
[2021-08-25] MEDS: ALBUTEROL/IPRATROPIUM 3 ML NEB RESP TX SCH ×5 (04:00→15:00)
[2021-08-25] MEDS: methylPREDNISolone SOD SUC 40 MG/1 ML VIAL IV SCH ×2 (04:28→16:19)
[2021-08-25 04:49] LABS: ABG Base Excess 1.1 MMOL/L (-2.5-2.5); ABG HCO3 25.4 MMOL/L (20-26); ABG Oxygen Saturation 98.9 % (95-100); ABG PCO2 48.1 MM HG (35-48); ABG TCO2 24.1 MMOL/L (23-27)
[2021-08-25] MEDS: KETOROLAC 15 MG/1 ML VIAL IV SCH ×2 (06:02→14:00)
[2021-08-25 06:46] LABS: Alanine Aminotransferase 69 U/L (16-61); Albumin 2.9 G/DL (3.4-5.0); Alkaline Phosphatase 77 U/L (45-117); Aspartate Amino Transferase 30 U/L (0-37); Blood Urea Nitrogen 46 MG/DL (7-18); Calcium 8.4 MG/DL (8.5-10.1); Carbon Dioxide < 1 MMOL/L (21-32); Estimated Glom Filtration Rate 155 ML/MIN; Glucose 131 MG/DL (74-106); Osmolality,Calculated 286.8 MOS/KG (273-304); Potassium 4.4 MMOL/L (3.5-5.1); Sodium 137 MMOL/L (136-145); Total Protein 6.2 G/DL (6.4-8.2)
[2021-08-25 07:48] LABS: Basophils % 0.1 % (0.0-0.8); Eosinophils % 0.1 % (0.00-10.9); Hematocrit 40.9 VOL% (42.0-52.0); Hemoglobin 12.3 GM/DL (14.0-18.0); Immature Granulocytes % 0.8 %; Immature Granulocytes Absolute 0.08 #; Lymphocytes # 0.2 10*3/uL (1.4-4.0); Lymphocytes % 2.5 % (21.2-54.2); Mean Corpuscular HGB Conc 30.1 GM/DL (32-36); Mean Corpuscular Volume 85.2 FL (87-102); Monocytes % 4.3 % (1.7-12.7); Neutrophils % 92.2 % (38.7-73.9); Platelet Count 74 T/CUMM (130-400); Red Cell Distribution Width 20.7 % (9.3-17.3); White Blood Count 9.5 T/CUMM (4-12)
[2021-08-25] MEDS: BUDESONIDE 0.25 MG/2 ML NEB RESP TX SCH (08:00)
[2021-08-25] MEDS: ARFORMOTEROL 15 MCG/2 ML NEB RESP TX SCH (08:00)
[2021-08-25] MEDS: ASPIRIN EC 81 MG TABLET PO SCH (08:21)
[2021-08-25] MEDS: BENZONATATE 100 MG CAPSULE PO SCH ×2 (08:21→14:00)
[2021-08-25] MEDS: amLODIPine 5 MG TABLET PO SCH (08:21)
[2021-08-25] MEDS: FAMOTIDINE 20 MG TABLET PO SCH (08:21)
[2021-08-25] MEDS: COLCHICINE 0.6 MG CAPSULE PO SCH (08:22)
[2021-08-25] MEDS: METOPROLOL SUCCINATE XL 25 MG TABLET PO SCH (08:22)
[2021-08-25] MEDS: MULTIVITAMIN (CENTRUM) TABLET PO SCH (08:22)
[2021-08-25] MEDS: FUROSEMIDE 40 MG/4 ML VIAL IV SCH (08:23)
[2021-08-25] MEDS: LIDOCAINE 5% PATCH TRANSDERM SCH (08:23)
[2021-08-25 08:26] LABS: Lymphocytes 5 % (20-55); Segmented Neutrophils 93 % (50-85); Total Cells Counted 100
[2021-08-25 08:27] LABS: Hypochromasia Slight; Microcytosis Slight; Platelet Estimate Decreased
[2021-08-25] MEDS: SODIUM CHLORIDE 0.9% 1,000 ML IV SCH (14:28)
[2021-08-25 16:23] VITALS: BP 135/82
== END 2021-08-25 18:58 | DRG 291 ==
LOC: EDUNIT# → N.ED 04:26 → N.EDINP 05:32 → N.TELES 14:10
PROVIDERS: ADMIT Internal Medicine; ATTEND Internal Medicine

== ENCOUNTER 2021-09-19 01:40 | Inpatient (IN) ==
[2021-09-19] MEDS ORDERED: methylPREDNISolone SOD SUC 125 MG/2 ML VIAL IV STA (01:54)
[2021-09-19] MEDS ORDERED: ONDANSETRON 4 MG/2 ML VIAL IV ONE (01:54)
[2021-09-19] MEDS ORDERED: ASPIRIN 325 MG TABLET PO STA (01:54)
[2021-09-19] MEDS ORDERED: ALBUTEROL/IPRATROPIUM 3 ML NEB RESP TX STA (01:57)
[2021-09-19] MEDS ORDERED: ALBUTEROL 2.5 MG/3 ML NEB RESP TX STA (01:57)
[2021-09-19 02:29] LABS: ABG Base Excess -2.2 MMOL/L (-2.5-2.5); ABG HCO3 22.4 MMOL/L (20-26); ABG PCO2 47.7 MM HG (35-48); ABG PH 7.317 (7.35-7.45); ABG PO2 74.3 MM HG (80-95); ABG TCO2 21.4 MMOL/L (23-27)
[2021-09-19 02:42] LABS: Basophils % 0.1 % (0.0-0.8); Hematocrit 44.5 VOL% (42.0-52.0); Hemoglobin 13.6 GM/DL (14.0-18.0); Immature Granulocytes % 1.1 %; Immature Granulocytes Absolute 0.16 #; Lymphocytes # 0.6 10*3/uL (1.4-4.0); Lymphocytes % 3.7 % (21.2-54.2); Mean Corpuscular HGB Conc 30.6 GM/DL (32-36); Mean Corpuscular Volume 81.2 FL (87-102); Monocytes % 5.9 % (1.7-12.7); NRBC # 0.33 10*3/uL; Neutrophils % 89.2 % (38.7-73.9); Platelet Count 169 T/CUMM (130-400); Red Blood Count 5.48 MC/CUMM (3.8-5.5); Red Cell Distribution Width 21.2 % (9.3-17.3)
[2021-09-19 02:56] LABS: Alanine Aminotransferase 269 U/L (16-61); Albumin 3.1 G/DL (3.4-5.0); Alkaline Phosphatase 254 U/L (45-117); Aspartate Amino Transferase 146 U/L (0-37); Blood Urea Nitrogen 51 MG/DL (7-18); Calcium 9.2 MG/DL (8.5-10.1); Carbon Dioxide 25 MMOL/L (21-32); Estimated Glom Filtration Rate 98 ML/MIN; Glucose 117 MG/DL (74-106); Osmolality,Calculated 282.2 MOS/KG (273-304); Potassium 4.6 MMOL/L (3.5-5.1); Sodium 134 MMOL/L (136-145); Total Protein 6.8 G/DL (6.4-8.2)
[2021-09-19 03:06] LABS: Band Neutrophils 1 % (0-10); Lymphocytes 2 % (20-55); Nucleated Red Blood Cells 1 (0-5); Platelet Estimate Normal; Segmented Neutrophils 91 % (50-85); Total Cells Counted 100
[2021-09-19] MEDS ORDERED: FUROSEMIDE 40 MG/4 ML VIAL IV STA (03:29)
[2021-09-19] MEDS ORDERED: ACETAMINOPHEN 325 MG TABLET PO PRN (03:46)
[2021-09-19 04:40] LABS: INR 1.4; PT Patient Result 15.5 SECS (10.5-12.0)
[2021-09-19 07:11] LABS: Basophils % 0.2 % (0.0-0.8); Hemoglobin 14.1 GM/DL (14.0-18.0); Immature Granulocytes % 1.6 %; Lymphocytes # 0.3 10*3/uL (1.4-4.0); Lymphocytes % 2.5 % (21.2-54.2); Mean Corpuscular HGB Conc 30.7 GM/DL (32-36); Mean Corpuscular Volume 82.1 FL (87-102); Monocytes % 3.1 % (1.7-12.7); NRBC # 0.29 10*3/uL; Neutrophils % 92.6 % (38.7-73.9); Platelet Count 148 T/CUMM (130-400); Red Cell Distribution Width 21.6 % (9.3-17.3); White Blood Count 12.5 T/CUMM (4-12)
[2021-09-19 07:31] LABS: Band Neutrophils 1 % (0-10); Lymphocytes 3 % (20-55); Macrocytosis Slight; Nucleated Red Blood Cells 5 (0-5); Platelet Estimate Adequate; Segmented Neutrophils 93 % (50-85); Total Cells Counted 100
[2021-09-19 07:43] LABS: Albumin 3.1 G/DL (3.4-5.0); Bilirubin,Total 2.3 MG/DL (0.20-1.00); Calcium 9.8 MG/DL (8.5-10.1); Osmolality,Calculated 280.4 MOS/KG (273-304); Potassium 4.3 MMOL/L (3.5-5.1); Total Protein 7.2 G/DL (6.4-8.2)
[2021-09-19] MEDS ORDERED: SKIN HEALING OINT (AQUAPHOR) 50 GM TUBE TOP PRN (08:14)
[2021-09-19] MEDS ORDERED: PANTOPRAZOLE 40 MG TABLET PO SCH (09:00)
[2021-09-19] MEDS ORDERED: ENOXAPARIN 30 MG/0.3 ML SYRINGE SUBCUT SCH (09:00)
[2021-09-19] MEDS: METOPROLOL SUCCINATE XL 25 MG TABLET PO SCH ×2 (09:44→21:36)
[2021-09-19] MEDS: DOCUSATE SODIUM 100 MG CAPSULE PO SCH ×2 (09:44→21:36)
[2021-09-19] MEDS: ASPIRIN EC 81 MG TABLET PO SCH (09:44)
[2021-09-19] MEDS: acetaZOLAMIDE 250 MG TABLET PO SCH ×2 (09:44→21:36)
[2021-09-19] MEDS: COLCHICINE 0.6 MG CAPSULE PO SCH ×2 (09:44→21:36)
[2021-09-19] MEDS: BENZONATATE 100 MG CAPSULE PO SCH ×3 (09:44→21:36)
[2021-09-19] MEDS: methylPREDNISolone SOD SUC 40 MG/1 ML VIAL IV SCH ×2 (09:45→21:35)
[2021-09-19] MEDS: amLODIPine 5 MG TABLET PO SCH (09:45)
[2021-09-19] MEDS: FUROSEMIDE 20 MG/2 ML VIAL IV SCH (09:45)
[2021-09-19] MEDS: cefTRIAXone 2,000 MG in SODIUM CHLORIDE 0.9% 100 ML IV SCH (09:45)
[2021-09-19] MEDS: LIDOCAINE 5% PATCH TRANSDERM SCH (10:02)
[2021-09-19] MEDS: ALBUTEROL/IPRATROPIUM 3 ML NEB RESP TX SCH ×4 (10:40→23:35)
[2021-09-19] MEDS: ONDANSETRON 4 MG/2 ML VIAL IV PRN (21:35)
[2021-09-19] MEDS: RIVAROXABAN 10 MG TABLET PO SCH (21:36)
[2021-09-20] MEDS: ALBUTEROL/IPRATROPIUM 3 ML NEB RESP TX SCH ×5 (03:25→19:45)
[2021-09-20 06:25] LABS: Ferritin 277.6 ng/mL (26-388)
[2021-09-20 06:48] LABS: Albumin 3.1 G/DL (3.4-5.0); Bilirubin,Total 2.7 MG/DL (0.20-1.00); Calcium 9.7 MG/DL (8.5-10.1); Osmolality,Calculated 281.9 MOS/KG (273-304); Potassium 5.2 MMOL/L (3.5-5.1); Total Protein 7.4 G/DL (6.4-8.2)
[2021-09-20 07:00] LABS: Hepatitis B Core IgM Quant 0.14 Index; Hepatitis B Surface Ag Quant 0.11 Index; Hepatitis B Surface Ag Result Non-Reactive (NonReactive); Hepatitis C Virus Ab Quant 0.04 Index; Hepatitis C Virus Ab Result Non-Reactive (NonReactive)
[2021-09-20 07:10] LABS: Basophils % 0.2 % (0.0-0.8); Eosinophils # 0.1 10*3/uL (0.0-0.87); Eosinophils % 0.7 % (0.00-10.9); Hematocrit 45.3 VOL% (42.0-52.0); Hemoglobin 13.7 GM/DL (14.0-18.0); Immature Granulocytes % 7.3 %; Lymphocytes # 0.4 10*3/uL (1.4-4.0); Lymphocytes % 3.2 % (21.2-54.2); Mean Corpuscular HGB Conc 30.2 GM/DL (32-36); Mean Corpuscular Volume 82.8 FL (87-102); Monocytes % 4.5 % (1.7-12.7); NRBC # 1.04 10*3/uL; Neutrophils % 84.1 % (38.7-73.9); Platelet Count 165 T/CUMM (130-400); Red Blood Count 5.47 MC/CUMM (3.8-5.5); White Blood Count 13.6 T/CUMM (4-12)
[2021-09-20 07:18] LABS: Lymphocytes 7 % (20-55); Nucleated Red Blood Cells 21 (0-5); Platelet Estimate Adequate; Segmented Neutrophils 87 % (50-85); Total Cells Counted 100
[2021-09-20] MEDS ORDERED: SODIUM CHLORIDE 0.45% 1,000 ML IV SCH (08:30)
[2021-09-20] MEDS: methylPREDNISolone SOD SUC 40 MG/1 ML VIAL IV SCH ×2 (08:52→21:41)
[2021-09-20] MEDS: FUROSEMIDE 20 MG/2 ML VIAL IV SCH (08:59)
[2021-09-20] MEDS: acetaZOLAMIDE 250 MG TABLET PO SCH (09:00)
[2021-09-20] MEDS: cefTRIAXone 2,000 MG in SODIUM CHLORIDE 0.9% 100 ML IV SCH (09:00)
[2021-09-20] MEDS: COLCHICINE 0.6 MG CAPSULE PO SCH (09:00)
[2021-09-20] MEDS: METOPROLOL SUCCINATE XL 25 MG TABLET PO SCH ×2 (09:01→21:40)
[2021-09-20] MEDS: DOCUSATE SODIUM 100 MG CAPSULE PO SCH ×2 (09:01→21:41)
[2021-09-20] MEDS: ASPIRIN EC 81 MG TABLET PO SCH (09:01)
[2021-09-20] MEDS: amLODIPine 5 MG TABLET PO SCH (09:01)
[2021-09-20] MEDS: BENZONATATE 100 MG CAPSULE PO SCH ×3 (09:01→21:41)
[2021-09-20] MEDS: PANTOPRAZOLE 40 MG VIAL IV SCH ×2 (09:05→21:41)
[2021-09-20] MEDS: LIDOCAINE 5% PATCH TRANSDERM SCH (10:36)
[2021-09-20] MEDS: SODIUM CHLORIDE 0.9% 1,000 ML IV SCH (12:00)
[2021-09-20] MEDS: RIVAROXABAN 10 MG TABLET PO SCH (21:40)
[2021-09-20] MEDS: ONDANSETRON 4 MG/2 ML VIAL IV PRN (21:41)
[2021-09-21] MEDS: ALBUTEROL/IPRATROPIUM 3 ML NEB RESP TX SCH ×7 (00:08→23:08)
[2021-09-21 07:00] LABS: Albumin 2.7 G/DL (3.4-5.0); Bilirubin,Total 3.1 MG/DL (0.20-1.00); Calcium 8.3 MG/DL (8.5-10.1); Osmolality,Calculated 280.4 MOS/KG (273-304)
[2021-09-21 07:42] LABS: Potassium 7.2 MMOL/L (3.5-5.1)
[2021-09-21 09:06] LABS: Hematocrit 48.2 VOL% (42.0-52.0); Mean Corpuscular HGB Conc 29.9 GM/DL (32-36); Mean Corpuscular Volume 82.8 FL (87-102); Platelet Count 140 T/CUMM (130-400); Red Blood Count 5.82 MC/CUMM (3.8-5.5); Red Cell Distribution Width 22.7 % (9.3-17.3); White Blood Count 15.4 T/CUMM (4-12)
[2021-09-21 09:09] LABS: Hemoglobin 14.4 GM/DL (14.0-18.0)
[2021-09-21 09:14] LABS: Band Neutrophils 6 % (0-10); Lymphocytes 15 % (20-55); Myelocytes 4 %; Nucleated Red Blood Cells 28 (0-5); Platelet Estimate Adequate; Segmented Neutrophils 71 % (50-85); Total Cells Counted 100
[2021-09-21 09:15] LABS: Macrocytosis Slight; Polychromasia Slight
[2021-09-21] MEDS: methylPREDNISolone SOD SUC 40 MG/1 ML VIAL IV SCH ×2 (09:27→17:13)
[2021-09-21] MEDS: SODIUM CHLORIDE 0.9% 1,000 ML IV SCH (09:29)
[2021-09-21] MEDS: DOCUSATE SODIUM 100 MG CAPSULE PO SCH ×2 (09:30→21:13)
[2021-09-21] MEDS: amLODIPine 5 MG TABLET PO SCH (09:30)
[2021-09-21] MEDS: METOPROLOL SUCCINATE XL 25 MG TABLET PO SCH ×2 (09:30→21:13)
[2021-09-21] MEDS: cefTRIAXone 2,000 MG in SODIUM CHLORIDE 0.9% 100 ML IV SCH (09:30)
[2021-09-21] MEDS: BENZONATATE 100 MG CAPSULE PO SCH ×3 (09:30→21:13)
[2021-09-21] MEDS: ASPIRIN EC 81 MG TABLET PO SCH (09:30)
[2021-09-21] MEDS: LIDOCAINE 5% PATCH TRANSDERM SCH ×2 (09:47→12:19)
[2021-09-21] MEDS: PANTOPRAZOLE 40 MG VIAL IV SCH ×2 (09:47→21:13)
[2021-09-21] MEDS: SODIUM POLYSTYRENE SULFATE 15 GM/60 ML BOTTLE PO SCH ×2 (09:47→15:31)
[2021-09-21] MEDS ORDERED: SODIUM BICARBONATE 50 MEQ/50 ML VIAL IV ONE (12:00)
[2021-09-21] MEDS: SODIUM CHLORIDE 23.4% CONC INJ 38.5 MEQ, SODIUM BICARB INJ 100 MEQ in STERILE WATER INJ... IV SCH (13:32)
[2021-09-21] MEDS ORDERED: SODIUM BICARB INJ 50 MEQ in IV BAG 1 EACH IV ONE (15:00)
[2021-09-21] MEDS ORDERED: SKIN HEALING OINT (AQUAPHOR) 50 GM TUBE TOP SCH (17:00)
[2021-09-21] MEDS: metroNIDAZOLE INJ 500 MG/100 ML PREMIX IV SCH (17:15)
[2021-09-21 18:26] LABS: ABG Base Excess -11.2 MMOL/L (-2.5-2.5); ABG HCO3 15.8 MMOL/L (20-26); ABG Oxygen Saturation 95.3 % (95-100); ABG PCO2 39.3 MM HG (35-48); ABG PH 7.223 (7.35-7.45); ABG PO2 95.4 MM HG (80-95)
[2021-09-21 19:13] LABS: Albumin 2.6 G/DL (3.4-5.0); Bilirubin,Total 3.2 MG/DL (0.20-1.00); Calcium 7.8 MG/DL (8.5-10.1); Osmolality,Calculated 289.1 MOS/KG (273-304); Total Protein 6.4 G/DL (6.4-8.2)
[2021-09-21 19:17] LABS: Potassium 7.5 MMOL/L (3.5-5.1)
[2021-09-21] MEDS ORDERED: SODIUM POLYSTYRENE SULFATE 15 GM/60 ML BOTTLE RECTAL ONE (19:25)
[2021-09-21] MEDS: RIVAROXABAN 10 MG TABLET PO SCH (21:11)
[2021-09-22] MEDS: methylPREDNISolone SOD SUC 40 MG/1 ML VIAL IV SCH (01:39)
[2021-09-22] MEDS: metroNIDAZOLE INJ 500 MG/100 ML PREMIX IV SCH (01:39)
[2021-09-22] MEDS: ALBUTEROL/IPRATROPIUM 3 ML NEB RESP TX SCH ×2 (02:43→07:14)
[2021-09-22] MEDS: SODIUM CHLORIDE 23.4% CONC INJ 38.5 MEQ, SODIUM BICARB INJ 100 MEQ in STERILE WATER INJ... IV SCH (03:41)
[2021-09-22 03:44] LABS: ABG Base Excess -7.6 MMOL/L (-2.5-2.5); ABG HCO3 18.9 MMOL/L (20-26); ABG Oxygen Saturation 95.3 % (95-100); ABG PCO2 41.8 MM HG (35-48); ABG PH 7.272 (7.35-7.45); ABG PO2 89.5 MM HG (80-95); ABG TCO2 20.1 MMOL/L (23-27); Allen Test Positive; Pt O2 Delivery Device BIPAP
[2021-09-22 07:05] LABS: Basophils # 0.2 10*3/uL (0.0-0.2); Basophils % 1.9 % (0.0-0.8); Hematocrit 43.6 VOL% (42.0-52.0); Hemoglobin 13.6 GM/DL (14.0-18.0); Immature Granulocytes % 8.2 %; Immature Granulocytes Absolute 0.68 #; Lymphocytes # 0.2 10*3/uL (1.4-4.0); Lymphocytes % 2.9 % (21.2-54.2); Mean Corpuscular HGB Conc 31.2 GM/DL (32-36); Mean Corpuscular Volume 79.1 FL (87-102); NRBC # 0.63 10*3/uL; Platelet Count 103 T/CUMM (130-400); Red Blood Count 5.51 MC/CUMM (3.8-5.5); Red Cell Distribution Width 22.2 % (9.3-17.3); White Blood Count 8.3 T/CUMM (4-12)
[2021-09-22 07:27] LABS: Eosinophils 5 % (0-10); Hypochromia 1+; Lymphocytes 7 % (20-55); Metamyelocytes 2 %; Nucleated Red Blood Cells 9 (0-5); Segmented Neutrophils 84 % (50-85); Total Cells Counted 100
[2021-09-22 07:28] LABS: Acanthocytes Few; Burr Cells Few; Microcytosis 1+; Platelet Estimate Decreased; Target Cells Slight
[2021-09-22 07:33] LABS: Calcium 7.1 MG/DL (8.5-10.1); Osmolality,Calculated 295.7 MOS/KG (273-304)
[2021-09-22 07:49] LABS: Potassium 6.8 MMOL/L (3.5-5.1)
[2021-09-22] MEDS ORDERED: SODIUM POLYSTYRENE SULFATE 15 GM/60 ML BOTTLE PO ONE (08:39)
[2021-09-22 08:45] VITALS: BP 60/30
[2021-09-22 09:15] LABS: Albumin 2.5 G/DL (3.4-5.0); Bilirubin,Direct 2.46 MG/DL (0.0-0.20); Bilirubin,Indirect 0.7 MG/DL (0.0-1.0); Bilirubin,Total 3.2 MG/DL (0.20-1.00); Total Protein 6.2 G/DL (6.4-8.2)
[2021-09-22] MEDS ORDERED: EPINEPHrine 1 MG/10 ML SYRINGE IV ONE (10:04)
[2021-09-22] MEDS ORDERED: CALCIUM GLUCONATE 1,000 MG/10 ML VIAL IV ONE (10:04)
[2021-09-22] MEDS ORDERED: SODIUM BICARBONATE 10 MEQ/10 ML SYRINGE IV ONE (10:04)
== END 2021-09-22 10:05 | disposition expired | DRG 441 ==
LOC: N.ED 01:40 → N.EDINP 03:46 → N.TELES 04:54 → N.ICU 09-22 09:53
PROVIDERS: ADMIT Internal Medicine; ATTEND Internal Medicine